=== PATIENT | female | born 1935 | race Hispanic/Latino ===

== ENCOUNTER 2016-06-17 16:58 | Emergency (ER) | payer MEDICARE, OTHER ==
[2016-06-17 16:58] VITALS: BMI 22.1
[2016-06-17 17:12] VITALS: TEMP 98
--- NOTE | 2016-06-17 18:03 | ED PDOC ---
Lower Extremity Pain/Injury Time Seen by Provider: 06/17/16 17:16 Chief Complaint (Nursing): Lower Extremity Problem/Injury Chief Complaint (Provider): right knee pain History Per: Patient History/Exam Limitations: no limitations Onset/Duration Of Symptoms: Hrs ("this morning") Current Symptoms Are (Timing): Still Present Additional Complaint(s): Leonila Pizarro is an 80 year old female, with a previous medical history of diabetes, COPD, asthma, Alzheimer's disease, anxiety, hypertension and hypercholesterolemia, who presents to the ED with complaints of right knee pain secondary to falling this morning. Pt states she tripped and fell in a hole. Pt reports to self medicating with alive to alleviate symptoms. Pr denies any numbness, tingling, head injury or loss of consciousness. Of note, pt is requesting to be admitted since her son will be away for the night and she feels lonely. Pt is also requesting food. PMD: none provided Past Medical History Reviewed: Historical Data, Nursing Documentation, Vital Signs Vital Signs: Last Vital Signs Temp 98.0 F 06/17/16 17:06 Pulse 94 H 06/17/16 17:06 Resp 16 06/17/16 17:06 BP 147/93 H 06/17/16 17:06 Pulse Ox 98 06/17/16 17:06 - Medical History PMH: Alzheimer's Disease, Anxiety, Arthritis, Asthma, COPD, Depression, Diabetes , HTN, Hypercholesterolemia Denies: Hepatitis, HIV, Seizures, Sexually Transmitted Disease - Surgical History Surgical History: No Surg Hx - Family History Family History: States: Unknown Family Hx - Living Arrangements Living Arrangements: With Family - Social History Current smoker - smoking cessation education provided: No - Immunization History Hx Tetanus Toxoid Vaccination: No Hx Influenza Vaccination: No Hx Pneumococcal Vaccination: No - Home Medications Home Medications: Ambulatory Orders Medication Instructions Recorded Alprazolam [Xanax] 0.25 mg PO BID PRN #30 tablet 03/27/16 Aspirin [Adult Low Dose Aspirin EC] 81 mg PO DAILY #30 tablet. 03/27/16 Fluticasone/Salmeterol 250/50 1 inh INH BID #1 puff 03/27/16 [Advair Diskus 250/50] Rosuvastatin Calcium [Crestor] 10 mg PO DAILY #30 tab 03/27/16 metFORMIN [glucOPHAGE] 500 mg PO BID #60 tab 03/27/16 hydrOXYzine HCl [Atarax] 25 mg PO Q6H PRN #30 tab 04/14/16 - Allergies Allergies/Adverse Reactions: Allergies Allergy/AdvReac Type Severity Reaction Status Date / Time No Known Allergies Allergy Verified 05/11/16 17:44 Review of Systems ROS Statement: Except As Marked, All Systems Reviewed And Found Negative Musculoskeletal: Positive for: Leg Pain (right knee pain ) Neurological: Negative for: Weakness, Other (numbness ) Physical Exam - Reviewed Nursing Documentation Reviewed: Yes Vital Signs Reviewed: Yes - Physical Exam Appears: Positive for: Well, Non-toxic, No Acute Distress Head Exam: Positive for: ATRAUMATIC, NORMAL INSPECTION, NORMOCEPHALIC Skin: Positive for: Normal Color, Warm, Dry Cardiovascular/Chest: Positive for: Regular Rate, Rhythm Respiratory: Positive for: CNT, Normal Breath Sounds Extremity: Positive for: Normal ROM, Capillary Refill (< 2 seconds ), Other ( small area of ecchymosis inferior medial aspect of the right patella ). Negative for: Calf Tenderness, Deformity, Swelling Neurologic/Psych: Positive for: Alert, Oriented - ECG O2 Sat by Pulse Oximetry: 98 (RA) Pulse Ox Interpretation: Normal Medical Decision Making Medical Decision Making: Initial Impression: right knee injury Initial Plan: * x-ray right knee * reevaluation x-ray normal. Pt asking for a "hot meal". She was given a turkey sandwich. Scribe Attestation: Documented by Claudia Leija, acting as a scribe for Magui Russo PA-C. Provider Scribe Attestation: All medical record entries made by the Scribe were at my direction and personally dictated by me. I have reviewed the chart and agree that the record accurately reflects my personal performance of the history, physical exam, medical decision making, and the department course for this patient. I have also personally directed, reviewed, and agree with the discharge instructions and disposition. Disposition - Clinical Impression Clinical Impression: Knee contusion - Patient ED Disposition Is Patient to be Admitted: No - Disposition Referrals: Roddy Pedroza III, MD [Staff Provider] - Disposition: Routine/Home Disposition Time: 19:15 Condition: GOOD Additional Instructions: Ice, elevation. Instructions: Knee Pain (ED)
[2016-06-17 19:55] VITALS: BP 144/86; PULSE 87; RESP 18; O2SAT 99
--- NOTE | 2016-06-18 11:53 | RAD ---
PROCEDURE: Bilateral Knee Radiographs. HISTORY: knee pain, tripped in hole on sidewalk COMPARISON: None. FINDINGS: BONES: Right Knee: Normal. No fracture. Left Knee: Normal. No fracture. JOINTS: Right Knee: Normal. No osteoarthritis. Left knee: Normal. No osteoarthritis. SOFT TISSUES: Right Knee: Normal. Left Knee: Normal. JOINT EFFUSION: Right Knee: None. Left Knee: None. OTHER FINDINGS: None. IMPRESSION: No acute fracture.
== END 2016-06-17 19:53 | disposition home or self-care (01) ==
LOC: H.ER 16:58
DX: S80.00XA Contusion of unspecified knee, initial encounter (principal); J45.909 Unspecified asthma, uncomplicated; I10 Essential (primary) hypertension; E11.9 Type 2 diabetes mellitus without complications; Z86.59 Personal history of other mental and behavioral disorders; Z79.82 Long term (current) use of aspirin

== ENCOUNTER 2016-06-26 16:25 | Emergency (ER) | payer MEDICARE, OTHER ==
[2016-06-26 16:25] VITALS: BMI 22.1
[2016-06-26 17:11] VITALS: BP 136/75; PULSE 84; RESP 16; TEMP 98.4; O2SAT 98
--- NOTE | 2016-06-26 18:43 | ED PDOC ---
HPI: General Adult Time Seen by Provider: 06/26/16 17:54 Chief Complaint (Nursing): Med Refill Chief Complaint (Provider): Medication refill - xanax, lisinopril History Per: Patient History/Exam Limitations: no limitations Onset/Duration Of Symptoms: Days (today ) Have you had recent travel within the past 21 days to any of the following countries: [place], [place], [place] or [place]?: No Current Symptoms Are (Timing): Still Present Past Medical History Reviewed: Historical Data, Nursing Documentation, Vital Signs Vital Signs: Last Vital Signs Temp 98.4 F 06/26/16 17:08 Pulse 84 06/26/16 17:08 Resp 16 06/26/16 17:08 BP 136/75 06/26/16 17:08 Pulse Ox 98 06/26/16 17:08 - Medical History PMH: Alzheimer's Disease, Anxiety, Arthritis, Asthma, COPD, Depression, Diabetes , HTN, Hypercholesterolemia Denies: Hepatitis, HIV, Seizures, Sexually Transmitted Disease - Surgical History Surgical History: No Surg Hx - Family History Family History: States: Unknown Family Hx - Living Arrangements Living Arrangements: With Family - Social History Current smoker - smoking cessation education provided: No Alcohol: None Drugs: Denies - Immunization History Hx Tetanus Toxoid Vaccination: No Hx Influenza Vaccination: No Hx Pneumococcal Vaccination: No - Home Medications Home Medications: Ambulatory Orders Medication Instructions Recorded Alprazolam [Xanax] 0.25 mg PO BID PRN #30 tablet 03/27/16 Aspirin [Adult Low Dose Aspirin EC] 81 mg PO DAILY #30 tablet. 03/27/16 Fluticasone/Salmeterol 250/50 1 inh INH BID #1 puff 03/27/16 [Advair Diskus 250/50] Rosuvastatin Calcium [Crestor] 10 mg PO DAILY #30 tab 03/27/16 metFORMIN [glucOPHAGE] 500 mg PO BID #60 tab 03/27/16 hydrOXYzine HCl [Atarax] 25 mg PO Q6H PRN #30 tab 04/14/16 Lisinopril [Zestril] 2.5 mg PO DAILY #30 tablet 06/26/16 - Allergies Allergies/Adverse Reactions: Allergies Allergy/AdvReac Type Severity Reaction Status Date / Time No Known Allergies Allergy Verified 06/26/16 17:08 Review of Systems ROS Statement: Except As Marked, All Systems Reviewed And Found Negative Physical Exam - Reviewed Nursing Documentation Reviewed: Yes Vital Signs Reviewed: Yes - Physical Exam Appears: Positive for: Well, Non-toxic, No Acute Distress Head Exam: Positive for: ATRAUMATIC, NORMAL INSPECTION, NORMOCEPHALIC Skin: Positive for: Normal Color, Warm, DRY Eye Exam: Positive for: EOMI, Normal appearance, PERRL ENT: Positive for: Normal ENT Inspection Neck: Positive for: Normal, Painless ROM Cardiovascular/Chest: Positive for: Regular Rate, Rhythm Respiratory: Positive for: CNT, Normal Breath Sounds Gastrointestinal/Abdominal: Positive for: Normal Exam, Bowel Sounds, Soft Back: Positive for: Normal Inspection Extremity: Positive for: Normal ROM Neurologic/Psych: Positive for: Alert, Oriented - ECG O2 Sat by Pulse Oximetry: 98 Disposition - Clinical Impression Clinical Impression: Medication refill - Patient ED Disposition Is Patient to be Admitted: No Counseled Patient/Family Regarding: Diagnosis, Need For Followup, Rx Given - Disposition Referrals: [facility] [Outside] Disposition: Routine/Home Disposition Time: 18:41 Condition: GOOD Prescriptions: Lisinopril [Zestril] 2.5 mg PO DAILY #30 tablet Instructions: Medicine Refill (ED)
== END 2016-06-26 22:51 | disposition home or self-care (01) ==
LOC: H.ER 16:25
DX: Z76.0 Encounter for issue of repeat prescription (principal)

== ENCOUNTER 2016-07-26 15:18 | Emergency (ER) | payer MEDICARE, OTHER ==
[2016-07-26 15:18] VITALS: BMI 22.1
[2016-07-26 15:42] VITALS: BP 97/53; PULSE 91; RESP 16; TEMP 98.2; O2SAT 97
--- NOTE | 2016-07-26 16:50 | ED PDOC ---
HPI: Chest Pain Time Seen by Provider: 07/26/16 15:38 Chief Complaint (Nursing): Chest Pain Chief Complaint (Provider): Chest Pain History Per: Patient History/Exam Limitations: no limitations Onset/Duration Of Symptoms: Days (since yesterday), Intermittent Episodes (only with coughing) Current Symptoms Are (Timing): Gone Now Associated Symptoms: denies: Dyspnea, Other (no fever, leg swelling, feelings of substernal chest pressure) Additional Complaint(s): Leonila Pizarro is an 80 year old female, with a past medical history inclusive of HTN, hypercholesterolemia, COPD, asthma and Alzheimer's Disease, who presents to the ED on 07/26/16 for the evaluation of intermittent, left-sided chest pain that she has experienced since yesterday; only present upon the occasional mild cough. Pain, further described as both sharp and atraumatic, has not been accompanied by any fever, shortness of breath, feelings of substernal chest pressure or leg swelling. Patient reports concerns regarding the possiblity of myocardial infarction, which are what prompted ED visit. Of note, patient has been seen within this ED multiple times for similar complaints, including the past 3 visits. PMD: none provided Past Medical History Reviewed: Historical Data, Nursing Documentation, Vital Signs Vital Signs: Last Vital Signs Temp 98.2 F 07/26/16 15:35 Pulse 91 H 07/26/16 15:35 Resp 16 07/26/16 15:35 BP 97/53 L 07/26/16 15:35 Pulse Ox 97 07/26/16 20:35 - Medical History PMH: Alzheimer's Disease, Anxiety, Arthritis, Asthma, COPD, Depression, Diabetes , HTN, Hypercholesterolemia Denies: Hepatitis, HIV, Seizures, Sexually Transmitted Disease - Family History Family History: States: Unknown Family Hx - Social History Ex-Smoker (has not smoked in the last 12 months): Yes Alcohol: None Drugs: Denies - Immunization History Hx Tetanus Toxoid Vaccination: No Hx Influenza Vaccination: No Hx Pneumococcal Vaccination: No - Home Medications Home Medications: Ambulatory Orders Medication Instructions Recorded Alprazolam [Xanax] 0.25 mg PO BID PRN #30 tablet 03/27/16 Aspirin [Adult Low Dose Aspirin EC] 81 mg PO DAILY #30 tablet. 03/27/16 Fluticasone/Salmeterol 250/50 1 inh INH BID #1 puff 03/27/16 [Advair Diskus 250/50] Rosuvastatin Calcium [Crestor] 10 mg PO DAILY #30 tab 03/27/16 metFORMIN [glucOPHAGE] 500 mg PO BID #60 tab 03/27/16 hydrOXYzine HCl [Atarax] 25 mg PO Q6H PRN #30 tab 04/14/16 Lisinopril [Zestril] 2.5 mg PO DAILY #30 tablet 06/26/16 Lidocaine 5% [Lidoderm] 1 ea TD DAILY PRN #10 patch 07/26/16 Naproxen [Naprosyn] 1 tab PO BID PRN #20 tab 07/26/16 - Allergies Allergies/Adverse Reactions: Allergies Allergy/AdvReac Type Severity Reaction Status Date / Time No Known Allergies Allergy Verified 06/26/16 17:08 Review of Systems ROS Statement: Except As Marked, All Systems Reviewed And Found Negative Constitutional: Negative for: Fever Cardiovascular: Positive for: Chest Pain (left-sided, only present w/mild cough ; no feelings of substernal pressure). Negative for: Edema (no leg swelling) Respiratory: Positive for: Cough (mild). Negative for: Shortness of Breath Physical Exam - Reviewed Nursing Documentation Reviewed: Yes Vital Signs Reviewed: Yes - Physical Exam Appears: Positive for: Well, Non-toxic, No Acute Distress Head Exam: Positive for: ATRAUMATIC, NORMOCEPHALIC Skin: Positive for: Normal Color, Warm, Dry Eye Exam: Positive for: Normal appearance, PERRL ENT: Positive for: Pharynx Is (clear), Other (dry mucous membranes). Negative for: Pharyngeal Erythema, Tonsillar Exudate, Tonsillar Swelling Cardiovascular/Chest: Positive for: Regular Rate, Rhythm, Other (pain is reproducible with palpation of left chest wall). Negative for: Murmur Respiratory: Positive for: Normal Breath Sounds. Negative for: Rales, Rhonchi, Wheezing, Respiratory Distress Gastrointestinal/Abdominal: Positive for: Normal Exam, Soft. Negative for: Tenderness, Distended Back: Positive for: Normal Inspection Extremity: Positive for: Normal ROM. Negative for: Swelling Neurologic/Psych: Positive for: Alert, Oriented, Mood/Affect (mildly anxious) - ECG O2 Sat by Pulse Oximetry: 97 (RA) Pulse Ox Interpretation: Normal - Radiology X-Ray: Interpreted by Me, Viewed By Me X-Ray Interpretation: Other (questionable opacifications within b/l lung pompa) - CT Scan/US CT Chest w/o contrast Other Rad Studies (CT/US): Read By Radiologist, Radiology Report Reviewed Other Rad Interpretation: no acute findings Medical Decision Making Medical Decision Makin:38 Initial Impression: chest wall pain Initial Plan: * EKG * CXR * Toradol 15mg IM * Flexeril 10mg PO * Reevaluation 17:18 CXR as reviewed by me shows questionable opacifications within b/l lung pompa. Will order CT Chest w/o contrast for further evaluation. 19:47 CT Chest report reviewed: FINDINGS: Lungs: No focal consolidation, no mass. Minimal fibrosis. Pleural space: Unremarkable. No pneumothorax. No significant effusion. Heart: Unremarkable. No cardiomegaly. No significant pericardial effusion. Bones/joints: No acute findings. Soft tissues: Unremarkable. Vasculature: Unremarkable. No thoracic aortic aneurysm. Lymph nodes: No significant adenopathy. IMPRESSION: No acute findings. 20:33 Upon provider reevaluation patient is feeling better, is medically stable, and requires no further treatment in the ED at this time. Patient will be discharged home with Rx for Lidoderm and Naprosyn. Counseling was provided and all questions were answered regarding diagnosis and need for follow up with her PMD. There is agreement to discharge plan. Return if symptoms persist or worsen. Clinical Impression: atypical chest pain Scribe Attestation: Documented by Maryellen Garza, acting as a scribe for Dang Madrigal MD. Provider Scribe Attestation: All medical record entries made by the Scribe were at my direction and personally dictated by me. I have reviewed the chart and agree that the record accurately reflects my personal performance of the history, physical exam, medical decision making, and the department course for this patient. I have also personally directed, reviewed, and agree with the discharge instructions and disposition. Disposition - Clinical Impression Clinical Impression: Atypical chest pain - Patient ED Disposition Is Patient to be Admitted: No Counseled Patient/Family Regarding: Studies Performed, Diagnosis, Need For Followup, Rx Given - Disposition Disposition: Routine/Home Disposition Time: 20:33 Condition: GOOD Additional Instructions: SEE YOUR DOCTOR ON THURSDAY FOR REEVALUATION Prescriptions: Lidocaine 5% [Lidoderm] 1 ea TD DAILY PRN #10 patch PRN Reason: PAIN Naproxen [Naprosyn] 1 tab PO BID PRN #20 tab PRN Reason: Pain Instructions: Chest Wall Pain (ED)
--- NOTE | 2016-07-27 08:04 | CT ---
PROCEDURE: CT Chest without contrast HISTORY: Pleuritic chest pain LEFT sided, densities on CXR COMPARISON: None. TECHNIQUE: Contiguous axial images were obtained through the chest without intravenous contrast enhancement. Sagittal and coronal reconstructions were performed. Radiation dose (DLP): 332 mGy-cm. This CT exam was performed using one or more of the following dose reduction techniques: Automated exposure control, adjustment of the mA and/or kV according to patient size, and/or use of iterative reconstruction technique. FINDINGS: LUNGS: Chronic bilateral peripheral interstitial changes. MEDIASTINUM: Unremarkable thoracic aorta. No aneurysm. Normal sized heart. Main pulmonary artery unremarkable. No vascular congestion. No lymphadenopathy. PLEURA: No pleural fluid. No pneumothorax. BONES: No fracture. No destructive lesion. UPPER ABDOMEN: Grossly unremarkable. OTHER FINDINGS: None. IMPRESSION: Chronic bilateral peripheral interstitial changes.
--- NOTE | 2016-07-27 08:44 | RAD ---
HISTORY: CHEST WALL PAIN COMPARISON: No prior. TECHNIQUE: Chest PA and lateral FINDINGS: LUNGS: No active pulmonary disease. PLEURA: No significant pleural effusion identified. No pneumothorax apparent. CARDIOVASCULAR: Normal. OSSEOUS STRUCTURES: No significant abnormalities. VISUALIZED UPPER ABDOMEN: Normal. OTHER FINDINGS: None. IMPRESSION: No active disease.
--- NOTE | 2016-07-27 10:24 | CARD ---
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
== END 2016-07-26 20:35 | disposition home or self-care (01) ==
LOC: H.ER 15:18
DX: R07.89 Other chest pain (principal); I10 Essential (primary) hypertension; E78.00 Pure hypercholesterolemia, unspecified; G30.9 Alzheimer's disease, unspecified; F02.80 Dementia in other diseases classified elsewhere, unspecified severity, without behavioral disturbance, psychotic disturbance, mood disturbance, and anxiety; E11.9 Type 2 diabetes mellitus without complications; Z87.891 Personal history of nicotine dependence
CPT/HCPCS: 71020; 71250; 82948; 93005; 96372; 99283; J1885

== ENCOUNTER 2016-07-31 12:39 | Emergency (ER) | payer MEDICARE, OTHER ==
[2016-07-31 12:40] VITALS: BMI 22.1
[2016-07-31 12:48] VITALS: BP 130/84; PULSE 96; RESP 18; TEMP 97; O2SAT 100
--- NOTE | 2016-07-31 13:19 | ED PDOC ---
HPI: General Adult Time Seen by Provider: 07/31/16 12:50 Chief Complaint (Nursing): Med Refill Chief Complaint (Provider): Med Refill History Per: Patient History/Exam Limitations: no limitations Additional Complaint(s): 12:50 Leonila Pizarro, 81 year old female presents to the ED on 07/31/16 for a refill of her medications, Aspirin and Lisinopril. The patient offers no other complaints. The last time the patient took her medications was yesterday. Past Medical History Reviewed: Historical Data, Nursing Documentation, Vital Signs Vital Signs: Last Vital Signs Temp 97 F L 07/31/16 12:43 Pulse 96 H 07/31/16 12:43 Resp 18 07/31/16 12:43 BP 130/84 07/31/16 12:43 Pulse Ox 100 07/31/16 13:22 - Medical History PMH: Alzheimer's Disease, Anxiety, Arthritis, Asthma, COPD, Depression, Diabetes , HTN, Hypercholesterolemia Denies: Hepatitis, HIV, Seizures, Sexually Transmitted Disease - Family History Family History: States: Unknown Family Hx - Immunization History Hx Tetanus Toxoid Vaccination: No Hx Influenza Vaccination: No Hx Pneumococcal Vaccination: No - Home Medications Home Medications: Ambulatory Orders Medication Instructions Recorded Alprazolam [Xanax] 0.25 mg PO BID PRN #30 tablet 03/27/16 Aspirin [Adult Low Dose Aspirin EC] 81 mg PO DAILY #30 tablet. 03/27/16 Fluticasone/Salmeterol 250/50 1 inh INH BID #1 puff 03/27/16 [Advair Diskus 250/50] Rosuvastatin Calcium [Crestor] 10 mg PO DAILY #30 tab 03/27/16 metFORMIN [glucOPHAGE] 500 mg PO BID #60 tab 03/27/16 hydrOXYzine HCl [Atarax] 25 mg PO Q6H PRN #30 tab 04/14/16 Lisinopril [Zestril] 2.5 mg PO DAILY #30 tablet 06/26/16 Lidocaine 5% [Lidoderm] 1 ea TD DAILY PRN #10 patch 07/26/16 Naproxen [Naprosyn] 1 tab PO BID PRN #20 tab 07/26/16 Aspirin [Low Dose Aspirin EC] 81 mg PO DAILY #30 tab 07/31/16 Lisinopril 2.5 mg PO DAILY #7 tablet 07/31/16 - Allergies Allergies/Adverse Reactions: Allergies Allergy/AdvReac Type Severity Reaction Status Date / Time No Known Allergies Allergy Verified 06/26/16 17:08 Physical Exam - Reviewed Nursing Documentation Reviewed: Yes Vital Signs Reviewed: Yes - Physical Exam Appears: Positive for: Well, Non-toxic, No Acute Distress Head Exam: Positive for: ATRAUMATIC, NORMOCEPHALIC Skin: Positive for: Normal Color, Warm, Dry Eye Exam: Positive for: Normal appearance ENT: Positive for: Normal ENT Inspection Neck: Positive for: Normal, Supple Cardiovascular/Chest: Positive for: Regular Rate, Rhythm, Chest Non Tender. Negative for: Murmur Respiratory: Positive for: Normal Breath Sounds. Negative for: Respiratory Distress Gastrointestinal/Abdominal: Positive for: Normal Exam, Soft. Negative for: Tenderness, Mass, Distended, Guarding, Rebound Back: Positive for: Normal Inspection Extremity: Positive for: Normal ROM Neurologic/Psych: Positive for: Alert, Oriented (x3) - ECG O2 Sat by Pulse Oximetry: 100 (RA) Pulse Ox Interpretation: Normal Medical Decision Making Medical Decision Makin:50 Initial Impression: Medication Refill Initial Plan: * Refill medicine. Scribe~Attestation: Documented by Di Mccord, acting as a~guevaraibe~for Jordy Rico PA-C. Provider~Mariame~Attestation: All medical record entries made by the~Dougwere at my direction and personally dictated by me. I have reviewed the chart and agree that the record accurately reflects my personal performance of the history, physical exam, medical decision making, and the department course for this patient. I have also personally directed, reviewed, and agree with the discharge instructions and disposition. Disposition - Clinical Impression Clinical Impression: Medication refill - Patient ED Disposition Is Patient to be Admitted: No - Disposition Referrals: [facility] [Outside] Disposition Time: 13:00 Condition: STABLE Prescriptions: Aspirin [Low Dose Aspirin EC] 81 mg PO DAILY #30 tab Lisinopril 2.5 mg PO DAILY #7 tablet Instructions: Medicine Refill (ED) Print Language: [place]
== END 2016-07-31 13:00 | disposition home or self-care (01) ==
LOC: H.ER 12:39
DX: Z76.0 Encounter for issue of repeat prescription (principal); E11.9 Type 2 diabetes mellitus without complications; E78.00 Pure hypercholesterolemia, unspecified; F02.80 Dementia in other diseases classified elsewhere, unspecified severity, without behavioral disturbance, psychotic disturbance, mood disturbance, and anxiety; G30.9 Alzheimer's disease, unspecified; I10 Essential (primary) hypertension; J45.909 Unspecified asthma, uncomplicated; Z79.82 Long term (current) use of aspirin; Z79.84 Long term (current) use of oral hypoglycemic drugs

== ENCOUNTER 2016-08-10 13:53 | Emergency (ER) | payer MEDICARE, OTHER ==
[2016-08-10 13:53] VITALS: BMI 22.1
[2016-08-10 14:09] VITALS: BP 137/78; PULSE 89; RESP 18; TEMP 98.3; O2SAT 99
--- NOTE | 2016-08-10 14:24 | ED PDOC ---
HPI: General Adult Time Seen by Provider: 08/10/16 14:13 Chief Complaint (Nursing): Anxiety Chief Complaint (Provider): Medical evaluation History Per: Patient History/Exam Limitations: no limitations Severity: Mild Additional Complaint(s): 81 year old female with a pertinent medical history of diabetes, hypertension, and Alzheimer's disease presents to the ED for a medical assessment because she lost her glucometer. Pt requesting to have her blood sugar and blood pressure checked. Noted, pt has been evaluated numerous times at [facility] for various non specific complaints. She denies having any medical complaints at this time. Pt asking for food and coffee upon initial assessment, ambulating around ER in no distress. Past Medical History Reviewed: Historical Data, Nursing Documentation, Vital Signs Vital Signs: Last Vital Signs Temp 98.3 F 08/10/16 14:01 Pulse 89 08/10/16 14:01 Resp 18 08/10/16 14:01 BP 137/78 08/10/16 14:01 Pulse Ox 99 08/11/16 14:23 - Medical History PMH: Alzheimer's Disease, Anxiety, Arthritis, Asthma, COPD, Depression, Diabetes , HTN, Hypercholesterolemia Denies: Hepatitis, HIV, Seizures, Sexually Transmitted Disease - Family History Family History: States: Unknown Family Hx - Social History Alcohol: None Drugs: Denies - Immunization History Hx Tetanus Toxoid Vaccination: No Hx Influenza Vaccination: No Hx Pneumococcal Vaccination: No - Home Medications Home Medications: Ambulatory Orders Medication Instructions Recorded Alprazolam [Xanax] 0.25 mg PO BID PRN #30 tablet 03/27/16 Aspirin [Adult Low Dose Aspirin EC] 81 mg PO DAILY #30 tablet.dr 03/27/16 Fluticasone/Salmeterol 250/50 1 inh INH BID #1 puff 03/27/16 [Advair Diskus 250/50] Rosuvastatin Calcium [Crestor] 10 mg PO DAILY #30 tab 03/27/16 metFORMIN [glucOPHAGE] 500 mg PO BID #60 tab 03/27/16 hydrOXYzine HCl [Atarax] 25 mg PO Q6H PRN #30 tab 04/14/16 Lisinopril [Zestril] 2.5 mg PO DAILY #30 tablet 06/26/16 Lidocaine 5% [Lidoderm] 1 ea TD DAILY PRN #10 patch 07/26/16 Naproxen [Naprosyn] 1 tab PO BID PRN #20 tab 07/26/16 Aspirin [Low Dose Aspirin EC] 81 mg PO DAILY #30 tab 07/31/16 Lisinopril 2.5 mg PO DAILY #7 tablet 07/31/16 - Allergies Allergies/Adverse Reactions: Allergies Allergy/AdvReac Type Severity Reaction Status Date / Time No Known Allergies Allergy Verified 06/26/16 17:08 Review of Systems ROS Statement: Except As Marked, All Systems Reviewed And Found Negative Physical Exam - Reviewed Nursing Documentation Reviewed: Yes Vital Signs Reviewed: Yes - Physical Exam Appears: Positive for: Well, Non-toxic, No Acute Distress Head Exam: Positive for: ATRAUMATIC, NORMOCEPHALIC Skin: Positive for: Normal Color, Warm, Dry Eye Exam: Positive for: Normal appearance Neck: Positive for: Normal Cardiovascular/Chest: Positive for: Regular Rate, Rhythm Respiratory: Positive for: Normal Breath Sounds. Negative for: Respiratory Distress Gastrointestinal/Abdominal: Positive for: Normal Exam, Soft. Negative for: Tenderness Neurologic/Psych: Positive for: Alert, Oriented (3x), Mood/Affect (slightly anxious) - ECG O2 Sat by Pulse Oximetry: 99 (RA) Pulse Ox Interpretation: Normal Medical Decision Making Medical Decision Makin:13 Initial impression: 81 year old female, slightly anxious appearing, lost her glucometer. Plan: Patient's blood pressure, vitals, and glucose levels are normal. Patient will be discharged. There is agreement upon discharge plan. Scribe Attestation: Documented by Felicia Lara, acting as a scribe for Spencer Lr MD. Provider Scribe Attestation: All medical record entries made by the Scribe were at my direction and personally dictated by me. I have reviewed the chart and agree that the record accurately reflects my personal performance of the history, physical exam, medical decision making, and the department course for this patient. I have also personally directed, reviewed, and agree with the discharge instructions and disposition. Disposition - Clinical Impression Clinical Impression: Encounter for medical assessment - Disposition Disposition Time: 03:00 Condition: STABLE Additional Instructions: please follow up in clinic. return to er with worsening symptoms or concerns Instructions: How to Check Your Blood Sugar (ED), Hypertension (ED)
== END 2016-08-10 14:50 | disposition home or self-care (01) ==
LOC: H.ER 13:53
DX: F41.9 Anxiety disorder, unspecified (principal); E11.9 Type 2 diabetes mellitus without complications; E78.00 Pure hypercholesterolemia, unspecified; F02.80 Dementia in other diseases classified elsewhere, unspecified severity, without behavioral disturbance, psychotic disturbance, mood disturbance, and anxiety; G30.9 Alzheimer's disease, unspecified; I10 Essential (primary) hypertension; J44.9 Chronic obstructive pulmonary disease, unspecified; Z79.82 Long term (current) use of aspirin; Z79.84 Long term (current) use of oral hypoglycemic drugs; Z79.899 Other long term (current) drug therapy

== ENCOUNTER 2016-08-12 15:27 | Emergency (ER) | payer MEDICARE, OTHER ==
[2016-08-12 15:30] VITALS: BMI 22.1
[2016-08-12 15:35] VITALS: BP 113/57; PULSE 88; RESP 16; TEMP 98.2; O2SAT 98
--- NOTE | 2016-08-12 16:08 | ED PDOC ---
HPI: General Adult Time Seen by Provider: 08/12/16 15:56 Chief Complaint (Nursing): Med Refill Chief Complaint (Provider): anxious History Per: Patient History/Exam Limitations: no limitations Onset/Duration Of Symptoms: Unknown Have you had recent travel within the past 21 days to any of the following countries: [place], [place], [place] or [place]?: No Additional Complaint(s): Leonila Pizarro is an 81 year old female, with an extensive previous medical history which includes diabetes, arthritis, anxiety, hypertension and COPD, who presents to the ED because she feels uncomfortable staying home alone. Patient states she lives with her son but he is not home as often which makes her anxious because she is a diabetic. She reports being given a number to a clinic in order to schedule an appointment but has been unsuccessful in contacting someone from the office. PMD: none provided Past Medical History Reviewed: Historical Data, Nursing Documentation, Vital Signs Vital Signs: Last Vital Signs Temp 98.2 F 08/12/16 15:33 Pulse 88 08/12/16 15:33 Resp 16 08/12/16 15:33 BP 113/57 L 08/12/16 15:33 Pulse Ox 98 08/12/16 16:13 - Medical History PMH: Alzheimer's Disease, Anxiety, Arthritis, Asthma, COPD, Depression, Diabetes , HTN, Hypercholesterolemia Denies: Hepatitis, HIV, Seizures, Sexually Transmitted Disease - Family History Family History: States: Unknown Family Hx - Immunization History Hx Tetanus Toxoid Vaccination: No Hx Influenza Vaccination: No Hx Pneumococcal Vaccination: No - Home Medications Home Medications: Ambulatory Orders Medication Instructions Recorded Alprazolam [Xanax] 0.25 mg PO BID PRN #30 tablet 03/27/16 Aspirin [Adult Low Dose Aspirin EC] 81 mg PO DAILY #30 tablet. 03/27/16 Fluticasone/Salmeterol 250/50 1 inh INH BID #1 puff 03/27/16 [Advair Diskus 250/50] Rosuvastatin Calcium [Crestor] 10 mg PO DAILY #30 tab 03/27/16 metFORMIN [glucOPHAGE] 500 mg PO BID #60 tab 03/27/16 hydrOXYzine HCl [Atarax] 25 mg PO Q6H PRN #30 tab 04/14/16 Lisinopril [Zestril] 2.5 mg PO DAILY #30 tablet 03/30/17 Lidocaine 5% [Lidoderm] 1 ea TD DAILY PRN #10 patch 07/26/16 Naproxen [Naprosyn] 1 tab PO BID PRN #20 tab 07/26/16 Aspirin [Low Dose Aspirin EC] 81 mg PO DAILY #30 tab 07/31/16 Lisinopril 2.5 mg PO DAILY #7 tablet 07/31/16 - Allergies Allergies/Adverse Reactions: Allergies Allergy/AdvReac Type Severity Reaction Status Date / Time No Known Allergies Allergy Verified 06/26/16 17:08 Review of Systems ROS Statement: Except As Marked, All Systems Reviewed And Found Negative Psych: Positive for: Anxiety Physical Exam - Reviewed Nursing Documentation Reviewed: Yes Vital Signs Reviewed: Yes - Physical Exam Appears: Positive for: Well, Non-toxic, No Acute Distress Neurologic/Psych: Positive for: Alert, Oriented, Mood/Affect (anxious ) - ECG O2 Sat by Pulse Oximetry: 98 (RA) Pulse Ox Interpretation: Normal - Progress ED Course And Treament: PATIENT HAS HAD MULTIPLE VISIT IN ED FOR ANXIETY AND CONCERNS ABOUT HER DIABETES /HYPERTENSION. STATES SHE WAS 'DROPPED BY HER PMD' AND WAS GIVEN PHONE NUMBER TO CLINIC BUT UNABLE TO GET THROUGH TO [employer]. D/W FAMILY MED RESIDENT DR VILLAR APPOINTMENT GIVEN TOMORROW 12:[address] BRUNO Medical Decision Making Medical Decision Making: Initial Impression: Anxious Initial Plan: * physical exam * schedule appointment for patient * disposition Scribe Attestation: Documented by Claudia Leija, acting as a scribe for Bisi Burgess PA-C. Provider Scribe Attestation: All medical record entries made by the Scribe were at my direction and personally dictated by me. I have reviewed the chart and agree that the record accurately reflects my personal performance of the history, physical exam, medical decision making, and the department course for this patient. I have also personally directed, reviewed, and agree with the discharge instructions and disposition. Disposition - Clinical Impression Clinical Impression: Anxiety, Diabetes - Patient ED Disposition Is Patient to be Admitted: No - Disposition Referrals: [facility] [Outside] Disposition: Routine/Home Disposition Time: 17:07 Condition: FAIR Additional Instructions: FOLLOW UP WITH JACKIE TOMORROW 08/13/2016 AT 12:[address] BRUNO Instructions: Anxiety (ED)
== END 2016-08-12 17:45 | disposition home or self-care (01) ==
LOC: H.ER 15:27
DX: F41.9 Anxiety disorder, unspecified (principal); E11.9 Type 2 diabetes mellitus without complications

== ENCOUNTER 2016-09-10 13:54 | Emergency (ER) | payer OTHER ==
[2016-09-10 13:55] VITALS: BMI 22.1
[2016-09-10 14:06] VITALS: BP 116/64; PULSE 72; RESP 18; TEMP 98.8; O2SAT 99
--- NOTE | 2016-09-10 14:27 | ED PDOC ---
HPI: CCC, URI, Sore Throat Time Seen by Provider: 09/10/16 14:10 Chief Complaint (Nursing): Cough, Cold, Congestion History Per: Patient (Non productive cough assoc with back pain when coughing x 2 days. No fever or SOB. Denies chest pain.) Onset/Duration Of Symptoms: Days (2) Associated Symptoms: Cough. denies: Fever, Sputum Severity: Mild Pain Scale Rating Of: 2 Past Medical History Vital Signs: Last Vital Signs Temp 98.8 F 09/10/16 14:03 Pulse 72 09/10/16 14:03 Resp 18 09/10/16 14:03 BP 116/64 09/10/16 14:03 Pulse Ox 99 09/10/16 14:27 - Medical History PMH: Alzheimer's Disease, Anxiety, Arthritis, Asthma, COPD, Depression, Diabetes , HTN, Hypercholesterolemia Denies: Hepatitis, HIV, Seizures, Sexually Transmitted Disease - Family History Family History: States: Unknown Family Hx - Immunization History Hx Tetanus Toxoid Vaccination: No Hx Influenza Vaccination: No Hx Pneumococcal Vaccination: No - Home Medications Home Medications: Ambulatory Orders Medication Instructions Recorded Alprazolam [Xanax] 0.25 mg PO BID PRN #30 tablet 03/27/16 Aspirin [Adult Low Dose Aspirin EC] 81 mg PO DAILY #30 tablet.dr 03/27/16 Fluticasone/Salmeterol 250/50 1 inh INH BID #1 puff 03/27/16 [Advair Diskus 250/50] Rosuvastatin Calcium [Crestor] 10 mg PO DAILY #30 tab 03/27/16 metFORMIN [glucOPHAGE] 500 mg PO BID #60 tab 03/27/16 hydrOXYzine HCl [Atarax] 25 mg PO Q6H PRN #30 tab 04/14/16 Lisinopril [Zestril] 2.5 mg PO DAILY #30 tablet 06/26/16 Lidocaine 5% [Lidoderm] 1 ea TD DAILY PRN #10 patch 07/26/16 Naproxen [Naprosyn] 1 tab PO BID PRN #20 tab 07/26/16 Aspirin [Low Dose Aspirin EC] 81 mg PO DAILY #30 tab 07/31/16 Lisinopril 2.5 mg PO DAILY #7 tablet 07/31/16 Amoxicillin/Potassium Clav 1 tab PO TID #30 tab 09/10/16 [Augmentin 500 mg-125 mg] - Allergies Allergies/Adverse Reactions: Allergies Allergy/AdvReac Type Severity Reaction Status Date / Time No Known Allergies Allergy Verified 09/10/16 14:03 Review of Systems ROS Statement: Except As Marked, All Systems Reviewed And Found Negative Cardiovascular: Negative for: Chest Pain Respiratory: Positive for: Cough. Negative for: Shortness of Breath Musculoskeletal: Positive for: Back Pain Physical Exam - Reviewed Nursing Documentation Reviewed: Yes Vital Signs Reviewed: Yes - Physical Exam Appears: Positive for: Non-toxic, No Acute Distress Head Exam: Positive for: ATRAUMATIC, NORMAL INSPECTION, NORMOCEPHALIC Skin: Positive for: Normal Color, Warm, DRY Eye Exam: Positive for: EOMI, Normal appearance, PERRL ENT: Positive for: Normal ENT Inspection Neck: Positive for: Normal, Painless ROM Cardiovascular/Chest: Positive for: Regular Rate, Rhythm Respiratory: Positive for: Rhonchi. Negative for: Wheezing, Respiratory Distress Gastrointestinal/Abdominal: Positive for: Normal Exam, Bowel Sounds, Soft Back: Positive for: Normal Inspection Extremity: Positive for: Normal ROM Neurologic/Psych: Positive for: Alert, Oriented - ECG O2 Sat by Pulse Oximetry: 99 Disposition - Clinical Impression Clinical Impression: Bronchitis - Patient ED Disposition Is Patient to be Admitted: No - Disposition Referrals: [facility] [Outside] Disposition: Routine/Home Disposition Time: 15:08 Condition: FAIR Prescriptions: Amoxicillin/Potassium Clav [Augmentin 500 mg-125 mg] 1 tab PO TID #30 tab Instructions: Acute Bronchitis (ED)
--- NOTE | 2016-09-10 15:35 | RAD ---
HISTORY: Cough. COMPARISON: 07/26/2016 chest x-ray. 07/26/2016 CT thorax 03/26/2016 TECHNIQUE: Chest PA and lateral FINDINGS: LUNGS: Cardiac interstitial lung disease. No focal-acute abnormalities. PLEURA: No significant pleural effusion identified. No pneumothorax apparent. CARDIOVASCULAR: No radiographic findings to suggest acute or significant cardiovascular disease. OSSEOUS STRUCTURES: No significant abnormalities. VISUALIZED UPPER ABDOMEN: Normal. OTHER FINDINGS: None. IMPRESSION: No active disease. No significant interval change compared to the prior examination(s).
== END 2016-09-10 15:45 | disposition home or self-care (01) ==
LOC: H.ER 13:54
DX: J40 Bronchitis, not specified as acute or chronic (principal)

== ENCOUNTER 2016-09-10 20:34 | Emergency (ER) | payer MEDICARE, OTHER ==
[2016-09-10 20:34] VITALS: BMI 22.1
[2016-09-10 20:45] VITALS: BP 108/72; PULSE 72; RESP 17; TEMP 98.3; O2SAT 98
--- NOTE | 2016-09-10 20:55 | ED PDOC ---
HPI: General Adult Time Seen by Provider: 09/10/16 20:53 Chief Complaint (Nursing): Back Pain Chief Complaint (Provider): back pain History Per: Patient Additional Complaint(s): Patient was seen in ED earlier today and diagnosed with bronchitis. She was sent home with prescription for Augmentin but presents this evening complaining of persistent cough and back pain. Patient states she took one dose of Augmentin and still has persistent cough so she returned to ED. No associated chest pain or shortness of breath. Patient is well-known to emergency department for frequent visits. Past Medical History Reviewed: Historical Data, Nursing Documentation, Vital Signs Vital Signs: Last Vital Signs Temp 98.3 F 09/10/16 20:40 Pulse 72 09/10/16 20:40 Resp 17 09/10/16 20:40 BP 108/72 09/10/16 20:40 Pulse Ox 98 09/10/16 20:54 - Medical History PMH: Alzheimer's Disease, Anxiety, Arthritis, Asthma, COPD, Depression, Diabetes , HTN, Hypercholesterolemia - Family History Family History: States: No Known Family Hx - Living Arrangements Living Arrangements: Alone - Home Medications Home Medications: Ambulatory Orders Medication Instructions Recorded Alprazolam [Xanax] 0.25 mg PO BID PRN #30 tablet 03/27/16 Aspirin [Adult Low Dose Aspirin EC] 81 mg PO DAILY #30 tablet. 03/27/16 Fluticasone/Salmeterol 250/50 1 inh INH BID #1 puff 03/27/16 [Advair Diskus 250/50] Rosuvastatin Calcium [Crestor] 10 mg PO DAILY #30 tab 03/27/16 metFORMIN [glucOPHAGE] 500 mg PO BID #60 tab 03/27/16 hydrOXYzine HCl [Atarax] 25 mg PO Q6H PRN #30 tab 04/14/16 Lisinopril [Zestril] 2.5 mg PO DAILY #30 tablet 06/26/16 Lidocaine 5% [Lidoderm] 1 ea TD DAILY PRN #10 patch 07/26/16 Naproxen [Naprosyn] 1 tab PO BID PRN #20 tab 07/26/16 Aspirin [Low Dose Aspirin EC] 81 mg PO DAILY #30 tab 07/31/16 Lisinopril 2.5 mg PO DAILY #7 tablet 07/31/16 Amoxicillin/Potassium Clav 1 tab PO TID #30 tab 09/10/16 [Augmentin 500 mg-125 mg] Benzonatate [Tessalon Perles] 100 mg PO TID PRN #30 tab 09/10/16 - Allergies Allergies/Adverse Reactions: Allergies Allergy/AdvReac Type Severity Reaction Status Date / Time No Known Allergies Allergy Verified 09/10/16 14:03 Review of Systems ROS Statement: Except As Marked, All Systems Reviewed And Found Negative Constitutional: Negative for: Fever Cardiovascular: Negative for: Chest Pain Respiratory: Positive for: Cough Musculoskeletal: Positive for: Back Pain Physical Exam - Reviewed Nursing Documentation Reviewed: Yes Vital Signs Reviewed: Yes - Physical Exam Appears: Positive for: Well, Non-toxic, No Acute Distress Skin: Negative for: Rash Eye Exam: Positive for: Normal appearance Cardiovascular/Chest: Positive for: Regular Rate, Rhythm Respiratory: Positive for: Normal Breath Sounds. Negative for: Accessory Muscle Use, Respiratory Distress Gastrointestinal/Abdominal: Positive for: Soft. Negative for: Tenderness, Distended, Guarding, Rebound Neurologic/Psych: Positive for: Alert, Oriented, Gait (steady ) - ECG O2 Sat by Pulse Oximetry: 98 Pulse Ox Interpretation: Normal Medical Decision Making Medical Decision Makin81 year old with cough and back pain Previous records reviewed, patient was seen earlier today, CXR completed and rx given for augmentin. Plan: PO tylenol Rx given for tessalon perles for cough. Patient was advised to continue with augmentin and take new rx meds as directed. Advised PMD follow up in 1-2 days. Disposition - Clinical Impression Clinical Impression: Back pain, Bronchitis - Patient ED Disposition Is Patient to be Admitted: No Counseled Patient/Family Regarding: Diagnosis, Need For Followup - Disposition Referrals: [facility] [Outside] Disposition: Routine/Home Disposition Time: 20:56 Condition: STABLE Additional Instructions: Take tylenol for pain as needed. Follow up with primary care doctor in 1-2 days. Prescriptions: Benzonatate [Tessalon Perles] 100 mg PO TID PRN #30 tab PRN Reason: Cough Instructions: Back Pain (ED), Acute Bronchitis (ED)
== END 2016-09-10 21:34 | disposition home or self-care (01) ==
LOC: H.ER 20:34
DX: M54.9 Dorsalgia, unspecified (principal); J40 Bronchitis, not specified as acute or chronic

== ENCOUNTER 2016-09-12 12:04 | Emergency (ER) | payer MEDICARE, OTHER ==
[2016-09-12 12:05] VITALS: BMI 22.1
[2016-09-12 12:32] VITALS: BP 112/66; RESP 20; TEMP 98; O2SAT 99
[2016-09-12 12:57] VITALS: PULSE 67
--- NOTE | 2016-09-12 13:11 | ED PDOC ---
HPI: General Adult Time Seen by Provider: 09/12/16 12:33 Chief Complaint (Nursing): Cough, Cold, Congestion Chief Complaint (Provider): Cough History Per: Patient History/Exam Limitations: no limitations Onset/Duration Of Symptoms: Days (2 days) Have you had recent travel within the past 21 days to any of the following countries: [place], [place], [place] or [place]?: No Current Symptoms Are (Timing): Still Present Additional Complaint(s): Leonila Pizarro, an 81 year old female, presents to the ED with a non-productive cough she has had for the past 2 days. The patient states she was seen in the ED twice yesterday for the same symptoms. She states that she had a chest xray done and was prescribed augmentin. The patient reports that she returned the day after because she did not have any cough medicine and then she was prescribed tessalon. She states that she came back to the ED today because her cough has remained persistent and that tessalon was not covered by her medicare. The patient also reports upper back pain and b/l shoulder pain present only with cough. Denies chest pain, shortness of breath, hemoptysis, trauma and fever. Past Medical History Reviewed: Historical Data, Nursing Documentation, Vital Signs Vital Signs: Last Vital Signs Temp 98.0 F 09/12/16 12:29 Pulse 67 09/12/16 12:56 Resp 20 09/12/16 12:29 BP 112/66 09/12/16 12:29 Pulse Ox 99 09/12/16 13:17 - Medical History PMH: Alzheimer's Disease, Anxiety, Arthritis, Asthma, COPD, Depression, Diabetes , HTN, Hypercholesterolemia Denies: Hepatitis, HIV, Seizures, Sexually Transmitted Disease - Family History Family History: States: Unknown Family Hx - Immunization History Hx Tetanus Toxoid Vaccination: No Hx Influenza Vaccination: No Hx Pneumococcal Vaccination: No - Home Medications Home Medications: Ambulatory Orders Medication Instructions Recorded Alprazolam [Xanax] 0.25 mg PO BID PRN #30 tablet 03/27/16 Aspirin [Adult Low Dose Aspirin EC] 81 mg PO DAILY #30 tablet. 03/27/16 Fluticasone/Salmeterol 250/50 1 inh INH BID #1 puff 03/27/16 [Advair Diskus 250/50] Rosuvastatin Calcium [Crestor] 10 mg PO DAILY #30 tab 03/27/16 metFORMIN [glucOPHAGE] 500 mg PO BID #60 tab 03/27/16 hydrOXYzine HCl [Atarax] 25 mg PO Q6H PRN #30 tab 04/14/16 Lisinopril [Zestril] 2.5 mg PO DAILY #30 tablet 06/26/16 Lidocaine 5% [Lidoderm] 1 ea TD DAILY PRN #10 patch 07/26/16 Naproxen [Naprosyn] 1 tab PO BID PRN #20 tab 07/26/16 Aspirin [Low Dose Aspirin EC] 81 mg PO DAILY #30 tab 07/31/16 Lisinopril 2.5 mg PO DAILY #7 tablet 07/31/16 Amoxicillin/Potassium Clav 1 tab PO TID #30 tab 09/10/16 [Augmentin 500 mg-125 mg] Benzonatate [Tessalon Perles] 100 mg PO TID PRN #30 tab 09/10/16 Acetaminophen/Chlorpheniramine 2 tab PO Q6 PRN #30 tablet 09/12/16 [Coricidin Hbp Cold & Flu Tab] Albuterol HFA [Ventolin HFA 90 2 puff IH [id number] PRN #1 each 09/12/16 mcg/actuation (8 g)] - Allergies Allergies/Adverse Reactions: Allergies Allergy/AdvReac Type Severity Reaction Status Date / Time No Known Allergies Allergy Verified 09/12/16 12:29 Review of Systems Constitutional: Negative for: Fever, Other (Denies trauma) Cardiovascular: Negative for: Chest Pain Respiratory: Positive for: Cough. Negative for: Shortness of Breath, Hemoptysis Musculoskeletal: Positive for: Back Pain (Upper back pain present only with cough.) Physical Exam - Reviewed Nursing Documentation Reviewed: Yes Vital Signs Reviewed: Yes - Physical Exam Appears: Positive for: Non-toxic, No Acute Distress Head Exam: Positive for: ATRAUMATIC, NORMOCEPHALIC Skin: Positive for: Normal Color, Warm, Dry Eye Exam: Positive for: Normal appearance, EOMI, PERRL ENT: Positive for: Normal ENT Inspection Neck: Positive for: Normal, Painless ROM, Supple Cardiovascular/Chest: Positive for: Regular Rate, Rhythm, Chest Non Tender. Negative for: Tachycardia Respiratory: Positive for: Normal Breath Sounds. Negative for: Wheezing, Respiratory Distress Gastrointestinal/Abdominal: Positive for: Normal Exam, Bowel Sounds, Soft, Hernia. Negative for: Tenderness, Guarding, Rebound Back: Positive for: Normal Inspection Extremity: Positive for: Normal ROM. Negative for: Tenderness, Deformity, Swelling Neurologic/Psych: Positive for: Alert, Oriented, Gait - ECG ECG: Positive for: Interpreted By Me ECG Rhythm: Positive for: Sinus Rhythm. Negative for: ST/T Changes Rate: 67 O2 Sat by Pulse Oximetry: 99 (RA) Pulse Ox Interpretation: Normal Medical Decision Making Medical Decision Makin:33 Initial Impression: 81 year old female presenting with a cough Initial Plan: * EKG Scribe Attestation Documented by Valery Hirsch acting as a scribe for Jordy Rico PA-C. MD Scribe Attestation All medical record entries made by the Scribe were at my direction and personally dictated by me. I have reviewed the chart and agree that the record accurately reflects my personal performance of the history, physical exam, medical decision making, and the department course for this patient. I have also personally directed, reviewed, and agree with the discharge instructions and disposition. Disposition - Clinical Impression Clinical Impression: Cough - Patient ED Disposition Is Patient to be Admitted: No Counseled Patient/Family Regarding: Diagnosis, Rx Given - Disposition Disposition: Routine/Home Disposition Time: 01:17 Condition: STABLE Additional Instructions: Follow up with [facility] in 2 days for further evaluation. Prescriptions: Albuterol HFA [Ventolin HFA 90 mcg/actuation (8 g)] 2 puff IH [id number] PRN #1 each PRN Reason: Wheezing Acetaminophen/Chlorpheniramine [Coricidin Hbp Cold & Flu Tab] 2 tab PO Q6 PRN # 30 tablet PRN Reason: Cough Instructions: Upper Respiratory Infection (ED) Print Language: KENYAN
--- NOTE | 2016-09-12 19:31 | CARD ---
APPROVED REPORT EKG Measurement Heart [id number] <Conclusion> Normal sinus rhythm Left anterior fascicular block Abnormal ECG
== END 2016-09-12 13:23 | disposition home or self-care (01) ==
LOC: H.ER 12:04
DX: J06.9 Acute upper respiratory infection, unspecified (principal)

== ENCOUNTER 2016-09-12 20:24 | Emergency (ER) | payer MEDICARE, OTHER ==
[2016-09-12 20:25] VITALS: BMI 22.1
[2016-09-12 20:33] VITALS: BP 108/74; PULSE 105; RESP 20; TEMP 97.9; O2SAT 99
--- NOTE | 2016-09-12 21:47 | ED PDOC ---
HPI: General Adult Time Seen by Provider: 09/12/16 20:31 Chief Complaint (Nursing): Medical Clearance Chief Complaint (Provider): Cough History Per: Patient History/Exam Limitations: no limitations Onset/Duration Of Symptoms: Days (2 days) Have you had recent travel within the past 21 days to any of the following countries: [place], [place], [place] or [place]?: No Current Symptoms Are (Timing): Still Present Additional Complaint(s): Leonila Pizarro, an 81 year old female, presents to the ED with a cough and sore throat which she has had for 2 days. The patient was seen in [place] ED multiple times and had chest Xrays done which all read negative. The patient is currently taking augmentin. The patient reports that she has yet to take her cough medicine but has the prescription. Denies shortness of breath, chest pain. Past Medical History Reviewed: Historical Data, Nursing Documentation, Vital Signs Vital Signs: Last Vital Signs Temp 97.9 F 09/12/16 20:31 Pulse 105 H 09/12/16 20:31 Resp 20 09/12/16 20:31 BP 108/74 09/12/16 20:31 Pulse Ox 99 09/12/16 21:51 - Medical History PMH: Alzheimer's Disease, Anxiety, Arthritis, Asthma, COPD, Depression, Diabetes , HTN, Hypercholesterolemia Denies: Hepatitis, HIV, Seizures, Sexually Transmitted Disease - Family History Family History: States: Unknown Family Hx - Immunization History Hx Tetanus Toxoid Vaccination: No Hx Influenza Vaccination: No Hx Pneumococcal Vaccination: No - Home Medications Home Medications: Ambulatory Orders Medication Instructions Recorded Alprazolam [Xanax] 0.25 mg PO BID PRN #30 tablet 03/27/16 Aspirin [Adult Low Dose Aspirin EC] 81 mg PO DAILY #30 tablet. 03/27/16 Fluticasone/Salmeterol 250/50 1 inh INH BID #1 puff 03/27/16 [Advair Diskus 250/50] Rosuvastatin Calcium [Crestor] 10 mg PO DAILY #30 tab 03/27/16 metFORMIN [glucOPHAGE] 500 mg PO BID #60 tab 03/27/16 hydrOXYzine HCl [Atarax] 25 mg PO Q6H PRN #30 tab 04/14/16 Lisinopril [Zestril] 2.5 mg PO DAILY #30 tablet 06/26/16 Lidocaine 5% [Lidoderm] 1 ea TD DAILY PRN #10 patch 07/26/16 Naproxen [Naprosyn] 1 tab PO BID PRN #20 tab 07/26/16 Aspirin [Low Dose Aspirin EC] 81 mg PO DAILY #30 tab 07/31/16 Lisinopril 2.5 mg PO DAILY #7 tablet 07/31/16 Amoxicillin/Potassium Clav 1 tab PO TID #30 tab 09/10/16 [Augmentin 500 mg-125 mg] Benzonatate [Tessalon Perles] 100 mg PO TID PRN #30 tab 09/10/16 Acetaminophen/Chlorpheniramine 2 tab PO Q6 PRN #30 tablet 09/12/16 [Coricidin Hbp Cold & Flu Tab] Albuterol HFA [Ventolin HFA 90 2 puff IH [id number] PRN #1 each 09/12/16 mcg/actuation (8 g)] - Allergies Allergies/Adverse Reactions: Allergies Allergy/AdvReac Type Severity Reaction Status Date / Time No Known Allergies Allergy Verified 09/12/16 12:29 Review of Systems Cardiovascular: Negative for: Chest Pain Respiratory: Positive for: Cough. Negative for: Shortness of Breath Physical Exam - Reviewed Nursing Documentation Reviewed: Yes Vital Signs Reviewed: Yes - Physical Exam Appears: Positive for: Well, Non-toxic, No Acute Distress Head Exam: Positive for: ATRAUMATIC, NORMAL INSPECTION, NORMOCEPHALIC Skin: Positive for: Normal Color, Warm, Dry Eye Exam: Positive for: Normal appearance, EOMI, PERRL ENT: Positive for: Normal ENT Inspection Neck: Positive for: Normal, Painless ROM, Supple Cardiovascular/Chest: Positive for: Regular Rate, Rhythm, Chest Non Tender. Negative for: Tachycardia Respiratory: Positive for: Normal Breath Sounds. Negative for: Wheezing, Respiratory Distress Gastrointestinal/Abdominal: Positive for: Normal Exam, Bowel Sounds, Soft. Negative for: Tenderness, Guarding, Rebound Back: Positive for: Normal Inspection Extremity: Positive for: Normal ROM. Negative for: Tenderness, Deformity, Swelling Neurologic/Psych: Positive for: Alert, Oriented, Gait - ECG O2 Sat by Pulse Oximetry: 99 (RA) Pulse Ox Interpretation: Normal Medical Decision Making Medical Decision Makin:31 Initial Impression: 81 year old female presenting with cough Initial Plan: * Tylenol 650mg PO Patient's repeat heart rate is 88. Scribe Attestation Documented by Valery Hirsch acting as a scribe for oJrdy Rico PA-C. MD Scribe Attestation All medical record entries made by the Scribe were at my direction and personally dictated by me. I have reviewed the chart and agree that the record accurately reflects my personal performance of the history, physical exam, medical decision making, and the department course for this patient. I have also personally directed, reviewed, and agree with the discharge instructions and disposition. Disposition - Clinical Impression Clinical Impression: Cough - Patient ED Disposition Is Patient to be Admitted: No Counseled Patient/Family Regarding: Studies Performed - Disposition Referrals: [facility] [Outside] Disposition: Routine/Home Disposition Time: 21:22 Condition: STABLE Instructions: Upper Respiratory Infection (ED) Print Language: WOLOF
== END 2016-09-12 22:04 | disposition home or self-care (01) ==
LOC: H.ER 20:24
DX: Z76.0 Encounter for issue of repeat prescription (principal)

== ENCOUNTER 2016-09-20 13:07 | Emergency (ER) | payer MEDICARE, OTHER ==
[2016-09-20 13:07] VITALS: BMI 22.1
[2016-09-20 13:43] VITALS: BP 127/62; PULSE 92; RESP 16; TEMP 98.6; O2SAT 100
--- NOTE | 2016-09-20 16:07 | ED PDOC ---
HPI: Back Time Seen by Provider: 09/20/16 15:09 Chief Complaint (Nursing): Back Pain Chief Complaint (Provider): back pain History Per: Patient History/Exam Limitations: no limitations Additional Complaint(s): 81yo f in ED for chronic back pain and is complaining of loneliness. denies fever or chills. continue to persist that is lonely and son is not home. Past Medical History Reviewed: Historical Data, Nursing Documentation, Vital Signs Vital Signs: Last Vital Signs Temp 98.6 F 09/20/16 13:39 Pulse 92 H 09/20/16 13:39 Resp 16 09/20/16 13:39 BP 127/62 09/20/16 13:39 Pulse Ox 100 09/20/16 13:39 - Medical History PMH: Alzheimer's Disease, Anxiety, Arthritis, Asthma, COPD, Depression, Diabetes , HTN, Hypercholesterolemia Denies: Hepatitis, HIV, Seizures, Sexually Transmitted Disease - Family History Family History: States: Unknown Family Hx - Immunization History Hx Tetanus Toxoid Vaccination: No Hx Influenza Vaccination: No Hx Pneumococcal Vaccination: No - Home Medications Home Medications: Ambulatory Orders Medication Instructions Recorded Alprazolam [Xanax] 0.25 mg PO BID PRN #30 tablet 03/27/16 Aspirin [Adult Low Dose Aspirin EC] 81 mg PO DAILY #30 tablet. 03/27/16 Fluticasone/Salmeterol 250/50 1 inh INH BID #1 puff 03/27/16 [Advair Diskus 250/50] Rosuvastatin Calcium [Crestor] 10 mg PO DAILY #30 tab 03/27/16 metFORMIN [glucOPHAGE] 500 mg PO BID #60 tab 03/27/16 hydrOXYzine HCl [Atarax] 25 mg PO Q6H PRN #30 tab 04/14/16 Lisinopril [Zestril] 2.5 mg PO DAILY #30 tablet 06/26/16 Lidocaine 5% [Lidoderm] 1 ea TD DAILY PRN #10 patch 07/26/16 Naproxen [Naprosyn] 1 tab PO BID PRN #20 tab 07/26/16 Aspirin [Low Dose Aspirin EC] 81 mg PO DAILY #30 tab 07/31/16 Lisinopril 2.5 mg PO DAILY #7 tablet 07/31/16 Amoxicillin/Potassium Clav 1 tab PO TID #30 tab 09/10/16 [Augmentin 500 mg-125 mg] Benzonatate [Tessalon Perles] 100 mg PO TID PRN #30 tab 09/10/16 Acetaminophen/Chlorpheniramine 2 tab PO Q6 PRN #30 tablet 09/12/16 [Coricidin Hbp Cold & Flu Tab] Albuterol HFA [Ventolin HFA 90 2 puff IH [id number] PRN #1 each 09/12/16 mcg/actuation (8 g)] Guaifenesin [Mucinex] 600 mg PO BID #14 tab.er.12h 09/20/16 - Allergies Allergies/Adverse Reactions: Allergies Allergy/AdvReac Type Severity Reaction Status Date / Time No Known Allergies Allergy Verified 09/20/16 13:39 Review of Systems ROS Statement: Except As Marked, All Systems Reviewed And Found Negative Respiratory: Negative for: Cough, Shortness of Breath Physical Exam - Reviewed Nursing Documentation Reviewed: Yes Vital Signs Reviewed: Yes - Physical Exam Appears: Positive for: Well, Non-toxic, No Acute Distress Head Exam: Positive for: ATRAUMATIC, NORMAL INSPECTION, NORMOCEPHALIC Skin: Positive for: Normal Color, Warm, DRY Eye Exam: Positive for: EOMI, Normal appearance, PERRL Cardiovascular/Chest: Positive for: Regular Rate, Rhythm Respiratory: Positive for: CNT, Normal Breath Sounds Neurologic/Psych: Positive for: Alert, Oriented - ECG O2 Sat by Pulse Oximetry: 100 Medical Decision Making Medical Decision Making: pt will get mucinex for Rx given senior resources from crisis. Disposition - Clinical Impression Clinical Impression: Back strain - Patient ED Disposition Is Patient to be Admitted: No Counseled Patient/Family Regarding: Need For Followup, Rx Given - Disposition Disposition: Routine/Home Disposition Time: 16:08 Condition: STABLE Prescriptions: Guaifenesin [Mucinex] 600 mg PO BID #14 tab.er.12h Instructions: Dextromethorphan (By mouth)
== END 2016-09-20 16:13 | disposition home or self-care (01) ==
LOC: H.ER 13:07
DX: Z76.0 Encounter for issue of repeat prescription (principal); E11.9 Type 2 diabetes mellitus without complications; E78.00 Pure hypercholesterolemia, unspecified; F02.80 Dementia in other diseases classified elsewhere, unspecified severity, without behavioral disturbance, psychotic disturbance, mood disturbance, and anxiety; F32.9 Major depressive disorder, single episode, unspecified; F41.9 Anxiety disorder, unspecified; G30.9 Alzheimer's disease, unspecified; J44.9 Chronic obstructive pulmonary disease, unspecified; I10 Essential (primary) hypertension; Z79.84 Long term (current) use of oral hypoglycemic drugs; Z79.82 Long term (current) use of aspirin

== ENCOUNTER 2016-10-24 16:41 | Emergency (ER) | payer MEDICARE, OTHER ==
[2016-10-24 16:41] VITALS: BMI 22.1
[2016-10-24 16:55] VITALS: BP 120/63; PULSE 73; RESP 16; TEMP 98.6; O2SAT 98
--- NOTE | 2016-10-24 18:07 | ED PDOC ---
HPI: General Adult Time Seen by Provider: 10/24/16 17:34 Chief Complaint (Nursing): Med Refill Chief Complaint (Provider): med refill History Per: Patient History/Exam Limitations: no limitations Additional Complaint(s): 81yo F frequently in ED without c/o CP, SOB, adb pain in ED for Rx refill to crestor and Lisinopril. Past Medical History Reviewed: Historical Data, Nursing Documentation, Vital Signs Vital Signs: Last Vital Signs Temp 98.6 F 10/24/16 16:52 Pulse 73 10/24/16 16:52 Resp 16 10/24/16 16:52 BP 120/63 10/24/16 16:52 Pulse Ox 98 10/24/16 16:52 - Medical History PMH: Alzheimer's Disease, Anxiety, Arthritis, Asthma, COPD, Depression, Diabetes , HTN, Hypercholesterolemia Denies: Hepatitis, HIV, Chronic Kidney Disease, Seizures, Sexually Transmitted Disease - Family History Family History: States: Unknown Family Hx - Immunization History Hx Tetanus Toxoid Vaccination: No Hx Influenza Vaccination: No Hx Pneumococcal Vaccination: No - Home Medications Home Medications: Ambulatory Orders Medication Instructions Recorded Alprazolam [Xanax] 0.25 mg PO BID PRN #30 tablet 03/27/16 Aspirin [Adult Low Dose Aspirin EC] 81 mg PO DAILY #30 tablet.dr 03/27/16 Fluticasone/Salmeterol 250/50 1 inh INH BID #1 puff 03/27/16 [Advair Diskus 250/50] Rosuvastatin Calcium [Crestor] 10 mg PO DAILY #30 tab 03/27/16 metFORMIN [glucOPHAGE] 500 mg PO BID #60 tab 03/27/16 hydrOXYzine HCl [Atarax] 25 mg PO Q6H PRN #30 tab 04/14/16 Lisinopril [Zestril] 2.5 mg PO DAILY #30 tablet 06/26/16 Lidocaine 5% [Lidoderm] 1 ea TD DAILY PRN #10 patch 07/26/16 Naproxen [Naprosyn] 1 tab PO BID PRN #20 tab 07/26/16 Aspirin [Low Dose Aspirin EC] 81 mg PO DAILY #30 tab 07/31/16 Lisinopril 2.5 mg PO DAILY #7 tablet 07/31/16 Amoxicillin/Potassium Clav 1 tab PO TID #30 tab 09/10/16 [Augmentin 500 mg-125 mg] Benzonatate [Tessalon Perles] 100 mg PO TID PRN #30 tab 09/10/16 Acetaminophen/Chlorpheniramine 2 tab PO Q6 PRN #30 tablet 09/12/16 [Coricidin Hbp Cold & Flu Tab] Albuterol HFA [Ventolin HFA 90 2 puff IH [id number] PRN #1 each 09/12/16 mcg/actuation (8 g)] Guaifenesin [Mucinex] 600 mg PO BID #14 tab.er.12h 09/20/16 Lisinopril 2.5 mg PO ONCE #30 tab 10/24/16 Rosuvastatin Calcium 10 mg PO DAILY #30 tablet 10/24/16 - Allergies Allergies/Adverse Reactions: Allergies Allergy/AdvReac Type Severity Reaction Status Date / Time No Known Allergies Allergy Verified 09/20/16 13:39 Review of Systems ROS Statement: Except As Marked, All Systems Reviewed And Found Negative Gastrointestinal: Negative for: Nausea, Vomiting Physical Exam - Reviewed Nursing Documentation Reviewed: Yes Vital Signs Reviewed: Yes - Physical Exam Appears: Positive for: Well, Non-toxic, No Acute Distress Skin: Positive for: Normal Color, Warm, DRY Eye Exam: Positive for: EOMI, Normal appearance, PERRL ENT: Positive for: Normal ENT Inspection Cardiovascular/Chest: Positive for: Regular Rate, Rhythm Respiratory: Positive for: CNT, Normal Breath Sounds Gastrointestinal/Abdominal: Positive for: Normal Exam, Bowel Sounds, Soft Back: Positive for: Normal Inspection Extremity: Positive for: Normal ROM Neurologic/Psych: Positive for: Alert, Oriented - ECG O2 Sat by Pulse Oximetry: 98 Medical Decision Making Medical Decision Making: pt received Rx refill Disposition - Clinical Impression Clinical Impression: Medication refill - Patient ED Disposition Is Patient to be Admitted: No Counseled Patient/Family Regarding: Need For Followup, Rx Given - Disposition Disposition: Routine/Home Disposition Time: 18:07 Condition: STABLE Prescriptions: Lisinopril 2.5 mg PO ONCE #30 tab Rosuvastatin Calcium 10 mg PO DAILY #30 tablet Instructions: Chronic Hypertension (ED) Forms: [employer] ([place])
== END 2016-10-24 18:00 | disposition home or self-care (01) ==
LOC: H.ER 16:41
DX: Z76.0 Encounter for issue of repeat prescription (principal)

== ENCOUNTER 2016-10-27 17:22 | Emergency (ER) | payer MEDICARE, OTHER ==
[2016-10-27 17:22] VITALS: BMI 22.1
[2016-10-27 17:42] VITALS: BP 113/62; PULSE 77; RESP 18; TEMP 99.5; O2SAT 99
--- NOTE | 2016-10-27 18:53 | ED PDOC ---
HPI: General Adult Time Seen by Provider: 10/27/16 17:45 Chief Complaint (Nursing): Back Pain Chief Complaint (Provider): Back Pain History Per: Patient History/Exam Limitations: no limitations Onset/Duration Of Symptoms: Hrs (x 1 ) Current Symptoms Are (Timing): Still Present Additional Complaint(s): Ms. Pizarro is an 81 y/o female who reports that she developed atraumatic non- radiating back pain, one hour prior to arrival. States pain worsening with movement. Denies dysuria, incontinence, trauma, numbness, and tingling. PMD: Unknown Past Medical History Reviewed: Historical Data, Nursing Documentation, Vital Signs Vital Signs: Last Vital Signs Temp 99.5 F 10/27/16 17:39 Pulse 77 10/27/16 17:39 Resp 18 10/27/16 17:39 BP 113/62 10/27/16 17:39 Pulse Ox 99 10/27/16 20:36 - Medical History PMH: Alzheimer's Disease, Anxiety, Arthritis, Asthma, COPD, Depression, Diabetes , HTN, Hypercholesterolemia Denies: Hepatitis, HIV, Chronic Kidney Disease, Seizures, Sexually Transmitted Disease - Surgical History Other surgeries: Left foot surgery - Family History Family History: States: Unknown Family Hx - Social History Ex-Smoker (has not smoked in the last 12 months): Yes Alcohol: None Drugs: Denies - Immunization History Hx Tetanus Toxoid Vaccination: No Hx Influenza Vaccination: No Hx Pneumococcal Vaccination: No - Home Medications Home Medications: Ambulatory Orders Medication Instructions Recorded Alprazolam [Xanax] 0.25 mg PO BID PRN #30 tablet 03/27/16 Aspirin [Adult Low Dose Aspirin EC] 81 mg PO DAILY #30 tablet. 03/27/16 Fluticasone/Salmeterol 250/50 1 inh INH BID #1 puff 03/27/16 [Advair Diskus 250/50] Rosuvastatin Calcium [Crestor] 10 mg PO DAILY #30 tab 03/27/16 metFORMIN [glucOPHAGE] 500 mg PO BID #60 tab 03/27/16 hydrOXYzine HCl [Atarax] 25 mg PO Q6H PRN #30 tab 04/14/16 Lisinopril [Zestril] 2.5 mg PO DAILY #30 tablet 06/26/16 Lidocaine 5% [Lidoderm] 1 ea TD DAILY PRN #10 patch 07/26/16 Naproxen [Naprosyn] 1 tab PO BID PRN #20 tab 07/26/16 Aspirin [Low Dose Aspirin EC] 81 mg PO DAILY #30 tab 07/31/16 Lisinopril 2.5 mg PO DAILY #7 tablet 07/31/16 Amoxicillin/Potassium Clav 1 tab PO TID #30 tab 09/10/16 [Augmentin 500 mg-125 mg] Benzonatate [Tessalon Perles] 100 mg PO TID PRN #30 tab 09/10/16 Acetaminophen/Chlorpheniramine 2 tab PO Q6 PRN #30 tablet 09/12/16 [Coricidin Hbp Cold & Flu Tab] Albuterol HFA [Ventolin HFA 90 2 puff IH [id number] PRN #1 each 09/12/16 mcg/actuation (8 g)] Guaifenesin [Mucinex] 600 mg PO BID #14 tab.er.12h 09/20/16 Lisinopril 2.5 mg PO ONCE #30 tab 10/24/16 Rosuvastatin Calcium 10 mg PO DAILY #30 tablet 10/24/16 Nitrofurantoin Macrocrystals 100 mg PO BID #14 cap 10/27/16 [Macrobid] - Allergies Allergies/Adverse Reactions: Allergies Allergy/AdvReac Type Severity Reaction Status Date / Time No Known Allergies Allergy Verified 09/20/16 13:39 Review of Systems ROS Statement: Except As Marked, All Systems Reviewed And Found Negative Constitutional: Negative for: Other (Trauma) Genitourinary Female: Negative for: Dysuria, Frequency, Incontinence Musculoskeletal: Positive for: Back Pain Neurological: Negative for: Numbness, Other (Tingling) Physical Exam - Reviewed Nursing Documentation Reviewed: Yes Vital Signs Reviewed: Yes - Physical Exam Appears: Positive for: Non-toxic, No Acute Distress Skin: Positive for: Normal Color, Warm, Dry. Negative for: Rash Cardiovascular/Chest: Positive for: Regular Rate, Rhythm. Negative for: Murmur Respiratory: Positive for: Normal Breath Sounds. Negative for: Accessory Muscle Use, Respiratory Distress Gastrointestinal/Abdominal: Positive for: Normal Exam, Soft. Negative for: Tenderness Back: Positive for: Normal Inspection. Negative for: L CVA Tenderness, R CVA Tenderness, Vertebral Tenderness - Laboratory Results Urine dip results: Positive for: Leukocyte Esterase (small). Negative for: Blood, Nitrate, Ketones, Glucose, Bilirubin, Protein - ECG O2 Sat by Pulse Oximetry: 99 (RA) Pulse Ox Interpretation: Normal Medical Decision Making Medical Decision Making: Time: 18:06 Initial Plan: --Ordered urine dipstick and urine culture --Given Tylenol 650 mg PO --Pending LS Spine X-Ray Time: 19:56 LS Spine X-Ray: FINDINGS: LIMITATIONS: Large amount of retained stool in the colon, which obscures bony structures. VERTEBRAE: Vertebrae appear demineralized. No acute fractures are seen radiographically. No evidence of significant vertebral height loss/compression deformity. No evidence of significant vertebral subluxation. DISC SPACES: Moderate to severe multilevel degenerative disc disease. SOFT TISSUES: No radiographic evidence of significant soft tissue abnormality. IMPRESSION: - No definite acute radiographic abnormality of the lumbar spine identified. - Multilevel degenerative disc disease. - See above for remaining findings. Time: 20:10 Clinical Impression: UTI Upon provider evaluation patient is medically stable, and requires no further treatment in the ED at this time. Patient will be discharged with Rx for Macrobid. Counseling was provided and all questions were answered regarding diagnosis and need for follow up with PMD. There is agreement to discharge plan. Return if symptoms persist or worsen. Scribe Attestation: Documented by Hillary Carlson, acting as a scribe for Jordy Rico PA-C. Provider Scribe Attestation: All medical record entries made by the Scribe were at my direction and personally dictated by me. I have reviewed the chart and agree that the record accurately reflects my personal performance of the history, physical exam, medical decision making, and the department course for this patient. I have also personally directed, reviewed, and agree with the discharge instructions and disposition. Disposition - Clinical Impression Clinical Impression: UTI (urinary tract infection), Low back pain - Patient ED Disposition Is Patient to be Admitted: No Counseled Patient/Family Regarding: Studies Performed, Diagnosis, Need For Followup, Rx Given - Disposition Disposition: Routine/Home Disposition Time: 20:10 Condition: STABLE Prescriptions: Nitrofurantoin Macrocrystals [Macrobid] 100 mg PO BID #14 cap Instructions: Urinary Tract Infection in Women (ED) Forms: [employer] (Thai) Print Language: BENGALI
--- NOTE | 2016-10-27 19:56 | RAD ---
EXAM: XR Lumbar Spine, 2 Views CLINICAL HISTORY: 81 years old, female; Pain; Low back pain TECHNIQUE: Frontal and lateral views of the lumbar spine. EXAM DATE/TIME: 10/27/2016 6:06 PM COMPARISON: No relevant prior studies available. FINDINGS: LIMITATIONS: Large amount of retained stool in the colon, which obscures bony structures. VERTEBRAE: Vertebrae appear demineralized. No acute fractures are seen radiographically. No evidence of significant vertebral height loss/compression deformity. No evidence of significant vertebral subluxation. DISC SPACES: Moderate to severe multilevel degenerative disc disease. SOFT TISSUES: No radiographic evidence of significant soft tissue abnormality. IMPRESSION: - No definite acute radiographic abnormality of the lumbar spine identified. - Multilevel degenerative disc disease. - See above for remaining findings.
== END 2016-10-27 20:43 | disposition home or self-care (01) ==
LOC: H.ER 17:22
DX: N39.0 Urinary tract infection, site not specified (principal); E11.9 Type 2 diabetes mellitus without complications; E78.00 Pure hypercholesterolemia, unspecified; F02.80 Dementia in other diseases classified elsewhere, unspecified severity, without behavioral disturbance, psychotic disturbance, mood disturbance, and anxiety; F41.9 Anxiety disorder, unspecified; G30.9 Alzheimer's disease, unspecified; I10 Essential (primary) hypertension; Z79.82 Long term (current) use of aspirin; Z79.84 Long term (current) use of oral hypoglycemic drugs; Z79.899 Other long term (current) drug therapy

== ENCOUNTER 2016-11-19 14:03 | Emergency (ER) | payer MEDICARE, OTHER ==
[2016-11-19 14:04] VITALS: BMI 22.1
[2016-11-19 14:08] VITALS: BP 138/66; PULSE 92; RESP 18; TEMP 98; O2SAT 99
--- NOTE | 2016-11-19 15:16 | ED PDOC ---
HPI: Eye Injury/Pain Time Seen by Provider: 11/19/16 14:23 Chief Complaint (Nursing): Eye Problem Chief Complaint (Provider): Bilateral eye irritation and yellow drainage History Per: Patient History/Exam Limitations: no limitations Onset/Duration Of Symptoms: Hrs Current Symptoms Are (Timing): Still Present Injury To Eye?: No Additional Complaint(s): No change in vision. No headache. Past Medical History Reviewed: Historical Data, Nursing Documentation, Vital Signs Vital Signs: Last Vital Signs Temp 98 F 11/19/16 14:05 Pulse 92 H 11/19/16 14:05 Resp 18 11/19/16 14:05 BP 138/66 11/19/16 14:05 Pulse Ox 99 11/19/16 14:05 - Medical History PMH: Alzheimer's Disease, Anxiety, Arthritis, Asthma, COPD, Depression, Diabetes , HTN, Hypercholesterolemia Denies: Hepatitis, HIV, Chronic Kidney Disease, Seizures, Sexually Transmitted Disease - Family History Family History: States: Unknown Family Hx - Immunization History Hx Tetanus Toxoid Vaccination: No Hx Influenza Vaccination: No Hx Pneumococcal Vaccination: No - Home Medications Home Medications: Ambulatory Orders Medication Instructions Recorded Alprazolam [Xanax] 0.25 mg PO BID PRN #30 tablet 03/27/16 Aspirin [Adult Low Dose Aspirin EC] 81 mg PO DAILY #30 tablet.dr 03/27/16 Fluticasone/Salmeterol 250/50 1 inh INH BID #1 puff 03/27/16 [Advair Diskus 250/50] Rosuvastatin Calcium [Crestor] 10 mg PO DAILY #30 tab 03/27/16 metFORMIN [glucOPHAGE] 500 mg PO BID #60 tab 03/27/16 hydrOXYzine HCl [Atarax] 25 mg PO Q6H PRN #30 tab 04/14/16 Lisinopril [Zestril] 2.5 mg PO DAILY #30 tablet 06/26/16 Lidocaine 5% [Lidoderm] 1 ea TD DAILY PRN #10 patch 07/26/16 Naproxen [Naprosyn] 1 tab PO BID PRN #20 tab 07/26/16 Aspirin [Low Dose Aspirin EC] 81 mg PO DAILY #30 tab 07/31/16 Lisinopril 2.5 mg PO DAILY #7 tablet 07/31/16 Amoxicillin/Potassium Clav 1 tab PO TID #30 tab 09/10/16 [Augmentin 500 mg-125 mg] Benzonatate [Tessalon Perles] 100 mg PO TID PRN #30 tab 09/10/16 Acetaminophen/Chlorpheniramine 2 tab PO Q6 PRN #30 tablet 09/12/16 [Coricidin Hbp Cold & Flu Tab] Albuterol HFA [Ventolin HFA 90 2 puff IH [id number] PRN #1 each 09/12/16 mcg/actuation (8 g)] Guaifenesin [Mucinex] 600 mg PO BID #14 tab.er.12h 09/20/16 Lisinopril 2.5 mg PO ONCE #30 tab 10/24/16 Rosuvastatin Calcium 10 mg PO DAILY #30 tablet 10/24/16 Nitrofurantoin Macrocrystals 100 mg PO BID #14 cap 10/27/16 [Macrobid] Cetirizine HCl [Zyrtec Allergy] 10 mg PO DAILY #30 sgl 11/19/16 Polymyxin/Trimethoprim Sulfate 1 drop XX Q6H 10 Days 11/19/16 [Polytrim Ophth Soln] - Allergies Allergies/Adverse Reactions: Allergies Allergy/AdvReac Type Severity Reaction Status Date / Time No Known Allergies Allergy Verified 09/20/16 13:39 Review of Systems ROS Statement: Except As Marked, All Systems Reviewed And Found Negative Constitutional: Negative for: Fever, Chills Eyes: Positive for: Eyelid Inflammation, Redness. Negative for: Pain Skin: Negative for: Rash Physical Exam - Reviewed Nursing Documentation Reviewed: Yes Vital Signs Reviewed: Yes - Physical Exam Appears: Positive for: Well, Non-toxic, No Acute Distress Head Exam: Positive for: ATRAUMATIC, NORMAL INSPECTION, NORMOCEPHALIC Skin: Positive for: Normal Color, Warm, DRY Eye Exam: Positive for: EOMI, PERRL, Conjunctival injection, Other (Yellow drainage ). Negative for: Normal appearance ENT: Positive for: Normal ENT Inspection Neck: Positive for: Normal, Painless ROM Cardiovascular/Chest: Positive for: Regular Rate, Rhythm Respiratory: Positive for: CNT, Normal Breath Sounds Gastrointestinal/Abdominal: Positive for: Normal Exam, Bowel Sounds, Soft Back: Positive for: Normal Inspection Extremity: Positive for: Normal ROM Neurologic/Psych: Positive for: Alert, Oriented - ECG O2 Sat by Pulse Oximetry: 99 Disposition - Clinical Impression Clinical Impression: Bacterial conjunctivitis Counseled Patient/Family Regarding: Diagnosis, Need For Followup, Rx Given - Disposition Referrals: Brennan Griffiths MD [Staff Provider] - Disposition: Routine/Home Disposition Time: 15:17 Condition: GOOD Prescriptions: Cetirizine HCl [Zyrtec Allergy] 10 mg PO DAILY #30 sgl Polymyxin/Trimethoprim Sulfate [Polytrim Ophth Soln] 1 drop XX Q6H 10 Days Instructions: Conjunctivitis (ED)
== END 2016-11-19 15:43 | disposition home or self-care (01) ==
LOC: H.ER 14:03
DX: H10.89 Other conjunctivitis (principal); J44.9 Chronic obstructive pulmonary disease, unspecified; I10 Essential (primary) hypertension; E11.9 Type 2 diabetes mellitus without complications; G30.9 Alzheimer's disease, unspecified

== ENCOUNTER 2016-11-29 02:52 | Emergency (ER) | payer MEDICARE, OTHER ==
[2016-11-29 02:52] VITALS: BMI 22.1
[2016-11-29 03:00] VITALS: TEMP 99.6
[2016-11-29 03:21] LABS: BASO # 0.1 K/uL (0.0-0.2); BASO % 0.8 % (0.0-2.0); EOS # 0.1 K/uL (0.0-0.7); EOS % 0.6 % (0.0-4.0); HEMATOCRIT 33.5 % (34.0-47.0); LYMPH % 20.6 % (20.0-40.0); MEAN CELL VOLUME 84.2 fl (81.0-99.0); MEAN CORPUSCULAR HGB CONC 33.2 g/dL (33.0-37.0); MEAN PLATELET VOLUME 8.3 fl (7.2-11.7); MONO # 0.6 K/uL (0.0-0.8); MONO % 5.9 % (0.0-10.0); NEUT % 72.1 % (50.0-75.0); NRBC % 0.1 % (0.0-0.0); RED CELL DISTRIBUTION WIDTH 15.7 % (11.5-14.5); WHITE BLOOD COUNT 9.7 K/uL (4.8-10.8)
[2016-11-29 03:32] LABS: PARTIAL THROMBOPLASTIN TIME 23.8 Seconds (25.6-37.1)
[2016-11-29 03:33] LABS: ALB/GLOB RATIO 1.3 (1.0-2.1); ALKALINE PHOSPHATASE 88 U/L (38-126); ALT/SGPT 35 U/L (9-52); AST/SGOT 29 U/L (14-36); BILIRUBIN,TOTAL 0.4 mg/dl (0.2-1.3); BLOOD UREA NITROGEN 17 mg/dl (7-17); CALCIUM 9.5 mg/dL (8.4-10.2); CARBON DIOXIDE 24 mmol/L (22-30); CHLORIDE 108 mmol/L (98-107); GFR AFRICAN-AMERICAN > 60; GLUCOSE,RANDOM 137 mg/dL (65-105); POTASSIUM 3.8 MMOL/L (3.6-5.0); SODIUM 142 mmol/l (132-148); TOTAL PROTEIN 7.2 G/DL (6.3-8.2)
--- NOTE | 2016-11-29 03:52 | ED PDOC ---
Upper Extremity Pain/Injury Time Seen by Provider: 11/29/16 03:01 Chief Complaint (Nursing): Upper Extremity Problem/Injury Chief Complaint (Provider): Left shoulder pain History Per: Patient History/Exam Limitations: no limitations Onset/Duration Of Symptoms: Mins (30 mins prior to arrival) Current Symptoms Are (Timing): Still Present Additional History Per: Family Additional Complaint(s): Leonila is an 81 y/o female with a history of anxiety, Type II diabetes , asthma, and depression, who presents to the ED complaining of acute left shoulder pain after sustaining a fall 20 minutes prior to arrival. States she was walking to the bathroom, tripped and fell onto her left side. Subsequently she has been unable to move her left arm. No other associated injuries. She denies head injury and loss of consciousness. PMD: Sinan Vidal Past Medical History Reviewed: Historical Data, Nursing Documentation, Vital Signs Vital Signs: Last Vital Signs Temp 99.6 F 11/29/16 02:57 Pulse 75 11/29/16 02:57 Resp 18 11/29/16 02:57 BP 139/98 H 11/29/16 02:57 Pulse Ox 99 11/29/16 02:57 - Medical History PMH: Alzheimer's Disease, Anxiety, Arthritis, Asthma, COPD, Depression, Diabetes , HTN, Hypercholesterolemia Denies: Hepatitis, HIV, Chronic Kidney Disease, Seizures, Sexually Transmitted Disease - Family History Family History: States: Unknown Family Hx - Social History Current smoker - smoking cessation education provided: No Alcohol: None Drugs: Denies - Immunization History Hx Tetanus Toxoid Vaccination: No Hx Influenza Vaccination: No Hx Pneumococcal Vaccination: No - Home Medications Home Medications: Ambulatory Orders Medication Instructions Recorded Alprazolam [Xanax] 0.25 mg PO BID PRN #30 tablet 03/27/16 Aspirin [Adult Low Dose Aspirin EC] 81 mg PO DAILY #30 tablet. 03/27/16 Fluticasone/Salmeterol 250/50 1 inh INH BID #1 puff 03/27/16 [Advair Diskus 250/50] Rosuvastatin Calcium [Crestor] 10 mg PO DAILY #30 tab 03/27/16 metFORMIN [glucOPHAGE] 500 mg PO BID #60 tab 03/27/16 hydrOXYzine HCl [Atarax] 25 mg PO Q6H PRN #30 tab 04/14/16 Lisinopril [Zestril] 2.5 mg PO DAILY #30 tablet 06/26/16 Lidocaine 5% [Lidoderm] 1 ea TD DAILY PRN #10 patch 07/26/16 Naproxen [Naprosyn] 1 tab PO BID PRN #20 tab 07/26/16 Aspirin [Low Dose Aspirin EC] 81 mg PO DAILY #30 tab 07/31/16 Lisinopril 2.5 mg PO DAILY #7 tablet 07/31/16 Amoxicillin/Potassium Clav 1 tab PO TID #30 tab 09/10/16 [Augmentin 500 mg-125 mg] Benzonatate [Tessalon Perles] 100 mg PO TID PRN #30 tab 09/10/16 Acetaminophen/Chlorpheniramine 2 tab PO Q6 PRN #30 tablet 09/12/16 [Coricidin Hbp Cold & Flu Tab] Albuterol HFA [Ventolin HFA 90 2 puff IH [id number] PRN #1 each 09/12/16 mcg/actuation (8 g)] Guaifenesin [Mucinex] 600 mg PO BID #14 tab.er.12h 09/20/16 Lisinopril 2.5 mg PO ONCE #30 tab 10/24/16 Rosuvastatin Calcium 10 mg PO DAILY #30 tablet 10/24/16 Nitrofurantoin Macrocrystals 100 mg PO BID #14 cap 10/27/16 [Macrobid] Cetirizine HCl [Zyrtec Allergy] 10 mg PO DAILY #30 sgl 11/19/16 Polymyxin/Trimethoprim Sulfate 1 drop XX Q6H 10 Days 11/19/16 [Polytrim Ophth Soln] traMADol [Ultram] 50 mg PO Q6 PRN #12 tab 11/29/16 - Allergies Allergies/Adverse Reactions: Allergies Allergy/AdvReac Type Severity Reaction Status Date / Time No Known Allergies Allergy Verified 09/20/16 13:39 Review of Systems ROS Statement: Except As Marked, All Systems Reviewed And Found Negative Musculoskeletal: Positive for: Shoulder Pain (Left), Arm Pain (Left) Physical Exam - Reviewed Nursing Documentation Reviewed: Yes Vital Signs Reviewed: Yes - Physical Exam Appears: Positive for: Non-toxic, No Acute Distress Head Exam: Positive for: ATRAUMATIC, NORMAL INSPECTION, NORMOCEPHALIC Skin: Positive for: Normal Color, Warm, Dry Eye Exam: Positive for: EOMI, Normal appearance, PERRL Neck: Positive for: Normal, Painless ROM Cardiovascular/Chest: Positive for: Regular Rate, Rhythm. Negative for: Murmur Respiratory: Positive for: Normal Breath Sounds. Negative for: Accessory Muscle Use, Respiratory Distress Gastrointestinal/Abdominal: Positive for: Normal Exam, Soft. Negative for: Tenderness Back: Positive for: Normal Inspection Extremity: Positive for: Deformity (Obvious deformity of the left humerus at the mid shaft) Neurologic/Psych: Positive for: Alert, Oriented - Laboratory Results Result Diagrams: 11/29/16 03:05 11/29/16 03:05 - ECG O2 Sat by Pulse Oximetry: 99 (RA) Pulse Ox Interpretation: Normal - Radiology X-Ray: Interpreted by Me, Viewed By Me X-Ray Interpretation: Fracture (left humerus mid-shaft fracture) Medical Decision Making Medical Decision Making: Time: 03:06 Initial Impression: 81 y/o female with left shoulder pain s/p fall, rule out arm fracture Initial Plan: --Labs --Ordered X-Rays: Left Humerus and Shoulder, and CXR --Started patient on IV Morphine X-Ray: Shows a left humerus mid-shaft fracture Time: 03:27 --Discussed case with Dr. Knox, Ortho On-call, who viewed the images. Advised patient is to be placed in a coaptation splint and follow up this week Time: 04:01 Clinical Impression: Fracture of humeral shaft, closed --Splint placed in the ED --Patient is medically stable for discharge --Counseling was provided and all questions were answered regarding diagnosis and need for follow up with Ortho. --There is agreement to discharge plan. Return if symptoms persist or worsen. Scribe Attestation: Documented by Hillary Carlson, acting as a scribe for Michele Gonzalez MD Provider Scribe Attestation: All medical record entries made by the Scribe were at my direction and personally dictated by me. I have reviewed the chart and agree that the record accurately reflects my personal performance of the history, physical exam, medical decision making, and the department course for this patient. I have also personally directed, reviewed, and agree with the discharge instructions and disposition. Disposition - Clinical Impression Clinical Impression: Fracture of humeral shaft, closed - Patient ED Disposition Is Patient to be Admitted: No Discussed With Dr.: Marco Knox Doctor Will See Patient In The: Office Counseled Patient/Family Regarding: Studies Performed, Diagnosis, Need For Followup, Rx Given - Disposition Referrals: Marco Knox MD [Medical Doctor] - Disposition: Routine/Home Disposition Time: 04:01 Condition: STABLE Prescriptions: traMADol [Ultram] 50 mg PO Q6 PRN #12 tab PRN Reason: arm pain Instructions: Arm Fracture in Adults (ED) Forms: [facility] (Vietnamese)
[2016-11-29 04:03] VITALS: BP 128/62; PULSE 70; RESP 16
[2016-11-29 04:47] VITALS: O2SAT 99
--- NOTE | 2016-11-29 09:30 | RAD ---
PROCEDURE: Radiographs of the Left Shoulder HISTORY: fall COMPARISON: No prior. FINDINGS: BONES: Diagonal -oblique fracture traversing the proximal 1/3-1/2 left humerus with lateral angulation of the distal fragment JOINTS: Normal. Glenohumeral and acromioclavicular joints preserved. No osteoarthritis. SOFT TISSUES: Normal. OTHER FINDINGS: None. IMPRESSION: Diagonal -oblique fracture traversing the proximal 1/3-1/2 left humerus with lateral angulation of the distal fragment
--- NOTE | 2016-11-29 09:46 | RAD ---
PROCEDURE: CHEST RADIOGRAPH, 1 VIEW HISTORY: admit COMPARISON: Comparison chest 09/10/2016 [address] made [address] scan chest 07/26/2016 FINDINGS: LUNGS: The interstitial markings are increased -coarsened and slightly nodular in appearance, part of which is likely due to poor inspiration low lung volumes and mild crowded bronchovascular markings. There is also mild chronic the interstitial disease although these changes are seen to better advantage on prior CT scan. PLEURA: No pneumothorax or pleural fluid seen. CARDIOVASCULAR: Heart size within range of normal. Aorta is ectatic and uncoiled. OSSEOUS STRUCTURES: Multilevel degenerative spondylosis of the thoracic spine. There also appears to be a mild dextroscoliosis centered in the lower thoracic region. VISUALIZED UPPER ABDOMEN: Normal. OTHER FINDINGS: None. IMPRESSION: The interstitial markings are increased -coarsened and slightly nodular in appearance, part of which is likely due to poor inspiration low lung volumes and mild crowded bronchovascular markings. There is also mild chronic the interstitial disease although these changes are seen to better advantage on prior CT scan.
== END 2016-11-29 06:18 | disposition home or self-care (01) ==
LOC: H.ER 02:52
DX: S42.302A Unspecified fracture of shaft of humerus, left arm, initial encounter for closed fracture (principal); W01.0XXA Fall on same level from slipping, tripping and stumbling without subsequent striking against object, initial encounter; Y93.01 Activity, walking, marching and hiking; Y92.002 Bathroom of unspecified non-institutional (private) residence as the place of occurrence of the external cause
CPT/HCPCS: 71010; 73030; 73060; 80053; 85025; 85610; 85730; 96374; 96376; 99285; J2270

== ENCOUNTER 2016-12-02 18:44 | Inpatient (IN) | payer MEDICARE, OTHER ==
[2016-12-02 18:45] VITALS: BMI 22.1
[2016-12-02] MEDS ORDERED: Sodium Chloride 0.9% 1,000 ML IV STA (19:36)
[2016-12-02 19:58] LABS: BASO % 0.4 % (0.0-2.0); EOS % 0.3 % (0.0-4.0); HEMATOCRIT 31.5 % (34.0-47.0); LYMPH # 1.4 K/uL (1.0-4.3); LYMPH % 17.8 % (20.0-40.0); MEAN CELL VOLUME 83.9 fl (81.0-99.0); MEAN CORPUSCULAR HEMOGLOBIN 27.3 pg (27.0-31.0); MEAN CORPUSCULAR HGB CONC 32.6 g/dL (33.0-37.0); MEAN PLATELET VOLUME 7.9 fl (7.2-11.7); MONO # 0.6 K/uL (0.0-0.8); MONO % 7.3 % (0.0-10.0); NEUT # 5.7 K/uL (1.8-7.0); NEUT % 74.2 % (50.0-75.0); RED CELL DISTRIBUTION WIDTH 15.4 % (11.5-14.5); WHITE BLOOD COUNT 7.7 K/uL (4.8-10.8)
[2016-12-02 20:07] LABS: ALB/GLOB RATIO 1.2 (1.0-2.1); ALKALINE PHOSPHATASE 82 U/L (38-126); ALT/SGPT 33 U/L (9-52); AST/SGOT 44 U/L (14-36); BILIRUBIN,TOTAL 1.1 mg/dl (0.2-1.3); BLOOD UREA NITROGEN 17 mg/dl (7-17); CALCIUM 9.1 mg/dL (8.4-10.2); CARBON DIOXIDE 23 mmol/L (22-30); CHLORIDE 102 mmol/L (98-107); GFR AFRICAN-AMERICAN > 60; GLUCOSE,RANDOM 102 mg/dL (65-105); POTASSIUM 3.6 MMOL/L (3.6-5.0); SODIUM 139 mmol/l (132-148); TOTAL PROTEIN 7.4 G/DL (6.3-8.2)
--- NOTE | 2016-12-02 20:42 | ED PDOC ---
HPI: General Adult Time Seen by Provider: 12/02/16 19:07 Chief Complaint (Nursing): Upper Extremity Problem/Injury Chief Complaint (Provider): Upper Extremity Problem/Injury History Per: Patient, Family (Son) History/Exam Limitations: no limitations Onset/Duration Of Symptoms: Days Current Symptoms Are (Timing): Still Present Additional Complaint(s): 81 y/o female with a past medical history of hypertension, depression, anxiety, diabetes, and asthma who presents to the emergency department accompanied by son with a complaint of feeling dizzy, decreased appetite, and left shoulder pain for the past couple of days. As per history from son, patient is not eating well, only drinking fluids, almost fell a couple of times, and does not like shoulder immobilizer and splint that was placed on her after x-ray revealed a left humerus mid-shaft fracture on 11/29/2016. Also reports that patient fell a few days ago, thinks she hit her head once with no syncopal episode. Patient was prescribed Tramadol and currently taking it for pain. Denies loss of consciousness or syncope. Of note, patient reported to the emergency department about 3 days ago after fall and sustaining a fracture to the left shoulder and told to follow up with (Ortho) who she has an appointment with later on this month. --Used to see Dr. Sinan Vidal, No longer her PMD and goes to [facility]. Past Medical History Reviewed: Historical Data, Nursing Documentation, Vital Signs Vital Signs: Last Vital Signs Temp 98 F 12/03/16 16:16 Pulse 75 12/03/16 16:16 Resp 20 12/03/16 16:16 BP 106/66 12/03/16 16:16 Pulse Ox 95 12/03/16 16:16 - Medical History PMH: Alzheimer's Disease, Anxiety, Arthritis, Asthma, COPD, Depression, Diabetes , HTN, Hypercholesterolemia Denies: Hepatitis, HIV, Chronic Kidney Disease, Seizures, Sexually Transmitted Disease - Family History Family History: States: Unknown Family Hx - Social History Current smoker - smoking cessation education provided: No Ex-Smoker (has not smoked in the last 12 months): Yes Alcohol: None Drugs: Denies - Immunization History Hx Tetanus Toxoid Vaccination: No Hx Influenza Vaccination: No Hx Pneumococcal Vaccination: No - Home Medications Home Medications: Ambulatory Orders Medication Instructions Recorded Alprazolam [Xanax] 0.25 mg PO BID PRN #30 tablet 03/27/16 Aspirin [Adult Low Dose Aspirin EC] 81 mg PO DAILY #30 tablet. 03/27/16 Fluticasone/Salmeterol 250/50 1 inh INH BID #1 puff 03/27/16 [Advair Diskus 250/50] Rosuvastatin Calcium [Crestor] 10 mg PO DAILY #30 tab 03/27/16 metFORMIN [glucOPHAGE] 500 mg PO BID #60 tab 03/27/16 hydrOXYzine HCl [Atarax] 25 mg PO Q6H PRN #30 tab 04/14/16 Lisinopril [Zestril] 2.5 mg PO DAILY #30 tablet 06/26/16 Cetirizine HCl [Zyrtec Allergy] 10 mg PO DAILY #30 sgl 11/19/16 traMADol [Ultram] 50 mg PO Q6 PRN #12 tab 11/29/16 - Allergies Allergies/Adverse Reactions: Allergies Allergy/AdvReac Type Severity Reaction Status Date / Time No Known Allergies Allergy Verified 09/20/16 13:39 Review of Systems ROS Statement: Except As Marked, All Systems Reviewed And Found Negative Constitutional: Negative for: Other (Loss of consciousness) Gastrointestinal: Positive for: Other (Decreased appetite) Musculoskeletal: Positive for: Shoulder Pain (Left) Neurological: Positive for: Dizziness. Negative for: Other (Syncopal episode) Physical Exam - Reviewed Nursing Documentation Reviewed: Yes Vital Signs Reviewed: Yes - Physical Exam Appears: Positive for: Non-toxic, No Acute Distress, Uncomfortable (Disheveled appearing) Head Exam: Positive for: ATRAUMATIC, NORMAL INSPECTION, NORMOCEPHALIC Skin: Positive for: Normal Color, Warm, Dry Eye Exam: Positive for: Normal appearance, EOMI Neck: Positive for: Normal, Supple Cardiovascular/Chest: Positive for: Regular Rate, Rhythm. Negative for: Murmur Respiratory: Positive for: Normal Breath Sounds. Negative for: Accessory Muscle Use, Wheezing, Respiratory Distress Gastrointestinal/Abdominal: Positive for: Normal Exam, Soft. Negative for: Tenderness Extremity: Positive for: Normal ROM (Full ROM of all extremities except the left upper arm), Capillary Refill (Pulses intact everywhere. ), Deformity ( Deformity of the left upper arm) Neurologic/Psych: Positive for: Alert, Oriented (x3) - Laboratory Results Result Diagrams: 12/02/16 19:48 12/02/16 19:48 - ECG O2 Sat by Pulse Oximetry: 99 (RA) Pulse Ox Interpretation: Normal Medical Decision Making Medical Decision Making: Time: 19:34 Initial impression: Dizziness, decreased appetite, and fracture related shoulder pain. Differential include UTI, dehydration, and failure to try. Initial plan: --Head w/o contrast CT --EKG --CMP --CPK --Troponin I --CBC w/ diff --Sodium Chloride 1L IV ---New coaptation splint --Reevaluation 11/29/2016 --Left shoulder x-ray IMPRESSION: Diagonal -oblique fracture traversing the proximal 1/3-1/2 left humerus with lateral angulation of the distal fragment Time: 21:47 --Head CT FINDINGS: Brain: There is dilatation of sulci gyri and ventricles. There is no midline shift. There is decreased attenuation in periventricular white matter. There are no focal masses. There are no focal hemorrhages. Cox-white differentiation is visualized. Ventricles: See above. Bones: Cranial vault is intact. Soft tissues: unremarkable Sinuses: There is no acute sinusitis. Ears and mastoids: Middle ears and mastoids are unremarkable. Orbits: Orbital contents are unremarkable. IMPRESSION: No acute intracranial abnormality Pain control in long bone fracture statement. No pain medications were given since patient sustained fracture 4 days ago and pain control was initiated them and continued at home with tramadol. Pt took tramadol [employer]. Scribe Attestation: Documented by Sharri Khan, acting as a scribe for Varghese Degroot MD. Provider Scribe Attestation: All medical record entries made by the Scribe were at my direction and personally dictated by me. I have reviewed the chart and agree that the record accurately reflects my personal performance of the history, physical exam, medical decision making, and the department course for this patient. I have also personally directed, reviewed, and agree with the discharge instructions and disposition. Disposition - Clinical Impression Clinical Impression: Dizziness, Dehydration, Fracture of humeral shaft, closed - Patient ED Disposition Is Patient to be Admitted: Yes Discussed With : Terence Gonzales Doctor Will See Patient In The: ED Counseled Patient/Family Regarding: Studies Performed, Diagnosis - Disposition Disposition Time: 23:00 Condition: FAIR - Pt Status Changed To: Hospital Disposition Of: Inpatient - Admit Certification Admit to Inpatient:: After my assessment, the patient will require hospitalization for at least two midnights. This is because of the severity of symptoms shown, intensity of services needed, and/or the medical risk in this patient being treated as an outpatient. - POA Present On Arrival: Falls Or Trauma
--- NOTE | 2016-12-02 21:48 | CT ---
EXAM: CT Head Without Intravenous Contrast EXAM DATE/TIME: 12/02/2016 7:35 PM CLINICAL HISTORY: 81 years old, female; Signs and symptoms; Dizziness TECHNIQUE: Axial computed tomography images of the head/brain without intravenous contrast. All CT scans at this facility use one or more dose reduction techniques, viz.: automated exposure control; ma/kV adjustment per patient size (including targeted exams where dose is matched to indication; i.e. head); or iterative reconstruction technique. Coronal and sagittal reformatted images were created and reviewed. COMPARISON: There are no prior studies for comparison. FINDINGS: Brain: There is dilatation of sulci gyri and ventricles. There is no midline shift. There is decreased attenuation in periventricular white matter. There are no focal masses. There are no focal hemorrhages. Cox-white differentiation is visualized. Ventricles: See above. Bones: Cranial vault is intact. Soft tissues: unremarkable Sinuses: There is no acute sinusitis. Ears and mastoids: Middle ears and mastoids are unremarkable. Orbits: Orbital contents are unremarkable. IMPRESSION: No acute intracranial abnormality
--- NOTE | 2016-12-03 00:43 | CP.PCM.HP ---
History of Present Illness - History of Present Illness History of Present Illness: CC/HPI: Pt. is an 80 y/o female with a recent visit to [facility] on [facility]/16 for a left proximal humerus fracture complaining of loss of balance and dizziness. Pt. seen and examined in the E.R. with son present at bedside. Pt. states she is feeling more loss of balance and lightheaded after the fracture. Pt. states the feeling of lightheadedness and unsteady gait are more significant after her fracture. Pt. states she feels fine when she is sitting down. Pt. ambulates with the use of a walker. Pt. states is also dependant on her son for her activities of daily living. 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 Course --Head w/o contrast CT --EKG --CMP --CPK --Troponin I --CBC w/ diff --Sodium Chloride 1L IV ---New coaptation splint --Reevaluation 11/29/2016 --Left shoulder x-ray IMPRESSION: Diagonal -oblique fracture traversing the proximal 1/3-1/2 left humerus with lateral angulation of the distal fragment Time: 21:47 --Head CT FINDINGS: Brain: There is dilatation of sulci gyri and ventricles. There is no midline shift. There is decreased attenuation in periventricular white matter. There are no focal masses. There are no focal hemorrhages. Cox-white differentiation is visualized. Ventricles: See above. Bones: Cranial vault is intact. Soft tissues: unremarkable Sinuses: There is no acute sinusitis. Ears and mastoids: Middle ears and mastoids are unremarkable. Orbits: Orbital contents are unremarkable. IMPRESSION: No acute intra-cranial abnormality Present on Admission - Present on Admission Any Indicators Present on Admission: No History of DVT/PE: No History of Uncontrolled Diabetes: No Urinary Catheter: No Decubitus Ulcer Present: No Review of Systems - Review of Systems Review of Systems: See HPI Past Patient History - Infectious Disease Hx of Infectious Diseases: None - Past Medical History & Family History Past Medical History?: Yes - Past Social History Alcohol: None Drugs: Denies - CARDIAC Hx Hypercholesterolemia: Yes Hx Hypertension: Yes - PULMONARY Hx Asthma: Yes Hx Chronic Obstructive Pulmonary Disease (COPD): Yes - NEUROLOGICAL Hx Alzheimer's Disease: Yes Hx Seizures: No - HEENT Hx HEENT Problems: Yes - RENAL Hx Chronic Kidney Disease: No - ENDOCRINE/METABOLIC Hx Endocrine Disorders: Yes Hx Diabetes Mellitus Type 2: Yes - HEMATOLOGICAL/ONCOLOGICAL Hx Human Immunodeficiency Virus (HIV): No - INTEGUMENTARY Hx Dermatological Problems: No - MUSCULOSKELETAL/RHEUMATOLOGICAL Hx Arthritis: Yes - GASTROINTESTINAL Hx Gastrointestinal Disorders: No - GENITOURINARY/GYNECOLOGICAL Hx Sexually Transmitted Disorders: No - PSYCHIATRIC Hx Anxiety: Yes Hx Depression: Yes - SURGICAL HISTORY Hx Surgeries: Yes Other/Comment: left foot surgery (stepped on a nail) - ANESTHESIA Hx Anesthesia: Yes Hx Anesthesia Reactions: No Hx Malignant Hyperthermia: No Meds Allergies/Adverse Reactions: Allergies Allergy/AdvReac Type Severity Reaction Status Date / Time No Known Allergies Allergy Verified 09/20/16 13:39 Physical Exam - Constitutional Appears: Non-toxic, No Acute Distress Additional comments: Hard of Hearing - Head Exam Head Exam: ATRAUMATIC, NORMOCEPHALIC - Eye Exam Eye Exam: PERRL. absent: Scleral icterus - ENT Exam ENT Exam: Mucous Membranes Moist - Neck Exam Neck exam: Positive for: Full Rom - Respiratory Exam Respiratory Exam: Clear to Auscultation Bilateral, NORMAL BREATHING PATTERN - Cardiovascular Exam Cardiovascular Exam: REGULAR RHYTHM, +S1, +S2 - Extremities Exam Extremities exam: Positive for: normal capillary refill. Negative for: tenderness Additional comments: Left arm splint and sling - Neurological Exam Neurological exam: Alert, CN II-XII Intact, Oriented x3 - Psychiatric Exam Psychiatric exam: Anxious Results - Vital Signs Recent Vital Signs: Last Vital Signs Temp 98.2 F 12/02/16 18:50 Pulse 74 12/02/16 18:50 Resp 20 12/02/16 18:50 BP 111/60 12/02/16 18:50 Pulse Ox 99 12/02/16 22:48 - Labs Result Diagrams: 12/02/16 19:48 12/02/16 19:48 Assessment & Plan - Assessment and Plan (Free Text) Assessment: 81 y.o. female with a recent left arm proximal fracture admitted for pre- syncope of unclear etiology Pre-syncope of unclear etiology possibly polypharmacy will stop atarax, xanax, and claritin - Echo done in February 2016 with normal E.F. - CT Head in the E.R. no acute pathology identified - Troponin negative x 1 - Electrolytes WNL - Will get Cartotid Duplex - Will get vitamin B-12, Folate - Will get TSH - PT/OT - Will consider Neurology/Cardiology consult Left humerus proximal fracture- closed - Already evaluated by Ortho Dr. Knox on previous visit to [facility]. recommended conservative management - Dr. Murillo- further input appreciated - PT/OT Diabets Type II - Continue current management Hyperlipidemia - Continue current management HTN - Continue current management DVT prophylaxis - SCD Diet - Regular
[2016-12-03] MEDS ORDERED: CETIRIZINE HCL 10 MG PO SCH (09:00)
[2016-12-03] MEDS ORDERED: Patient's Own Med (Lisinopril [Zestril] 2.5 MG) PO SCH (09:00)
[2016-12-03] MEDS ORDERED: Patient's Own Med (Rosuvastatin Calcium [Crestor] 10 MG) PO SCH (09:00)
--- NOTE | 2016-12-03 10:03 | CP.PCM.PN ---
Subjective - Date & Time of Evaluation Date of Evaluation: 12/03/16 Time of Evaluation: 08:00 - Subjective Subjective: 81 y/o F examined bedside. Pt reports feeling OK. Pt eating well, good appetite with NO over night events and NO urinary complaints. Dizziness still present. Pt denies fever, headache, CP, SOB, abdominal pain, change in bowel movement. Objective - Vital Signs/Intake and Output Vital Signs (last 24 hours): Temp Pulse Resp BP Pulse Ox 98.8 F 66 18 93/53 L 98 12/03/16 08:48 12/03/16 08:48 12/03/16 08:48 12/03/16 08:48 12/03/16 08:48 - Medications Medications: Current Medications Aspirin (Ecotrin) 81 mg PO DAILY [facility] Atorvastatin Calcium (Lipitor) 20 mg PO DAILY [facility] Lisinopril (Zestril) 2.5 mg PO DAILY [facility] Metformin HCl (Glucophage) 500 mg PO BID [facility] Fluticasone/Salmeterol (Advair Diskus 250/50) 1 puff INH BID [facility] Tramadol HCl (Ultram) 50 mg PO Q6 PRN PRN Reason: arm pain Last Admin: 12/03/16 01:25 Dose: 50 mg - Constitutional Appears: Well, No Acute Distress - Head Exam Head Exam: NORMAL INSPECTION - Eye Exam Eye Exam: EOMI, PERRL - ENT Exam ENT Exam: Mucous Membranes Moist - Neck Exam Neck Exam: Full ROM - Respiratory Exam Respiratory Exam: Clear to Ausculation Bilateral, NORMAL BREATHING PATTERN - Cardiovascular Exam Cardiovascular Exam: REGULAR RHYTHM, +S1, +S2 Assessment and Plan - Assessment and Plan (Free Text) Plan: 81 y.o. Female with a recent left arm proximal fracture admitted for pre- syncope of unclear etiology 1. Pre-syncope of unclear etiology possibly polypharmacy. - Echo done in February 2016 with normal E.F. - CT Head in the E.R. no acute pathology identified - Troponin negative x 1 - Electrolytes WNL - f/u Cartotid Duplex - f/u vitamin B-12, Folate - f/u TSH - f/u PT/OT evaluation and treatment. 2. Left humerus proximal fracture- closed - Already evaluated by Ortho Dr. Knox on previous visit to [facility]. recommended conservative management - Dr. Murillo- further input appreciated - f/u PT/OT evaluation and treatment. 3. Diabetes Mellitus Type II - On 08/13/16: HbA1c 5.6-controlled. - Stop Metformin. - Lispro insulin sliding scale initiated. 4. Hyperlipidemia - On 08/13/16: Lipid panel - WNL. - Continue current management 5. HTN - Continue Lisinopril. 6. Anxiety. - Xanax re-initiated. 6. DVT prophylaxis - SCD -Lovenox 40 mg daily initiated.
[2016-12-03] MEDS: Fluticasone-Salmeterol 250-50mcg Diskus INH SCH ×2 (10:56→17:32)
--- NOTE | 2016-12-03 11:12 | US ---
PROCEDURE: Duplex ultrasound of the carotid and vertebral arteries. HISTORY: lightheadedness, dizziness, loss of balance COMPARISON: 03/27/2016. TECHNIQUE: Grayscale and duplex Doppler evaluation of the cervical carotid and vertebral arteries were performed. The common carotid, carotid bifurcations and cervical ICA and proximal ECA were evaluated. The vertebral arteries were evaluated for gross patency and direction. FINDINGS: RIGHT CAROTID ARTERIES: Common Carotid Artery: Normal. Maximal flow velocity of 120.5 cm/s. Carotid Bifurcation: Normal. Internal Carotid Artery:Heterogeneous plaque formation. Maximal flow velocity of 127.0 cm/s. External Carotid Artery (proximal branches): Normal. Maximal flow velocity of 104.80 cm/s. ICA/CCA Ratio: 1.1 LEFT CAROTID ARTERIES: Common Carotid Artery: Normal. Maximal flow velocity of 135.5 cm/s. Carotid Bifurcation: Normal. Internal Carotid Artery:Heterogeneous plaque formation. Maximal flow velocity of 108.1 cm/s. External Carotid Artery (proximal branches): Normal. Maximal flow velocity of 100.3 cm/s. ICA/CCA Ratio: 0.8 VERTEBRAL ARTERIES: Right Vertebral Artery: Patent. Antegrade flow. Left Vertebral Artery: Patent. Antegrade flow. OTHER FINDINGS: None. IMPRESSION: Right ICA degree of stenosis: 50- 69%. This represents progressive disease is compared to the prior study. Left ICA degree of stenosis: Less than 50% Reference Internal Carotid Artery (ICA) Peak Systolic Velocity (PSV) for above: 1. Less than 50% stenosis less than 125 cm/s peak systolic velocity 2. 50-69% stenosis 125-230cm/s peak systolic velocity 3. Greater than 70% but less than near occlusion greater than 230 cm/s peak systolic velocity
[2016-12-03 11:37] LABS: THYROID STIMULATING HORMONE 1.15 mIU/ML (0.46-4.68)
[2016-12-03] MEDS: Insulin Lispro (humaLOG) 100 Units/ml Inj SC SCH ×2 (17:29→21:21)
[2016-12-03] MEDS: Enoxaparin 40 mg Syringe SC SCH (17:32)
[2016-12-03 17:55] LABS: FOLATE 16.7 ng/mL
[2016-12-04] MEDS: Insulin Lispro (humaLOG) 100 Units/ml Inj SC SCH ×4 (07:30→22:20)
[2016-12-04] MEDS: Fluticasone-Salmeterol 250-50mcg Diskus INH SCH ×2 (08:37→16:20)
[2016-12-04] MEDS: Enoxaparin 40 mg Syringe SC SCH (08:40)
--- NOTE | 2016-12-04 14:15 | PQF GENQUE ---
This form is a permanent part of the medical record 12/04/16 Dr Jaron Hendrix, Documentation of a history of Asthma/COPD. Medication includes :Advair Diskus Please clarify the type of asthma. Clarification of your documentation is requested to better reflect the severity of illness and intensity of treatment of your patient. Indicators present [] Specify: [] [] Specify: [] [] Specify: [] [] Specify: [] Location in the medical record that reflects the above clinical findings: [] Treatment Provided: [] PHYSICIAN'S RESPONSE <ild intermittent asthma as listed in the note 1. Please clarify type of asthma: [] Childhood [] Cough variant [] Exercise induced [] Late onset [] Mild intermittent [] Mild persistent [] Moderate persistent [] Severe persistent [] With bronchitis(please clarify acuity of bronchitis) [] With chronic lung disease (please document specific chronic lung disease ) [] Other (please specify) [] Clinically unable to determine [] Unknown 2. Please clarify acuity of asthma: [] Uncomplicated [] With exacerbation(acute) [] With status asthmaticus [] Other (please specify) [] Clinically unable to determine [] Unknown Based on your medical judgment of the clinical indicators outlined above please clarify the following: [] Practitioner response [] If unable to determine, please check the box, sign and date. Present On Admission (POA) Indicator: [] Present at the time of admission [] Not present at the time of admission [] Clinically Undetermined In responding to this query, please exercise your independent professional judgment. The fact that a question is asked does not imply that any particular answer is desired or expected. Thank you for your clarification on this documentation. If you have any questions please call:ext [phone] * Thank you, Krista Meade RN CDMP [facility]
--- NOTE | 2016-12-04 15:13 | CP.PCM.PN ---
Subjective - Date & Time of Evaluation Date of Evaluation: 12/04/16 Time of Evaluation: 07:00 - Subjective Subjective: 81 y/o F examined at bedside. Pt reports feeling OK. No overnight event. Pt tolerating PO, eating well. Pt denies fever, CP, SOB, abdominal pain, urinary complaints or change in bowel movement. Objective - Vital Signs/Intake and Output Vital Signs (last 24 hours): Temp Pulse Resp BP Pulse Ox 97.9 F 60 18 111/64 100 12/04/16 07:58 12/04/16 07:58 12/04/16 07:58 12/04/16 08:38 12/04/16 07:58 - Medications Medications: Current Medications Alprazolam (Xanax) 0.25 mg PO Q8 PRN PRN Reason: Anxiety Stop: 12/10/16 15:32 Last Admin: 12/04/16 13:33 Dose: 0.25 mg Aspirin (Ecotrin) 81 mg PO DAILY [facility] Last Admin: 12/04/16 08:38 Dose: 81 mg Atorvastatin Calcium (Lipitor) 20 mg PO DAILY [facility] Last Admin: 12/04/16 08:38 Dose: 20 mg Calcium/Vitamin D (Citracal+D 315mg/250iu) 1 tab PO BIDWM [facility] Docusate Sodium (Colace) 100 mg PO BID [facility] Enoxaparin Sodium (Lovenox) 40 mg SC DAILY [facility] PRN Reason: Protocol Last Admin: 12/04/16 08:40 Dose: 40 mg Insulin Human Lispro (Humalog) 0 units SC ACHS [facility] PRN Reason: Protocol Last Admin: 12/04/16 12:04 Dose: 4 units Lisinopril (Zestril) 2.5 mg PO DAILY [facility] Last Admin: 12/04/16 08:38 Dose: 2.5 mg Fluticasone/Salmeterol (Advair Diskus 250/50) 1 puff INH BID [facility] Last Admin: 12/04/16 08:37 Dose: 1 puff Sennosides (Senokot Tab) 17.2 mg PO HS [facility] Tramadol HCl (Ultram) 50 mg PO BID PRN PRN Reason: arm pain Last Admin: 12/04/16 06:46 Dose: 50 mg - Constitutional Appears: Well, No Acute Distress - Head Exam Head Exam: NORMAL INSPECTION - Eye Exam Eye Exam: EOMI, PERRL - ENT Exam ENT Exam: Mucous Membranes Moist - Neck Exam Neck Exam: Full ROM - Respiratory Exam Respiratory Exam: Clear to Ausculation Bilateral, NORMAL BREATHING PATTERN - Cardiovascular Exam Cardiovascular Exam: REGULAR RHYTHM - Extremities Exam Extremities Exam: absent: Calf Tenderness Additional comments: Left arm in a cast, clean dry and intact. Assessment and Plan - Assessment and Plan (Free Text) Plan: 81 y.o. Female with a recent left arm proximal fracture admitted for pre- syncope of unclear etiology 1. Pre-syncope of unclear etiology possibly polypharmacy. - Echo done in February 2016 with normal E.F. - CT Head in the E.R. no acute pathology identified - Troponin negative x 1. - US carotids: Right ICA degree of stenosis 50-69%. Left ICA degree of stenosis less than 50%. Will continue current therapy. - Electrolytes WNL - Vitamin B12 516-WNL. - Folate 16.7-WNL - TSH 1.15 WNL. - f/u PT/OT evaluation and treatment. 2. Left humerus proximal fracture- closed - Already evaluated by Ortho Dr. Knox on previous visit to [facility]. recommended conservative management - Dr. Murillo- further input appreciated. - Vitamin D and Calcium PO ordered. - Vitamin D serum level ordered. - PT/OT recommended subacute rehabilitation. - f/u PT/OT evaluation and treatment. 3. Mild intermittent asthma without complication - On Advair: Fluticasone/Salmeterol 250/50, 1puff BID. 4. Diabetes Mellitus Type II - On 08/13/16: HbA1c 5.6-controlled. - Stop Metformin. - Lispro insulin sliding scale initiated. 5. Hyperlipidemia - On 08/13/16: Lipid panel - WNL. - Continue current management 6. HTN - Continue Lisinopril. 7. Anxiety. - Xanax re-initiated. 8. DVT prophylaxis - SCD - Lovenox 40 mg daily initiated.
[2016-12-04] MEDS: Citracal+D 315mg/250IU PO SCH (16:21)
[2016-12-05 07:13] LABS: HEMATOCRIT 28.9 % (34.0-47.0)
[2016-12-05] MEDS: Insulin Lispro (humaLOG) 100 Units/ml Inj SC SCH ×2 (07:30→11:36)
[2016-12-05] MEDS: Citracal+D 315mg/250IU PO SCH (08:35)
[2016-12-05] MEDS: Fluticasone-Salmeterol 250-50mcg Diskus INH SCH (08:35)
[2016-12-05] MEDS: Enoxaparin 40 mg Syringe SC SCH (08:36)
[2016-12-05 09:00] VITALS: BP 90/51; PULSE 74; RESP 20; TEMP 98.4; O2SAT 99
--- NOTE | 2016-12-05 10:40 | CP.PCM.DIS ---
Provider - Provider Date of Admission: 12/02/16 23:01 Attending physician: Maritza Bingham MD Primary care physician: [facility]. Consults: Orthopedics: Abilio Melo. Time Spent in preparation of Discharge (in minutes): 30 Hospital Course - Lab Results Lab Results: Most Recent Lab Values WBC 7.7 K/uL (4.8-10.8) 12/02/16 19:48 RBC 3.75 Mil/uL (3.80-5.20) L 12/02/16 19:48 Hgb 9.5 g/dL (12.0-16.0) L 12/05/16 06:30 Hct 28.9 % (34.0-47.0) L 12/05/16 06:30 MCV 83.9 fl (81.0-99.0) 12/02/16 19:48 MCH 27.3 pg (27.0-31.0) 12/02/16 19:48 MCHC 32.6 g/dL (33.0-37.0) L 12/02/16 19:48 RDW 15.4 % (11.5-14.5) H 12/02/16 19:48 Plt Count 170 K/uL (130-400) 12/02/16 19:48 MPV 7.9 fl (7.2-11.7) 12/02/16 19:48 Neut % (Auto) 74.2 % (50.0-75.0) 12/02/16 19:48 Lymph % (Auto) 17.8 % (20.0-40.0) L 12/02/16 19:48 [place] % (Auto) 7.3 % (0.0-10.0) 12/02/16 19:48 Eos % (Auto) 0.3 % (0.0-4.0) 12/02/16 19:48 Baso % (Auto) 0.4 % (0.0-2.0) 12/02/16 19:48 Neut # 5.7 K/uL (1.8-7.0) 12/02/16 19:48 Lymph # 1.4 K/uL (1.0-4.3) 12/02/16 19:48 [place] # 0.6 K/uL (0.0-0.8) 12/02/16 19:48 Eos # 0.0 K/uL (0.0-0.7) 12/02/16 19:48 Baso # 0.0 K/uL (0.0-0.2) 12/02/16 19:48 Sodium 139 mmol/l (132-148) 12/02/16 19:48 Potassium 3.6 MMOL/L (3.6-5.0) 12/02/16 19:48 Chloride 102 mmol/L (98-107) 12/02/16 19:48 Carbon Dioxide 23 mmol/L (22-30) 12/02/16 19:48 Anion Gap 17 (10-20) 12/02/16 19:48 BUN 17 mg/dl (7-17) 12/02/16 19:48 Creatinine 0.6 mg/dL (0.7-1.2) L 12/02/16 19:48 Est GFR ( Amer) > 60 12/02/16 19:48 Est GFR (Non-Af Amer) > 60 12/02/16 19:48 POC Glucose (mg/dL) 107 mg/dL (65-110) 12/05/16 06:38 Random Glucose 102 mg/dL (65-105) 12/02/16 19:48 Calcium 9.1 mg/dL (8.4-10.2) 12/02/16 19:48 Total Bilirubin 1.1 mg/dl (0.2-1.3) 12/02/16 19:48 AST 44 U/L (14-36) H D 12/02/16 19:48 ALT 33 U/L (9-52) 12/02/16 19:48 Alkaline Phosphatase 82 U/L (38-126) 12/02/16 19:48 Total Creatine Kinase 249 U/L (30-135) H 12/02/16 19:48 Troponin I < 0.0120 ng/mL (0.00-0.120) 12/02/16 19:48 Total Protein 7.4 G/DL (6.3-8.2) 12/02/16 19:48 Albumin 4.1 g/dL (3.5-5.0) 12/02/16 19:48 Globulin 3.3 gm/dL (2.2-3.9) 12/02/16 19:48 Albumin/Globulin Ratio 1.2 (1.0-2.1) 12/02/16 19:48 Vitamin B12 516 pg/mL (239-931) 12/03/16 10:45 Folate 16.7 ng/mL 12/03/16 10:45 TSH 3rd Generation 1.15 mIU/ML (0.46-4.68) 12/03/16 10:45 - Hospital Course Hospital Course: 81 y/o F with a PMHx of recent left humeral fracture admitted for persistent dizziness. EKG, troponin, TSH, US carotids were unremarkable. Metformin and Lisinopril were stopped due to low BP measurement and overcontrolled DM2. Pt presented mild ecchymosis on Left arm and left flank. Pt was ordered CBC and BMP to be done in 3 days for further evaluation. Pt was discharged, stable, tolerating PO and NO urinary complaints. Pt transferred to [facility]. Pt was further instructed to be follow with Dr Marco Knox, orthopedist for evaluation of left humerus fracture. Discharge Exam - Head Exam Head Exam: NORMAL INSPECTION - Eye Exam Eye Exam: EOMI, Normal appearance - ENT Exam ENT Exam: Mucous Membranes Moist - Neck Exam Neck exam: Full Rom - Respiratory Exam Respiratory Exam: NORMAL BREATHING PATTERN, UNREMARKABLE - Cardiovascular Exam Cardiovascular Exam: REGULAR RHYTHM - GI/Abdominal Exam GI & Abdominal Exam: Normal Bowel Sounds, Unremarkable. absent: Guarding Discharge Plan - Discharge Medications Prescriptions: Ferrous Sulfate [Feosol] 325 mg PO DAILY #30 tab - Follow Up Plan Condition: FAIR Disposition: TRANSF TO SNF Instructions: Arm Fracture in Adults (DC), Vertigo (GEN) Additional Instructions: -F/u with PMD, Dr Summers at [facility] on 12/26/16 at 1:40 pm. -F/u with orthopedist, Abilio Melo within 1 week. -CBC and BMP ordered for Thursday12/08/16 as per anemia evaluation. -Continue conservative management for left humeral fracture as per orthopedist. -Given orthopedist information to make an appointment within 1 week and prescription for CBC and BMP. -Return to ER if persistent dizziness, fever, altered mental status or vomiting. Keep arm elevated with sling. Inform MD if fingers are swollen r unable to move
--- NOTE | 2016-12-05 11:29 | RAD ---
PROCEDURE: Radiographs of the left humerus. HISTORY: s/p Left Humerus Fx in Splint COMPARISON: None. FINDINGS: BONES: There is an acute displaced fracture in the midshaft of the humerus with 1 shaft with posterior displacement and overlapping of fracture fragments. There is diffuse bone demineralization. Bone alignment is normal. SOFT TISSUES: Normal. OTHER FINDINGS: None. IMPRESSION: Acute displaced fracture in the midshaft of the humerus with 1 shaft with posterior displacement and overlapping of fracture fragments.
--- NOTE | 2016-12-05 18:22 | CARD ---
APPROVED REPORT EKG Measurement Heart [id number] <Conclusion> Normal sinus rhythm Left anterior fascicular block Abnormal ECG
--- NOTE | 2016-12-08 10:31 | PQF GENQUE ---
Dr. Bingham pt was admitted with presyncope and persistent dizziness. After study is the principal diagnosis for this case presyncope or persistent dizziness? This form is a permanent part of the medical record Clarification of your documentation is requested to better reflect the severity of illness and intensity of treatment of your patient. Indicators present [] Specify: [] [] Specify: [] [] Specify: [] [] Specify: [] Location in the medical record that reflects the above clinical findings: [] Treatment Provided: [] PHYSICIAN'S RESPONSE dizyness unclear etiology Based on your medical judgment of the clinical indicators outlined above please clarify the following: [] Practitioner response [] If unable to determine, please check the box, sign and date. Present On Admission (POA) Indicator: [] Present at the time of admission [] Not present at the time of admission [] Clinically Undetermined In responding to this query, please exercise your independent professional judgment. The fact that a question is asked does not imply that any particular answer is desired or expected. Thank you for your clarification on this documentation. 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
== END 2016-12-05 13:16 | DRG 149 ==
LOC: H.ER 18:44 → H.ERHOLD 23:01 → H.MEDSURG1 12-03 00:44
PROVIDERS: ADMIT Family Medicine Geriatric Medicine; ATTEND Family Medicine Geriatric Medicine
DX: R42 Dizziness and giddiness (principal); J44.9 Chronic obstructive pulmonary disease, unspecified; G30.9 Alzheimer's disease, unspecified; F02.80 Dementia in other diseases classified elsewhere, unspecified severity, without behavioral disturbance, psychotic disturbance, mood disturbance, and anxiety; E11.9 Type 2 diabetes mellitus without complications; I10 Essential (primary) hypertension; E86.0 Dehydration; E78.00 Pure hypercholesterolemia, unspecified; E78.5 Hyperlipidemia, unspecified; J45.20 Mild intermittent asthma, uncomplicated; F32.9 Major depressive disorder, single episode, unspecified; F41.9 Anxiety disorder, unspecified; M19.90 Unspecified osteoarthritis, unspecified site; S42.202D Unspecified fracture of upper end of left humerus, subsequent encounter for fracture with routine healing; X58.XXXD Exposure to other specified factors, subsequent encounter; S30.1XXD Contusion of abdominal wall, subsequent encounter

== ENCOUNTER 2016-12-12 16:15 | Inpatient (IN) | payer MEDICARE, OTHER ==
[2016-12-12 16:15] VITALS: BMI 22.1
[2016-12-12] MEDS ORDERED: Piperacillin/Tazobact 3.375 GM in Sodium Chloride 0.9% 100 ML IVPB STA (16:32)
[2016-12-12] MEDS ORDERED: Vancomycin 1 g Inj ONE (16:36)
[2016-12-12] MEDS ORDERED: Piperacillin/Tazobact 3.375 gm Inj IVPB ONE (16:37)
[2016-12-12 17:02] LABS: VENOUS BLOOD GAS PCO2 48 mmHg (40-60)
[2016-12-12 17:18] LABS: BASO % 0.3 % (0.0-2.0); EOS # 0.1 K/uL (0.0-0.7); EOS % 0.6 % (0.0-4.0); HEMATOCRIT 33.6 % (34.0-47.0); LYMPH # 1.4 K/uL (1.0-4.3); LYMPH % 14.8 % (20.0-40.0); MEAN CORPUSCULAR HEMOGLOBIN 27.3 pg (27.0-31.0); MEAN CORPUSCULAR HGB CONC 32.1 g/dL (33.0-37.0); MEAN PLATELET VOLUME 7.7 fl (7.2-11.7); MONO # 0.6 K/uL (0.0-0.8); MONO % 6.3 % (0.0-10.0); NEUT # 7.4 K/uL (1.8-7.0); RED CELL DISTRIBUTION WIDTH 16.5 % (11.5-14.5); WHITE BLOOD COUNT 9.5 K/uL (4.8-10.8)
[2016-12-12 17:34] LABS: ALB/GLOB RATIO 1.2 (1.0-2.1); ALKALINE PHOSPHATASE 125 U/L (38-126); ALT/SGPT 24 U/L (9-52); AST/SGOT 33 U/L (14-36); BILIRUBIN,TOTAL 0.7 mg/dl (0.2-1.3); BLOOD UREA NITROGEN 18 mg/dl (7-17); CALCIUM 9.6 mg/dL (8.4-10.2); CARBON DIOXIDE 24 mmol/L (22-30); CHLORIDE 100 mmol/L (98-107); GFR AFRICAN-AMERICAN > 60; GLUCOSE,RANDOM 89 mg/dL (65-105); POTASSIUM 4.2 MMOL/L (3.6-5.0); SODIUM 137 mmol/l (132-148); TOTAL PROTEIN 7.9 G/DL (6.3-8.2)
--- NOTE | 2016-12-12 17:34 | ED PDOC ---
Upper Extremity Pain/Injury Time Seen by Provider: 12/12/16 16:21 Chief Complaint (Nursing): Upper Extremity Problem/Injury Chief Complaint (Provider): Bleeding Left Upper Extremity History Per: Patient History/Exam Limitations: no limitations Current Symptoms Are (Timing): Still Present Additional Complaint(s): Leonila Cam, an 81 year old female, is sent in to the ED from her intermediate for evaluation of her left arm. History is limited due to patient's demented state. Per intermediate papers, the patient was diagnosed with a humerus fracture of her left forearm. She comes in today with bleeding of the left upper extremity. PMD: Sarwat Arreguin Past Medical History Reviewed: Historical Data, Nursing Documentation, Vital Signs Vital Signs: Last Vital Signs Temp 98.6 F 12/12/16 16:18 Pulse 74 12/12/16 16:18 Resp 22 12/12/16 16:18 BP 97/54 L 12/12/16 16:18 Pulse Ox 99 12/12/16 16:18 - Medical History PMH: Alzheimer's Disease, Anxiety, Arthritis, Asthma, COPD, Depression, Diabetes , HTN, Hypercholesterolemia Denies: Hepatitis, HIV, Chronic Kidney Disease, Seizures, Sexually Transmitted Disease - Surgical History Other surgeries: Left foot surgery. - Family History Family History: States: Unknown Family Hx - Social History Current smoker - smoking cessation education provided: No Alcohol: None Drugs: Denies - Immunization History Hx Tetanus Toxoid Vaccination: No Hx Influenza Vaccination: No Hx Pneumococcal Vaccination: No - Home Medications Home Medications: Ambulatory Orders Medication Instructions Recorded Aspirin [Adult Low Dose Aspirin EC] 81 mg PO DAILY #30 tablet. 03/27/16 metFORMIN [glucOPHAGE] 500 mg PO BID #60 tab 03/27/16 Lisinopril [Zestril] 2.5 mg PO DAILY #30 tablet 06/26/16 Cetirizine HCl [Zyrtec] 10 mg PO DAILY #30 sgl 11/19/16 Docusate [Colace] 100 mg PO BID cap 12/05/16 Acetaminophen [Tylenol 325mg tab] 650 mg PO Q4H PRN 12/12/16 Acetaminophen [Tylenol 325mg tab] 650 mg PO Q4H PRN 12/12/16 Alprazolam [Xanax] 0.25 mg PO Q6H PRN 12/12/16 Atorvastatin [Lipitor] 20 mg PO HS 12/12/16 Calcium Citrate/Vitamin D3 1 tab PO BID 12/12/16 [Calcium Citrate - Vit D Caplet] Enoxaparin [Lovenox] 40 mg SQ DAILY 12/12/16 Fluticasone/Salmeterol 250/50 1 puff INH Q12H 12/12/16 [Advair Diskus 250/50] Insulin Lispro [humALOG] 1 - 7 unit SC BID 12/12/16 Magnesium Hydroxide [Milk Of 30 ml PO DAILY PRN 12/12/16 Magnesia] Sennosides [Senna] 2 tab PO HS 12/12/16 traMADol [Ultram] 50 mg PO Q12H PRN 12/12/16 - Allergies Allergies/Adverse Reactions: Allergies Allergy/AdvReac Type Severity Reaction Status Date / Time No Known Allergies Allergy Verified 09/20/16 13:39 Review of Systems ROS Statement: Except As Marked, All Systems Reviewed And Found Negative Musculoskeletal: Positive for: Other (Left forearm humerus fracture.) Physical Exam - Reviewed Nursing Documentation Reviewed: Yes Vital Signs Reviewed: Yes - Physical Exam Appears: Positive for: Non-toxic, No Acute Distress Head Exam: Positive for: ATRAUMATIC, NORMAL INSPECTION, NORMOCEPHALIC Skin: Positive for: Normal Color, Warm, Dry. Negative for: Rash Eye Exam: Positive for: Normal appearance, EOMI, PERRL. Negative for: Nystagmus Neck: Positive for: Normal, Painless ROM, Supple Cardiovascular/Chest: Positive for: Regular Rate, Rhythm, Chest Non Tender. Negative for: Tachycardia Respiratory: Positive for: Normal Breath Sounds. Negative for: Rales, Rhonchi, Wheezing, Respiratory Distress Gastrointestinal/Abdominal: Positive for: Normal Exam, Bowel Sounds, Soft. Negative for: Tenderness, Mass, Guarding, Rebound Back: Positive for: Normal Inspection. Negative for: L CVA Tenderness, R CVA Tenderness Extremity: Positive for: Normal ROM, Deformity ( Obvious deformity to left humerus.), Other (No distress left upper posterior splint noted on left forearm ; fluctuant mass 6x4cm on upper left forearm; Erythema and iduration noted to left forearm; No active bleeding; No discharge.). Negative for: Tenderness, Pedal Edema, Swelling Neurologic/Psych: Positive for: Alert, Oriented, Gait - Laboratory Results Result Diagrams: 12/12/16 16:55 12/12/16 16:55 - ECG O2 Sat by Pulse Oximetry: 99 (RA) Pulse Ox Interpretation: Normal Medical Decision Making Medical Decision Makin Initial Impression: 81 year old female presenting with left forearm humerus fracture, Abscess and Cellulitis Initial Plan: * VBG Shock Panel * CT EXT upper w/ Contrast * Comp metabolic Panel * CBC * PTT * Prothrombin Time * Morphine 1mg IVP * Vancomycin inj 1gm NS 250ml * Zosyn 3.375g NS 100ml * Blood Culture * [id number] * RAD Humerus left fall protocol * Reevaluation Scribe Attestation Documented by Valery Hirsch acting as a scribe for Claudia Harrington MD. Provider Attestation All medical record entries made by the Scribe were at my direction and personally dictated by me. I have reviewed the chart and agree that the record accurately reflects my personal performance of the history, physical exam, medical decision making, and the department course for this patient. I have also personally directed, reviewed, and agree with the discharge instructions and disposition. Disposition - Clinical Impression Clinical Impression: Displaced fracture of humerus, Hematoma - Patient ED Disposition Is Patient to be Admitted: Yes - Disposition Disposition Time: 18:45 Condition: STABLE Forms: [employer] (Vincentian) - Pt Status Changed To: Hospital Disposition Of: Inpatient - Admit Certification Admit to Inpatient:: After my assessment, the patient will require hospitalization for at least two midnights. This is because of the severity of symptoms shown, intensity of services needed, and/or the medical risk in this patient being treated as an outpatient. - POA Present On Arrival: Falls Or Trauma
[2016-12-12 17:41] LABS: PARTIAL THROMBOPLASTIN TIME 26.7 Seconds (25.6-37.1)
[2016-12-12] MEDS ORDERED: Sodium Chloride 0.9% 50 ML IV ONE (17:56)
[2016-12-12] MEDS ORDERED: Iohexol 300 100 ML IJ ONE (17:56)
--- NOTE | 2016-12-12 18:41 | CT ---
PROCEDURE: HISTORY: LUE redness/swelling COMPARISON: TECHNIQUE: FINDINGS: Evaluation demonstrates severe fracture of the mid humeral shaft with overlapping of fragments and associated large humeral soft tissue hematoma measuring roughly 4.8 by 3.5 centimeters in AP and transverse dimensions. There is complete separation of the osseous shaft fragments. Peripheral enhancement of the fluid collection is observed. The collection extends superiorly into the proximal shaft. There is marked adjacent muscular hypertrophy as well as extensive soft tissue edema. There is no definite evidence of a soft tissue mass to suggest a pathological fracture, however, clinical correlation is recommended as neoplasm is not definitively excluded. IMPRESSION: Large soft tissue fluid collection presumably a hematoma in association with a complete fracture of the mid humeral shaft with separation and overlapping of proximal and distal humeral shaft components.
--- NOTE | 2016-12-12 19:24 | CP.PCM.HP ---
History of Present Illness - History of Present Illness History of Present Illness: Pt. a poor historian. Hx obtained from patient limited due to dementia. Hx obtained from son, chart review, and patient. CC/HPI: Pt. is an 80 y/o female seen in the E.D. Pt. was sent over from rehab at [facility] for evaluation of left arm fracture and associated hematoma. Pt. had a visit to [facility] on 11/29/16 for a left mid-shaft humeral fracture after a mechanical fall occurring at home. On previous admission to [facility], Pt. was evaluated by Orthopedic Dr. Knox who recommended conservative management with splint. Pt. was subsequently sent to [facility] for rehab. Pt. denies any weakness, numbness, and tingling in her left arm. Pt. does state she is in pain only if she moves her arm. Pt. is noted to be agitated and states "don't touch me," and "leave me alone." ROS: Pt. denies any headache, chest pain, dyspnea, abdominal pain, fever, chills. 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 Course Initial Plan: * VBG Shock Panel * CT EXT upper w/ Contrast * Comp metabolic Panel * CBC * PTT * Prothrombin Time * Morphine 1mg IVP * Vancomycin inj 1gm NS 250ml * Zosyn 3.375g NS 100ml * Blood Culture * [id number] * RAD Humerus left fall protocol Present on Admission - Present on Admission Any Indicators Present on Admission: No History of DVT/PE: No History of Uncontrolled Diabetes: Yes Urinary Catheter: No Decubitus Ulcer Present: Yes Decubitus Ulcer Location: Sacrum Decubitus Ulcer Stage: I History Surgical Site Infection Following: None Review of Systems - Review of Systems Review of Systems: See HPI Past Patient History - Infectious Disease Hx of Infectious Diseases: None - Past Medical History & Family History Past Medical History?: Yes - Past Social History Alcohol: None Drugs: Denies - CARDIAC Hx Hypercholesterolemia: Yes Hx Hypertension: Yes - PULMONARY Hx Asthma: Yes Hx Chronic Obstructive Pulmonary Disease (COPD): Yes - NEUROLOGICAL Hx Alzheimer's Disease: Yes Hx Seizures: No - HEENT Hx HEENT Problems: Yes - RENAL Hx Chronic Kidney Disease: No - ENDOCRINE/METABOLIC Hx Diabetes Mellitus Type 1: Yes Hx Diabetes Mellitus Type 2: Yes - HEMATOLOGICAL/ONCOLOGICAL Hx Human Immunodeficiency Virus (HIV): No - INTEGUMENTARY Hx Dermatological Problems: No - MUSCULOSKELETAL/RHEUMATOLOGICAL Hx Arthritis: Yes - GASTROINTESTINAL Hx Gastrointestinal Disorders: No - GENITOURINARY/GYNECOLOGICAL Hx Sexually Transmitted Disorders: No - PSYCHIATRIC Hx Anxiety: Yes Hx Depression: Yes - SURGICAL HISTORY Hx Surgeries: Yes Other/Comment: left foot surgery (stepped on a nail) - ANESTHESIA Hx Anesthesia: Yes Hx Anesthesia Reactions: No Hx Malignant Hyperthermia: No Meds Allergies/Adverse Reactions: Allergies Allergy/AdvReac Type Severity Reaction Status Date / Time No Known Allergies Allergy Verified 09/20/16 13:39 Physical Exam - Constitutional Appears: Non-toxic, No Acute Distress - Head Exam Head Exam: ATRAUMATIC, NORMOCEPHALIC - Eye Exam Eye Exam: Normal appearance. absent: Scleral icterus - Neck Exam Neck exam: Positive for: Normal Inspection - Respiratory Exam Respiratory Exam: Clear to Auscultation Bilateral, NORMAL BREATHING PATTERN - Cardiovascular Exam Cardiovascular Exam: REGULAR RHYTHM, +S1, +S2 - GI/Abdominal Exam GI & Abdominal Exam: Soft. absent: Tenderness - Extremities Exam Additional comments: Radial pulses +2 bilaterally Strength 4/5 in left arm when compared to right arm Sensation intact +positive Hematoma noted on left humerus in the area of midshaft fracture with some redness and tenderness appreciated Bone has not piereced skin. - Back Exam Additional comments: + Stage I sacral ulcer - Neurological Exam Neurological exam: Alert, Oriented x3 - Psychiatric Exam Psychiatric exam: Agitated, Anxious Results - Vital Signs Recent Vital Signs: Last Vital Signs Temp 98.9 F 12/12/16 19:20 Pulse 70 12/12/16 19:20 Resp 16 12/12/16 19:20 BP 87/47 L 12/12/16 19:20 Pulse Ox 96 12/12/16 19:20 - Labs Result Diagrams: 12/12/16 16:55 12/12/16 16:55 Labs: Laboratory Results - last 24 hr 12/12/16 12/12/16 12/12/16 16:55 16:55 16:55 WBC 9.5 RBC 3.95 Hgb 10.8 L Hct 33.6 L MCV 85.0 MCH 27.3 MCHC 32.1 L RDW 16.5 H Plt Count 326 D MPV 7.7 Neut % (Auto) 78.0 H Lymph % (Auto) 14.8 L [place] % (Auto) 6.3 Eos % (Auto) 0.6 Baso % (Auto) 0.3 Neut # 7.4 H Lymph # 1.4 [place] # 0.6 Eos # 0.1 Baso # 0.0 PT 11.7 INR 1.1 APTT 26.7 pO2 VBG pH VBG pCO2 VBG HCO3 VBG Total CO2 VBG O2 Sat (Calc) VBG Base Excess VBG Potassium Glucose Lactate FiO2 Sodium 137 Potassium 4.2 Chloride 100 Carbon Dioxide 24 Anion Gap 17 BUN 18 H Creatinine 0.5 L Est GFR ( Amer) > 60 Est GFR (Non-Af Amer) > 60 Random Glucose 89 Calcium 9.6 Total Bilirubin 0.7 AST 33 ALT 24 Alkaline Phosphatase 125 Total Protein 7.9 Albumin 4.3 Globulin 3.6 Albumin/Globulin Ratio 1.2 Venous Blood Potassium 12/12/16 16:56 WBC RBC Hgb Hct MCV MCH MCHC RDW Plt Count MPV Neut % (Auto) Lymph % (Auto) [place] % (Auto) Eos % (Auto) Baso % (Auto) Neut # Lymph # [place] # Eos # Baso # PT INR APTT pO2 20 L VBG pH 7.40 VBG pCO2 48 VBG HCO3 26.3 VBG Total CO2 31.2 H VBG O2 Sat (Calc) 35.5 L VBG Base Excess 4.0 H VBG Potassium 4.1 Glucose 91 Lactate 1.8 FiO2 21.0 Sodium 137.0 Potassium Chloride 102.0 Carbon Dioxide Anion Gap BUN Creatinine Est GFR ( Amer) Est GFR (Non-Af Amer) Random Glucose Calcium Total Bilirubin AST ALT Alkaline Phosphatase Total Protein Albumin Globulin Albumin/Globulin Ratio Venous Blood Potassium 4.1 Assessment & Plan - Assessment and Plan (Free Text) Assessment: 81 y.o. female admitted for worsening of left humeral fracture with hematoma Left humerus proximal fracture- closed with overlying hematoma, neurologically intact Pt. a good candidate for Orthopedic consult due to failure of previous co- aptation splint and poor compliance with instructions and physical therapy. - Consult Orthopedic- Dr. Green, spoke with Dr. green will see the patient in the a.m. recommend co-aptation splint for now. - Coaptation splint attempted, pt. combative during splint placement despite Ativan 0.5mg I.V. and Morpine 1mg I.V. (higher doses could not be given due to Hypotension) - Will consider Cardiology consult if pre-op clearance required for possible surgical intervention by orthopedic surgery - Toradol 15mg mild pain - Morphine 1mg moderate pain - Morphine 2mg severe pain - PT/OT evaluation Cellulitis associated with Hematoma s/p Zosyn in the E.D. - Rocephin 1 gram I.V. daily - Bcx pending Hypotension - Echo done in February 2016 with normal E.F. - Will start on normal saline 125cc/hr - Will stop home med Lisinopril Stage I sacral Ulcer - Wound care consult - Turn Q2 hours Diabets Type II - stop Metformin givein Hba1c 5.6% on July 2016 - ACHS - LDSS Insulin Hyperlipidemia - Continue current management HTN - Stop Lisinopril 2.5mg DVT prophylaxis - SCD for now Diet - Regular with high fiber
[2016-12-12] MEDS ORDERED: Sodium Chloride 0.9% 1,000 ML IV SCH ×4 (19:45→23:55)
[2016-12-13] MEDS: Fluticasone-Salmeterol 250-50mcg Diskus INH SCH ×3 (01:12→22:04)
[2016-12-13] MEDS ORDERED: Sodium Chloride 0.9% 1,000 ML IV SCH (07:33)
--- NOTE | 2016-12-13 08:35 | CARD ---
APPROVED REPORT EKG Measurement Heart [id number] <Conclusion> Sinus rhythm with 1st degree AV block with premature atrial complexes Incomplete right bundle branch block Left anterior fascicular block Septal infarct, age undetermined Abnormal ECG
[2016-12-13] MEDS ORDERED: Patient's Own Med (Lisinopril [Zestril] 2.5 MG) PO SCH (09:00)
[2016-12-13 09:14] LABS: HEMATOCRIT 25.7 % (34.0-47.0); MEAN CELL VOLUME 84.7 fl (81.0-99.0); MEAN CORPUSCULAR HEMOGLOBIN 28.4 pg (27.0-31.0); MEAN CORPUSCULAR HGB CONC 33.5 g/dL (33.0-37.0); RED CELL DISTRIBUTION WIDTH 16.9 % (11.5-14.5); WHITE BLOOD COUNT 6.6 K/uL (4.8-10.8)
[2016-12-13 09:23] LABS: BLOOD UREA NITROGEN 11 mg/dl (7-17); CALCIUM 8.5 mg/dL (8.4-10.2); CARBON DIOXIDE 22 mmol/L (22-30); CHLORIDE 109 mmol/L (98-107); GFR AFRICAN-AMERICAN > 60; GLUCOSE,RANDOM 75 mg/dL (65-105); POTASSIUM 3.9 MMOL/L (3.6-5.0); SODIUM 138 mmol/l (132-148)
[2016-12-13] MEDS: Sodium Chloride 0.9% 1,000 ML IV SCH ×2 (12:15→19:52)
--- NOTE | 2016-12-13 12:49 | RAD ---
HISTORY: Fracture COMPARISON: No prior FINDINGS: BONES: Complete fracture of the humeral shaft with distraction and overlapping of fragments. JOINTS: Normal. No osteoarthritis. SOFT TISSUE: Normal. OTHER FINDINGS: None . IMPRESSION: Complete fracture of the humeral shaft with distraction and overlapping of fragments.
--- NOTE | 2016-12-13 12:55 | RAD ---
PROCEDURE: CHEST RADIOGRAPH, 1 VIEW HISTORY: preop clearance COMPARISON: None available. FINDINGS: LUNGS: Mild interstitial changes with elevation of the left hemidiaphragm. PLEURA: No pneumothorax or pleural fluid seen. CARDIOVASCULAR: Normal. OSSEOUS STRUCTURES: No significant abnormalities. VISUALIZED UPPER ABDOMEN: Normal. OTHER FINDINGS: None. IMPRESSION: Mild interstitial changes with elevation of the left hemidiaphragm.
--- NOTE | 2016-12-13 13:00 | RAD ---
PROCEDURE: HISTORY: Reeval L humerus fx COMPARISON: TECHNIQUE: FINDINGS: Complete fracture of the humeral shaft with dislocation and distraction of proximal and distal fragments with overlapping of the fragments associated severe soft tissue swelling. IMPRESSION: As above.
--- NOTE | 2016-12-13 15:24 | CP.PCM.PN ---
Subjective - Date & Time of Evaluation Date of Evaluation: 12/13/16 Time of Evaluation: 15:22 - Subjective Subjective: no overnight events. pt place in splint for left arm. denies pain currently. tolerating PO, denies n/v. Denies chest pain/SOB. Denies numbness/tingling. Able to feel left hand. Objective - Vital Signs/Intake and Output Vital Signs (last 24 hours): Temp Pulse Resp BP Pulse Ox 98.0 F 73 20 88/46 L 99 12/13/16 11:51 12/13/16 11:51 12/13/16 11:51 12/13/16 11:51 12/13/16 11:51 Intake and Output: 12/13/16 12/13/16 06:59 18:59 Intake Total 500 Balance 500 - Medications Medications: Current Medications Aspirin (Ecotrin) 81 mg PO DAILY [facility] Last Admin: 12/13/16 09:19 Dose: 81 mg Atorvastatin Calcium (Lipitor) 20 mg PO [facility] Heparin Sodium (Porcine) (Heparin) 5,000 units SC Q12 [facility] PRN Reason: Protocol Ceftriaxone Sodium 1 gm/ (Sodium Chloride) 100 mls @ 100 mls/hr IVPB DAILY [facility] Last Admin: 12/13/16 09:19 Dose: 100 mls/hr Sodium Chloride (Sodium Chloride 0.9%) 1,000 mls @ 125 mls/hr IV .Q8H [facility] Stop: 12/13/16 23:59 Last Admin: 12/13/16 12:15 Dose: Not Given Ketorolac Tromethamine (Toradol) 15 mg IVP Q6 PRN PRN Reason: Pain, Mild (1-3) Morphine Sulfate (Morphine) 1 mg IVP Q4 PRN PRN Reason: Pain, moderate (4-7) Last Admin: 12/12/16 20:36 Dose: 1 mg Morphine Sulfate (Morphine) 2 mg IVP Q6 PRN PRN Reason: Pain, severe (8-10) Fluticasone/Salmeterol (Advair Diskus 250/50) 1 puff INH Q12H [facility] Last Admin: 12/13/16 11:08 Dose: 1 puff - Labs Labs: 12/13/16 08:05 12/13/16 08:05 PT 11.7 Seconds (9.8-13.1) 12/12/16 16:55 INR 1.1 (0.9-1.2) 12/12/16 16:55 APTT 26.7 Seconds (25.6-37.1) 12/12/16 16:55 - Constitutional Appears: Non-toxic, No Acute Distress - Head Exam Head Exam: ATRAUMATIC, NORMAL INSPECTION - Eye Exam Eye Exam: Normal appearance - ENT Exam ENT Exam: Mucous Membranes Moist - Neck Exam Neck Exam: Normal Inspection - Respiratory Exam Respiratory Exam: Clear to Ausculation Bilateral, NORMAL BREATHING PATTERN - Cardiovascular Exam Cardiovascular Exam: REGULAR RHYTHM - GI/Abdominal Exam GI & Abdominal Exam: Soft, Normal Bowel Sounds - Extremities Exam Extremities Exam: Normal Inspection. absent: Pedal Edema - Back Exam Back Exam: NORMAL INSPECTION - Neurological Exam Neurological Exam: Alert, Oriented x3 Neuro motor strength exam: Right Upper Extremity: 5 Additional comments: able to move left fingers - Skin Skin Exam: Dry, Warm - Additional Findings Additional findings: left shoulder in splint and resting on pillow Assessment and Plan - Assessment and Plan (Free Text) Assessment: 81yo F admitted for left humeral fracture. OR Thursday 11AM per ortho. Left humerus proximal closed displaced fracture neurovascularly intact Pt. a good candidate for Orthopedic consult due to failure of previous co- aptation splint and poor compliance with instructions and physical therapy. - Consult Orthopedic- Dr. Carrion. OR tomorrow 11AM. preop clearance by cardio Dr. Quiroz - cleared for surgery. Coags, EKG,CXR, ECHO - Coaptation splint not well in place, pt not willing to have it adjusted - Toradol 15mg mild pain - Morphine 1mg moderate pain - Morphine 2mg severe pain - PT/OT evaluation -c/w rocephin for preop abx -NPO after MN Hypotension - ECHO - NS 125cc/hr - Hold Lisinopril Stage I sacral Ulcer - Wound care consult - Turn Q2 hours Diabetes Type II - hold Metformin - ACHS - LDSS Insulin Hyperlipidemia - Continue current management HTN - hold Lisinopril 2.5mg DVT prophylaxis - SCD for now Diet - Regular with high fiber -NPO after MN
[2016-12-14] MEDS: Sodium Chloride 0.9% 1,000 ML IV SCH ×3 (00:05→17:42)
[2016-12-14 06:48] LABS: HEMATOCRIT 25.2 % (34.0-47.0); MEAN CELL VOLUME 84.7 fl (81.0-99.0); MEAN CORPUSCULAR HEMOGLOBIN 27.6 pg (27.0-31.0); MEAN CORPUSCULAR HGB CONC 32.6 g/dL (33.0-37.0); RED CELL DISTRIBUTION WIDTH 16.8 % (11.5-14.5); WHITE BLOOD COUNT 5.6 K/uL (4.8-10.8)
[2016-12-14 06:56] LABS: PARTIAL THROMBOPLASTIN TIME 25.8 Seconds (25.6-37.1)
--- NOTE | 2016-12-14 06:57 | CON ---
REASON FOR CONSULTATION: Preoperative evaluation. HISTORY OF PRESENT ILLNESS: The patient is an 81-year-old female who has history of hypertension and who sustained a fall with left humerus fracture 2 weeks ago; however, she was treated conservatively as planned and was transferred to subacute rehab. The patient was brought in from subacute rehab with angulated left humerus fracture. The patient does not recall recent past event and she denies any chest pain, dizziness or shortness of breath at this time. The patient was reported to have had dizziness when she presented 2 weeks ago with a left humerus fracture. According to the patient's sister at the bedside and the patient niece, the patient lives with her son and has been experiencing dementia symptoms, but no known cardiac history to either patient's sister or the patient's niece. SOCIAL HISTORY: The patient is a former history, occasional EtOH abuser. MEDICATIONS: Advair 1 puff q. 12 hours, Rocephin 1 g intravenously daily, aspirin 81 mg once a day, Lipitor 20 mg once a day, morphine sulfate 1 mg intravenously q. 4 hours p.r.n., normal saline 125 mL an hour, Toradol 15 mg intravenously q. 6 hours p.r.n. for pain. REVIEW OF SYSTEMS: No recent nausea or vomiting. No fever or chills. PHYSICAL EXAMINATION GENERAL: The patient is an elderly female who does not appear to be in any respiratory distress. VITAL SIGNS: Blood pressure 88/46 which is the most recent, earlier was 92/52, heart rate 73, temperature 98, respiration 20. HEENT: Pale conjunctivae. Significant temporal wasting. NECK: No JVD. CHEST: Bilateral rhonchi. HEART: S1 and S2 regular. ABDOMEN: Soft. EXTREMITIES: Significant muscle wasting of the lower extremities. LABORATORY DATA: Hemoglobin and hematocrit 8.6 and 25.7, white count and platelet count are 6.6 and 255. SMA-7; sodium 138, potassium 3.9, chloride 109, CO2 of 22, glucose 75, BUN 11, creatinine 0.4. INR is 1.1, PTT 26.7. EKG reveals sinus rhythm at the rate of 60 and incomplete right bundle-branch block, left anterior fascicular block, questionable septal infarct. Echocardiograph study from February of last year revealed normal left ventricular size wall thickness, ejection fraction and normal diastolic function. Aortic root was mildly enlarged with trace aortic insufficiency. Chest x-ray was consistent of COPD. CAT scan of the left upper extremity reveals large soft tissue fluid collection presumably hematoma and the association with complete fracture of the mid humeral shaft with separation and overlying proximal and distal humeral shaft component. ASSESSMENT: 1. Angulated fracture of the left humerus that is about 2 weeks old. 2. Hematoma and anemia. The patient has a drop of 2 g of hemoglobin today compared to yesterday. 3. History of hypertension. The patient is currently borderline hypotensive. 4. Abnormal EKG with evidence of incomplete right bundle-branch block and left anterior fascicular block. RECOMMENDATIONS: Continue current IV Rocephin. Continue aspirin and Lipitor. Continue IV fluid infusion at 125 mL an hour. Start subcutaneous heparin at 5000 units twice a day one dose to be administered now. The patient can undergo open reduction and internal fixation from the cardiac point of view with postoperative telemetry monitoring. Tacos Guardado MD
[2016-12-14 06:59] LABS: ALKALINE PHOSPHATASE 86 U/L (38-126); ALT/SGPT 22 U/L (9-52); AST/SGOT 20 U/L (14-36); BILIRUBIN,TOTAL 0.4 mg/dl (0.2-1.3); BLOOD UREA NITROGEN 13 mg/dl (7-17); CALCIUM 8.5 mg/dL (8.4-10.2); CARBON DIOXIDE 23 mmol/L (22-30); CHLORIDE 112 mmol/L (98-107); GFR AFRICAN-AMERICAN > 60; GLUCOSE,RANDOM 95 mg/dL (65-105); POTASSIUM 3.8 MMOL/L (3.6-5.0); SODIUM 141 mmol/l (132-148); TOTAL PROTEIN 5.6 G/DL (6.3-8.2)
--- NOTE | 2016-12-14 09:29 | CARD ---
APPROVED REPORT EKG Measurement Heart [id number] [id number] <Conclusion> Sinus rhythm with 1st degree AV block Left anterior fascicular block Septal infarct, age undetermined Abnormal ECG
[2016-12-14] MEDS: Fluticasone-Salmeterol 250-50mcg Diskus INH SCH ×2 (09:50→22:09)
[2016-12-14] MEDS ORDERED: EPINEPHrine 1 mg/ml (1:1000) Inj ONE (10:10)
[2016-12-14] MEDS ORDERED: Sodium Chloride 0.9% 0 ML IV ONE (10:10)
--- NOTE | 2016-12-14 10:10 | CP.PCM.PN ---
Subjective - Date & Time of Evaluation Date of Evaluation: 12/14/16 Time of Evaluation: 10:09 - Subjective Subjective: 81 y/o female with PMHx of Alzheimer's, DM, HTN, HLD, COPD, arthritis, asthma, depression and anxiety seen at bedside for left humerus shaft fracture. Pt is agitated upon visit and combative in nature during physical examination. Pt refuses splint around neck and continues to try to remove it due to pain and discomfort. [facility] [place] [facility] on 11/29 at which time pt was treated conservatively with coaptation splint and followed up as outpatient with Dr. Knox. At this time, splint treatment has failed by repeatedly being displaced due to patient's combative nature. Pt's son is bedside at this time. Confirmed NPO status after dinner last night with patient and patient's son. All: NKDA Social: chronic smoker Objective - Vital Signs/Intake and Output Vital Signs (last 24 hours): Temp Pulse Resp BP Pulse Ox 98.0 F 64 20 116/57 L 95 12/14/16 08:48 12/14/16 08:48 12/14/16 08:48 12/14/16 08:48 12/14/16 08:48 - Medications Medications: Current Medications Aspirin (Ecotrin) 81 mg PO DAILY [facility] Last Admin: 12/14/16 09:29 Dose: Not Given Atorvastatin Calcium (Lipitor) 20 mg PO HS [facility] Last Admin: 12/13/16 21:02 Dose: 20 mg Heparin Sodium (Porcine) (Heparin) 5,000 units SC Q12 [facility] PRN Reason: Protocol Last Admin: 12/14/16 09:30 Dose: Not Given Ceftriaxone Sodium 1 gm/ (Sodium Chloride) 100 mls @ 100 mls/hr IVPB DAILY [facility] Last Admin: 12/14/16 09:35 Dose: 100 mls/hr Sodium Chloride (Sodium Chloride 0.9%) 1,000 mls @ 100 mls/hr IV .Q10H [facility] Stop: 12/14/16 20:25 Last Admin: 12/14/16 04:20 Dose: 100 mls/hr Ketorolac Tromethamine (Toradol) 15 mg IVP Q6 PRN PRN Reason: Pain, Mild (1-3) Last Admin: 12/13/16 15:50 Dose: 15 mg Morphine Sulfate (Morphine) 1 mg IVP Q4 PRN PRN Reason: Pain, moderate (4-7) Last Admin: 12/13/16 20:59 Dose: 1 mg Morphine Sulfate (Morphine) 2 mg IVP Q6 PRN PRN Reason: Pain, severe (8-10) Fluticasone/Salmeterol (Advair Diskus 250/50) 1 puff INH Q12H [facility] Last Admin: 12/14/16 09:50 Dose: Not Given - Labs Labs: 12/14/16 06:00 12/14/16 06:00 PT 12.3 Seconds (9.8-13.1) 12/14/16 06:00 INR 1.2 (0.9-1.2) 12/14/16 06:00 APTT 25.8 Seconds (25.6-37.1) 12/14/16 06:00 - Constitutional Appears: Well, Non-toxic, No Acute Distress - Extremities Exam Additional comments: Left upper extremity in coaptation splint that is somewhat displaced at this time. Pt unable to sit still and keep splint intact due to discomfort and agitation. - Neurological Exam Neurological Exam: Alert, Awake - Psychiatric Exam Psychiatric exam: Normal Affect, Normal Mood Assessment and Plan - Assessment and Plan (Free Text) Assessment: 81 y/o female with left mid-shaft humerus fracture Plan: Pt seen and evaluated at bedside with son H/H 8.2/25.2. Pt has been cross matched for 2 units of blood Pt currently on Rocephin 1g daily Explained to pt's son risks and benefits of procedure Pt's son demonstrates understanding Written consent obtained by pt son NPO status confirmed with patient and patient's son All questions addressed and answered Pt to go to OR 11am for L humeral shaft fracture open vs closed rdxn, humeral shaft intermedullary nail fixation and all indicated procedures
[2016-12-14] MEDS ORDERED: Bupivacaine 0.5% Inj(30mL) ONE (10:11)
[2016-12-14] MEDS ORDERED: Lidocaine 2% w Epi 1:100,000 Inj IJ ONE (10:11)
[2016-12-14] MEDS ORDERED: Vecuronium 10 mg Inj ONE (10:48)
[2016-12-14] MEDS ORDERED: ePHEDrine 50 mg/ml Inj ONE (10:48)
--- NOTE | 2016-12-14 10:48 | CP.PCM.PN ---
Subjective - Date & Time of Evaluation Date of Evaluation: 12/14/16 Time of Evaluation: 10:36 - Subjective Subjective: 81 yo female w/ PMH dementia, DMII, COPD, HTN, and hyperlipidemia seen at bedside this morning. Pt is scheduled for surgery today at 11 am for left displaced humerus fx that happened on 11/29/16. Has splint placed on left arm. pt is in NPO. Pt was agitated and hard of hearing. Denies nausea, vomiting, chest pain, dyspnea or fever. Denies numbness or tingling of left hand. Has good finger movement. Objective - Vital Signs/Intake and Output Vital Signs (last 24 hours): Temp Pulse Resp BP Pulse Ox 98.0 F 65 20 116/57 L 95 12/14/16 08:48 12/14/16 09:00 12/14/16 08:48 12/14/16 08:48 12/14/16 08:48 - Medications Medications: Current Medications Aspirin (Ecotrin) 81 mg PO DAILY [facility] Last Admin: 12/14/16 09:29 Dose: Not Given Atorvastatin Calcium (Lipitor) 20 mg PO HS [facility] Last Admin: 12/13/16 21:02 Dose: 20 mg Heparin Sodium (Porcine) (Heparin) 5,000 units SC Q12 [facility] PRN Reason: Protocol Last Admin: 12/14/16 09:30 Dose: Not Given Ceftriaxone Sodium 1 gm/ (Sodium Chloride) 100 mls @ 100 mls/hr IVPB DAILY [facility] Last Admin: 12/14/16 09:35 Dose: 100 mls/hr Sodium Chloride (Sodium Chloride 0.9%) 1,000 mls @ 100 mls/hr IV .Q10H [facility] Stop: 12/14/16 20:25 Last Admin: 12/14/16 04:20 Dose: 100 mls/hr Ketorolac Tromethamine (Toradol) 15 mg IVP Q6 PRN PRN Reason: Pain, Mild (1-3) Last Admin: 12/13/16 15:50 Dose: 15 mg Morphine Sulfate (Morphine) 1 mg IVP Q4 PRN PRN Reason: Pain, moderate (4-7) Last Admin: 12/13/16 20:59 Dose: 1 mg Morphine Sulfate (Morphine) 2 mg IVP Q6 PRN PRN Reason: Pain, severe (8-10) Fluticasone/Salmeterol (Advair Diskus 250/50) 1 puff INH Q12H [facility] Last Admin: 12/14/16 09:50 Dose: Not Given - Labs Labs: 12/14/16 06:00 12/14/16 06:00 PT 12.3 Seconds (9.8-13.1) 12/14/16 06:00 INR 1.2 (0.9-1.2) 12/14/16 06:00 APTT 25.8 Seconds (25.6-37.1) 12/14/16 06:00 - Constitutional Appears: Non-toxic, No Acute Distress, Agitated - Head Exam Head Exam: ATRAUMATIC, NORMOCEPHALIC - Eye Exam Eye Exam: EOMI, Normal appearance, PERRL - ENT Exam ENT Exam: Mucous Membranes Moist - Neck Exam Neck Exam: Normal Inspection - Respiratory Exam Respiratory Exam: Clear to Ausculation Bilateral, NORMAL BREATHING PATTERN - Cardiovascular Exam Cardiovascular Exam: REGULAR RHYTHM, +S1 - GI/Abdominal Exam GI & Abdominal Exam: Soft, Normal Bowel Sounds - Extremities Exam Extremities Exam: Normal Capillary Refill - Neurological Exam Neurological Exam: Alert, Oriented x3 Neuro motor strength exam: Left Upper Extremity: 3 (good finger movements, NVI.) , Right Upper Extremity: 5 - Psychiatric Exam Psychiatric exam: Agitated - Skin Skin Exam: Dry, Normal Color Assessment and Plan - Assessment and Plan (Free Text) Assessment: 81 yo female has left humeral fx since 11/29/16, is scheduled for surgical repair today at 11 am. Left humerus proximal closed displaced fracture neurovascularly intact -Scheduled orthopedic surgical repair today at [address] Carrion. -Pt is cleared by storekeeper steward for the procedure today w/ postoperative telemetry monitoring. -Pt is cleared medically as well. -Continue with aspirin 81 mg. -Toradol 15mg mild pain PRN -Morphine 1mg moderate pain PRN -Morphine 2mg severe pain PRN - PT/OT evaluation -c/w rocephin for preop abx. Hypotension - ECHO - NS 125cc/hr - Hold Lisinopril Stage I sacral Ulcer -Pt was admitted with stage I sacral ulcer. - Wound care consult - Turn Q2 hours Diabetes Type II - hold Metformin - AC HS - LDSS Insulin Hyperlipidemia - Continue current management HTN - hold Lisinopril 2.5mg DVT prophylaxis - sq heparin 5000 units BID Diet -NPO
[2016-12-14] MEDS ORDERED: Succinylcholine 200 mg/10 ml Inj IV ONE (10:49)
[2016-12-14] MEDS ORDERED: Phenylephrine 10 mg/ml Inj ONE (10:49)
[2016-12-14] MEDS ORDERED: Etomidate 20 mg/10ml Inj IV ONE (10:49)
[2016-12-14] MEDS ORDERED: Bupivacaine HCl 0.5% PF (10 ml) Inj ONE (11:00)
[2016-12-14] MEDS ORDERED: Bupivacaine HCl 0.25% PF (10 ml) Inj ONE (11:01)
[2016-12-14] MEDS ORDERED: ceFAZolin 2 GM in Sodium Chloride 0.9% 100 ML IVPB ONE (11:20)
[2016-12-14] MEDS ORDERED: Propofol 10 mg/ml Inj (20 ML) ONE (11:23)
[2016-12-14] MEDS ORDERED: Lactated Ringer's 1,000 ML IV ONE ×2 (11:30→14:00)
[2016-12-14] MEDS ORDERED: Sodium Chloride 0.9% 500 ML IV ONE (11:35)
[2016-12-14] MEDS ORDERED: Desflurane Inhalation Anesthetic Liq (240 ml) ONE (13:18)
[2016-12-14] MEDS ORDERED: Neostigmine Methylsulfate 3mg/3ml Syringe IV ONE (13:30)
[2016-12-14] MEDS ORDERED: Dextrose 50% SYRINGE Inj (50 ml) IV PRN (13:31)
[2016-12-14] MEDS ORDERED: Glucagon Recombinant 1 mg Inj IM PRN (13:31)
[2016-12-14] MEDS ORDERED: HYDROmorphone 0.5 mg/0.5 ml ISec IVP PRN (14:32)
--- NOTE | 2016-12-14 15:08 | PCM.SURG1 ---
Surgeon's Initial Post Op Note - Surgeon's Notes Surgeon: Dr. Carrion Engineering Test Specialist: Angela De Santiago PGY-1 Type of Anesthesia: General Endo, Block Regional Anesthesia Administered By: Dr. Robertson Pre-Operative Diagnosis: L humerus mid shaft fracture Operative Findings: see op report Post-Operative Diagnosis: same Operation Performed: L humeral shaft ORIF with intermedullary nail fixation Specimen/Specimens Removed: none Estimated Blood Loss: EBL {In ML}: 200 Blood Products Given: PRBC Drains Used: No Drains Post-Op Condition: Good Date of Surgery/Procedure: 12/14/16 Time of Surgery/Procedure: 15:08
[2016-12-14] MEDS: Lactated Ringer's 1,000 ML IV SCH (17:21)
[2016-12-14] MEDS: Insulin Regular 100 units/ml SC SCH ×2 (17:23→21:35)
--- NOTE | 2016-12-14 20:53 | PN ---
SUBJECTIVE: The patient underwent open reduction and internal fixation of left humerus fracture. She is currently back in telemetry. No reported arrhythmia or hypotension. PHYSICAL EXAMINATION: VITAL SIGNS: Blood pressure 134/70, heart rate 77, temperature 98.2, respirations 15. HEENT: Pale conjunctivae. CHEST: Bilateral rhonchi. HEART: S1 and S2 regular. EXTREMITIES: No edema. LABORATORY DATA: Hemoglobin and hematocrit 8.2 and 25.2, white count and platelet count are within normal limits. This was done at 6 o'clock this morning. SMA-7 is within normal limits except for chloride of 112 and creatinine 0.4. ASSESSMENT: 1. Status post open reduction and internal fixation of an angulated left humerus fracture. 2. Anemia secondary to hematoma. 3. History of hypertension. 4. Abnormal electrocardiogram with evidence of right bundle-branch block and left anterior fascicular block. RECOMMENDATIONS: Continue current telemetry monitoring. The patient is currently receiving packed RBC transfusion. We will monitor for any signs of volume overload. Continue IV Toradol at 15 mg q. 6 hours p.r.n. as well as IV morphine sulfate. Continue Lipitor 20 mg once a day, subcutaneous heparin 5000 units twice a day, aspirin 81 mg once a day. Beside bronchodilators, obtained 12-lead EKG postoperatively as well as CBC and SMA-7 after the completion of packed RBC transfusion. Tacos Guardado MD
--- NOTE | 2016-12-14 21:46 | CON ---
DATE: 12/14/2016. CHIEF COMPLAINT: Left displaced proximal humerus fracture. HISTORY OF PRESENT ILLNESS: The patient is an 81-year-old female with a history of advanced dementia. The patient had a fall. She was seen at a [facility] ER on 11/29/2016 for mid shaft humeral fracture. The patient was placed in a splint; however patient was noncompliant, had expanding hematoma and worsening of symptoms and tenting of the skin. She had returned back to emergency room from the rehab center. Currently, the patient is examined at bed side accompanied by her son. I explained to the son the displaced nature of the fracture and possibly leading to open fracture. The patient is unable to follow the any commands and agitated. Denies pain in any of the extremity or joint. On examination, patient's left humerus is currently in a splint, the skin is intact with no breakdown, moving her digits distally, brisk capillary refill. Under imaging x-ray of the patient's left humerus showing grossly displaced humeral shaft fracture. ASSESSMENT AND PLAN: An 81-year-old female with history of advanced dementia with a displaced humeral shaft fracture. I had a detailed discussion with the patient's son explaining just the displaced nature of the fracture and recommended both coaptation splints versus surgical fixation. I reviewed the risks and benefits of both options and after careful consideration the patient's son is opting to proceed with the surgical management which will include possible closed versus open reduction intramedullary nail fixation, possible plate fixation, all indicated procedures. I have reviewed the risks and benefits of the surgery in detail. The risks include but not limited to bleeding, infection, neurovascular damage, continued pain, malunion, nonunion, need for further surgery, wound breakdown among others. They fully understand the risks and benefits and want to proceed. Stepan Carrion MD
[2016-12-15 05:55] LABS: HEMATOCRIT 32.5 % (34.0-47.0); MEAN CELL VOLUME 84.4 fl (81.0-99.0); MEAN CORPUSCULAR HEMOGLOBIN 27.4 pg (27.0-31.0); MEAN CORPUSCULAR HGB CONC 32.5 g/dL (33.0-37.0); RED CELL DISTRIBUTION WIDTH 16.5 % (11.5-14.5); WHITE BLOOD COUNT 7.9 K/uL (4.8-10.8)
[2016-12-15 06:33] LABS: BLOOD UREA NITROGEN 8 mg/dl (7-17); CALCIUM 8.6 mg/dL (8.4-10.2); CARBON DIOXIDE 24 mmol/L (22-30); CHLORIDE 107 mmol/L (98-107); GFR AFRICAN-AMERICAN > 60; GLUCOSE,RANDOM 104 mg/dL (65-105); POTASSIUM 3.8 MMOL/L (3.6-5.0); SODIUM 138 mmol/l (132-148)
--- NOTE | 2016-12-15 06:33 | OP ---
PROCEDURE DATE: 12/14/2016 PREOPERATIVE DIAGNOSIS: Left displaced humeral shaft fracture. POSTOPERATIVE DIAGNOSIS: Left displaced humeral shaft fracture. PROCEDURES: 1. Left humeral shaft open reduction. 2. Intramedullary nail fixation. 3. Fluoroscopic use over one hour. SURGEON: Stepan Carrion M.D. TYPE OF ANESTHESIA: General. IMPLANTS: Synthes 250 mm left humeral nail x7 mm diameter, 2 proximal locking screws and 1 distal locking screws. ESTIMATED BLOOD LOSS: 250 mL. COMPLICATIONS: None. HISTORY: The patient is an 81-year-old female with a history of advanced dementia, had had a fall onto her left shoulder, x-ray had shown a displaced humeral shaft fracture. The patient was initially treated with conservative management and coaptation splinting; however, there was failure to maintain reduction and there was significant tenting of the skin along with hematoma. I had a discussion with the patient's son and the patient explaining the complex nature of the fracture, I had offered surgical management of intramedullary nail fixation. I reviewed the risks and benefits of the surgery with the patient and her son in detail, which included bleeding, infection, neurovascular damage, continued pain, malunion, nonunion, symptomatic hardware, need for further surgery, among others. They fully understood the risks and benefits and opted to proceed with the surgery. DESCRIPTION OF PROCEDURE: On the day of the surgery, the patient was admitted to preop holding area. A laterality sheet was completed confirming the patient's left humerus to be the correct operative site. Left humerus was marked and the patient was brought into the operating room table. She underwent general anesthesia. The left shoulder was draped and prepped in standard sterile manner, Her timeout was completed confirming the patient's left humerus to be the correct operative site. First, we proceeded with the fluoroscopic imaging in an attempt to reduce the fracture, the fracture was irreducible. The decision was made to make a percutaneous incision, a 3 cm incision was made on the anterior aspect of the humerus ascending the fracture site. The fracture hematoma was evacuated and this fracture was reduced. Next, a 4 cm incision was made proximally distal to the acromion, the rotator cuff fibers were sharply transected inline with fibers for later repair. A guidewire was placed in the proximal humeral shaft and an open reamer was used to open a drill hole. The guidewire was placed distally. The length of the humeral nail was assessed to be 250 mm. The nail was passed proximally to the distal fragment. The position of the nail was confirmed in both AP and lateral radiographs and showing adequate fracture reduction. Next, 2 proximal locking screws were placed and 1 distal locking screw was placed in A to P direction under the fluoroscopic images. Final radiographs were taken showing adequate fracture reduction. The wound was copiously irrigated. The rotator cuff tissue was closed using number 2 fiber wire sutures. The skin edges were brought together using 2-0 Vicryl sutures. The skin was closed using hortensia. Sterile dressing was applied. The patient was extubated, transferred to the stretcher and was taken to the recovery room. Her postoperative instructions included, weightbearing as tolerated and gentle range of motion in the shoulder and elbow and there were no complications of surgery. Stepan Carrion MD [facility]
[2016-12-15] MEDS: Insulin Regular 100 units/ml SC SCH ×2 (09:18→11:00)
--- NOTE | 2016-12-15 09:29 | CP.PCM.PN ---
Subjective - Date & Time of Evaluation Date of Evaluation: 12/15/16 Time of Evaluation: 07:40 - Subjective Subjective: 81 yo female s/p L humeral shaft ORIF w/ intermedullary nail fixation on seen at bedside this AM. Pt reports pain at the surgical site but it's controlled with pain meds. Pt is able to move left hand and has sensation of left arm. no swelling of distal left hand seen. Dressing looks clean and dry. Denies dyspnea, cough, dizziness, chest pain or calf pain. Objective - Vital Signs/Intake and Output Vital Signs (last 24 hours): Temp Pulse Resp BP Pulse Ox 98.5 F 67 18 95/54 L 95 12/15/16 08:30 12/15/16 08:30 12/15/16 08:30 12/15/16 08:30 12/15/16 08:30 - Medications Medications: Current Medications Aspirin (Ecotrin) 81 mg PO DAILY [facility] Last Admin: 12/15/16 09:18 Dose: 81 mg Atorvastatin Calcium (Lipitor) 20 mg PO HS [facility] Last Admin: 12/14/16 21:36 Dose: 20 mg Dextrose (Dextrose 50% Inj) 0 ml IV STAT PRN; Protocol PRN Reason: Hyglycemia Protocol Dextrose (Glutose 15) 0 gm PO ONCE PRN; Protocol PRN Reason: Hypoglycemia Protocol Glucagon (Glucagen Diagnostic Kit) 0 mg IM STAT PRN; Protocol PRN Reason: Hypoglycemia Protocol Heparin Sodium (Porcine) (Heparin) 5,000 units SC Q12 HEAVEN PRN Reason: Protocol Last Admin: 12/15/16 09:17 Dose: 5,000 units Lactated Ringer's (Lactated Ringer's) 1,000 mls @ 45 mls/hr IV .[id number] [facility] Last Admin: 12/14/16 17:21 Dose: Not Given Insulin Human Regular (Humulin R) 0 units SC ACHS HEAVEN PRN Reason: Protocol Last Admin: 12/15/16 09:18 Dose: Not Given Ketorolac Tromethamine (Toradol) 15 mg IVP Q6 PRN PRN Reason: Pain, Mild (1-3) Last Admin: 12/15/16 02:10 Dose: 15 mg Morphine Sulfate (Morphine) 2 mg IVP Q4 PRN PRN Reason: Pain, moderate (4-7) Morphine Sulfate (Morphine) 4 mg IVP Q4H PRN PRN Reason: Pain, severe (8-10) Fluticasone/Salmeterol (Advair Diskus 250/50) 1 puff INH Q12H HEAVEN Last Admin: 12/14/16 22:09 Dose: 1 puff - Labs Labs: 12/15/16 05:35 12/15/16 05:35 PT 12.3 Seconds (9.8-13.1) 12/14/16 06:00 INR 1.2 (0.9-1.2) 12/14/16 06:00 APTT 25.8 Seconds (25.6-37.1) 12/14/16 06:00 - Constitutional Appears: Well, Non-toxic, No Acute Distress - Head Exam Head Exam: ATRAUMATIC, NORMAL INSPECTION, NORMOCEPHALIC - Eye Exam Eye Exam: Normal appearance - ENT Exam ENT Exam: Mucous Membranes Moist, Normal Exam - Neck Exam Neck Exam: Normal Inspection - Respiratory Exam Respiratory Exam: Clear to Ausculation Bilateral, NORMAL BREATHING PATTERN. absent: Rhonchi, Wheezes, Respiratory Distress - Cardiovascular Exam Cardiovascular Exam: REGULAR RHYTHM. absent: Murmur - GI/Abdominal Exam GI & Abdominal Exam: Soft, Normal Bowel Sounds. absent: Tenderness - Extremities Exam Extremities Exam: Normal Capillary Refill, Normal Inspection. absent: Calf Tenderness, Pedal Edema, Tenderness - Neurological Exam Neurological Exam: Alert, Oriented x3 - Psychiatric Exam Psychiatric exam: Normal Affect, Normal Mood. absent: Agitated - Skin Skin Exam: Normal Color. absent: Erythema Assessment and Plan - Assessment and Plan (Free Text) Assessment: Assessment and Plan: 81 yo female s/p L humeral shaft ORIF w/ intermedullary nail fixation on . Left humerus proximal closed displaced fracture -neurovascularly intact. -Continue with aspirin 81 mg. -Toradol 15mg mild pain PRN -Morphine 1mg moderate pain PRN -Morphine 2mg severe pain PRN -PT/OT evaluation Hypotension -Continue observe - Hold Lisinopril Stage I sacral Ulcer -Pt was admitted with stage I sacral ulcer. - Wound care consult - Turn Q2 hours Diabetes Type II - hold Metformin - AC HS - LDSS Insulin Hyperlipidemia - Continue current management HTN - hold Lisinopril 2.5mg Diet -advance as tolerated. DVT prophylaxis - sq heparin 5000 units BID Disposition: possible discharge to [facility] today.
[2016-12-15] MEDS: Fluticasone-Salmeterol 250-50mcg Diskus INH SCH (09:54)
[2016-12-15] MEDS: Lactated Ringer's 1,000 ML IV SCH (09:55)
--- NOTE | 2016-12-15 11:37 | CARD ---
APPROVED REPORT EXAM: Two-dimensional and M-mode echocardiogram with Doppler and color Doppler. Other Information Quality : GoodRhythm : NSR INDICATION Pre-Op 2D DIMENSIONS IVSd0.58 (0.7-1.1cm)LVDd4.24 (3.9-5.9cm) LVOT Diameter2.91 (1.8-2.4cm)PWd0.69 (0.7-1.1cm) IVSs0.83 (0.8-1.2cm)LVDs3.42 (2.5-4.0cm) FS (%) 19.4 %PWs0.91 (0.8-1.2cm) M-Mode DIMENSIONS Left Atrium (MM)1.79 (2.5-4.0cm)Aortic Root3.49 (2.2-3.7cm) Aortic Cusp Exc.2.03 (1.5-2.0cm) Mitral Valve MV E Rzhgbbir32.7cm/sMV DECEL [id number] A Zyhvvkvf46.0cm/s MV CWB64tsN/A ratio1.4MVA (PHT)3.74cm2 TDI Lateral E' Peak V10.43cm/sMedial E' Peak V8.64cm/sE/Lateral E'8.8 E/Medial E'10.6 LEFT VENTRICLE The left ventricle is normal size. There is normal left ventricular wall thickness. The systolic function is mildly impaired. The Ejection Fraction is 40-45%. There is mild hypokinesis in the basal anterior wall. The left ventricular diastolic function is normal. No left ventricle thrombus noted on this study. There is no mass noted in the left ventricle. RIGHT VENTRICLE The right ventricle is normal size. There is normal right ventricular wall thickness. The right ventricular systolic function is normal. ATRIA The left atrium size is normal. The right atrium size is normal. The interatrial septum is intact with no evidence for an atrial septal defect. AORTIC VALVE The aortic valve is normal in structure and function. No aortic regurgitation is present. There is no aortic valvular stenosis. There is no aortic valvular vegetation. MITRAL VALVE The mitral valve is normal in structure and function. There is no evidence of mitral valve prolapse. There is no mitral valve stenosis. There is no mitral valve regurgitation noted. TRICUSPID VALVE The tricuspid valve is normal in structure and function. There is no tricuspid valve regurgitation noted. There is no tricuspid valve prolapse or vegetation. There is no tricuspid valve stenosis. PULMONIC VALVE The pulmonary valve is normal in structure and function. There is no pulmonic valvular regurgitation. There is no pulmonic valvular stenosis. GREAT VESSELS The aortic root is normal in size. The IVC is normal in size and collapses >50% with inspiration. PERICARDIAL EFFUSION The pericardium appears normal. There is no pleural effusion. <Conclusion> The left ventricle is normal size. The systolic function is mildly impaired. The Ejection Fraction is 40-45%. There is mild hypokinesis in the basal anterior wall.
--- NOTE | 2016-12-15 12:14 | PQF GENQUE ---
, Please clarify the type of anemia: Blood loss anemia, acute Blood loss anemia, chronic Chronic anemia Deficiency anemia (please specify type) Due to/in/with antineoplastic chemotherapy Due to/in/with chronic kidney disease Due to/in/with kidney failure Due to/in/with neoplastic disease Iron deficiency anemia Macrocytic anemia Microcytic anemia Normocytic anemia Postoperative blood loss anemia Pernicious anemia Other anemia (please specify) Clinically unable to determine Unknown Op note: Left displaced humeral shaft fracture. POSTOPERATIVE DIAGNOSIS: Left displaced humeral shaft fracture. PROCEDURES: 1. Left humeral shaft open reduction. 2. Intramedullary nail fixation.------EBL: 250 ccs Cardiology consult: Anemia due to Hematoma H/H: 10.8/33.6->8.6/25.7->8.2/25.2->10.6/32.5 Packed cells transfused This form is a permanent part of the medical record Clarification of your documentation is requested to better reflect the severity of illness and intensity of treatment of your patient. Indicators present [] Specify: [] [] Specify: [] [] Specify: [] [] Specify: [] Location in the medical record that reflects the above clinical findings: [] Treatment Provided: [] PHYSICIAN'S RESPONSE acute blood loss anemia Based on your medical judgment of the clinical indicators outlined above please clarify the following: [] Practitioner response [] If unable to determine, please check the box, sign and date. Present On Admission (POA) Indicator: [] Present at the time of admission [] Not present at the time of admission [] Clinically Undetermined In responding to this query, please exercise your independent professional judgment. The fact that a question is asked does not imply that any particular answer is desired or expected. Thank you for your clarification on this documentation. If you have any questions please call. * Thank you, Phoebe Mcdaniel RN BSN ext. #[phone]: Krista SIMEON
[2016-12-15 12:22] VITALS: O2SAT 97
--- NOTE | 2016-12-15 14:46 | RAD ---
PROCEDURE: Intraoperative Fluoroscopy. HISTORY: HUMERUS FX LEFT FINDINGS: Fluoroscopic assistance was provided. 74.7 seconds fluoroscopy time utilized during this procedure. Radiation dose = 4.02 mGy . Please refer to the operative report for additional details.
[2016-12-15 15:34] LABS: HEMATOCRIT 30.5 % (34.0-47.0); MEAN CELL VOLUME 84.7 fl (81.0-99.0); MEAN CORPUSCULAR HEMOGLOBIN 28.2 pg (27.0-31.0); MEAN CORPUSCULAR HGB CONC 33.3 g/dL (33.0-37.0); RED CELL DISTRIBUTION WIDTH 16.2 % (11.5-14.5); WHITE BLOOD COUNT 6.9 K/uL (4.8-10.8)
--- NOTE | 2016-12-15 16:07 | PN ---
SUBJECTIVE: The patient denies any chest pain or shortness of breath. No . PHYSICAL EXAMINATION VITAL SIGNS: Blood pressure 103/52, heart rate 76, temperature 98.5, respirations 19. HEENT: Normocephalic. CHEST: Bilateral rhonchi. HEART: S1 and S2, regular. EXTREMITIES: Significant muscle wasting. LABORATORY DATA: SMA-7 is within normal limit except total creatinine of 0.5. Today's hemoglobin and hematocrit are 10.6 and 32.5. White count and platelet count are within normal limits. ASSESSMENT AND PLAN: 1. Status post open reduction and internal fixation of left humerus fracture. 2. Improved anemia. 3. Hypertension and hyperlipidemia. 4. Chronic obstructive lung disease. RECOMMENDATIONS: Continue current Advair, continue aspirin 81 mg once a day, subcutaneous heparin 5000 units twice a day, Lipitor 20 mg at bedtime, and Xanax 0.25 mg q.6 hours. I did order yesterday postoperative EKG, however, it is not available on the [email or web address] database and I will follow that. Tacos Guardado MD
--- NOTE | 2016-12-15 16:25 | CP.PCM.DIS ---
Provider - Provider Date of Admission: 12/12/16 18:45 Attending physician: Maritza Bingham MD Time Spent in preparation of Discharge (in minutes): 20 Diagnosis - Discharge Diagnosis (1) Displaced fracture of humerus Status: Acute (2) Hematoma Status: Acute Hospital Course - Lab Results Lab Results: Most Recent Lab Values WBC 6.9 K/uL (4.8-10.8) 12/15/16 15:10 RBC 3.61 Mil/uL (3.80-5.20) L 12/15/16 15:10 Hgb 10.2 g/dL (12.0-16.0) L 12/15/16 15:10 Hct 30.5 % (34.0-47.0) L 12/15/16 15:10 MCV 84.7 fl (81.0-99.0) 12/15/16 15:10 MCH 28.2 pg (27.0-31.0) 12/15/16 15:10 MCHC 33.3 g/dL (33.0-37.0) 12/15/16 15:10 RDW 16.2 % (11.5-14.5) H 12/15/16 15:10 Plt Count 260 K/uL (130-400) 12/15/16 15:10 MPV 7.7 fl (7.2-11.7) 12/12/16 16:55 Neut % (Auto) 78.0 % (50.0-75.0) H 12/12/16 16:55 Lymph % (Auto) 14.8 % (20.0-40.0) L 12/12/16 16:55 [place] % (Auto) 6.3 % (0.0-10.0) 12/12/16 16:55 Eos % (Auto) 0.6 % (0.0-4.0) 12/12/16 16:55 Baso % (Auto) 0.3 % (0.0-2.0) 12/12/16 16:55 Neut # 7.4 K/uL (1.8-7.0) H 12/12/16 16:55 Lymph # 1.4 K/uL (1.0-4.3) 12/12/16 16:55 [place] # 0.6 K/uL (0.0-0.8) 12/12/16 16:55 Eos # 0.1 K/uL (0.0-0.7) 12/12/16 16:55 Baso # 0.0 K/uL (0.0-0.2) 12/12/16 16:55 PT 12.3 Seconds (9.8-13.1) 12/14/16 06:00 INR 1.2 (0.9-1.2) 12/14/16 06:00 APTT 25.8 Seconds (25.6-37.1) 12/14/16 06:00 pO2 20 mm/Hg (30-55) L 12/12/16 16:56 VBG pH 7.40 (7.32-7.43) 12/12/16 16:56 VBG pCO2 48 mmHg (40-60) 12/12/16 16:56 VBG HCO3 26.3 mmol/L 12/12/16 16:56 VBG Total CO2 31.2 mmol/L (22-28) H 12/12/16 16:56 VBG O2 Sat (Calc) 35.5 % (40-65) L 12/12/16 16:56 VBG Base Excess 4.0 mmol/L (0.0-2.0) H 12/12/16 16:56 VBG Potassium 4.1 mmol/L (3.6-5.2) 12/12/16 16:56 Sodium 137.0 mmol/L (132-148) 12/12/16 16:56 Chloride 102.0 mmol/L (98-107) 12/12/16 16:56 Glucose 91 mg/dL (65-105) 12/12/16 16:56 Lactate 1.8 mmol/L (0.7-2.1) 12/12/16 16:56 FiO2 21.0 % 12/12/16 16:56 Sodium 138 mmol/l (132-148) 12/15/16 05:35 Potassium 3.8 MMOL/L (3.6-5.0) 12/15/16 05:35 Chloride 107 mmol/L (98-107) 12/15/16 05:35 Carbon Dioxide 24 mmol/L (22-30) 12/15/16 05:35 Anion Gap 11 (10-20) 12/15/16 05:35 BUN 8 mg/dl (7-17) 12/15/16 05:35 Creatinine 0.5 mg/dL (0.7-1.2) L 12/15/16 05:35 Est GFR ( Amer) > 60 12/15/16 05:35 Est GFR (Non-Af Amer) > 60 12/15/16 05:35 POC Glucose (mg/dL) 90 mg/dL (65-110) 12/15/16 11:05 Random Glucose 104 mg/dL (65-105) 12/15/16 05:35 Calcium 8.6 mg/dL (8.4-10.2) 12/15/16 05:35 Total Bilirubin 0.4 mg/dl (0.2-1.3) 12/14/16 06:00 AST 20 U/L (14-36) 12/14/16 06:00 ALT 22 U/L (9-52) 12/14/16 06:00 Alkaline Phosphatase 86 U/L (38-126) 12/14/16 06:00 Total Protein 5.6 G/DL (6.3-8.2) L 12/14/16 06:00 Albumin 2.9 g/dL (3.5-5.0) L D 12/14/16 06:00 Globulin 2.8 gm/dL (2.2-3.9) 12/14/16 06:00 Albumin/Globulin Ratio 1.0 (1.0-2.1) 12/14/16 06:00 Venous Blood Potassium 4.1 mmol/L (3.6-5.2) 12/12/16 16:56 Blood Type AB NEGATIVE 12/13/16 18:50 Antibody Screen Negative 12/13/16 18:50 Crossmatch See Detail 12/13/16 18:50 BBK History Checked Patient has bt 12/13/16 18:50 - Hospital Course Hospital Course: 81 yo female w/ PMH of Alzheimer's dementia, anxiety, asthma/COPD, depression DM2, HTN, HLD, Arthritis admitted to [facility] from rehab at [facility] for left mid-shaft humeral fx after a mechanical fall on 11/29/16. Pt had L humeral shaft ORIF w/ intermedullary nail fixation operation on 10/13/16. Pt also received 2 PRBC after the surgery. Presurgical hemoglobin and hematocrit was 8.2/25.2 and post surgical H&H are 10.6/32.5 at 5 am and 10.2/30.5 at 15:10 on 12/15/16. Pt is discharged with xanax 0.5 mg #20 and percocet 5/325 mg #20. Follow up with Primary care physician after rehab. - Date & Time of H&P Date of H&P: 12/15/16 Time of H&P: 17:07 Discharge Plan - Discharge Medications Prescriptions: Alprazolam [Xanax] 0.25 mg PO Q6H PRN #20 PRN Reason: Anxiety oxyCODONE/Acetaminophen [Percocet 5/325 mg Tab] 1 ea PO Q6 PRN #20 tab PRN Reason: Pain, Moderate (4-7) - Follow Up Plan Condition: STABLE Disposition: REHAB FACILITY/REHAB UNIT Additional Instructions: Pt to continue with home meds. No diabetes. Stop metformin and insulin. paper rx for xanax 0.25 mg and percocet 5mg/325mg, 20 tabs each. heparin for DVT prophylaxis. Follow up with PCP after completing acute rehab. PT recommendation include left arm non weight bearing and gentle passive range of motion exercises.
[2016-12-15 16:26] VITALS: BP 103/60; PULSE 80; RESP 16; TEMP 98.6
== END 2016-12-15 16:12 | DRG 493 ==
LOC: H.ER 16:15 → H.ERHOLD 18:45 → H.TEL 23:30
PROVIDERS: ADMIT Family Medicine Geriatric Medicine; ATTEND Family Medicine Geriatric Medicine
PROC: 0PSG06Z Reposition Left Humeral Shaft with Intramedullary Internal Fixation Device, Open Approach (ICD-10-PCS; principal; 2016-12-14 11:00)
PROC: 30233N1 Transfusion of Nonautologous Red Blood Cells into Peripheral Vein, Percutaneous Approach (ICD-10-PCS; 2016-12-14 11:00)
DX: S42.302A Unspecified fracture of shaft of humerus, left arm, initial encounter for closed fracture (principal); D62 Acute posthemorrhagic anemia; L89.151 Pressure ulcer of sacral region, stage 1; J44.9 Chronic obstructive pulmonary disease, unspecified; G30.9 Alzheimer's disease, unspecified; I45.2 Bifascicular block; F02.80 Dementia in other diseases classified elsewhere, unspecified severity, without behavioral disturbance, psychotic disturbance, mood disturbance, and anxiety; L03.114 Cellulitis of left upper limb; W19.XXXA Unspecified fall, initial encounter; Y93.9 Activity, unspecified; Y92.129 Unspecified place in nursing home as the place of occurrence of the external cause; E78.5 Hyperlipidemia, unspecified; J45.909 Unspecified asthma, uncomplicated; F32.9 Major depressive disorder, single episode, unspecified; E11.9 Type 2 diabetes mellitus without complications; I10 Essential (primary) hypertension; E78.00 Pure hypercholesterolemia, unspecified; M62.50 Muscle wasting and atrophy, not elsewhere classified, unspecified site; S50.12XA Contusion of left forearm, initial encounter

== ENCOUNTER 2017-02-24 15:41 | Emergency (ER) | payer MEDICARE, OTHER ==
[2017-02-24 15:42] VITALS: BMI 22.1
[2017-02-24 15:48] VITALS: PULSE 91; RESP 18; TEMP 98; O2SAT 98
--- NOTE | 2017-02-24 16:22 | ED PDOC ---
HPI: General Adult Time Seen by Provider: 02/24/17 15:55 Chief Complaint (Nursing): ENT Problem Chief Complaint (Provider): Ear pain History Per: Patient History/Exam Limitations: no limitations Onset/Duration Of Symptoms: Days (x 1) Additional Complaint(s): Leonila is a 81 year old female presenting to the ED complaining of left ear pain since this morning. Patient reports she cleaned ear this morning to try to get rid of pain and had no relief. No medications for pain relief were taken prior to arrival. She denies any swelling to the area or change in hearing. PMD: none Past Medical History Reviewed: Historical Data, Nursing Documentation, Vital Signs Vital Signs: Last Vital Signs Temp 98 F 02/24/17 15:44 Pulse 91 H 02/24/17 15:44 Resp 18 02/24/17 15:44 BP Pulse Ox 98 02/24/17 16:33 - Medical History PMH: Alzheimer's Disease, Anxiety, Arthritis, Asthma, COPD, Depression, Diabetes , Fractures (left humerus), HTN, Hypercholesterolemia - Family History Family History: States: No Known Family Hx - Living Arrangements Living Arrangements: With Family - Social History Current smoker - smoking cessation education provided: No Alcohol: None Drugs: Denies - Immunization History Hx Tetanus Toxoid Vaccination: No Hx Influenza Vaccination: No Hx Pneumococcal Vaccination: No - Home Medications Home Medications: Ambulatory Orders Medication Instructions Recorded Aspirin [Adult Low Dose Aspirin EC] 81 mg PO DAILY #30 tablet. 03/27/16 Lisinopril [Zestril] 2.5 mg PO DAILY #30 tablet 06/26/16 Cetirizine HCl [Zyrtec] 10 mg PO DAILY #30 sgl 11/19/16 Docusate [Colace] 100 mg PO BID cap 12/05/16 Atorvastatin [Lipitor] 20 mg PO HS 12/12/16 Calcium Citrate/Vitamin D3 1 tab PO BID 12/12/16 [Calcium Citrate - Vit D Caplet] Fluticasone/Salmeterol 250/50 1 puff INH Q12H 12/12/16 [Advair Diskus 250/50] Alprazolam [Xanax] 0.25 mg PO Q6H PRN #20 12/15/16 Heparin 5,000 units SC Q12 vial 12/15/16 oxyCODONE/Acetaminophen [Percocet 1 ea PO Q6 PRN #20 tab 12/15/16 5/325 mg Tab] Cephalexin [Keflex] 500 mg PO TID #21 capsule 02/24/17 - Allergies Allergies/Adverse Reactions: Allergies Allergy/AdvReac Type Severity Reaction Status Date / Time No Known Allergies Allergy Verified 09/20/16 13:39 Review of Systems ROS Statement: Except As Marked, All Systems Reviewed And Found Negative Constitutional: Negative for: Fever, Chills ENT: Positive for: Ear Pain (left). Negative for: Ear Discharge Respiratory: Negative for: Cough Gastrointestinal: Negative for: Nausea, Vomiting Neurological: Negative for: Headache, Dizziness Physical Exam - Reviewed Nursing Documentation Reviewed: Yes Vital Signs Reviewed: Yes - Physical Exam Appears: Positive for: Well, Non-toxic, No Acute Distress Head Exam: Positive for: ATRAUMATIC, NORMAL INSPECTION, NORMOCEPHALIC Skin: Positive for: Normal Color Eye Exam: Positive for: Normal appearance ENT: Positive for: Other (Infected open wound noted to antihelix of left external ear with no active drainage or bleeding, tympanic membranes are normal bilaterally, no palpable lymph nodes, no mastoid tenderness bilaterally). Negative for: Nasal Congestion, Pharyngeal Erythema Cardiovascular/Chest: Positive for: Regular Rate, Rhythm Respiratory: Positive for: Normal Breath Sounds Neurologic/Psych: Positive for: Alert, Oriented - ECG O2 Sat by Pulse Oximetry: 98 (RA) Pulse Ox Interpretation: Normal Medical Decision Making Medical Decision Making: Time: 16:22 Clinical Impression: 81 year old female with infected wound of left external eare Initial Plan: -- Tylenol 650 mg PO Upon provider evaluation patient is medically stable, and requires no further treatment in the ED at this time. Patient will be discharged home with Rx for Keflex. Instructed to take NSAIDs for pain. Counseling was provided and all questions were answered regarding diagnosis and need for follow up with PMD. There is agreement to discharge plan. Return if symptoms persist or worsen. Scribe Attestation: Documented by Skylar Fink, acting as a scribe for Dang Mckeon PA-C Provider Scribe Attestation: All medical record entries made by the Scribe were at my direction and personally dictated by me. I have reviewed the chart and agree that the record accurately reflects my personal performance of the history, physical exam, medical decision making, and the department course for this patient. I have also personally directed, reviewed, and agree with the discharge instructions and disposition. Disposition - Clinical Impression Clinical Impression: Infected wound - Patient ED Disposition Is Patient to be Admitted: No Counseled Patient/Family Regarding: Diagnosis, Need For Followup, Rx Given - Disposition Referrals: [facility] [Outside] Disposition: Routine/Home Disposition Time: 16:23 Condition: STABLE Additional Instructions: TAKE RX MEDS DIRECTED FOLLOW UP WITH CLINIC IN 2-3 DAYS. Prescriptions: Cephalexin [Keflex] 500 mg PO TID #21 capsule Instructions: Wound Infection (ED) Forms: [employer] (Samoan)
== END 2017-02-24 18:12 | disposition home or self-care (01) ==
LOC: H.ER 15:41
DX: H60.92 Unspecified otitis externa, left ear (principal); F02.80 Dementia in other diseases classified elsewhere, unspecified severity, without behavioral disturbance, psychotic disturbance, mood disturbance, and anxiety

== ENCOUNTER 2017-02-25 12:25 | Emergency (ER) | payer MEDICARE, OTHER ==
[2017-02-25 12:26] VITALS: BMI 22.1
[2017-02-25 13:03] VITALS: BP 123/57; PULSE 78; RESP 20; TEMP 99.4; O2SAT 96
--- NOTE | 2017-02-25 13:09 | ED PDOC ---
HPI: General Adult Time Seen by Provider: 02/25/17 13:05 Chief Complaint (Nursing): Anxiety Chief Complaint (Provider): med refill Additional Complaint(s): Patient presents to emergency department requesting refill of medication. She states that she is out of glucose test strips. She offers no other complaints. Patient was seen yesterday for infected wound and was able to fill her prescription for Keflex and feels better today. Past Medical History Reviewed: Historical Data, Nursing Documentation, Vital Signs Vital Signs: Last Vital Signs Temp 99.4 F 02/25/17 13:01 Pulse 78 02/25/17 13:01 Resp 20 02/25/17 13:01 BP 123/57 L 02/25/17 13:01 Pulse Ox 96 02/25/17 13:01 - Medical History PMH: Alzheimer's Disease, Anxiety, Arthritis, Asthma, COPD, Depression, Diabetes , Fractures (left humerus), HTN, Hypercholesterolemia - Family History Family History: States: No Known Family Hx - Living Arrangements Living Arrangements: With Family - Social History Current smoker - smoking cessation education provided: No Alcohol: None Drugs: Denies - Home Medications Home Medications: Ambulatory Orders Medication Instructions Recorded Aspirin [Adult Low Dose Aspirin EC] 81 mg PO DAILY #30 tablet. 03/27/16 Lisinopril [Zestril] 2.5 mg PO DAILY #30 tablet 06/26/16 Cetirizine HCl [Zyrtec] 10 mg PO DAILY #30 sgl 11/19/16 Docusate [Colace] 100 mg PO BID cap 12/05/16 Atorvastatin [Lipitor] 20 mg PO HS 12/12/16 Calcium Citrate/Vitamin D3 1 tab PO BID 12/12/16 [Calcium Citrate - Vit D Caplet] Fluticasone/Salmeterol 250/50 1 puff INH Q12H 12/12/16 [Advair Diskus 250/50] Alprazolam [Xanax] 0.25 mg PO Q6H PRN #20 12/15/16 Heparin 5,000 units SC Q12 vial 12/15/16 oxyCODONE/Acetaminophen [Percocet 1 ea PO Q6 PRN #20 tab 12/15/16 5/325 mg Tab] Cephalexin [Keflex] 500 mg PO TID #21 capsule 02/24/17 Blood Sugar Diagnostic [Glucose 1 each MC ASDIR #100 strip 02/25/17 Test Strip] - Allergies Allergies/Adverse Reactions: Allergies Allergy/AdvReac Type Severity Reaction Status Date / Time No Known Allergies Allergy Verified 09/20/16 13:39 Review of Systems ROS Statement: Except As Marked, All Systems Reviewed And Found Negative Constitutional: Negative for: Fever Cardiovascular: Negative for: Chest Pain Gastrointestinal: Negative for: Nausea, Vomiting Physical Exam - Reviewed Nursing Documentation Reviewed: Yes Vital Signs Reviewed: Yes - Physical Exam Appears: Positive for: Well, Non-toxic, No Acute Distress Skin: Negative for: Rash Eye Exam: Positive for: Normal appearance Cardiovascular/Chest: Positive for: Regular Rate, Rhythm Respiratory: Positive for: Normal Breath Sounds Neurologic/Psych: Positive for: Alert, Oriented, Gait - ECG O2 Sat by Pulse Oximetry: 96 Pulse Ox Interpretation: Normal Medical Decision Making Medical Decision Makin81 year old here for med refill As soon as patient arrived in ED, she asked, "where is my prescription? I need to leave." Rx glucose test strips given, patient is stable for discharge. Disposition - Clinical Impression Clinical Impression: Medication refill - Patient ED Disposition Is Patient to be Admitted: No Counseled Patient/Family Regarding: Need For Followup - Disposition Referrals: [facility] [Outside] Disposition: Routine/Home Disposition Time: 13:07 Condition: STABLE Additional Instructions: Follow up with primary care doctor. Prescriptions: Blood Sugar Diagnostic [Glucose Test Strip] 1 each ASDIR #100 strip Instructions: Medicine Refill (ED)
== END 2017-02-25 13:32 | disposition home or self-care (01) ==
LOC: H.ER 12:25
DX: Z76.0 Encounter for issue of repeat prescription (principal)

== ENCOUNTER 2017-03-17 17:32 | Emergency (ER) | payer MEDICARE, OTHER ==
[2017-03-17 17:33] VITALS: BMI 22.1
[2017-03-17 17:47] VITALS: BP 128/70; PULSE 98; RESP 16; TEMP 98.5; O2SAT 100
[2017-03-17] MEDS ORDERED: Sodium Chloride 0.9% 500 ML IV STA (18:09)
--- NOTE | 2017-03-17 18:37 | ED PDOC ---
Upper Extremity Pain/Injury Time Seen by Provider: 03/17/17 17:49 Chief Complaint (Nursing): Upper Extremity Problem/Injury Chief Complaint (Provider): LEFT arm pain History Per: Patient History/Exam Limitations: no limitations Onset/Duration Of Symptoms: Sudden Onset (just prior to ), Persistent Additional Complaint(s): Pt was on her way to have repeat xray of her LEFT arm for recent surgery of fractured humerus, as well as repeat labs, when her legs "fell out". She isn't sure why. Reports feeling "terrible" all day today and simultaneously wants to be evaluated, but also wants to leave as soon as she can. PMD [facility] Past Medical History Reviewed: Historical Data, Nursing Documentation, Vital Signs Vital Signs: Last Vital Signs Temp 98.5 F 03/17/17 17:44 Pulse 98 H 03/17/17 17:44 Resp 16 03/17/17 17:44 BP 128/70 03/17/17 17:44 Pulse Ox 100 03/17/17 17:44 - Medical History PMH: Alzheimer's Disease, Anxiety, Arthritis, Asthma, COPD, Depression, Diabetes , Fractures (left humerus), HTN, Hypercholesterolemia Denies: Hepatitis, HIV, Chronic Kidney Disease, Seizures, Sexually Transmitted Disease - Family History Family History: States: Unknown Family Hx - Immunization History Hx Tetanus Toxoid Vaccination: No Hx Influenza Vaccination: No Hx Pneumococcal Vaccination: No - Home Medications Home Medications: Ambulatory Orders Medication Instructions Recorded Aspirin [Adult Low Dose Aspirin EC] 81 mg PO DAILY #30 tablet. 03/27/16 Lisinopril [Zestril] 2.5 mg PO DAILY #30 tablet 06/26/16 Cetirizine HCl [Zyrtec] 10 mg PO DAILY #30 sgl 11/19/16 Docusate [Colace] 100 mg PO BID cap 12/05/16 Atorvastatin [Lipitor] 20 mg PO HS 12/12/16 Calcium Citrate/Vitamin D3 1 tab PO BID 12/12/16 [Calcium Citrate - Vit D Caplet] Fluticasone/Salmeterol 250/50 1 puff INH Q12H 12/12/16 [Advair Diskus 250/50] Alprazolam [Xanax] 0.25 mg PO Q6H PRN #20 12/15/16 Heparin 5,000 units SC Q12 vial 12/15/16 oxyCODONE/Acetaminophen [Percocet 1 ea PO Q6 PRN #20 tab 12/15/16 5/325 mg Tab] Cephalexin [Keflex] 500 mg PO TID #21 capsule 02/24/17 Blood Sugar Diagnostic [Glucose 1 each ASDIR #100 strip 02/25/17 Test Strip] - Allergies Allergies/Adverse Reactions: Allergies Allergy/AdvReac Type Severity Reaction Status Date / Time No Known Allergies Allergy Verified 03/17/17 17:44 Review of Systems ROS Statement: Except As Marked, All Systems Reviewed And Found Negative (and as per HPI) Constitutional: Positive for: Weakness, Malaise Musculoskeletal: Positive for: Arm Pain Psych: Positive for: Anxiety Physical Exam - Reviewed Nursing Documentation Reviewed: Yes Vital Signs Reviewed: Yes - Physical Exam Appears: Positive for: In Acute Distress (anxious) Head Exam: Positive for: ATRAUMATIC, NORMOCEPHALIC Skin: Positive for: Warm, Dry Eye Exam: Positive for: EOMI, PERRL ENT: Positive for: Normal ENT Inspection Neck: Positive for: Painless ROM, Supple Cardiovascular/Chest: Positive for: Regular Rate, Rhythm. Negative for: Murmur Respiratory: Positive for: Normal Breath Sounds. Negative for: Respiratory Distress Gastrointestinal/Abdominal: Positive for: Soft. Negative for: Tenderness, Mass , Distended, Guarding Back: Positive for: Normal Inspection. Negative for: Vertebral Tenderness Extremity: Positive for: Normal ROM, Deformity (abnormality to LEFT upper arm with surgical scar.) Lymphatic: Negative for: Adenopathy Neurologic/Psych: Positive for: Alert. Negative for: Motor/Sensory Deficits - Laboratory Results Result Diagrams: 03/17/17 18:41 03/17/17 18:41 - ECG O2 Sat by Pulse Oximetry: 100 Disposition - Clinical Impression Clinical Impression: Anxiety, Dizziness Counseled Patient/Family Regarding: Studies Performed, Diagnosis, Need For Followup - Disposition Referrals: [facility] [Outside] (FOLLOW UP WITH CLINIC TOMORROW) Disposition: Routine/Home Disposition Time: 19:00 Condition: STABLE Instructions: Fall Prevention for Older Adults (ED), Anxiety (ED)
[2017-03-17 18:49] LABS: BASO # 0.1 K/uL (0.0-0.2); BASO % 0.7 % (0.0-2.0); EOS # 0.1 K/uL (0.0-0.7); EOS % 0.7 % (0.0-4.0); HEMATOCRIT 41.6 % (34.0-47.0); LYMPH # 1.5 K/uL (1.0-4.3); MEAN CELL VOLUME 90.3 fl (81.0-99.0); MEAN CORPUSCULAR HEMOGLOBIN 29.2 pg (27.0-31.0); MEAN CORPUSCULAR HGB CONC 32.3 g/dL (33.0-37.0); MEAN PLATELET VOLUME 8.4 fl (7.2-11.7); MONO # 0.4 K/uL (0.0-0.8); MONO % 4.7 % (0.0-10.0); NEUT # 5.6 K/uL (1.8-7.0); NEUT % 73.9 % (50.0-75.0); WHITE BLOOD COUNT 7.5 K/uL (4.8-10.8)
[2017-03-17 18:58] LABS: ALKALINE PHOSPHATASE 137 U/L (38-126); ALT/SGPT 27 U/L (9-52); AST/SGOT 27 U/L (14-36); BILIRUBIN,TOTAL 0.6 mg/dl (0.2-1.3); BLOOD UREA NITROGEN 14 mg/dl (7-17); CALCIUM 9.4 mg/dL (8.4-10.2); CARBON DIOXIDE 27 mmol/L (22-30); CHLORIDE 107 mmol/L (98-107); GFR AFRICAN-AMERICAN > 60; GLUCOSE,RANDOM 73 mg/dL (65-105); MAGNESIUM 1.8 MG/DL (1.6-2.3); POTASSIUM 3.9 MMOL/L (3.6-5.0); SODIUM 145 mmol/l (132-148); TOTAL PROTEIN 8.3 G/DL (6.3-8.2)
[2017-03-17 19:22] LABS: ALB/GLOB RATIO 1.3 (1.0-2.1)
--- NOTE | 2017-03-18 10:02 | RAD ---
PROCEDURE: Radiographs of the left humerus. HISTORY: fall injury COMPARISON: Left humerus radiographs dated 12/12/2016. FINDINGS: There has been interval open reduction internal shena and screw fixation of the previously described displaced left humeral fracture. Callus formation is seen around the fracture site. No acute fracture or other significant interval changes identified. IMPRESSION: Findings as above.
--- NOTE | 2017-03-18 11:18 | CARD ---
APPROVED REPORT EKG Measurement Heart [id number] <Conclusion> Normal sinus rhythm Incomplete right bundle branch block Left anterior fascicular block Septal infarct, age undetermined Abnormal ECG
== END 2017-03-17 19:24 | disposition home or self-care (01) ==
LOC: H.ER 17:32
DX: M79.602 Pain in left arm (principal); F41.9 Anxiety disorder, unspecified; R42 Dizziness and giddiness; E11.9 Type 2 diabetes mellitus without complications; E78.00 Pure hypercholesterolemia, unspecified; F02.80 Dementia in other diseases classified elsewhere, unspecified severity, without behavioral disturbance, psychotic disturbance, mood disturbance, and anxiety; F32.9 Major depressive disorder, single episode, unspecified; G30.9 Alzheimer's disease, unspecified; I10 Essential (primary) hypertension; J44.9 Chronic obstructive pulmonary disease, unspecified; Z79.82 Long term (current) use of aspirin
CPT/HCPCS: 73060; 80053; 82948; 83735; 84100; 84484; 85025; 93005; 96360; 99283; J7040

== ENCOUNTER 2017-04-17 15:48 | Inpatient (IN) | payer MEDICARE, OTHER ==
[2017-04-17 15:49] VITALS: BMI 22.1
--- NOTE | 2017-04-17 17:31 | ED PDOC ---
HPI: General Adult Time Seen by Provider: 04/17/17 16:09 Chief Complaint (Nursing): Rib Injury Chief Complaint (Provider): Rib pain History Per: Patient History/Exam Limitations: no limitations Current Symptoms Are (Timing): Still Present Additional Complaint(s): 81 year old female returns to the emergency department with the same complaints of a left lateral rib pain that worsens with deep breathing. Reports tylenol given in the emergency room earlier did not help with the pain. Denies chest pain, shortness of breath, fever, cough, leg pain, leg swelling, chest pain on exertion, palpitations, headache, or dizziness. Of note, patient had surgery to the left arm recently for a fracture repair. Past Medical History Reviewed: Historical Data, Nursing Documentation, Vital Signs Vital Signs: Last Vital Signs Temp 97.8 F 04/17/17 15:53 Pulse 85 04/17/17 15:53 Resp 16 04/17/17 15:53 BP 154/57 H 04/17/17 15:53 Pulse Ox 99 04/17/17 20:10 - Medical History PMH: Alzheimer's Disease, Anxiety, Arthritis, Asthma, COPD, Depression, Diabetes , Fractures (left humerus), HTN, Hypercholesterolemia Denies: Hepatitis, HIV, Chronic Kidney Disease, Seizures, Sexually Transmitted Disease - Family History Family History: States: Unknown Family Hx - Immunization History Hx Tetanus Toxoid Vaccination: No Hx Influenza Vaccination: No Hx Pneumococcal Vaccination: No - Home Medications Home Medications: Ambulatory Orders Medication Instructions Recorded Aspirin [Adult Low Dose Aspirin EC] 81 mg PO DAILY #30 tablet. 03/27/16 Lisinopril [Zestril] 2.5 mg PO DAILY #30 tablet 06/26/16 Cetirizine HCl [Zyrtec] 10 mg PO DAILY #30 sgl 11/19/16 Atorvastatin [Lipitor] 20 mg PO HS 12/12/16 Calcium Citrate/Vitamin D3 1 tab PO BID 12/12/16 [Calcium Citrate - Vit D Caplet] Fluticasone/Salmeterol 250/50 1 puff INH DAILY 04/17/17 [Advair Diskus 250/50] - Allergies Allergies/Adverse Reactions: Allergies Allergy/AdvReac Type Severity Reaction Status Date / Time No Known Allergies Allergy Verified 03/17/17 17:44 Review of Systems ROS Statement: Except As Marked, All Systems Reviewed And Found Negative (As per HPI, otherwise negative) Constitutional: Negative for: Fever Cardiovascular: Negative for: Chest Pain (on exertion), Palpitations Respiratory: Negative for: Cough, Shortness of Breath Musculoskeletal: Positive for: Other (Left rib pain). Negative for: Leg Pain ( Leg swelling) Neurological: Negative for: Headache, Dizziness Physical Exam - Reviewed Nursing Documentation Reviewed: Yes Vital Signs Reviewed: Yes - Physical Exam Appears: Positive for: Non-toxic, No Acute Distress Head Exam: Positive for: ATRAUMATIC Skin: Positive for: Normal Color, Warm, Dry Cardiovascular/Chest: Positive for: Regular Rate, Rhythm, Chest Non Tender. Negative for: Murmur Respiratory: Positive for: Normal Breath Sounds. Negative for: Accessory Muscle Use, Respiratory Distress Gastrointestinal/Abdominal: Positive for: Normal Exam, Soft. Negative for: Tenderness Back: Positive for: Normal Inspection Extremity: Positive for: Normal ROM. Negative for: Pedal Edema Neurologic/Psych: Positive for: Alert, Oriented (x3) - Laboratory Results Result Diagrams: 04/17/17 17:47 04/17/17 17:47 - ECG O2 Sat by Pulse Oximetry: 99 (RA) Pulse Ox Interpretation: Normal Medical Decision Making Medical Decision Making: Time: 1634 Initial impression: Anxious and left rib pain Initial plan: B-Type Natriuretic Peptide CMP Troponin I CBC w/ diff PTT & prothrombin Morphine 2 mg IVP Zofran 4 mg IVP Urine Culture Urinalysis Angio Chest PE CT Reevaluation Time: 1818 Labs reviewed : trop (-), bnp (-), UA shows +UTI, rest of the labs are wnl. Rocephin 1000 mg IVPB ordered to treat UTI. EKG : NSR at 68 bpm, (-) acute ST changes, as read by PA. Time: 1913 --Angio Chest CT FINDINGS: PULMONARY ARTERIES: Unremarkable. No pulmonary embolism. AORTA: No acute findings. No thoracic aortic aneurysm. LUNGS: No infiltrate. Dependent atelectasis in the posterior lower lobes. Linear scar or atelectasis in the right lower lobe. No pulmonary mass. PLEURAL SPACES: Unremarkable. No effusion or pneuomothorax. HEART: Unremarkable. No cardiomegaly. No significant pericardial effusion. LYMPH NODES: No lymphadenopathy. BONES, CHEST WALL: There are multiple thoracic vertebral compression fractures. These involve severe compression of the T5 and 6 vertebral bodies and milder compression of the T7 and T8 vertebral bodies. In addition, there are sclerotic lesions in multiple thoracic vertebrae. Sclerotic lesion is seen in the superior T12 vertebra surrounding a Schmorl's node, possibly reactive sclerosis. There is a sclerotic lesion involving the left T9 pedicle and body and a sclerotic lesion involving the right T10 pedicle. There is a sclerotic lesion involving the left T3 and T4 pedicles. There are sclerotic lesions involving the right 7th and 9th ribs posteriorly. There is extensive sclerosis involving the left 6th rib and a sclerotic lesion of the left 810 10th ribs. There is sclerotic lesion involving the inferior left scapula. The possibility of metastatic disease should be considered. OTHER FINDINGS: Unremarkable. IMPRESSION: No evidence of pulmonary embolism. No pulmonary infiltrate. Multiple thoracic vertebral compression fractures. Multiple sclerotic foci in the thoracic spine as well as multiple ribs and left scapula. Findings suspicious for sclerotic metastasis. Time: 1945 CT results discussed with the patient's son, Kalen, who states that the patient does not have a history of cancer. Patient's son notified of further plan of care for inpatient admission which he agrees to. Her son states that the patient is supposed to get an outpt XR of her L humerus to evaluate the healing of her recent fracture which required surgical repair. XR L humerus ordered. Patient notified that she will be admitted. Case discussed with family practice resident Dr. Melendez, recent plan for admission, will evaluate the patient in the emergency room. Arrangements made for admission under Dr. Cadet. Patient seen and evaluated by family practice resident Dr. Whitley. Admit to hospital routine: As inpatient in Med/Surg for bone metastases under the care of Dr. Shana Cadet MD Scribe Attestation: Documented by Sharri Khan, acting as a scribe for Johanna Ashton PA-C Provider Scribe Attestation: All medical record entries made by the Scribe were at my direction and personally dictated by me. I have reviewed the chart and agree that the record accurately reflects my personal performance of the history, physical exam, medical decision making, and the department course for this patient. I have also personally directed, reviewed, and agree with the discharge instructions and disposition. Disposition - Clinical Impression Clinical Impression: Rib pain on left side, Bone metastasis, Cancer with unknown primary site, Urinary tract infection - Patient ED Disposition Is Patient to be Admitted: Yes Doctor Will See Patient In The: ED Counseled Patient/Family Regarding: Studies Performed, Diagnosis - Disposition Disposition Time: 19:00 Condition: STABLE - PA / JUDGE / Resident Statement /DO has reviewed & agrees with the documentation as recorded.
[2017-04-17 17:52] LABS: BASO # 0.1 K/uL (0.0-0.2); BASO % 0.6 % (0.0-2.0); EOS % 0.1 % (0.0-4.0); HEMOGLOBIN 12.4 g/dL (12.0-16.0); MEAN CELL VOLUME 89.7 fl (81.0-99.0); MEAN CORPUSCULAR HGB CONC 32.3 g/dL (33.0-37.0); MEAN PLATELET VOLUME 7.9 fl (7.2-11.7); MONO # 0.5 K/uL (0.0-0.8); NEUT # 6.3 K/uL (1.8-7.0); NEUT % 80.3 % (50.0-75.0); RBC 4.29 Mil/uL (3.80-5.20); RED CELL DISTRIBUTION WIDTH 14.7 % (11.5-14.5); WHITE BLOOD COUNT 7.8 K/uL (4.8-10.8)
[2017-04-17 18:02] LABS: INR 1.1 (0.9-1.2); PARTIAL THROMBOPLASTIN TIME 27.4 Seconds (25.6-37.1); PROTHROMBIN TIME 12.1 Seconds (9.8-13.1); SQUAMOUS EPITHIAL 1 /hpf (0-5); URINE BACTERIA OCC (<OCC); URINE BILIRUBIN NEGATIVE (NEGATIVE); URINE BLOOD SMALL (NEGATIVE); URINE CLARITY SLIGHTY-CLOUDY (Clear); URINE COLOR YELLOW (YELLOW); URINE GLUCOSE (UA) NEG (Normal); URINE LEUKOCYTE ESTERASE LARGE Leu/uL (Negative); URINE NITRATE NEGATIVE (NEGATIVE); URINE PROTEIN NEGATIVE (NEGATIVE); URINE UROBILINOGEN 0.2-1.0 mg/dL (0.2-1.0)
[2017-04-17 18:03] LABS: ALB/GLOB RATIO 1.2 (1.0-2.1); ALBUMIN 4.4 g/dL (3.5-5.0); ALT/SGPT 31 U/L (9-52); AST/SGOT 28 U/L (14-36); BLOOD UREA NITROGEN 11 mg/dl (7-17); CALCIUM 9.6 mg/dL (8.4-10.2); GFR AFRICAN-AMERICAN > 60; GFR NON-AFRICAN AMERICAN > 60
[2017-04-17 18:16] LABS: B-TYPE NATRIURETIC PEPTIDE 236 pg/ml (0-900)
[2017-04-17] MEDS ORDERED: cefTRIAXone (Rocephin) 250 mg Inj IVPB STA (18:19)
[2017-04-17] MEDS ORDERED: Sodium Chloride 0.9% 50 ML IV ONE (18:20)
[2017-04-17] MEDS ORDERED: Iodixanol 320 MG/ML 100 ML BOTTLE IV ONE (18:20)
--- NOTE | 2017-04-17 19:16 | CT ---
PROCEDURE: CT Chest with contrast (Pulmonary Angiogram) HISTORY: L CP COMPARISON: None available. TECHNIQUE: Axial computed tomography images were obtained of the chest in the pulmonary arterial phase of enhancement. Coronal and sagittal reformatted images were created and reviewed. Intravenous contrast dose: 80 mL Visipaque 320 Radiation dose: Total exam DLP = 343.69 mGy-cm. This CT exam was performed using one or more of the following dose reduction techniques: Automated exposure control, adjustment of the mA and/or kV according to patient size, and/or use of iterative reconstruction technique. FINDINGS: PULMONARY ARTERIES: Unremarkable. No pulmonary embolism. AORTA: No acute findings. No thoracic aortic aneurysm. LUNGS: No infiltrate. Dependent atelectasis in the posterior lower lobes. Linear scar or atelectasis in the right lower lobe. No pulmonary mass. PLEURAL SPACES: Unremarkable. No effusion or pneuomothorax. HEART: Unremarkable. No cardiomegaly. No significant pericardial effusion. LYMPH NODES: No lymphadenopathy. BONES, CHEST WALL: There are multiple thoracic vertebral compression fractures. These involve severe compression of the T5 and 6 vertebral bodies and milder compression of the T7 and T8 vertebral bodies. In addition, there are sclerotic lesions in multiple thoracic vertebrae. Sclerotic lesion is seen in the superior T12 vertebra surrounding a Schmorl's node, possibly reactive sclerosis. There is a sclerotic lesion involving the left T9 pedicle and body and a sclerotic lesion involving the right T10 pedicle. There is a sclerotic lesion involving the left T3 and T4 pedicles. There are sclerotic lesions involving the right 7th and 9th ribs posteriorly. There is extensive sclerosis involving the left 6th rib and a sclerotic lesion of the left 810 10th ribs. There is sclerotic lesion involving the inferior left scapula. The possibility of metastatic disease should be considered. OTHER FINDINGS: Unremarkable. IMPRESSION: No evidence of pulmonary embolism. No pulmonary infiltrate. Multiple thoracic vertebral compression fractures. Multiple sclerotic foci in the thoracic spine as well as multiple ribs and left scapula. Findings suspicious for sclerotic metastasis. .
[2017-04-17] MEDS ORDERED: Acetaminophen-Codeine 300/30 mg Tab PO PRN (20:32)
--- NOTE | 2017-04-17 20:41 | CP.PCM.HP ---
History of Present Illness - History of Present Illness History of Present Illness: PMD: NHC Hx taken from patient and previous records. Limited due to patient's impaired mental status. Healthcare proxy: Son(Kalen [phone]) 81 y/o F with PMHx of Dementia, NIDDM, HTN and Hypercholesterolemia presented to ED on 2 separate visits today, c/o worsening left chest wall pain. Denies recent fall but patient was admitted to hosp in 11/2016 for L/humerus Fx that needed Sx repair at the time. She denies pain in L/UE currently but c/o progressive left side chest wall pain that worsen with movement, deep inspiration or pressure to the area. Patient lives at [facility]. Denies fever, ,dizziness, blood in stools, headache, urinary symptoms , diarrhea, constipation, vomiting or abd pain. Pain improved at the time of exam after dose of Morphine at ED. Patient seems anxious, repetitive, but is orientedx3. Family was contacted by ED and aware that patient is in the hosp. ED course: VS stable CBC, CMP, Coags unremarkable UA + for LE, WBC and RBC: Patient denies dysuria. UCx pending EKG: Sinus arrhythmia. Pending report Chest CT: IMPRESSION: No evidence of pulmonary embolism. No pulmonary infiltrate. Multiple thoracic vertebral compression fractures. Multiple sclerotic foci in the thoracic spine as well as multiple ribs and left scapula. Findings suspicious for sclerotic metastasis. (Please see full report) L/Humerus XRay: Morphine, Zofran, Ceftriaxone Patient to be admitted to hosp for new onset bone lesions suspicious for metastasis and pain control. Present on Admission - Present on Admission Any Indicators Present on Admission: No Review of Systems - Review of Systems Systems not reviewed;Unavailable: Dementia - Constitutional Constitutional: Weight Loss - Breasts Additional comments: "Denies pain or abnormalities" - Gastrointestinal Gastrointestinal: absent: Abdominal Pain, Coffee Ground Emesis, Constipation, Diarrhea, Hematochezia, Melena - Genitourinary Genitourinary: absent: Dysuria, Flank Pain, Urinary Incontinence - Musculoskeletal Musculoskeletal: Arthralgias, Back Pain. absent: Abnormal Gait Additional comments: ribs pain, occasional L/arm pain, lower back pain Past Patient History - Infectious Disease Hx of Infectious Diseases: None - Past Medical History & Family History Past Medical History?: Yes - Past Social History Smoking Status: Former Smoker Drugs: Denies - CARDIAC Hx Hypercholesterolemia: Yes Hx Hypertension: Yes - PULMONARY Hx Asthma: Yes - NEUROLOGICAL Hx Alzheimer's Disease: Yes Hx Seizures: No - RENAL Hx Chronic Kidney Disease: No - ENDOCRINE/METABOLIC Hx Endocrine Disorders: Yes Hx Diabetes Mellitus Type 2: Yes - HEMATOLOGICAL/ONCOLOGICAL Hx Human Immunodeficiency Virus (HIV): No - INTEGUMENTARY Hx Dermatological Problems: No - MUSCULOSKELETAL/RHEUMATOLOGICAL Hx Arthritis: Yes Hx Fractures: Yes (left humerus) - GASTROINTESTINAL Hx Gastrointestinal Disorders: No - GENITOURINARY/GYNECOLOGICAL Hx Sexually Transmitted Disorders: No - PSYCHIATRIC Hx Anxiety: Yes Hx Depression: Yes - SURGICAL HISTORY Hx Surgeries: Yes Other/Comment: left arm surgery with plates and screws. left foot surgery ( stepped on a nail) - ANESTHESIA Hx Anesthesia: Yes Hx Anesthesia Reactions: No Hx Malignant Hyperthermia: No Meds Allergies/Adverse Reactions: Allergies Allergy/AdvReac Type Severity Reaction Status Date / Time No Known Allergies Allergy Verified 03/17/17 17:44 Physical Exam - Constitutional Appears: Non-toxic, In Acute Distress (mild due to pain), Cachectic (Slightly) - Head Exam Head Exam: ATRAUMATIC, NORMAL INSPECTION - Eye Exam Eye Exam: EOMI, PERRL - ENT Exam ENT Exam: Mucous Membranes Moist - Respiratory Exam Respiratory Exam: Clear to Auscultation Bilateral, NORMAL BREATHING PATTERN. absent: Decreased Breath Sounds, Wheezes - Cardiovascular Exam Cardiovascular Exam: +S1, +S2. absent: Gallop, Systolic Murmur - GI/Abdominal Exam GI & Abdominal Exam: Normal Bowel Sounds, Soft. absent: Distended, Rebound, Tenderness - Extremities Exam Extremities exam: Negative for: calf tenderness, normal capillary refill, pedal edema, tenderness - Back Exam Back exam: absent: CVA tenderness (L), CVA tenderness (R) - Neurological Exam Neurological exam: Alert, Oriented x3 - Psychiatric Exam Psychiatric exam: Anxious Additional comments: Needs frequent redirection during interrogatory. - Expanded Psychiatric Exam Expanded Focused psych exam: Psychomotor Agitation (MIld), Restlessness - Skin Skin Exam: Normal Color, Warm - Additional Findings Additional findings: R/Breast Exam: Are[place] and nipple erythema. Palpable mass about 8 cm in diameter , seems slightly tender, hard, that seems to cover most of the breast L/Breast: Seems WNL Results - Vital Signs Recent Vital Signs: Last Vital Signs Temp 97.8 F 04/17/17 15:53 Pulse 85 04/17/17 15:53 Resp 16 04/17/17 15:53 BP 154/57 H 04/17/17 15:53 Pulse Ox 99 04/17/17 20:10 - Labs Result Diagrams: 04/17/17 17:47 04/17/17 17:47 Labs: Laboratory Results - last 24 hr 04/17/17 04/17/17 04/17/17 17:47 17:47 17:47 WBC 7.8 RBC 4.29 Hgb 12.4 Hct 38.5 MCV 89.7 MCH 29.0 MCHC 32.3 L RDW 14.7 H Plt Count 204 MPV 7.9 Neut % (Auto) 80.3 H Lymph % (Auto) 13.0 L [place] % (Auto) 6.0 Eos % (Auto) 0.1 Baso % (Auto) 0.6 Neut # 6.3 Lymph # 1.0 [place] # 0.5 Eos # 0.0 Baso # 0.1 PT INR APTT Sodium 143 Potassium 3.8 Chloride 104 Carbon Dioxide 25 Anion Gap 18 BUN 11 Creatinine 0.5 L Est GFR ( Amer) > 60 Est GFR (Non-Af Amer) > 60 Random Glucose 102 Calcium 9.6 Total Bilirubin 0.9 AST 28 ALT 31 Alkaline Phosphatase 124 Troponin I < 0.0120 NT-Pro-B Natriuret Pep 236 Total Protein 7.9 Albumin 4.4 Globulin 3.5 Albumin/Globulin Ratio 1.2 Urine Color Yellow Urine Clarity Slighty-cloudy Urine pH 6.0 Ur Specific [place] 1.008 Urine Protein Negative Urine Glucose (UA) Neg Urine Ketones Negative Urine Blood Small Urine Nitrate Negative Urine Bilirubin Negative Urine Urobilinogen 0.2-1.0 Ur Leukocyte Esterase Large Urine RBC (Auto) 7 H Urine Microscopic WBC 75 H Ur Squamous Epith Cells 1 Urine Bacteria Occ H 04/17/17 17:47 WBC RBC Hgb Hct MCV MCH MCHC RDW Plt Count MPV Neut % (Auto) Lymph % (Auto) [place] % (Auto) Eos % (Auto) Baso % (Auto) Neut # Lymph # [place] # Eos # Baso # PT 12.1 INR 1.1 APTT 27.4 Sodium Potassium Chloride Carbon Dioxide Anion Gap BUN Creatinine Est GFR ( Amer) Est GFR (Non-Af Amer) Random Glucose Calcium Total Bilirubin AST ALT Alkaline Phosphatase Troponin I NT-Pro-B Natriuret Pep Total Protein Albumin Globulin Albumin/Globulin Ratio Urine Color Urine Clarity Urine pH Ur Specific [place] Urine Protein Urine Glucose (UA) Urine Ketones Urine Blood Urine Nitrate Urine Bilirubin Urine Urobilinogen Ur Leukocyte Esterase Urine RBC (Auto) Urine Microscopic WBC Ur Squamous Epith Cells Urine Bacteria Assessment & Plan - Assessment and Plan (Free Text) Assessment: 81 y/o F with PMHx of Dementia, NIDDM, HTN and Hypercholesterolemia admitted for suspected metastatic cancer and pain control. Sclerotic bone lesions -Likely chronic -Likely cause of chest wall pain -CT shows: Multiple thoracic vertebral compression fractures. Multiple sclerotic foci in the thoracic spine as well as multiple ribs and left scapula. Findings suspicious for sclerotic metastasis. -Breast mass on physical exam. Possible primary. -CBC, CMP, Coags unremarkable -Pain control with Tylenol #3 and Morphine -Hem-onc Consult(Dr Irizarry) R/breast mass on physical exam -likely chronic -No previous breast imaging studies on records -Poss Malignancy -F/U Hem-onc recs. L/Humerus Fx -Chronic, S/P repair 11/2016 -Seems stable -F/U Xray humerus report -Pain control Asymtomatic bacteriuria -Suspected -Abnormal UA patient denies urinary symptoms. Afebrile -S/P Rocephin 1g at ED -F/U UCx Hx of NIDDM -No meds on home med list -Random glucose at ED: 102 -Last HGbA1c 5.6 on 07/2016 -No BS control needed at this time Hx of HTN -Controlled -C/W home med Hx of Hypercholesterolemia -Last Lipid panel less than 1 year ago WNL -Stop Statins for now Hx of asthma -Asymptomatic -C/W home med Diet -Regular, high caloric(Wt =109 lbs) Risk of falls -Fall risk protocol implemented Prophylactic measures -Lovenox 40 mg SQ daily
[2017-04-17] MEDS ORDERED: Albuterol-Ipratrop 3 mg / 0.5 (3 ml) UD INH PRN (22:39)
[2017-04-18 07:05] LABS: BASO % 0.7 % (0.0-2.0); EOS # 0.1 K/uL (0.0-0.7); EOS % 1.4 % (0.0-4.0); HEMOGLOBIN 10.9 g/dL (12.0-16.0); LYMPH # 1.6 K/uL (1.0-4.3); LYMPH % 28.8 % (20.0-40.0); MEAN CELL VOLUME 89.2 fl (81.0-99.0); MEAN CORPUSCULAR HEMOGLOBIN 29.6 pg (27.0-31.0); MEAN CORPUSCULAR HGB CONC 33.2 g/dL (33.0-37.0); MEAN PLATELET VOLUME 8.2 fl (7.2-11.7); MONO # 0.5 K/uL (0.0-0.8); MONO % 9.7 % (0.0-10.0); NEUT # 3.3 K/uL (1.8-7.0); NEUT % 59.4 % (50.0-75.0); NRBC % 0.1 % (0.0-0.0); RBC 3.69 Mil/uL (3.80-5.20); RED CELL DISTRIBUTION WIDTH 14.3 % (11.5-14.5); WHITE BLOOD COUNT 5.5 K/uL (4.8-10.8)
[2017-04-18 07:27] LABS: ALB/GLOB RATIO 1.2 (1.0-2.1); ALBUMIN 3.6 g/dL (3.5-5.0); ALT/SGPT 27 U/L (9-52); AST/SGOT 23 U/L (14-36); BLOOD UREA NITROGEN 15 mg/dl (7-17); GFR AFRICAN-AMERICAN > 60; GFR NON-AFRICAN AMERICAN > 60
--- NOTE | 2017-04-18 08:36 | CP.PCM.PN ---
Subjective - Date & Time of Evaluation Date of Evaluation: 04/18/17 Time of Evaluation: 07:00 - Subjective Subjective: Patient seen and examined bedside, reports left side chest wall pain 2 times overnight alleviated with tylenol, no pain 5/10. She denies SOB,palpitation, n,v ,abd pain, diarrhea, fever, chills, dysuria. Objective - Vital Signs/Intake and Output Vital Signs (last 24 hours): Temp Pulse Resp BP Pulse Ox 98.2 F 60 20 112/60 98 04/18/17 07:41 04/18/17 07:41 04/18/17 07:41 04/18/17 07:41 04/18/17 07:41 - Medications Medications: Current Medications Acetaminophen (Tylenol 325mg Tab) 650 mg PO Q6 PRN PRN Reason: Pain, Mild (1-3) Last Admin: 04/18/17 05:23 Dose: 650 mg Acetaminophen/Codeine Phosphate (Tylenol/Codeine 300 Mg/30 Mg) 1 tab PO Q4 PRN PRN Reason: Pain, moderate (4-7) Albuterol/Ipratropium (Duoneb 3 Mg/0.5 Mg (3 Ml) Ud) 3 ml INH RQ6 PRN PRN Reason: Shortness of Breath Aspirin (Ecotrin) 81 mg PO DAILY [facility] Docusate Sodium (Colace) 100 mg PO BID [facility] Enoxaparin Sodium (Lovenox) 40 mg SC DAILY [facility] PRN Reason: Protocol Home Med (Calcium Citrate/Vitamin D3 [Calcium Citrate - Vit D Caplet]) 1 tab PO BID [facility] Lisinopril (Zestril) 2.5 mg PO DAILY [facility] Morphine Sulfate (Morphine) 1 mg IVP Q6 PRN PRN Reason: Pain, severe (8-10) Fluticasone/Salmeterol (Advair Diskus 250/50) 1 puff INH DAILY [facility] - Labs Labs: 04/18/17 05:30 04/18/17 05:30 PT 12.1 Seconds (9.8-13.1) 04/17/17 17:47 INR 1.1 (0.9-1.2) 04/17/17 17:47 APTT 27.4 Seconds (25.6-37.1) 04/17/17 17:47 - Constitutional Appears: Non-toxic, No Acute Distress, Cachectic - Head Exam Head Exam: ATRAUMATIC, NORMOCEPHALIC - Eye Exam Eye Exam: Normal appearance - ENT Exam ENT Exam: Mucous Membranes Moist - Neck Exam Neck Exam: Normal Inspection - Respiratory Exam Respiratory Exam: Chest Wall Tenderness, Clear to Ausculation Bilateral. absent : Rales, Rhonchi, Wheezes Additional comments: left lateral side with area of skin erythema, no vesicle present. Breast Exam Left breast: normal Right breast: pendular breast with breast mass aprox 12 cm x 8 cm, hard consistency, lobulated, with skin erythema perareolar, nipple normal, no TD, .right axilla lymph note 2cm, hard consistency.no TD - Cardiovascular Exam Cardiovascular Exam: REGULAR RHYTHM, +S1, +S2. absent: Gallop - GI/Abdominal Exam GI & Abdominal Exam: Soft, Normal Bowel Sounds. absent: Tenderness - Extremities Exam Extremities Exam: Normal Inspection. absent: Pedal Edema - Neurological Exam Neurological Exam: Alert, Awake - Psychiatric Exam Psychiatric exam: Anxious - Skin Skin Exam: Intact Assessment and Plan - Assessment and Plan (Free Text) Plan: 81 y/o F with PMHx of Dementia, NIDDM, HTN and Hypercholesterolemia admitted for suspected metastatic cancer and pain control. Healthcare proxy: Son(Kalen [phone]) 1) Left side chest wall pain -secondary to possible metastatic Breast Ca --CT shows: Multiple thoracic vertebral compression fractures. Multiple sclerotic foci in the thoracic spine as well as multiple ribs and left scapula. Findings suspicious for sclerotic metastasis. -New Right Breast mass found on this admission -EKG: SR w/ sinus arrythmia w 1st degree AV block.left ant fascicular block -troponin x 1 nl -tylenol mild pain, toradol mod pain, dilaudid sev --Hem-onc Consult(Dr Irizarry) suggested 2) Right breast mass -possible 2to Breast Ca -No Hx/o Breast Ca, no mamography before on records -lobulated, hard consisency, axillary lymph node ---Hem-onc Consult(Dr Irizarry) suggested -Will contact family to discuss advance directive and plan of treatment decision by family 3) Hx/o L/Humerus Fx -stable -Chronic, S/P repair 11/2016 -F/U Xray humerus report -Pain control 4) Asymtomatic bacteriuria -Abnormal UA patient denies urinary symptoms. Afebrile -S/P Rocephin 1g at ED -F/U UCx 5) Hx of NIDDM -No meds on home med list -Random glucose at ED: 102 -Last HGbA1c 5.6 on 07/2016 -No BS control needed at this time -Accucheck fasting daily 6) HTN -Controlled -C/W home med -Lisinopril 2.5 mg daily 7) Hx of Hypercholesterolemia -Last Lipid panel less than 1 year ago WNL -Stop Statins for now 8) Hx of asthma -Asymptomatic -C/W home med 9) DVT prophylaxis --Lovenox 40 mg SQ daily Diet -Regular, high caloric(Wt =109 lbs) Risk of falls -Fall risk protocol implemented
[2017-04-18] MEDS: Fluticasone-Salmeterol 250-50mcg Diskus INH SCH (08:48)
[2017-04-18] MEDS: Enoxaparin 40 mg Syringe SC SCH (08:49)
[2017-04-18] MEDS ORDERED: Potassium Chloride 20 mEq ER Tab PO ONE (08:49)
--- NOTE | 2017-04-18 08:53 | RAD ---
PROCEDURE: Radiographs of the left humerus. HISTORY: pain, s/p surgery COMPARISON: Left humerus radiographs 12/12/2016 as well as 03/17/2017. FINDINGS: BONES: No definite acute fracture dislocation is appreciated at the left humerus including left shoulder and left elbow. They status post ORIF with lengthy intramedullary nail again seen traversing the left humeral shaft transfixed by proximal and distal interlocking screws. An oblique fracture at the mid diaphysis is again appreciated at a latter stage of healing. Callus formation is appreciated at the fracture site, particularly medially. SOFT TISSUES: Normal. OTHER FINDINGS: None. IMPRESSION: No definite acute fracture. Prior fracture treated by ORIF identified at a latter stage of healing.
[2017-04-18] MEDS ORDERED: HYDROmorphone 0.5 mg/0.5 ml ISec IVP PRN (11:16)
[2017-04-18] MEDS: Calcium-Vit D 250 mg-125 Units Tab UD PO SCH ×2 (14:07→17:20)
--- NOTE | 2017-04-18 18:19 | CP.PCM.CON ---
History of Present Illness - History of Present Illness History of Present Illness: 81 year old female with a history of HTN, DM, HL, admitted with chest pain, found to have a right breast mass and diffuse bone lesions concerning for metastatic disease. The patient reports to increasing chest wall pain. She does admit to a diminished appetite and unintentional weightloss. Past medical history: HTN, DM, HL Past surgical history: Left upper extremity fixation Family history: Denies hematologic and oncologic problems Social history: + tobacco Allergies: NKA Review of systems: All remaining review of systems including HEENT, cardiovascular, respiratory, gastrointestinal, genitourinary, musculoskeletal, dermatologic, neurologic, and psychiatric are negative unless mentioned in the HPI. Past Patient History - Infectious Disease Hx of Infectious Diseases: None - Past Medical History & Family History Past Medical History?: Yes - Past Social History Smoking Status: Former Smoker - CARDIAC Hx Cardiac Disorders: Yes Hx Hypercholesterolemia: Yes Hx Hypertension: Yes - PULMONARY Hx Respiratory Disorders: Yes Hx Asthma: Yes - NEUROLOGICAL Hx Neurological Disorder: Yes Hx Alzheimer's Disease: Yes Hx Seizures: No - HEENT Hx HEENT Problems: Yes - RENAL Hx Chronic Kidney Disease: No - ENDOCRINE/METABOLIC Hx Endocrine Disorders: Yes Hx Diabetes Mellitus Type 2: Yes - HEMATOLOGICAL/ONCOLOGICAL Hx Blood Disorders: No Hx Human Immunodeficiency Virus (HIV): No - INTEGUMENTARY Hx Dermatological Problems: No - MUSCULOSKELETAL/RHEUMATOLOGICAL Hx Musculoskeletal Disorders: Yes Hx Falls: Yes - GASTROINTESTINAL Hx Gastrointestinal Disorders: No - GENITOURINARY/GYNECOLOGICAL Hx Genitourinary Disorders: No Hx Sexually Transmitted Disorders: No - PSYCHIATRIC Hx Psychophysiologic Disorder: No Hx Substance Use: No - SURGICAL HISTORY Hx Surgeries: Yes Other/Comment: left arm surgery with plates and screws. left foot surgery ( stepped on a nail) - ANESTHESIA Hx Anesthesia: Yes Hx Anesthesia Reactions: No Hx Malignant Hyperthermia: No Meds Allergies/Adverse Reactions: Allergies Allergy/AdvReac Type Severity Reaction Status Date / Time No Known Allergies Allergy Verified 03/17/17 17:44 - Medications Medications: Current Medications Acetaminophen (Tylenol 325mg Tab) 650 mg PO Q6 PRN PRN Reason: Pain, Mild (1-3) Last Admin: 04/18/17 14:07 Dose: 650 mg Albuterol/Ipratropium (Duoneb 3 Mg/0.5 Mg (3 Ml) Ud) 3 ml INH RQ6 PRN PRN Reason: Shortness of Breath Aspirin (Ecotrin) 81 mg PO DAILY [facility] Last Admin: 04/18/17 08:49 Dose: 81 mg Calcium/Vitamin D (Oscal-D 250 Mg-125 Units Tab) 1 tab PO BID [facility] Last Admin: 04/18/17 17:20 Dose: 1 tab Docusate Sodium (Colace) 100 mg PO BID [facility] Last Admin: 04/18/17 17:20 Dose: 100 mg Enoxaparin Sodium (Lovenox) 40 mg SC DAILY [facility] PRN Reason: Protocol Last Admin: 04/18/17 08:49 Dose: 40 mg Hydromorphone HCl (Dilaudid) 0.5 mg IVP Q4H PRN PRN Reason: Pain, severe (8-10) Ketorolac Tromethamine (Toradol) 15 mg IVP Q6 PRN PRN Reason: Pain, moderate (4-7) Last Admin: 04/18/17 15:17 Dose: 15 mg Lisinopril (Zestril) 2.5 mg PO DAILY [facility] Last Admin: 04/18/17 08:49 Dose: 2.5 mg Fluticasone/Salmeterol (Advair Diskus 250/50) 1 puff INH DAILY [facility] Last Admin: 04/18/17 08:48 Dose: 1 u Physical Exam - Head Exam Head Exam: ATRAUMATIC - Eye Exam Eye Exam: Normal appearance - ENT Exam ENT Exam: Mucous Membranes Dry - Respiratory Exam Respiratory Exam: NORMAL BREATHING PATTERN - Cardiovascular Exam Cardiovascular Exam: +S1, +S2 - GI/Abdominal Exam GI & Abdominal Exam: Normal Bowel Sounds Results - Vital Signs Recent Vital Signs: Last Vital Signs Temp 97.8 F 04/18/17 15:51 Pulse 62 04/18/17 15:51 Resp 20 04/18/17 15:51 BP 91/51 L 04/18/17 15:51 Pulse Ox 95 04/18/17 15:51 - Labs Result Diagrams: 04/18/17 05:30 04/18/17 05:30 Labs: Laboratory Results - last 24 hr 04/18/17 04/18/17 04/18/17 05:30 05:30 10:21 WBC 5.5 RBC 3.69 L Hgb 10.9 L Hct 32.9 L MCV 89.2 MCH 29.6 MCHC 33.2 RDW 14.3 Plt Count 176 MPV 8.2 Neut % (Auto) 59.4 Lymph % (Auto) 28.8 [place] % (Auto) 9.7 Eos % (Auto) 1.4 Baso % (Auto) 0.7 Neut # 3.3 Lymph # 1.6 [place] # 0.5 Eos # 0.1 Baso # 0.0 ESR 16 Sodium 141 Potassium 3.4 L Chloride 104 Carbon Dioxide 27 Anion Gap 13 BUN 15 Creatinine 0.6 L Est GFR ( Amer) > 60 Est GFR (Non-Af Amer) > 60 POC Glucose (mg/dL) 150 H Random Glucose 85 Calcium 9.0 Total Bilirubin 0.6 AST 23 ALT 27 Alkaline Phosphatase 107 Total Protein 6.8 Albumin 3.6 Globulin 3.2 Albumin/Globulin Ratio 1.2 Assessment & Plan (1) Bone metastasis Assessment and Plan: breast mass noted ? metastatic breast cancer pts son agreeable to breast mass biopsy will add breast cancer tumor marker Status: Acute (2) Breast mass Assessment and Plan: for biopsy Status: Acute (3) Anemia Assessment and Plan: will check ferritin, retic count, b12, folate Thank you for this interesting consult. Status: Chronic Priority: Low
[2017-04-19 07:39] LABS: HEMOGLOBIN 10.7 g/dL (12.0-16.0); MEAN CELL VOLUME 89.6 fl (81.0-99.0); MEAN CORPUSCULAR HEMOGLOBIN 29.2 pg (27.0-31.0); MEAN CORPUSCULAR HGB CONC 32.6 g/dL (33.0-37.0); RBC 3.67 Mil/uL (3.80-5.20); RED CELL DISTRIBUTION WIDTH 14.7 % (11.5-14.5); WHITE BLOOD COUNT 5.1 K/uL (4.8-10.8)
[2017-04-19 08:33] LABS: ALB/GLOB RATIO 1.1 (1.0-2.1); ALBUMIN 3.4 g/dL (3.5-5.0); ALT/SGPT 22 U/L (9-52); AST/SGOT 20 U/L (14-36); BLOOD UREA NITROGEN 25 mg/dl (7-17); CALCIUM 9.1 mg/dL (8.4-10.2); GFR AFRICAN-AMERICAN > 60; GFR NON-AFRICAN AMERICAN > 60
[2017-04-19] MEDS: Enoxaparin 40 mg Syringe SC SCH (08:35)
[2017-04-19] MEDS: Calcium-Vit D 250 mg-125 Units Tab UD PO SCH ×2 (08:36→16:17)
[2017-04-19 09:00] LABS: FERRITIN 27.3 ng/Ml (11.1-264.0)
[2017-04-19] MEDS: Fluticasone-Salmeterol 250-50mcg Diskus INH SCH (09:24)
--- NOTE | 2017-04-19 10:36 | CP.PCM.PN ---
Subjective - Date & Time of Evaluation Date of Evaluation: 04/19/17 Time of Evaluation: 07:30 - Subjective Subjective: 81F seen and examined at bedside. She currently denies any LEFT chest wall pain , denies SOB, chest pain, dysuria, or diarrhea. She reports eating well and ambulating. Objective - Vital Signs/Intake and Output Vital Signs (last 24 hours): Temp Pulse Resp BP Pulse Ox 36.4 C 62 20 122/65 97 04/19/17 07:55 04/19/17 08:36 04/19/17 07:55 04/19/17 08:36 04/19/17 07:55 - Medications Medications: Current Medications Acetaminophen (Tylenol 325mg Tab) 650 mg PO Q6 PRN PRN Reason: Pain, Mild (1-3) Last Admin: 04/18/17 14:07 Dose: 650 mg Albuterol/Ipratropium (Duoneb 3 Mg/0.5 Mg (3 Ml) Ud) 3 ml INH RQ6 PRN PRN Reason: Shortness of Breath Aspirin (Ecotrin) 81 mg PO DAILY [facility] Last Admin: 04/19/17 08:36 Dose: 81 mg Calcium/Vitamin D (Oscal-D 250 Mg-125 Units Tab) 1 tab PO BID [facility] Last Admin: 04/19/17 08:36 Dose: 1 tab Docusate Sodium (Colace) 100 mg PO BID [facility] Last Admin: 04/19/17 08:36 Dose: 100 mg Enoxaparin Sodium (Lovenox) 40 mg SC DAILY [facility] PRN Reason: Protocol Last Admin: 04/19/17 08:35 Dose: 40 mg Hydromorphone HCl (Dilaudid) 0.5 mg IVP Q4H PRN PRN Reason: Pain, severe (8-10) Ketorolac Tromethamine (Toradol) 15 mg IVP Q6 PRN PRN Reason: Pain, moderate (4-7) Last Admin: 04/18/17 22:58 Dose: 15 mg Lisinopril (Zestril) 2.5 mg PO DAILY [facility] Last Admin: 04/19/17 08:36 Dose: 2.5 mg Fluticasone/Salmeterol (Advair Diskus 250/50) 1 puff INH DAILY [facility] Last Admin: 04/19/17 09:24 Dose: 1 puff - Labs Labs: 04/19/17 06:00 04/19/17 06:00 PT 12.1 Seconds (9.8-13.1) 04/17/17 17:47 INR 1.1 (0.9-1.2) 04/17/17 17:47 APTT 27.4 Seconds (25.6-37.1) 04/17/17 17:47 - Constitutional Appears: Non-toxic, No Acute Distress - Head Exam Head Exam: ATRAUMATIC, NORMAL INSPECTION - Eye Exam Eye Exam: EOMI, Normal appearance - ENT Exam ENT Exam: Mucous Membranes Moist, Normal Exam - Neck Exam Neck Exam: Full ROM, Normal Inspection - Respiratory Exam Respiratory Exam: Clear to Ausculation Bilateral, NORMAL BREATHING PATTERN - Cardiovascular Exam Cardiovascular Exam: REGULAR RHYTHM, +S1, +S2 - GI/Abdominal Exam GI & Abdominal Exam: Soft (no ttp), Normal Bowel Sounds - Neurological Exam Neurological Exam: Alert, Awake, Normal Gait - Skin Skin Exam: Dry, Warm Assessment and Plan - Assessment and Plan (Free Text) Assessment: 81F with suspected metastatic breast cancer (mass RIGHT breast). Pain is well- controlled, Heme/Onc obtaining markers and recommending biopsy, UCx returned as Klebsiella UTI. All labs requested by Heme/Onc were drawn. - c/w Reg Diet - Heme/Onc Consult (Dr Irizarry) appreciated: Appt for Outpt breast bx, f/u 1wk after breast bx with him, f/u PMD w/i 1wk, spoke to son and current decision is to proceed with appropriate treatment after tissue diagnosis. - UCx positive for Klebsiella: Bactrim x3 days - Pain Control: c/w current regimen (Tylenol, Lidoderm, Dilaudid for severe) - Elevated BUN: Lovenox vs. Toradol, Toradol was d/c'd - Repeat labs in the AM - PT to eval and treat in AM - DISPO: d/c to son's home with all appts, abx for UTI after PT evaluation
[2017-04-19] MEDS: Lidocaine 5% Patch TD SCH (11:39)
[2017-04-19] MEDS: Tmp-Smz 800 mg-160 mg DS Tab PO SCH ×2 (11:39→20:11)
[2017-04-19 17:19] LABS: FOLATE 5.9 ng/mL
--- NOTE | 2017-04-19 22:09 | CP.PCM.PN ---
Subjective - Date & Time of Evaluation Date of Evaluation: 04/19/17 Time of Evaluation: 12:00 - Subjective Subjective: Pain improved Objective - Vital Signs/Intake and Output Vital Signs (last 24 hours): Temp Pulse Resp BP Pulse Ox 98 F 71 20 122/66 97 04/19/17 16:12 04/19/17 16:12 04/19/17 16:12 04/19/17 16:12 04/19/17 16:12 - Medications Medications: Current Medications Acetaminophen (Tylenol 325mg Tab) 650 mg PO Q6 PRN PRN Reason: Pain, Mild (1-3) Last Admin: 04/19/17 20:11 Dose: 650 mg Albuterol/Ipratropium (Duoneb 3 Mg/0.5 Mg (3 Ml) Ud) 3 ml INH RQ6 PRN PRN Reason: Shortness of Breath Aspirin (Ecotrin) 81 mg PO DAILY [facility] Last Admin: 04/19/17 08:36 Dose: 81 mg Calcium/Vitamin D (Oscal-D 250 Mg-125 Units Tab) 1 tab PO BID [facility] Last Admin: 04/19/17 16:17 Dose: 1 tab Docusate Sodium (Colace) 100 mg PO BID [facility] Last Admin: 04/19/17 16:17 Dose: 100 mg Enoxaparin Sodium (Lovenox) 40 mg SC DAILY [facility] PRN Reason: Protocol Last Admin: 04/19/17 08:35 Dose: 40 mg Hydromorphone HCl (Dilaudid) 0.5 mg IVP Q4H PRN PRN Reason: Pain, severe (8-10) Lidocaine (Lidoderm) 1 ea TD DAILY [facility] Last Admin: 04/19/17 11:39 Dose: 1 ea Lisinopril (Zestril) 2.5 mg PO DAILY [facility] Last Admin: 04/19/17 08:36 Dose: 2.5 mg Fluticasone/Salmeterol (Advair Diskus 250/50) 1 puff INH DAILY [facility] Last Admin: 04/19/17 09:24 Dose: 1 puff Trimethoprim/Sulfamethoxazole (Bactrim Ds Tab) 1 tab PO Q12 [place]AVEN PRN Reason: Protocol Last Admin: 04/19/17 20:11 Dose: 1 tab - Labs Labs: 04/19/17 06:00 04/19/17 06:00 PT 12.1 Seconds (9.8-13.1) 04/17/17 17:47 INR 1.1 (0.9-1.2) 04/17/17 17:47 APTT 27.4 Seconds (25.6-37.1) 04/17/17 17:47 - Head Exam Head Exam: ATRAUMATIC - Eye Exam Eye Exam: Normal appearance - ENT Exam ENT Exam: Mucous Membranes Dry - Respiratory Exam Respiratory Exam: NORMAL BREATHING PATTERN - Cardiovascular Exam Cardiovascular Exam: +S1, +S2 - GI/Abdominal Exam GI & Abdominal Exam: Normal Bowel Sounds Assessment and Plan (1) Bone metastasis Assessment & Plan: suspect breast cancer with bone mets for breast lesion biopsy; possible as outpatient Status: Acute (2) Breast mass Assessment & Plan: for biopsy Status: Acute (3) Anemia Assessment & Plan: chronic disease borderline low iron stores Status: Chronic
[2017-04-20 06:22] LABS: HEMOGLOBIN 10.9 g/dL (12.0-16.0); MEAN CELL VOLUME 89.9 fl (81.0-99.0); MEAN CORPUSCULAR HEMOGLOBIN 29.2 pg (27.0-31.0); MEAN CORPUSCULAR HGB CONC 32.5 g/dL (33.0-37.0); RBC 3.73 Mil/uL (3.80-5.20); RED CELL DISTRIBUTION WIDTH 14.9 % (11.5-14.5); WHITE BLOOD COUNT 4.1 K/uL (4.8-10.8)
[2017-04-20 06:34] LABS: BLOOD UREA NITROGEN 20 mg/dl (7-17); CALCIUM 8.9 mg/dL (8.4-10.2); GFR AFRICAN-AMERICAN > 60; GFR NON-AFRICAN AMERICAN > 60
--- NOTE | 2017-04-20 07:46 | CP.PCM.DIS ---
Provider - Provider Date of Admission: 04/17/17 19:46 Attending physician: Shana Cadet MD Primary care physician: [facility] Consults: Heme/Onc - Dr. Irizarry Time Spent in preparation of Discharge (in minutes): 30 Hospital Course - Lab Results Lab Results: Micro Results 04/17/17 17:47 Urine Urine Culture - Final Klebsiella Pneumoniae Ssp Pneu Most Recent Lab Values WBC 4.1 K/uL (4.8-10.8) L 04/20/17 05:30 RBC 3.73 Mil/uL (3.80-5.20) L 04/20/17 05:30 Hgb 10.9 g/dL (12.0-16.0) L 04/20/17 05:30 Hct 33.6 % (34.0-47.0) L 04/20/17 05:30 MCV 89.9 fl (81.0-99.0) 04/20/17 05:30 MCH 29.2 pg (27.0-31.0) 04/20/17 05:30 MCHC 32.5 g/dL (33.0-37.0) L 04/20/17 05:30 RDW 14.9 % (11.5-14.5) H 04/20/17 05:30 Plt Count 144 K/uL (130-400) 04/20/17 05:30 MPV 8.2 fl (7.2-11.7) 04/18/17 05:30 Neut % (Auto) 59.4 % (50.0-75.0) 04/18/17 05:30 Lymph % (Auto) 28.8 % (20.0-40.0) 04/18/17 05:30 Cassia % (Auto) 9.7 % (0.0-10.0) 04/18/17 05:30 Eos % (Auto) 1.4 % (0.0-4.0) 04/18/17 05:30 Baso % (Auto) 0.7 % (0.0-2.0) 04/18/17 05:30 Neut # 3.3 K/uL (1.8-7.0) 04/18/17 05:30 Lymph # 1.6 K/uL (1.0-4.3) 04/18/17 05:30 Cassia # 0.5 K/uL (0.0-0.8) 04/18/17 05:30 Eos # 0.1 K/uL (0.0-0.7) 04/18/17 05:30 Baso # 0.0 K/uL (0.0-0.2) 04/18/17 05:30 ESR 16 mm/hr (0-30) 04/18/17 05:30 Retic Count 1.0 % (0.5-1.5) 04/19/17 06:00 PT 12.1 Seconds (9.8-13.1) 04/17/17 17:47 INR 1.1 (0.9-1.2) 04/17/17 17:47 APTT 27.4 Seconds (25.6-37.1) 04/17/17 17:47 Sodium 141 mmol/l (132-148) 04/20/17 05:30 Potassium 4.2 MMOL/L (3.6-5.0) 04/20/17 05:30 Chloride 105 mmol/L (98-107) 04/20/17 05:30 Carbon Dioxide 26 mmol/L (22-30) 04/20/17 05:30 Anion Gap 14 (10-20) 04/20/17 05:30 BUN 20 mg/dl (7-17) H 04/20/17 05:30 Creatinine 0.6 mg/dl (0.7-1.2) L 04/20/17 05:30 Est GFR ( Amer) > 60 04/20/17 05:30 Est GFR (Non-Af Amer) > 60 04/20/17 05:30 POC Glucose (mg/dL) 84 mg/dL (65-110) 04/20/17 05:32 Random Glucose 81 mg/dL (65-105) 04/20/17 05:30 Calcium 8.9 mg/dL (8.4-10.2) 04/20/17 05:30 Ferritin 27.3 ng/Ml (11.1-264.0) 04/19/17 06:00 Total Bilirubin 0.4 mg/dl (0.2-1.3) 04/19/17 06:00 AST 20 U/L (14-36) 04/19/17 06:00 ALT 22 U/L (9-52) 04/19/17 06:00 Alkaline Phosphatase 88 U/L (38-126) 04/19/17 06:00 Troponin I < 0.0120 ng/mL (0.00-0.120) 04/17/17 17:47 NT-Pro-B Natriuret Pep 236 pg/ml (0-900) 04/17/17 17:47 Total Protein 6.4 G/DL (6.3-8.2) 04/19/17 06:00 Albumin 3.4 g/dL (3.5-5.0) L 04/19/17 06:00 Globulin 3.0 gm/dL (2.2-3.9) 04/19/17 06:00 Albumin/Globulin Ratio 1.1 (1.0-2.1) 04/19/17 06:00 CA 15-3 Antigen 19.3 U/mL (0-35) 04/19/17 06:00 Vitamin B12 268 pg/mL (239-931) 04/19/17 06:00 Folate 5.9 ng/mL 04/19/17 06:00 Urine Color Yellow (YELLOW) 04/17/17 17:47 Urine Clarity Slighty-cloudy (Clear) 04/17/17 17:47 Urine pH 6.0 (5.0-8.0) 04/17/17 17:47 Ur Specific [place] 1.008 (1.003-1.030) 04/17/17 17:47 Urine Protein Negative mg/dL (NEGATIVE) 04/17/17 17:47 Urine Glucose (UA) Neg mg/dL (Normal) 04/17/17 17:47 Urine Ketones Negative mg/dL (NEGATIVE) 04/17/17 17:47 Urine Blood Small (NEGATIVE) 04/17/17 17:47 Urine Nitrate Negative (NEGATIVE) 04/17/17 17:47 Urine Bilirubin Negative (NEGATIVE) 04/17/17 17:47 Urine Urobilinogen 0.2-1.0 mg/dL (0.2-1.0) 04/17/17 17:47 Ur Leukocyte Esterase Large Colette/uL (Negative) 04/17/17 17:47 Urine RBC (Auto) 7 /hpf (0-3) H 04/17/17 17:47 Urine Microscopic WBC 75 /hpf (0-5) H 04/17/17 17:47 Ur Squamous Epith Cells 1 /hpf (0-5) 04/17/17 17:47 Urine Bacteria Occ (<OCC) H 04/17/17 17:47 - Hospital Course Hospital Course: 81 y/o F with PMHx of Dementia, NIDDM, HTN and Hypercholesterolemia presented to ED on 2 separate visits on 04/17/2017 c/o worsening left chest wall pain, and was admitted for suspected metastatic cancer and pain control. BS control not needed at his time as A1c = 5.7 and glucose was wnl; HTN controlled with home med Lisinopril 2.5mg QD; lipid panel found to be WNL thus home med Atorvastatin was d/c. Patient found to have asymptomatic bacteriuria in ED and was treated with Rocephin 1g; UCx revealed growth of Klebsiella and will be treated with Bactrim for 3 days total. Pain was controlled via Tylenol 650mg PO, Toradol 15mg IV, Dilaudid 0.5mg IV, and Lidoderm TD. Right breast mass was found during admission, and heme/onc consulted, recommending outpatient breast lesion biopsy. CA 15-3 antigen = 19.3. Patient obtained right breast US and US guided breast biopsy, and the results will be discussed during follow-up appointment with Dr. Irizarry. Patient seen by physical therapy and recommend safe discharge home. FU [facility] Thursday04/27/17 @ 10:[address] Knetrell Ramon. FU with Dr. Kanu Irizarry 04/27/17 @ 4:00 PM at [address] [place] [address] . Discontinue home med Atorvastatin Discontinue home med Lisinopril Rx Bactrin 1 tab PO q12 day 2/3 Rx Lidoderm TD QD Discharge Exam - Head Exam Head Exam: ATRAUMATIC, NORMAL INSPECTION, NORMOCEPHALIC - Eye Exam Eye Exam: EOMI, Normal appearance Pupil Exam: NORMAL ACCOMODATION, PERRL - ENT Exam ENT Exam: Mucous Membranes Moist, Normal Exam - Neck Exam Neck exam: Full Rom, Normal Inspection - Respiratory Exam Respiratory Exam: Clear to PA & Lateral, NORMAL BREATHING PATTERN, UNREMARKABLE. absent: Rales, Rhonchi, Wheezes - Cardiovascular Exam Cardiovascular Exam: REGULAR RHYTHM, +S1, +S2 - GI/Abdominal Exam GI & Abdominal Exam: Normal Bowel Sounds, Unremarkable. absent: Tenderness - Extremities Exam Extremities exam: normal inspection - Neurological Exam Neurological exam: Alert - Psychiatric Exam Additional comments: Repetitive, needs frequent redirection. - Skin Skin Exam: Normal Color, Warm Additional comments: Left flank with Lidoderm TD intact Left breast appears WNL Right breast noted to have hard, palpable mass approximately 12 x 8 cm - lobulated, periareolar erythema. Nipple appears WNL with no discharge noted. Right axillae lymph node 2cm with hard consistency. Discharge Plan - Discharge Medications Prescriptions: Acetaminophen [Tylenol 325mg tab] 650 mg PO Q6 PRN 30 Days #40 tab PRN Reason: Pain, Mild (1-3) Aspirin [Adult Low Dose Aspirin EC] 81 mg PO DAILY #30 tablet. Calcium Citrate/Vitamin D3 [Calcium Citrate - Vit D Caplet] 1 tab PO BID 30 Days #60 tablet Cetirizine HCl [Zyrtec] 10 mg PO DAILY #30 sgl Fluticasone/Salmeterol 250/50 [Advair Diskus 250/50] 1 puff INH DAILY 30 Days # 30 puff Lidocaine 5% [Lidoderm] 1 ea TD DAILY 30 Days #30 patch Sulfamethoxazole/Trimethoprim [Bactrim DS Tab] 1 tab PO Q12 2 Days #3 tab - Follow Up Plan Condition: STABLE Disposition: HOME/ ROUTINE Patient education suggested?: Yes Instructions: Asthma (DC), Urinary Tract Infection in Women (DC), Urinary Tract Infection in Men (DC), Dysuria (GEN) Additional Instructions: Follow-up [facility] Thursday04/27/17 @ 10:[address] Kentrell Ramon. Please arrive 30 minutes prior to appointment. Follow up with Dr. Kanu Irizarry 04/27/17 @ 4:00 PM at [address] [place] [address] . Referrals: [facility] [Outside] Kanu Irizarry MD [Staff Provider] - 1 Week (Follow up with Dr. Kanu Irizarry @ 4:00 PM at [address] [place] [address] .)
[2017-04-20] MEDS: Enoxaparin 40 mg Syringe SC SCH (08:44)
[2017-04-20] MEDS: Fluticasone-Salmeterol 250-50mcg Diskus INH SCH (08:44)
[2017-04-20] MEDS: Lidocaine 5% Patch TD SCH (08:45)
[2017-04-20] MEDS: Tmp-Smz 800 mg-160 mg DS Tab PO SCH (08:46)
[2017-04-20] MEDS: Calcium-Vit D 250 mg-125 Units Tab UD PO SCH ×2 (08:47→16:56)
--- NOTE | 2017-04-20 12:14 | PQF GENQUE ---
Dr. Cadet, Please provide a nutritional diagnosis, if known, related to the information below: The following clinical indicators are present in the medical record: :BMI:17.0 Classification: Underweight per RD note in the EMR OR;Unable to determine OR: Other explanation of clinical finding H and P: ROS: Constitutional: Weight Loss Hx. of Present Illness: She does admit to a diminished appetite and unintentional weight loss This form is a permanent part of the medical record Clarification of your documentation is requested to better reflect the severity of illness and intensity of treatment of your patient. Indicators present [] Specify: [] [] Specify: [] [] Specify: [] [] Specify: [] Location in the medical record that reflects the above clinical findings: [] Treatment Provided: [] PHYSICIAN'S RESPONSE Based on your medical judgment of the clinical indicators outlined above please clarify the following: [] Practitioner response [] If unable to determine, please check the box, sign and date. Present On Admission (POA) Indicator: [] Present at the time of admission [] Not present at the time of admission [] Clinically Undetermined In responding to this query, please exercise your independent professional judgment. The fact that a question is asked does not imply that any particular answer is desired or expected. Thank you for your clarification on this documentation. If you have any questions please call. * Thank you Phoebe Mcdaniel RN ext. #[phone] MTDD
--- NOTE | 2017-04-20 12:20 | PQF GENQUE ---
Dr. Cadet, Please clarify type of asthma: if known Mild intermittent Mild persistent Moderate persistent Severe persistent Clinically unable to determine Unknown H and P; Hx of asthma -Asymptomatic -C/W home med This form is a permanent part of the medical record Clarification of your documentation is requested to better reflect the severity of illness and intensity of treatment of your patient. Indicators present [] Specify: [] [] Specify: [] [] Specify: [] [] Specify: [] Location in the medical record that reflects the above clinical findings: [] Treatment Provided: [] PHYSICIAN'S RESPONSE Based on your medical judgment of the clinical indicators outlined above please clarify the following: [] Practitioner response [] If unable to determine, please check the box, sign and date. Present On Admission (POA) Indicator: [] Present at the time of admission [] Not present at the time of admission [] Clinically Undetermined In responding to this query, please exercise your independent professional judgment. The fact that a question is asked does not imply that any particular answer is desired or expected. Thank you for your clarification on this documentation. If you have any questions please call. * Thank you, Phoebe Mcdaniel RN ext. #[phone] MTDD
[2017-04-20 15:00] LABS: INR 1.1 (0.9-1.2); PARTIAL THROMBOPLASTIN TIME 31.6 Seconds (25.6-37.1); PROTHROMBIN TIME 12.1 Seconds (9.8-13.1)
[2017-04-20] MEDS ORDERED: Lidocaine 1% Inj (20ml) ONE (15:51)
[2017-04-20 16:59] VITALS: BP 118/60; PULSE 67; RESP 18; TEMP 98.3; O2SAT 97
--- NOTE | 2017-04-21 14:03 | US ---
History Patient is an 81-year-old female presenting with a large palpable mass at the right breast identified on ultrasound and mammogram of the right breast also performed 04/20/2017. Please see separate reports. TECHNIQUE/FINDINGS: The procedure and risks are explained to the patient's next of kin prior to the start of procedure. Patient is unable to consent for herself due to dementia. Time out was called. Area of the procedure was marked. Maximum sterile barrier protection was provided at the skin medial to the right lateral breast mass as well as the skin overlying it.3 cc of lidocaine 1 percent was utilized for skin and deep subcutaneous soft tissue anesthesia. Under ultrasound control, a 14 gauge coaxial biopsy system was introduced into the mass with 2 samples acquired in 3 passes. Second pass in not yield an adequate sample. Biopsy clip was subsequently placed. Postprocedure ultrasound reveal no suspicious findings. Biopsy clip was identified. Postprocedure mammogram revealed biopsy clip within the lesion. Patient tolerated procedure well with very minimal blood loss. IMPRESSION: Status post ultrasound-guided core biopsy of a large palpable mass in the right breast with no apparent complications occurring. Patient tolerated procedure well. We await biopsy analysis.
--- NOTE | 2017-04-21 14:19 | MAM ---
PROCEDURE: MAMMO DIAGNOSTIC Spherix CAD HISTORY: 81Y of age female here for annual screening mammogram. No family history of breast cancer. No personal history of breast cancer. Large palpable abnormality right breast. TECHNIQUE: Full field digital CC and MLO views of bilateral breasts were obtained. Computer-aided detection was utilized. COMPARISON: Bilateral screening mammogram 11/08/2008. FINDINGS: The breasts are heterogeneously dense, which may obscure small masses. Note, bilateral posterior breast tissue was difficult to capture in this patient potentially related to pain at the right breast. RIGHT BREAST: Right breast appear shrunken compared to the left and compared to the prior mammograms from 2008. There is a heterogeneous lesion with large spiculated peripheral changes identified in the upper outer quadrant right breast with questionable nodule nipple retraction. Dermal thickening is questioned inferiorly. Nonspecific calcifications are identified anteriorly in the interval. Ultrasonography of the palpable abnormality was performed revealing a large hypoechoic lesion occupying nearly the entire right upper outer quadrant measuring 3.1 x 3.2 x 5.0 cm. Spiculated changes are identified sonographically and correspond to the macroscopic mammographic findings well. Gross shadowing is identified posteriorly and diffusely irregular peripheral margins are identified. Both the mammogram and the ultrasound findings are concordant and suggest malignancy until otherwise proven. LEFT BREAST: Fibroglandular parenchyma at the left breast not appear significantly changed in the interval and no dominant mass, architectural distortion or suspicious microcalcification clustering has developed. Vascular calcifications are identified posteriorly. The left skin nipple and axilla appear unremarkable. IMPRESSION: Limited mammography due to tenderness in the right breast however a malignancy is suggested at the right upper outer quadrant at the least, these sonographic and mammographic technique, until otherwise proven. Tissue diagnosis is advised. Stable left mammography with no radiographic evidence suggest malignancy in the left breast at this time. BIRADS 5 Highly Suggestive of Malignancy - Appropriate Action Should Be Taken Recommendation: Biopsy is recommended. VICKY WHEELER mammogram showed that she has dense breasts. The [facility] has passed a law, effective July 28, 2013. Please be advised that we are required by this law to put this notification in all mammography result reports. This [place] Breast Density Law requires all patients and healthcare providers, regardless of breast density, to receive the information typed below: Your mammogram may show dense breast tissue as determined by the Breast Imaging Reporting and Data System established by the [employer]. Dense breast tissue is very common and is not abnormal. However, in some cases, dense breast tissue can make it harder to find cancer on a mammogram and may also be associated with a risk factor for breast cancer. Discuss this and other risks for breast cancer that pertain to your personal medical history. A report of your results was sent to your health care provider. You may also find more information about breast density at the website of the [employer], www.acr.org.
--- NOTE | 2017-04-21 14:39 | MAM ---
PROCEDURE: UNILATERAL RIGHT MAMMOGRAM POST BIOPSY HISTORY: US GUIDED BX TECHNIQUE: Full field digital craniocaudal and mediolateral mammograms were performed following ultrasound-guided core biopsy right breast mass. FINDINGS: Post ultrasound-guided core biopsy mammogram is demonstrated placement of radiodense clip in the upper outer quadrant right breast in the location of the heterogeneous mass initially identified mammographically IMPRESSION: Post biopsy mammograms confirm biopsy clip placement.
== END 2017-04-20 17:05 | disposition home or self-care (01) | DRG 543 ==
LOC: H.ER 15:48 → H.ERHOLD 19:46 → H.MEDSURG1 21:33
PROVIDERS: ADMIT Family Medicine; ATTEND Family Medicine
PROC: 0HBT3ZX Excision of Right Breast, Percutaneous Approach, Diagnostic (ICD-10-PCS; principal; 2017-04-20)
DX: C79.51 Secondary malignant neoplasm of bone (principal); N39.0 Urinary tract infection, site not specified; M48.54XA Collapsed vertebra, not elsewhere classified, thoracic region, initial encounter for fracture; Z68.1 Body mass index [BMI] 19.9 or less, adult; B96.1 Klebsiella pneumoniae [K. pneumoniae] as the cause of diseases classified elsewhere; N63.11 Unspecified lump in the right breast, upper outer quadrant; D64.9 Anemia, unspecified; E11.9 Type 2 diabetes mellitus without complications; E78.00 Pure hypercholesterolemia, unspecified; G30.9 Alzheimer's disease, unspecified; F02.80 Dementia in other diseases classified elsewhere, unspecified severity, without behavioral disturbance, psychotic disturbance, mood disturbance, and anxiety; I44.0 Atrioventricular block, first degree; I10 Essential (primary) hypertension; R63.6 Underweight; R07.89 Other chest pain; J44.9 Chronic obstructive pulmonary disease, unspecified; Z87.311 Personal history of (healed) other pathological fracture; Z91.81 History of falling; Z87.891 Personal history of nicotine dependence; Z79.82 Long term (current) use of aspirin

== ENCOUNTER 2017-04-24 14:59 | Emergency (ER) | payer MEDICARE, OTHER ==
[2017-04-24 15:00] VITALS: BMI 22.1
--- NOTE | 2017-04-24 15:59 | ED PDOC ---
HPI: General Adult Time Seen by Provider: 04/24/17 15:33 Chief Complaint (Nursing): Abdominal Pain History Per: Patient History/Exam Limitations: no limitations Onset/Duration Of Symptoms: Other (x 2 weeks) Current Symptoms Are (Timing): Still Present Additional History Per: Prior Records Additional Complaint(s): Ms. Keen is a 81 year old female who presents to the emergency department with left-sided rib pain, ongoing for 2 weeks. Patient was admitted last week for same pain and was found to have bone lesions in multiple areas of body including left chest wall. Work up with malignancy initiated during hospital stay (04/17/2017). Patient was discharged and follow up with clinic oncology ( Dr. Irizarry) scheduled on Thursday (04/27/2017). Patient had a biopsy taken from right-breast after mammography for suspicious lesion. Results of biopsy are still pending. Patient was prescribed Tylenol and topical lidocaine, but reports not relieving the pain. While at hospital, patient was given Toradol, Tylenol and Dilaudid for pain relief. PMD: Patient cannot recall Past Medical History Reviewed: Historical Data, Nursing Documentation, Vital Signs Vital Signs: Last Vital Signs Temp 97.8 F 04/24/17 16:09 Pulse 78 04/24/17 16:09 Resp 18 04/24/17 16:09 BP 120/78 04/24/17 16:09 Pulse Ox 100 04/24/17 16:22 - Medical History PMH: Alzheimer's Disease, Anxiety, Arthritis, Asthma, COPD, Depression, Diabetes , Fractures (left humerus), HTN, Hypercholesterolemia Denies: Hepatitis, HIV, Chronic Kidney Disease, Seizures, Sexually Transmitted Disease - Family History Family History: States: Unknown Family Hx - Social History Current smoker - smoking cessation education provided: Yes Alcohol: None Drugs: Denies - Immunization History Hx Tetanus Toxoid Vaccination: No Hx Influenza Vaccination: No Hx Pneumococcal Vaccination: No - Home Medications Home Medications: Ambulatory Orders Medication Instructions Recorded Acetaminophen [Tylenol 325mg tab] 650 mg PO Q6 PRN 30 Days #40 tab 04/20/17 Aspirin [Adult Low Dose Aspirin EC] 81 mg PO DAILY #30 tablet. 04/20/17 Calcium Citrate/Vitamin D3 1 tab PO BID 30 Days #60 tablet 04/20/17 [Calcium Citrate - Vit D Caplet] Cetirizine HCl [Zyrtec] 10 mg PO DAILY #30 sgl 04/20/17 Fluticasone/Salmeterol 250/50 1 puff INH DAILY 30 Days #30 puff 04/20/17 [Advair Diskus 250/50] Lidocaine 5% [Lidoderm] 1 ea TD DAILY 30 Days #30 patch 04/20/17 Sulfamethoxazole/Trimethoprim 1 tab PO Q12 2 Days #3 tab 04/20/17 [Bactrim DS Tab] Naproxen [Naprosyn] 1 tab PO BID PRN #30 tab 04/24/17 traMADol [Ultram] 50 mg PO TID #15 tab 04/24/17 - Allergies Allergies/Adverse Reactions: Allergies Allergy/AdvReac Type Severity Reaction Status Date / Time No Known Allergies Allergy Verified 03/17/17 17:44 Review of Systems ROS Statement: Except As Marked, All Systems Reviewed And Found Negative Cardiovascular: Positive for: Chest Pain, Other (Left-sided rib pain) Musculoskeletal: Positive for: Back Pain Physical Exam - Reviewed Nursing Documentation Reviewed: Yes Vital Signs Reviewed: Yes - Physical Exam Appears: Positive for: Non-toxic, Uncomfortable Head Exam: Positive for: ATRAUMATIC, NORMOCEPHALIC Skin: Positive for: Warm, Dry, Rash (mild erythema bilateral breast folds) Eye Exam: Positive for: EOMI, PERRL ENT: Positive for: Other (tacky mucus membranes) Neck: Positive for: Painless ROM, Supple Cardiovascular/Chest: Positive for: Regular Rate, Rhythm, Other (reproducible chest wall ttp). Negative for: Murmur Respiratory: Negative for: Decreased Breath Sounds, Respiratory Distress Gastrointestinal/Abdominal: Positive for: Soft. Negative for: Tenderness, Mass , Distended Extremity: Positive for: Normal ROM, Other (poor muscle bulk). Negative for: Deformity Lymphatic: Negative for: Adenopathy Neurologic/Psych: Positive for: Mood/Affect (anxious affect) - ECG O2 Sat by Pulse Oximetry: 100 (RA) Pulse Ox Interpretation: Normal Medical Decision Making Medical Decision Making: Time: 15:36 Impression(s): Metastatic Bone Disease (MBD) and Anxiety Clinically patient has no new symptoms as when previously admitted and had been discharged. Seems to be more anxious than in pain. She requests to be admitted to hospital because her son won't be home this weekend and she is scared. Explained to patient that with no new issues there is no further management in hospital. Also discussed with son who was in ER. Plan: - Toradol 15 mg IM STAT - Ultram 50 mg PO STAT Upon provider evaluation patient is medically stable, and requires no further treatment in the ED at this time. Patient will be discharged with Rx for Ultram and Naprosyn. Counseling was provided and all questions were answered regarding diagnosis. Please follow up with Dr. Irizarry and clinic as scheduled. There is agreement to discharge plan. Return if symptoms persist or worsen. Scribe Attestation: Documented by Yuan Israel, acting as a scribe for Dang Madrigal MD Provider Scribe Attestation: All medical record entries made by the Scribe were at my direction and personally dictated by me. I have reviewed the chart and agree that the record accurately reflects my personal performance of the history, physical exam, medical decision making, and the department course for this patient. I have also personally directed, reviewed, and agree with the discharge instructions and disposition. Disposition - Clinical Impression Clinical Impression: Bone metastasis, Anxiety - Patient ED Disposition Is Patient to be Admitted: No Counseled Patient/Family Regarding: Studies Performed, Diagnosis, Need For Followup, Rx Given - Disposition Referrals: [facility] [Outside] - 04/27/17 Kanu Irizarry MD [Staff Provider] - 04/27/17 Disposition: Routine/Home Disposition Time: 16:09 Condition: STABLE Additional Instructions: PLEASE FOLLOW UP WITH DR IRIZARRY AND CLINIC SCHEDULED Prescriptions: Naproxen [Naprosyn] 1 tab PO BID PRN #30 tab PRN Reason: Pain traMADol [Ultram] 50 mg PO TID #15 tab Instructions: Bone Metastasis (ED)
[2017-04-24 16:11] VITALS: BP 120/78; PULSE 78; RESP 18; TEMP 97.8
[2017-04-24 16:16] VITALS: O2SAT 100
== END 2017-04-24 16:10 | disposition home or self-care (01) ==
LOC: H.ER 14:59
DX: C79.51 Secondary malignant neoplasm of bone (principal); F41.9 Anxiety disorder, unspecified
CPT/HCPCS: 96372; 99282; J1885

== ENCOUNTER 2017-04-25 11:06 | Emergency (ER) | payer MEDICARE, OTHER ==
[2017-04-25 11:06] VITALS: BMI 22.1
--- NOTE | 2017-04-25 13:01 | ED PDOC ---
HPI: Chest Pain Time Seen by Provider: 04/25/17 11:25 Chief Complaint (Nursing): Abdominal Pain History Per: Patient History/Exam Limitations: no limitations Onset/Duration Of Symptoms: Gradual (for one month) Severity: Moderate Quality: Dull Associated Symptoms: denies: Nausea, Dyspnea, Diaphoresis, Syncope Modifying Factors: None Exacerbating Factors: None Alleviating Factors: None Additional Complaint(s): pt complains of left sided cp for over 2 weeks was admitted to the hospital had a neg ct, pt states persistent pain and very anxious on biopsy results seen here yesterday and d/c Past Medical History Reviewed: Historical Data, Nursing Documentation, Vital Signs - Medical History PMH: Alzheimer's Disease, Anxiety, Arthritis, Asthma, COPD, Depression, Diabetes , Fractures (left humerus), HTN, Hypercholesterolemia Denies: Hepatitis, HIV, Chronic Kidney Disease, Seizures, Sexually Transmitted Disease - Family History Family History: States: Unknown Family Hx - Living Arrangements Living Arrangements: With Family - Social History Current smoker - smoking cessation education provided: No - Immunization History Hx Tetanus Toxoid Vaccination: No Hx Influenza Vaccination: No Hx Pneumococcal Vaccination: No - Home Medications Home Medications: Ambulatory Orders Medication Instructions Recorded Acetaminophen [Tylenol 325mg tab] 650 mg PO Q6 PRN 30 Days #40 tab 04/20/17 Aspirin [Adult Low Dose Aspirin EC] 81 mg PO DAILY #30 tablet. 04/20/17 Calcium Citrate/Vitamin D3 1 tab PO BID 30 Days #60 tablet 04/20/17 [Calcium Citrate - Vit D Caplet] Cetirizine HCl [Zyrtec] 10 mg PO DAILY #30 sgl 04/20/17 Fluticasone/Salmeterol 250/50 1 puff INH DAILY 30 Days #30 puff 04/20/17 [Advair Diskus 250/50] Lidocaine 5% [Lidoderm] 1 ea TD DAILY 30 Days #30 patch 04/20/17 Sulfamethoxazole/Trimethoprim 1 tab PO Q12 2 Days #3 tab 04/20/17 [Bactrim DS Tab] Naproxen [Naprosyn] 1 tab PO BID PRN #30 tab 04/24/17 traMADol [Ultram] 50 mg PO TID #15 tab 04/24/17 - Allergies Allergies/Adverse Reactions: Allergies Allergy/AdvReac Type Severity Reaction Status Date / Time No Known Allergies Allergy Verified 03/17/17 17:44 Wells Criteria for PE - Wells Criteria for Pulmonary Embolism Clinical Signs and Symptoms of DVT: No P.E is #1 Diagnosis, or Equally Likely: No Heart Rate >100: No Immobilization at least 3 days;Surgery previous 4 weeks: No Previous, objectively diagnosed PE or DVT: No Total Score: 0 Review of Systems ROS Statement: Except As Marked, All Systems Reviewed And Found Negative Constitutional: Negative for: Fever, Chills Cardiovascular: Positive for: Chest Pain. Negative for: Palpitations Respiratory: Negative for: Cough, Shortness of Breath Gastrointestinal: Negative for: Nausea, Vomiting, Abdominal Pain Neurological: Negative for: Weakness, Numbness Physical Exam - Reviewed Nursing Documentation Reviewed: Yes Vital Signs Reviewed: Yes - Physical Exam Appears: Positive for: Uncomfortable Head Exam: Positive for: ATRAUMATIC, NORMAL INSPECTION, NORMOCEPHALIC Skin: Positive for: Normal Color, Warm, Dry Eye Exam: Positive for: Normal appearance, EOMI, PERRL Neck: Positive for: Normal, Painless ROM, Supple Cardiovascular/Chest: Positive for: Regular Rate, Rhythm, Chest Non Tender. Negative for: Edema, Gallop, Murmur, Bradycardia, Tachycardia, Irregularly Irregular Respiratory: Positive for: Normal Breath Sounds. Negative for: Decreased Breath Sounds, Accessory Muscle Use, Crackles, Rales, Rhonchi, Stridor, Wheezing , Respiratory Distress Pulses-Radial (L): 2+ Pulses-Radial (R): 2+ Gastrointestinal/Abdominal: Positive for: Normal Exam, Bowel Sounds, Soft. Negative for: Tenderness Back: Positive for: Normal Inspection. Negative for: L CVA Tenderness, R CVA Tenderness Extremity: Positive for: Normal ROM. 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 Negative for: Motor/Sensory Deficits - Laboratory Results Result Diagrams: 04/25/17 13:05 04/25/17 13:05 - ECG ECG: Positive for: Interpreted By Me ECG Rhythm: Positive for: Normal QRS, Normal ST Segment, Sinus Rhythm (rate of 68). Negative for: ST/T Changes Interpretation Of Abn EKG: no change compared 03/17/2017 - Radiology X-Ray: Interpreted by Me X-Ray Interpretation: No Acute Disease - Progress ED Course And Treament: labs nml. family at bedside advise close f/u with pmd. all of pt's questions werea nswered and pt agree's with plan. pt leaves ambulatory and in good spirits. Re-evaluation Time: 14:20 Condition: Improved Disposition - Clinical Impression Clinical Impression: Pain of left breast - Patient ED Disposition Is Patient to be Admitted: No Counseled Patient/Family Regarding: Studies Performed, Diagnosis, Need For Followup - Disposition Disposition: Routine/Home Disposition Time: 15:22 Condition: GOOD Additional Instructions: see your doctor next week as scheduled. Instructions: Chest Wall Pain (ED) Forms: [employer] (Kosovan)
[2017-04-25 13:17] LABS: BASO # 0.1 K/uL (0.0-0.2); BASO % 0.9 % (0.0-2.0); EOS # 0.1 K/uL (0.0-0.7); EOS % 1.4 % (0.0-4.0); HEMOGLOBIN 12.5 g/dL (12.0-16.0); LYMPH # 1.9 K/uL (1.0-4.3); LYMPH % 25.4 % (20.0-40.0); MEAN CELL VOLUME 90.1 fl (81.0-99.0); MEAN CORPUSCULAR HEMOGLOBIN 28.8 pg (27.0-31.0); MEAN PLATELET VOLUME 7.8 fl (7.2-11.7); MONO # 0.6 K/uL (0.0-0.8); MONO % 7.4 % (0.0-10.0); NEUT % 64.9 % (50.0-75.0); RBC 4.34 Mil/uL (3.80-5.20); RED CELL DISTRIBUTION WIDTH 14.7 % (11.5-14.5); WHITE BLOOD COUNT 7.7 K/uL (4.8-10.8)
[2017-04-25 13:19] LABS: SQUAMOUS EPITHIAL 9 /hpf (0-5); URINE AMORPHOUS SEDIMENT RARE /ul (<OCC); URINE BACTERIA RARE (<OCC); URINE BILIRUBIN NEGATIVE (NEGATIVE); URINE BLOOD NEGATIVE (NEGATIVE); URINE CLARITY CLOUDY (Clear); URINE COLOR YELLOW (YELLOW); URINE GLUCOSE (UA) NEG (Normal); URINE LEUKOCYTE ESTERASE TRACE Leu/uL (Negative); URINE NITRATE NEGATIVE (NEGATIVE); URINE PROTEIN 30 mg/dL (NEGATIVE)
[2017-04-25 13:32] LABS: BLOOD UREA NITROGEN 23 mg/dl (7-17); GFR AFRICAN-AMERICAN > 60; GFR NON-AFRICAN AMERICAN > 60
[2017-04-25 13:33] LABS: ALB/GLOB RATIO 1.1 (1.0-2.1); ALBUMIN 4.4 g/dL (3.5-5.0); ALT/SGPT 26 U/L (9-52); AMYLASE 81 U/L (30-110); AST/SGOT 29 U/L (14-36); CALCIUM 9.7 mg/dL (8.4-10.2); LIPASE 78 U/L (23-300)
--- NOTE | 2017-04-25 15:29 | RAD ---
PROCEDURE: CHEST RADIOGRAPH, 1 VIEW HISTORY: chest pain COMPARISON: Comparison chest dated 04/17/2017. FINDINGS: LUNGS: The interstitial markings are slightly increased -coarsened with micronodular appearance particularly notable in the left lung base. Rule out sequela of reactive/inflammatory airway disease or viral illness. Possibility of mild chronic compensated vascular congestion not excluded. PLEURA: No pneumothorax or pleural fluid seen. CARDIOVASCULAR: Heart appears borderline/mildly enlarged. . Aorta ectatic and uncoiled OSSEOUS STRUCTURES: Re- demonstrated are fixation screws left humeral head and neck. VISUALIZED UPPER ABDOMEN: Normal. OTHER FINDINGS: None. IMPRESSION: The interstitial markings are slightly increased -coarsened with micronodular appearance particularly notable in the left lung base. Rule out sequela of reactive/inflammatory airway disease or viral illness. Possibility of mild chronic compensated vascular congestion not excluded.
[2017-04-25 16:01] VITALS: PULSE 88; RESP 18; TEMP 97; O2SAT 96
== END 2017-04-25 16:01 | disposition home or self-care (01) ==
LOC: H.ER 11:06
DX: N64.4 Mastodynia (principal); E11.9 Type 2 diabetes mellitus without complications; F02.80 Dementia in other diseases classified elsewhere, unspecified severity, without behavioral disturbance, psychotic disturbance, mood disturbance, and anxiety; G30.9 Alzheimer's disease, unspecified; I10 Essential (primary) hypertension; Z79.82 Long term (current) use of aspirin; E78.00 Pure hypercholesterolemia, unspecified

== ENCOUNTER 2017-05-01 12:49 | Emergency (ER) | payer MEDICARE, OTHER ==
[2017-05-01 12:49] VITALS: BMI 22.1
[2017-05-01 13:20] VITALS: BP 122/67; PULSE 86; RESP 18; TEMP 99; O2SAT 98
--- NOTE | 2017-05-01 15:07 | RAD ---
PROCEDURE: Radiographs of the Chest and Left Ribs. HISTORY: Posttraumatic pain COMPARISON: 04/25/2017 single-view chest. TECHNIQUE: Frontal radiograph of the chest and multiple oblique radiographs of the left ribs were obtained. FINDINGS: LEFT RIBS: No visible rib fracture. LUNGS: Stable interstitial lung disease. PLEURA: No pneumothorax or pleural fluid. CARDIOVASCULAR: Normal sized heart. No pulmonary vascular congestion. OTHER FINDINGS: None. IMPRESSION: Unremarkable radiographs of the chest and left ribs. No left rib fracture.
--- NOTE | 2017-05-01 15:08 | RAD ---
PROCEDURE: Left femur HISTORY: Posttraumatic pain COMPARISON: May 01, 2017. Left hip, left knee reported separately. TECHNIQUE: Standard protocol for this study/examination. FINDINGS: No significant/acute osseous, articular or soft tissue abnormalities. IMPRESSION: No acute findings related to/accounting for the clinical presentation.
--- NOTE | 2017-05-01 15:08 | RAD ---
PROCEDURE: Left Hip X-ray Radiographs. HISTORY: Posttraumatic pain COMPARISON: None. FINDINGS: BONES: Normal. No fracture. JOINTS: Moderate degenerative changes which are bilaterally symmetrical. SOFT TISSUES: Normal. OTHER FINDINGS: None. IMPRESSION: No acute findings related to/accounting for the clinical presentation.
--- NOTE | 2017-05-01 15:16 | ED PDOC ---
HPI: Trauma/Fall - HPI Time Seen by Provider: 05/01/17 13:39 Chief Complaint (Nursing): Rib Injury Chief Complaint (Provider): Left leg pain, Fall History Per: Patient History/Exam Limitations: no limitations Injury Occurred (Timing): Hours Ago: (1) Additional Complaint(s): Patient presents complaining that she was at physical therapy today and fell 1 hour ago. Now complaining of left leg pain. States she can stand and walk but wanted to have the leg checked. Otherwise: (-) head injury, (-) LOC, (-) back pain, (-) rib pain or other injuries. PMD: Dr. Summers Past Medical History Reviewed: Historical Data, Nursing Documentation, Vital Signs Vital Signs: Last Vital Signs Temp 99.0 F 05/01/17 13:18 Pulse 86 05/01/17 13:18 Resp 18 05/01/17 13:18 BP 122/67 05/01/17 13:18 Pulse Ox 98 05/01/17 15:21 - Medical History PMH: Alzheimer's Disease, Anxiety, Arthritis, Asthma, COPD, Depression, Diabetes , Fractures (left humerus), HTN, Hypercholesterolemia Denies: Hepatitis, HIV, Chronic Kidney Disease, Seizures, Sexually Transmitted Disease - Surgical History Other surgeries: Left arm surgery, Left foot surgery - Family History Family History: States: Unknown Family Hx - Social History Ex-Smoker (has not smoked in the last 12 months): Yes Alcohol: None Drugs: Denies - Immunization History Hx Tetanus Toxoid Vaccination: No Hx Influenza Vaccination: No Hx Pneumococcal Vaccination: No - Home Medications Home Medications: Ambulatory Orders Medication Instructions Recorded Acetaminophen [Tylenol 325mg tab] 650 mg PO Q6 PRN 30 Days #40 tab 04/20/17 Aspirin [Adult Low Dose Aspirin EC] 81 mg PO DAILY #30 tablet. 04/20/17 Calcium Citrate/Vitamin D3 1 tab PO BID 30 Days #60 tablet 04/20/17 [Calcium Citrate - Vit D Caplet] Cetirizine HCl [Zyrtec] 10 mg PO DAILY #30 sgl 04/20/17 Fluticasone/Salmeterol 250/50 1 puff INH DAILY 30 Days #30 puff 04/20/17 [Advair Diskus 250/50] Lidocaine 5% [Lidoderm] 1 ea TD DAILY 30 Days #30 patch 04/20/17 Sulfamethoxazole/Trimethoprim 1 tab PO Q12 2 Days #3 tab 04/20/17 [Bactrim DS Tab] Naproxen [Naprosyn] 1 tab PO BID PRN #30 tab 04/24/17 traMADol [Ultram] 50 mg PO TID #15 tab 04/24/17 - Allergies Allergies/Adverse Reactions: Allergies Allergy/AdvReac Type Severity Reaction Status Date / Time No Known Allergies Allergy Verified 05/01/17 13:17 Review of Systems ROS Statement: Except As Marked, All Systems Reviewed And Found Negative Cardiovascular: Negative for: Other (rib pain) Musculoskeletal: Positive for: Leg Pain (left). Negative for: Back Pain Neurological: Negative for: Other (head injury/LOC) Physical Exam - Reviewed Nursing Documentation Reviewed: Yes Vital Signs Reviewed: Yes - Physical Exam Comments: GENERAL APPEARANCE: Patient is awake, alert, oriented x 3, in no acute distress. SKIN: Warm, dry; (-) cyanosis. HEAD: (-) swelling and tenderness, with no palpable bony defect. EYES: (-) conjunctival pallor, (-) scleral icterus, (-) nystagmus. ENMT: Mucous membranes moist. Nose: (-) tenderness. No oral trauma. Pharynx clear. Airway patent: (-) stridor. Full ROM of mandible without pain. NECK: (+) paracervical tenderness, (-) vertebral tenderness, (-) lymphadenopathy. CHEST AND RESPIRATORY: (-) chest wall tenderness. Lungs: (-) rales, (-) rhonchi , (-) wheezes; breath sounds equal bilaterally. HEART AND CARDIOVASCULAR: (-) irregularity; (-) murmur, (-) gallop. ABDOMEN AND GI: Soft; (-) tenderness. BACK: (-) tenderness. EXTREMITIES: (-) deformity, (-) tenderness, (-) edema, (-) ecchymosis, (-) limitation of motion, distal pulses 2+. NEURO AND PSYCH: GCS=15. Mental status as above. 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 EOMI. (-) facial asymmetry. Tongue and uvula midline. Strength 5/5 in all extremities. No gross sensory deficits. DTRs symmetric. - ECG O2 Sat by Pulse Oximetry: 98 (RA) Pulse Ox Interpretation: Normal Medical Decision Making Medical Decision Making: Time: 13:55 Plan: Will obtain x-rays of left hip with pelvis, left femur, left knee, and left ribs /chest. XR Left Hip/Pelvis: no fracture, no dislocation, as read by PA. XR Left Femur: no fracture, as read by PA. XR Left Knee: no fracture, no dislocation, as read by PA. XR Left Ribs/Chest: no fracture, as read by PA. Patient advised that official radiology read of XR is still pending and will call the patient if there is any discrepancy within 24 hours. X-Ray results d/w patient in detail. Patient is stable for discharge home. Based on history, exam, and diagnostic results, plan will be for outpatient follow up with PCP. Advised to follow up with primary care physician in 1-2 days without fail. Return to the emergency room at any time for any new or worsening symptoms. Patient states she fully agrees with and understands discharge instructions. States that she agrees with the plan and disposition. Verbalized and repeated discharge instructions and plan. I have given the patient opportunity to ask any additional questions. Scribe Attestation: Documented by Hillary Carlson, acting as a scribe for Johanna Ashton PA-C Provider Scribe Attestation: All medical record entries made by the Scribe were at my direction and personally dictated by me. I have reviewed the chart and agree that the record accurately reflects my personal performance of the history, physical exam, medical decision making, and the department course for this patient. I have also personally directed, reviewed, and agree with the discharge instructions and disposition. Disposition - Clinical Impression Clinical Impression: Leg pain - Patient ED Disposition Is Patient to be Admitted: No Counseled Patient/Family Regarding: Studies Performed, Diagnosis, Need For Followup - Disposition Disposition: Routine/Home Disposition Time: 15:16 Condition: STABLE Additional Instructions: Thank you for letting us take care of you today. You were treated for L leg pain / contusion. The emergency medical care you received today was directed at your acute symptoms. Return to the Emergency Department if your symptoms worsen , do not improve, or if you have any other problems. Please contact your doctor in 2 days for re-evaluation and follow up. Bring any paperwork you were given at discharge with you along with any medications you are taking to your follow up visit. Our treatment cannot replace ongoing medical care by a primary care provider (PCP) outside of the emergency department. Thank you for allowing the [facility] team to be part of your care today. If you had an X-Ray: A Radiologist will review the ED reading if any change in treatment is needed we will contact you. Instructions: Leg Pain (ED) Forms: [employer] (Palauan) Print Language: BELARUSIAN - POA Present On Arrival: Falls Or Trauma
--- NOTE | 2017-05-01 15:18 | RAD ---
PROCEDURE: Left Knee Radiographs. HISTORY: Pain. COMPARISON: None. FINDINGS: BONES: Normal. No fracture. JOINTS: Normal. No osteoarthritis. JOINT EFFUSION: None. OTHER FINDINGS: None. IMPRESSION: No acute findings related to/accounting for the clinical presentation.
== END 2017-05-01 15:00 | disposition home or self-care (01) ==
LOC: H.ER 12:49
DX: M79.605 Pain in left leg (principal); W19.XXXA Unspecified fall, initial encounter; Y92.532 Urgent care center as the place of occurrence of the external cause; E11.9 Type 2 diabetes mellitus without complications; Z79.82 Long term (current) use of aspirin; G30.9 Alzheimer's disease, unspecified; F02.80 Dementia in other diseases classified elsewhere, unspecified severity, without behavioral disturbance, psychotic disturbance, mood disturbance, and anxiety

== ENCOUNTER 2017-05-01 16:26 | Inpatient (IN) | payer MEDICARE, OTHER ==
[2017-05-01 16:26] VITALS: BMI 22.1
[2017-05-01] MEDS ORDERED: Sodium Chloride 0.9% 500 ML IV SCH (18:00)
--- NOTE | 2017-05-01 18:58 | ED PDOC ---
HPI: General Adult Time Seen by Provider: 05/01/17 17:19 Chief Complaint (Nursing): Lower Extremity Problem/Injury Chief Complaint (Provider): Generalized weakness History Per: Patient History/Exam Limitations: no limitations Recently: Seen In ED Additional History Per: Family (son) Additional Complaint(s): Patient returns to the ER stating she does not want to go home. Reports she has been feeling dizzy and weak. Son is here with patient, and states patient only drank tea and coffee today prior to falling, and often refuses food at home. Otherwise: (-) headache, (-) chest pain, (-) shortness of breath, (-) N/V/D, (- ) fever. PMD: Provider TBD Past Medical History Reviewed: Historical Data, Nursing Documentation, Vital Signs Vital Signs: Last Vital Signs Temp 98.1 F 05/01/17 23:59 Pulse 78 05/01/17 23:59 Resp 18 05/01/17 23:59 BP 122/60 05/01/17 23:59 Pulse Ox 97 05/02/17 00:17 - Medical History PMH: Alzheimer's Disease, Anxiety, Arthritis, Asthma, COPD, Depression, Diabetes , Fractures (left humerus), HTN, Hypercholesterolemia Denies: Hepatitis, HIV, Chronic Kidney Disease, Seizures, Sexually Transmitted Disease - Family History Family History: States: Unknown Family Hx - Immunization History Hx Tetanus Toxoid Vaccination: No Hx Influenza Vaccination: No Hx Pneumococcal Vaccination: No - Home Medications Home Medications: Ambulatory Orders Medication Instructions Recorded Acetaminophen [Tylenol 325mg tab] 650 mg PO Q6 PRN 30 Days #40 tab 04/20/17 Aspirin [Adult Low Dose Aspirin EC] 81 mg PO DAILY #30 tablet. 04/20/17 Calcium Citrate/Vitamin D3 1 tab PO BID 30 Days #60 tablet 04/20/17 [Calcium Citrate - Vit D Caplet] Cetirizine HCl [Zyrtec] 10 mg PO DAILY #30 sgl 04/20/17 Fluticasone/Salmeterol 250/50 1 puff INH DAILY 30 Days #30 puff 04/20/17 [Advair Diskus 250/50] Lidocaine 5% [Lidoderm] 1 ea TD DAILY 30 Days #30 patch 04/20/17 Sulfamethoxazole/Trimethoprim 1 tab PO Q12 2 Days #3 tab 04/20/17 [Bactrim DS Tab] Naproxen [Naprosyn] 1 tab PO BID PRN #30 tab 04/24/17 traMADol [Ultram] 50 mg PO TID #15 tab 04/24/17 - Allergies Allergies/Adverse Reactions: Allergies Allergy/AdvReac Type Severity Reaction Status Date / Time No Known Allergies Allergy Verified 05/01/17 13:17 Review of Systems ROS Statement: Except As Marked, All Systems Reviewed And Found Negative Constitutional: Positive for: Weakness (generalized). Negative for: Fever Cardiovascular: Negative for: Chest Pain Respiratory: Negative for: Shortness of Breath Gastrointestinal: Negative for: Nausea, Vomiting, Diarrhea Neurological: Positive for: Dizziness. Negative for: Headache Physical Exam - Reviewed Nursing Documentation Reviewed: Yes Vital Signs Reviewed: Yes - Physical Exam Comments: GENERAL APPEARANCE: Patient is awake, alert, oriented x 3, in no acute distress. SKIN: Warm, dry; (-) cyanosis EYES: (-) conjunctival pallor, (-) scleral icterus, (-) nystagmus. NECK: (-) tenderness, (-) stiffness, (-) lymphadenopathy. CHEST AND RESPIRATORY: (-) rales, (-) rhonchi, (-) wheezes; breath sounds equal bilaterally. HEART AND CARDIOVASCULAR: (-) irregularity; (-) murmur, (-) gallop. ABDOMEN AND GI: Soft; (-) tenderness. EXTREMITIES: (-) deformity, (-) edema. NEURO AND PSYCH: Mental status as above; (-) focal findings. - Laboratory Results Result Diagrams: 05/01/17 20:34 05/01/17 20:34 - ECG O2 Sat by Pulse Oximetry: 97 (RA) Pulse Ox Interpretation: Normal Medical Decision Making Medical Decision Making: Time: 17:54 Initial Plan: * EKG * CMP * CBC w/ differential * Urine Culture * Urinalysis * IV fluids * Reevaluation EKG: NSR at 77 bpm, (+) incomplete RBB, (-) acute ST changes, as read by FLORENCIO. On re-evaluation, patient is laying in bed comfortably in no acute distress, able to stand up with minimal assistance and ambulate. Labs reviewed, patient is noted to have a white count of 12, which the patient did not have in her prior blood work which was done recently. Patient was also noted to have a UTI. Medicated with bactrim ds, based on patient's last urine cx results which showed klebsiella sensitive to bactrim. Based on history, exam and diagnostic results plan will be for inpatient observation. Case d/w family practice resident Dr. Cotto, who will evaluate the patient in the ER. Patient seen and evaluated by Dr. Cotto, after his evaluation, plan will be for inpt observation stay. Patient and her son agrees with plan. Scribe Attestation: Documented by Hillary Carlson, acting as a scribe for Johanna Ashton PA-C Provider Scribe Attestation: All medical record entries made by the Scribe were at my direction and personally dictated by me. I have reviewed the chart and agree that the record accurately reflects my personal performance of the history, physical exam, medical decision making, and the department course for this patient. I have also personally directed, reviewed, and agree with the discharge instructions and disposition. Disposition - Clinical Impression Clinical Impression: Dizziness, UTI (urinary tract infection) - Patient ED Disposition Is Patient to be Admitted: Yes Counseled Patient/Family Regarding: Studies Performed, Diagnosis - Disposition Disposition Time: 23:30 Condition: STABLE Forms: [employer] (Portuguese) - PA / LANGUAGE ASST / Resident Statement / has reviewed & agrees with the documentation as recorded.
[2017-05-01 20:42] LABS: BASO # 0.1 K/uL (0.0-0.2); BASO % 0.6 % (0.0-2.0); EOS % 0.1 % (0.0-4.0); HEMOGLOBIN 10.8 g/dL (12.0-16.0); LYMPH # 1.4 K/uL (1.0-4.3); LYMPH % 11.6 % (20.0-40.0); MEAN CELL VOLUME 87.9 fl (81.0-99.0); MEAN CORPUSCULAR HEMOGLOBIN 29.4 pg (27.0-31.0); MEAN CORPUSCULAR HGB CONC 33.5 g/dL (33.0-37.0); MEAN PLATELET VOLUME 7.4 fl (7.2-11.7); MONO # 0.5 K/uL (0.0-0.8); MONO % 4.3 % (0.0-10.0); NEUT # 10.2 K/uL (1.8-7.0); NEUT % 83.4 % (50.0-75.0); NRBC % 0.1 % (0.0-0.0); RBC 3.67 Mil/uL (3.80-5.20); RED CELL DISTRIBUTION WIDTH 14.3 % (11.5-14.5); WHITE BLOOD COUNT 12.2 K/uL (4.8-10.8)
[2017-05-01 20:57] LABS: ALB/GLOB RATIO 1.1 (1.0-2.1); ALBUMIN 3.7 g/dL (3.5-5.0); ALT/SGPT 26 U/L (9-52); AST/SGOT 29 U/L (14-36); BLOOD UREA NITROGEN 13 mg/dl (7-17); CALCIUM 9.2 mg/dL (8.4-10.2); GFR AFRICAN-AMERICAN > 60; GFR NON-AFRICAN AMERICAN > 60
[2017-05-01 21:49] LABS: SQUAMOUS EPITHIAL 2 /hpf (0-5); URINE BACTERIA FEW (<OCC); URINE BILIRUBIN NEGATIVE (NEGATIVE); URINE BLOOD SMALL (NEGATIVE); URINE CLARITY SLIGHTY-CLOUDY (Clear); URINE COLOR YELLOW (YELLOW); URINE GLUCOSE (UA) NEG (Normal); URINE LEUKOCYTE ESTERASE TRACE Leu/uL (Negative); URINE NITRATE NEGATIVE (NEGATIVE); URINE PROTEIN NEGATIVE (NEGATIVE); URINE UROBILINOGEN 0.2-1.0 mg/dL (0.2-1.0)
--- NOTE | 2017-05-02 00:51 | CP.PCM.HP ---
History of Present Illness - History of Present Illness History of Present Illness: Hx taken from patient's son ( called by phone) and previous records. Limited due to patient's impaired mental status. 81 yo ,f, PMhx/o Dementia, DM, HTN, HLD, recent diagnosed with Right Breast Ca and discharged 04/20/17 was brought to Ed in the morning after a fall at home. Patient's son reports that patient went to physical therapy early in the morning and when she returned to home she fell and a neighbor came to help her. Patient's son was not at home. Patient reports that she was walking to the bathroom and fell down and landed over left side and hit her left leg. She was not witnessed and denies dizziness, blurry vision or syncope prior the fall. she denies subsequent confusion, slurred speech, dificulty walking, head trauma. Patient was evaluated for the fall in Ed and discharged to home. Patient was brought to ED by second time later by her son who c/o persistent dizziness at home and report that patient only drinks coffe and tea and has very low appetite and does not want to eat sometimes. Patient reports that she does not want to come back to the house. During my evaluation of patient, she is hard hearing, awake, alert a little anxious and repeats the same history several times. Patient's son called for further information. PMD: [facility]. Dr Ramon. last visit 04/27/17 PMHx: Alzheimer's dementia, anxiety, asthma/COPD, depression DM2, HTN, and HLD allergies: NKDA PSHx: Patient unable to provide FMHx: Not contributory Social Hx: Lives with son, denies EtOH, states she quit smoking a few weeks ago Meds: Hydroxyzine 25 mg TID PRN, Tramadol 50 mg TID PRN pain Code status: Full code. Patient's son is undecided on advanced directive. Healthcare proxy: Son(Kalen [phone]) Ed Course VS:NL Labs: CBC: 12.2>10.8<186 CMP nl, UA: hematuria, baact few, leukocyte sterase trace Imaging: XR Left Hip/Pelvis: no fracture, no dislocation XR Left Femur: no fracture XR Left Knee: no fracture, no dislocation XR Left Ribs/Chest: no fracture Meds: Bactrim ds x 1 dose, NS 500 ml IV Present on Admission - Present on Admission Any Indicators Present on Admission: No History of DVT/PE: No History of Uncontrolled Diabetes: No Review of Systems - Constitutional Constitutional: As Per HPI - Gastrointestinal Gastrointestinal: As Per HPI - Genitourinary Genitourinary: As Per HPI - Musculoskeletal Musculoskeletal: As Per HPI Past Patient History - Infectious Disease Hx of Infectious Diseases: None - Past Medical History & Family History Past Medical History?: Yes - Past Social History Smoking Status: Former Smoker - CARDIAC Hx Hypercholesterolemia: Yes Hx Hypertension: Yes - PULMONARY Hx Asthma: Yes Hx Chronic Obstructive Pulmonary Disease (COPD): Yes - NEUROLOGICAL Hx Alzheimer's Disease: Yes Hx Seizures: No - HEENT Hx HEENT Problems: Yes - RENAL Hx Chronic Kidney Disease: No - ENDOCRINE/METABOLIC Hx Endocrine Disorders: Yes Hx Diabetes Mellitus Type 2: Yes - HEMATOLOGICAL/ONCOLOGICAL Hx Human Immunodeficiency Virus (HIV): No - INTEGUMENTARY Hx Dermatological Problems: No - MUSCULOSKELETAL/RHEUMATOLOGICAL Hx Arthritis: Yes Hx Fractures: Yes (left humerus) - GASTROINTESTINAL Hx Gastrointestinal Disorders: No - GENITOURINARY/GYNECOLOGICAL Hx Sexually Transmitted Disorders: No - PSYCHIATRIC Hx Anxiety: Yes Hx Depression: Yes - SURGICAL HISTORY Hx Surgeries: Yes Other/Comment: left arm surgery with plates and screws. left foot surgery ( stepped on a nail) - ANESTHESIA Hx Anesthesia: Yes Hx Anesthesia Reactions: No Hx Malignant Hyperthermia: No Meds Allergies/Adverse Reactions: Allergies Allergy/AdvReac Type Severity Reaction Status Date / Time No Known Allergies Allergy Verified 05/01/17 13:17 Physical Exam - Constitutional Appears: No Acute Distress - Head Exam Head Exam: ATRAUMATIC, NORMOCEPHALIC - Eye Exam Eye Exam: Normal appearance - ENT Exam ENT Exam: Mucous Membranes Moist - Neck Exam Neck exam: Positive for: Normal Inspection - Respiratory Exam Respiratory Exam: Clear to Auscultation Bilateral, Rales. absent: Rhonchi Additional comments: some dry rales left lung base right breast mass like orange size aprox [id number] with mild erythema periareolar. Mild hematoma s/p recent biopsy, no warmth, no cellulitis, no discharge. Right axillar lymp node hard consistency. mobile, no TD - Cardiovascular Exam Cardiovascular Exam: REGULAR RHYTHM, +S1, +S2 - GI/Abdominal Exam GI & Abdominal Exam: Normal Bowel Sounds, Soft. absent: Guarding - Extremities Exam Extremities exam: Positive for: normal inspection. Negative for: pedal edema - Expanded Lower Extremities Exam Left Hip exam: absent: deformity Lower Leg Exam: full ROM. absent: crepitus, deformity, dislocation, ecchymosis , erythema Ankle exam: absent: crepitus, deformity, dislocation - Back Exam Back exam: NORMAL INSPECTION - Neurological Exam Neurological exam: Alert - Psychiatric Exam Psychiatric exam: Anxious - Skin Skin Exam: Intact Results - Vital Signs Recent Vital Signs: Last Vital Signs Temp 98.1 F 05/01/17 23:59 Pulse 78 05/01/17 23:59 Resp 18 05/01/17 23:59 BP 122/60 05/01/17 23:59 Pulse Ox 97 05/02/17 00:21 - Labs Result Diagrams: 05/01/17 20:34 05/01/17 20:34 Labs: Laboratory Results - last 24 hr 05/01/17 05/01/17 05/01/17 20:34 20:34 21:22 WBC 12.2 H D RBC 3.67 L Hgb 10.8 L Hct 32.2 L MCV 87.9 D MCH 29.4 MCHC 33.5 RDW 14.3 Plt Count 186 MPV 7.4 Neut % (Auto) 83.4 H Lymph % (Auto) 11.6 L [place] % (Auto) 4.3 Eos % (Auto) 0.1 Baso % (Auto) 0.6 Neut # (Auto) 10.2 H Lymph # (Auto) 1.4 [place] # (Auto) 0.5 Eos # (Auto) 0.0 Baso # (Auto) 0.1 Sodium 139 Potassium 3.8 Chloride 104 Carbon Dioxide 25 Anion Gap 14 BUN 13 Creatinine 0.5 L Est GFR ( Amer) > 60 Est GFR (Non-Af Amer) > 60 Random Glucose 99 Calcium 9.2 Total Bilirubin 0.8 AST 29 ALT 26 Alkaline Phosphatase 111 Total Protein 7.1 Albumin 3.7 Globulin 3.4 Albumin/Globulin Ratio 1.1 Urine Color Yellow Urine Clarity Slighty-cloudy Urine pH 7.0 Ur Specific [place] 1.015 Urine Protein Negative Urine Glucose (UA) Neg Urine Ketones Negative Urine Blood Small Urine Nitrate Negative Urine Bilirubin Negative Urine Urobilinogen 0.2-1.0 Ur Leukocyte Esterase Trace Urine RBC (Auto) 6 H Urine Microscopic WBC 7 H Ur Squamous Epith Cells 2 Urine Bacteria Few H Assessment & Plan - Assessment and Plan (Free Text) Plan: 81 yo ,f, PMhx/o Dementia, NIDDM, HTN, HLD, recent diagnosed with Right Breast Ca admitted for OBs for persistent dizziness and fall at home Assessment/Plan 1) Dizziness -as per patient's son. pt with dementia and denies dizziness -may be secondary to malignancy,low oral intake, medications( tramadol). -Orthostatic vital signs. -Us carotid US 12/14 right ICA stenosis 50-69% -Echo 11/2016 EF 40-45 %, Mild hypokyniesis basal ant wall 2) fall at home -reported by patient, not witnessed -no presyncopal symptoms. -XR Left Hip/Pelvis: no fracture, no dislocation -XR Left Femur: no fracture -XR Left Knee: no fracture, no dislocation -XR Left Ribs/Chest: no fracture 3) Right breast Ca -right breast mass -Mammography 04/20/17 [id number] highly suspicious of malignancy -Biopsy showed infiltrating carcinoma with mixed ductal and lobular features -Hemo-Onc consult suggested 4) Asymptomatic Bacteriuria -Hx/o recurrent UTI -Asymptomatic Bacteriuria last admission -Urine cx showed Klebsiella sensitive to Bactrim -treated on discharged with Bactrim -Bactrim x 1 dose given ED -will c/w bactrim due to possible pt with dementia did not take medications on discharge -F/u Urine cx 5) DM -diet controlled -hga1c 5.7 -meds DC last admission 6) Hx/o HTN -diet controlled -meds dc last admission 7) DVT Prophylaxis Lovenox 40 mg sc daily
[2017-05-02] MEDS: Tmp-Smz 800 mg-160 mg DS Tab PO STA ×2 (01:37)
[2017-05-02 07:03] LABS: BASO % 0.5 % (0.0-2.0); EOS # 0.1 K/uL (0.0-0.7); EOS % 0.7 % (0.0-4.0); HEMOGLOBIN 10.3 g/dL (12.0-16.0); LYMPH # 1.7 K/uL (1.0-4.3); LYMPH % 18.8 % (20.0-40.0); MEAN CORPUSCULAR HEMOGLOBIN 29.3 pg (27.0-31.0); MEAN CORPUSCULAR HGB CONC 33.3 g/dL (33.0-37.0); MEAN PLATELET VOLUME 7.7 fl (7.2-11.7); MONO # 0.5 K/uL (0.0-0.8); MONO % 5.8 % (0.0-10.0); NEUT # 6.6 K/uL (1.8-7.0); NEUT % 74.2 % (50.0-75.0); RBC 3.52 Mil/uL (3.80-5.20); RED CELL DISTRIBUTION WIDTH 14.1 % (11.5-14.5); WHITE BLOOD COUNT 8.9 K/uL (4.8-10.8)
[2017-05-02] MEDS ORDERED: Fluticasone-Salmeterol 250-50mcg Diskus INH SCH (09:00)
[2017-05-02] MEDS: Tmp-Smz 800 mg-160 mg DS Tab PO SCH ×2 (09:30→20:43)
[2017-05-02] MEDS: Lidocaine 5% Patch TD SCH (09:30)
--- NOTE | 2017-05-02 09:33 | CARD ---
APPROVED REPORT EKG Measurement Heart [id number] <Conclusion> Normal sinus rhythm Incomplete right bundle branch block Left anterior fascicular block Septal infarct, age undetermined Abnormal ECG
[2017-05-02] MEDS: Enoxaparin 40 mg Syringe SC SCH (09:34)
[2017-05-02] MEDS: Citracal+D 315mg/250IU PO SCH ×2 (11:32→18:32)
--- NOTE | 2017-05-02 18:57 | CP.PCM.PN ---
Subjective - Date & Time of Evaluation Date of Evaluation: 05/02/17 Time of Evaluation: 09:00 - Subjective Subjective: Patient seen and examined at bedside this morning. Patient laying in bed, NAD, but complaining of left sided pain she states she has been having from previous fall. Patient is hard of hearing but understands and recalls events that led to fall. Patient has no other complaints. Objective - Vital Signs/Intake and Output Vital Signs (last 24 hours): Temp Pulse Resp BP Pulse Ox 99 F 70 20 97/57 L 98 05/02/17 13:00 05/02/17 13:00 05/02/17 13:00 05/02/17 13:00 05/02/17 08:23 - Medications Medications: Current Medications Acetaminophen (Tylenol 325mg Tab) 650 mg PO Q6 PRN PRN Reason: Pain, Mild (1-3) Last Admin: 05/02/17 01:37 Dose: 650 mg Calcium/Vitamin D (Citracal+D 315mg/250iu) 1 tab PO BID [facility] Last Admin: 05/02/17 18:32 Dose: 1 tab Enoxaparin Sodium (Lovenox) 40 mg SC DAILY [facility] PRN Reason: Protocol Last Admin: 05/02/17 09:34 Dose: 40 mg Ibuprofen (Motrin Tab) 600 mg PO Q6 PRN PRN Reason: Pain, moderate (4-7) Lidocaine (Lidoderm) 1 ea TD DAILY [facility] Last Admin: 05/02/17 09:30 Dose: 1 ea Tramadol HCl (Ultram) 50 mg PO TID PRN PRN Reason: Pain, severe (8-10) Last Admin: 05/02/17 17:38 Dose: 50 mg Trimethoprim/Sulfamethoxazole (Bactrim Ds Tab) 1 tab PO Q12 [facility] PRN Reason: Protocol Stop: 05/05/17 10:00 Last Admin: 05/02/17 09:30 Dose: 1 tab - Labs Labs: 05/02/17 05:30 05/01/17 20:34 - Constitutional Appears: No Acute Distress - Head Exam Head Exam: ATRAUMATIC, NORMOCEPHALIC - Eye Exam Eye Exam: Normal appearance - ENT Exam ENT Exam: Mucous Membranes Moist - Neck Exam Neck Exam: Full ROM. absent: Tenderness - Respiratory Exam Respiratory Exam: Rales. absent: Decreased Breath Sounds, Rhonchi, Wheezes, Respiratory Distress Additional comments: right peau d'orange breast mass approx 10 x 10cm with mild erythema aura- areolar. Mild hematoma s/p recent biopsy, no warmth, no cellulitis, no discharge. Right axillary lymph node hard consistency. mobile, non-tender - Cardiovascular Exam Cardiovascular Exam: REGULAR RHYTHM - GI/Abdominal Exam GI & Abdominal Exam: Soft, Normal Bowel Sounds. absent: Distended, Guarding, Tenderness - Extremities Exam Extremities Exam: absent: Calf Tenderness, Pedal Edema, Tenderness - Neurological Exam Neurological Exam: Alert, Awake, Oriented x3 - Psychiatric Exam Psychiatric exam: Anxious - Skin Skin Exam: Dry, Intact Assessment and Plan - Assessment and Plan (Free Text) Assessment: 81 y/o woman w/ pmh of dementia, NIDDM, HTN, HLD, recent diagnosed Right Breast Ca admitted for persistent dizziness and fall at home Plan: Dizziness - patient currently denies dizziness - secondary to malignancy vs. low oral intake vs. UTI vs. medications (eg. tramadol). - Orthostatics show appropriate response in change in position - Us carotid US 11/2016 showed right ICA stenosis 50-69% - Echo 11/2016 EF 40-45 %, Mild hypokyniesis basal ant wall 2) fall at home - reported by patient, not witnessed - no presyncopal symptoms. - XR Left Hip/Pelvis: no fracture, no dislocation - XR Left Femur: no fracture - XR Left Knee: no fracture, no dislocation - XR Left Ribs/Chest: no fracture - Seen by PT and suggest assist device due to abnormal gait - on fall precautions 3) Right breast Ca - right breast mass - Mammography 04/20/17 [id number] highly suspicious of malignancy - Biopsy showed infiltrating carcinoma with mixed ductal and lobular features - seen by Dr. Irizarry as outpatient - Hemo-Onc consulted, Dr. Irizarry 4) Asymptomatic Bacteriuria - Hx/o recurrent UTI - Asymptomatic Bacteriuria last admission - Urine cx showed Klebsiella sensitive to Bactrim - c/w bactrim Q12h due to possible pt with dementia did not take medications on discharge - f/u Urine culture 5) DM - diet controlled - hga1c 5.7 - meds DC'ed last admission 6) Hx/o HTN - diet controlled - meds DC'ed last admission 7) DVT Prophylaxis - Lovenox 40 mg sc daily
--- NOTE | 2017-05-03 08:21 | CP.PCM.PN ---
Subjective - Date & Time of Evaluation Date of Evaluation: 05/03/17 Time of Evaluation: 09:45 - Subjective Subjective: Pt seen and examined at bedside. Lying supine and not in any acute distress. Does state discomfort of her left lower extremity, which was the side she fell on prior to admission. Also states being lonely at home because her son, the only other person living with her, will often be out late many nights. Otherwise , she denied fevers/chills, nausea, vomiting, chest pain, or respiratory complaints. Objective - Vital Signs/Intake and Output Vital Signs (last 24 hours): Temp Pulse Resp BP Pulse Ox 98.0 F 61 18 100/55 L 94 L 05/03/17 07:49 05/03/17 07:49 05/03/17 07:49 05/03/17 07:49 05/03/17 07:49 - Medications Medications: Current Medications Acetaminophen (Tylenol 325mg Tab) 650 mg PO Q6 PRN PRN Reason: Pain, Mild (1-3) Last Admin: 05/02/17 01:37 Dose: 650 mg Calcium/Vitamin D (Citracal+D 315mg/250iu) 1 tab PO BID [facility] Last Admin: 05/02/17 18:32 Dose: 1 tab Enoxaparin Sodium (Lovenox) 40 mg SC DAILY [facility] PRN Reason: Protocol Last Admin: 05/02/17 09:34 Dose: 40 mg Ibuprofen (Motrin Tab) 600 mg PO Q6 PRN PRN Reason: Pain, moderate (4-7) Lidocaine (Lidoderm) 1 ea TD DAILY [facility] Last Admin: 05/02/17 09:30 Dose: 1 ea Tramadol HCl (Ultram) 50 mg PO TID PRN PRN Reason: Pain, severe (8-10) Last Admin: 05/03/17 04:55 Dose: 50 mg Trimethoprim/Sulfamethoxazole (Bactrim Ds Tab) 1 tab PO Q12 [facility] PRN Reason: Protocol Stop: 05/05/17 10:00 Last Admin: 05/02/17 20:43 Dose: 1 tab - Labs Labs: 05/02/17 05:30 05/01/17 20:34 - Additional Findings Additional findings: - Head Exam Head Exam: ATRAUMATIC, NORMOCEPHALIC - Eye Exam Eye Exam: Normal appearance - Respiratory Exam Respiratory Exam: Rales. absent: Rhonchi, Wheezes, Respiratory Distress Additional comments: right peau d'orange breast mass approx 10 x 10cm with mild erythema aura- areolar. Mild hematoma s/p recent biopsy, no warmth, no cellulitis, no discharge. Right axillary lymph node hard consistency. mobile, non-tender - Cardiovascular Exam Cardiovascular Exam: REGULAR RHYTHM - GI/Abdominal Exam GI & Abdominal Exam: Soft, Normal Bowel Sounds. absent: Distended, Guarding, Tenderness - Extremities Exam Extremities Exam: absent: Calf Tenderness, Pedal Edema, Tenderness - Neurological Exam Neurological Exam: Alert, Awake, Oriented x3 - Psychiatric Exam Psychiatric exam: Anxious - Skin Skin Exam: Dry, Intact Additional comments: No wounds, abrasions, lacerations, or bruises examined on LLE Assessment and Plan - Assessment and Plan (Free Text) Plan: 81 y/o woman w/ pmh of dementia, NIDDM, HTN, HLD, recent diagnosed Right Breast Ca admitted for persistent dizziness and fall at home 1) Dizziness - patient currently denies dizziness - secondary to malignancy vs. low oral intake vs. UTI vs. medications (eg. tramadol). - Orthostatics show appropriate response in change in position - U/S carotid US 11/2016 showed right ICA stenosis 50-69% - Echo 11/2016 EF 40-45 %, Mild hypokyniesis basal ant wall 2) fall at home - reported by patient, not witnessed - no presyncope symptoms. - XR Left Hip/Pelvis: no fracture, no dislocation - XR Left Femur: no fracture - XR Left Knee: no fracture, no dislocation - XR Left Ribs/Chest: no fracture - Seen by PT and suggest assist device due to abnormal gait - on fall precautions - will discuss case with social work regarding her needs of extended care 3) Right breast Ca - right breast mass - Mammography 04/20/17 [id number] highly suspicious of malignancy - Biopsy showed infiltrating carcinoma with mixed ductal and lobular features - seen by Dr. Irizarry as outpatient - Hemo-Onc consulted, Dr. Irizarry 4) Asymptomatic Bacteriuria - Hx/o recurrent UTI - Asymptomatic Bacteriuria last admission - Urine cx showed Klebsiella sensitive to Bactrim - c/w bactrim Q12h due to possible pt with dementia did not take medications on discharge - f/u Urine culture 5) DM - diet controlled - hga1c 5.7 - meds DC'ed last admission 6) Hx/o HTN - diet controlled - meds DC'ed last admission 7) DVT Prophylaxis - Lovenox 40 mg sc daily
[2017-05-03] MEDS: Lidocaine 5% Patch TD SCH (09:32)
[2017-05-03] MEDS: Enoxaparin 40 mg Syringe SC SCH (09:32)
[2017-05-03] MEDS: Tmp-Smz 800 mg-160 mg DS Tab PO SCH ×2 (09:33→21:00)
[2017-05-03] MEDS: Citracal+D 315mg/250IU PO SCH ×2 (09:33→16:54)
--- NOTE | 2017-05-03 14:40 | CP.PCM.CON ---
History of Present Illness - History of Present Illness History of Present Illness: 81 year old female with a history of newly diagnosed stage IV breast cancer ( triple negative) with bone metastasis, admitted s/p fall. The patient was informed of her diagnosis with her son. We discussed low dose chemotherapy as an option which they seemed to be agreeable to. The patient reports to unsteady gait and weakness. She does admit to diminished appetite. Past medical history: Breast cancer Past surgical history: Orthopedic fixation arm fracture Family history: Denies hematologic and oncologic problems Social history: Denies tobacco, alcohol, and illicit drug use. All: NKA Review of systems: All remaining review of systems including HEENT, cardiovascular,respiratory, gastrointestinal, genitourininary, musculoskeletal, dermatalogic, neurologic and psychiatric are negative unless mentioned in the HPI. Past Patient History - Infectious Disease Hx of Infectious Diseases: None - Past Medical History & Family History Past Medical History?: Yes - Past Social History Smoking Status: Former Smoker - CARDIAC Hx Hypercholesterolemia: Yes Hx Hypertension: Yes - PULMONARY Hx Chronic Obstructive Pulmonary Disease (COPD): Yes - NEUROLOGICAL Hx Alzheimer's Disease: Yes Hx Seizures: No - HEENT Hx HEENT Problems: Yes - RENAL Hx Chronic Kidney Disease: No - ENDOCRINE/METABOLIC Hx Diabetes Mellitus Type 2: Yes - HEMATOLOGICAL/ONCOLOGICAL Hx Human Immunodeficiency Virus (HIV): No - INTEGUMENTARY Hx Dermatological Problems: No - MUSCULOSKELETAL/RHEUMATOLOGICAL Hx Arthritis: Yes - GASTROINTESTINAL Hx Gastrointestinal Disorders: No - GENITOURINARY/GYNECOLOGICAL Hx Sexually Transmitted Disorders: No - PSYCHIATRIC Hx Anxiety: Yes Hx Depression: Yes - SURGICAL HISTORY Hx Surgeries: Yes Other/Comment: left arm surgery with plates and screws. left foot surgery ( stepped on a nail) - ANESTHESIA Hx Anesthesia: Yes Hx Anesthesia Reactions: No Hx Malignant Hyperthermia: No Meds Allergies/Adverse Reactions: Allergies Allergy/AdvReac Type Severity Reaction Status Date / Time No Known Allergies Allergy Verified 05/01/17 13:17 - Medications Medications: Current Medications Acetaminophen (Tylenol 325mg Tab) 650 mg PO Q6 PRN PRN Reason: Pain, Mild (1-3) Last Admin: 05/02/17 01:37 Dose: 650 mg Calcium/Vitamin D (Citracal+D 315mg/250iu) 1 tab PO BID [facility] Last Admin: 05/03/17 09:33 Dose: 1 tab Enoxaparin Sodium (Lovenox) 40 mg SC DAILY [facility] PRN Reason: Protocol Last Admin: 05/03/17 09:32 Dose: 40 mg Ibuprofen (Motrin Tab) 600 mg PO Q6 PRN PRN Reason: Pain, moderate (4-7) Lidocaine (Lidoderm) 1 ea TD DAILY [facility] Last Admin: 05/03/17 09:32 Dose: 1 ea Tramadol HCl (Ultram) 50 mg PO TID PRN PRN Reason: Pain, severe (8-10) Last Admin: 05/03/17 12:57 Dose: 50 mg Trimethoprim/Sulfamethoxazole (Bactrim Ds Tab) 1 tab PO Q12 [facility] PRN Reason: Protocol Stop: 05/05/17 10:00 Last Admin: 05/03/17 09:33 Dose: 1 tab Physical Exam - Head Exam Head Exam: ATRAUMATIC - Eye Exam Eye Exam: Normal appearance - ENT Exam ENT Exam: Mucous Membranes Dry - Respiratory Exam Respiratory Exam: NORMAL BREATHING PATTERN - Cardiovascular Exam Cardiovascular Exam: +S1, +S2 - GI/Abdominal Exam GI & Abdominal Exam: Normal Bowel Sounds - Extremities Exam Extremities exam: Positive for: normal inspection - Neurological Exam Neurological exam: Oriented x3 Results - Vital Signs Recent Vital Signs: Last Vital Signs Temp 98.0 F 05/03/17 07:49 Pulse 61 05/03/17 07:49 Resp 18 05/03/17 07:49 BP 100/55 L 05/03/17 07:49 Pulse Ox 94 L 05/03/17 07:49 - Labs Result Diagrams: 05/02/17 05:30 05/01/17 20:34 Assessment & Plan (1) Anemia Assessment and Plan: chronic disease from malignancy Status: Chronic Priority: Low (2) Breast cancer Assessment and Plan: triple negative bone metastasis outpatient low dose chemotherapy Thank you for this interesting consult. Status: Acute
[2017-05-03] MEDS ORDERED: Morphine 15 mg Immediate Release Tab PO STA (15:07)
[2017-05-03] MEDS: Morphine 15 mg Immediate Release Tab PO PRN (20:50)
[2017-05-04 06:51] LABS: HEMOGLOBIN 10.2 g/dL (12.0-16.0); MEAN CELL VOLUME 89.3 fl (81.0-99.0); MEAN CORPUSCULAR HEMOGLOBIN 29.4 pg (27.0-31.0); RBC 3.45 Mil/uL (3.80-5.20); RED CELL DISTRIBUTION WIDTH 14.4 % (11.5-14.5); WHITE BLOOD COUNT 6.2 K/uL (4.8-10.8)
[2017-05-04 06:59] LABS: BLOOD UREA NITROGEN 19 mg/dl (7-17); GFR AFRICAN-AMERICAN > 60; GFR NON-AFRICAN AMERICAN > 60
[2017-05-04 08:25] VITALS: BP 92/57; PULSE 60; RESP 20; TEMP 98; O2SAT 94
[2017-05-04] MEDS: Tmp-Smz 800 mg-160 mg DS Tab PO SCH (09:40)
[2017-05-04] MEDS: Citracal+D 315mg/250IU PO SCH (09:40)
[2017-05-04] MEDS: Lidocaine 5% Patch TD SCH (09:41)
[2017-05-04] MEDS: Enoxaparin 40 mg Syringe SC SCH (09:41)
--- NOTE | 2017-05-04 09:50 | CP.PCM.PN ---
Subjective - Date & Time of Evaluation Date of Evaluation: 05/04/17 Time of Evaluation: 07:00 - Subjective Subjective: Patient seen and examined at bedside. Patient laying in bed, NAD. Does state discomfort of her left lower extremity, which was the side she fell on prior to admission. Patient reports that son did not visit yesterday. Patient reports Dr. Irizarry visited her yesterday. Patient denies headaches, dizziness, chest pain, SOB, fevers, chills, nausea, or vomiting Objective - Vital Signs/Intake and Output Vital Signs (last 24 hours): Temp Pulse Resp BP Pulse Ox 98 F 60 20 92/57 L 94 L 05/04/17 08:24 05/04/17 08:24 05/04/17 08:24 05/04/17 08:24 05/04/17 08:24 - Medications Medications: Current Medications Acetaminophen (Tylenol 325mg Tab) 650 mg PO Q6 PRN PRN Reason: Pain, Mild (1-3) Last Admin: 05/02/17 01:37 Dose: 650 mg Calcium/Vitamin D (Citracal+D 315mg/250iu) 1 tab PO BID [facility] Last Admin: 05/04/17 09:40 Dose: 1 tab Enoxaparin Sodium (Lovenox) 40 mg SC DAILY [facility] PRN Reason: Protocol Last Admin: 05/04/17 09:41 Dose: 40 mg Ketorolac Tromethamine (Toradol) 30 mg IVP Q6 PRN PRN Reason: Pain, moderate (4-7) Lidocaine (Lidoderm) 1 ea TD DAILY [facility] Last Admin: 05/04/17 09:41 Dose: 1 ea Morphine Sulfate (Morphine Immediate Release Tab) 15 mg PO Q4 PRN PRN Reason: Pain, severe (8-10) Last Admin: 05/03/17 20:50 Dose: 15 mg Trimethoprim/Sulfamethoxazole (Bactrim Ds Tab) 1 tab PO Q12 [facility] PRN Reason: Protocol Stop: 05/05/17 10:00 Last Admin: 05/04/17 09:40 Dose: 1 tab - Labs Labs: 05/04/17 05:45 05/04/17 05:45 Assessment and Plan - Assessment and Plan (Free Text) Assessment: 81 y/o woman w/ pmh of dementia, NIDDM, HTN, HLD, recent diagnosed Right Breast Ca admitted for persistent dizziness and fall at home Plan: 1) Dizziness - patient currently denies dizziness - secondary to malignancy vs. low oral intake vs. UTI vs. medications (eg. tramadol). - Orthostatics show appropriate response in change in position - U/S carotid US 11/2016 showed right ICA stenosis 50-69% - Echo 11/2016 EF 40-45%, Mild hypokyniesis basal ant wall 2) fall at home - reported by patient, not witnessed - no presyncope symptoms. - XR Left Hip/Pelvis: no fracture, no dislocation - XR Left Femur: no fracture - XR Left Knee: no fracture, no dislocation - XR Left Ribs/Chest: no fracture - Seen by PT and suggest assist device due to abnormal gait - on fall precautions - will discuss case with social work regarding her needs of extended care 3) Right breast Ca - right breast mass - triple negative, stage IV w/ bone metastasis - Mammography 04/20/17 [id number] highly suspicious of malignancy - Biopsy showed infiltrating carcinoma with mixed ductal and lobular features - seen by Dr. Irizarry as outpatient - Hemo-Onc consulted, Dr. Irizarry, recommendations appreciated; outpatient low dose chemotherapy 4) Asymptomatic Bacteriuria - Hx/o recurrent UTI - Asymptomatic Bacteriuria last admission - Urine cx showed Klebsiella sensitive to Bactrim - c/w bactrim Q12h due to possible pt with dementia did not take medications on discharge - Urine culture 05/19/2017: Klebsiella 5) NIDDM type 2 - diet controlled - hga1c 5.7 - meds DC'ed last admission 6) Hx/o HTN - diet controlled - meds DC'ed last admission 7) DVT Prophylaxis - Lovenox 40 mg sc daily Dispo: pending placement [facility] vs. home discharge
[2017-05-04] MEDS: Morphine 15 mg Immediate Release Tab PO PRN (10:10)
--- NOTE | 2017-05-04 14:21 | CP.PCM.DIS ---
Provider - Provider Date of Admission: 05/02/17 14:51 Attending physician: Aimee Smith MD Time Spent in preparation of Discharge (in minutes): 30 Diagnosis - Discharge Diagnosis (1) Fall with no injury Status: Acute Hospital Course - Lab Results Lab Results: Micro Results 05/01/17 21:22 Urine,Clean Catch Urine Culture - Final Klebsiella Pneumoniae Ssp Pneu Most Recent Lab Values WBC 6.2 K/uL (4.8-10.8) 05/04/17 05:45 RBC 3.45 Mil/uL (3.80-5.20) L 05/04/17 05:45 Hgb 10.2 g/dL (12.0-16.0) L 05/04/17 05:45 Hct 30.8 % (34.0-47.0) L 05/04/17 05:45 MCV 89.3 fl (81.0-99.0) 05/04/17 05:45 MCH 29.4 pg (27.0-31.0) 05/04/17 05:45 MCHC 33.0 g/dL (33.0-37.0) 05/04/17 05:45 RDW 14.4 % (11.5-14.5) 05/04/17 05:45 Plt Count 167 K/uL (130-400) 05/04/17 05:45 MPV 7.7 fl (7.2-11.7) 05/02/17 05:30 Neut % (Auto) 74.2 % (50.0-75.0) 05/02/17 05:30 Lymph % (Auto) 18.8 % (20.0-40.0) L 05/02/17 05:30 [place] % (Auto) 5.8 % (0.0-10.0) 05/02/17 05:30 Eos % (Auto) 0.7 % (0.0-4.0) 05/02/17 05:30 Baso % (Auto) 0.5 % (0.0-2.0) 05/02/17 05:30 Neut # (Auto) 6.6 K/uL (1.8-7.0) 05/02/17 05:30 Lymph # (Auto) 1.7 K/uL (1.0-4.3) 05/02/17 05:30 [place] # (Auto) 0.5 K/uL (0.0-0.8) 05/02/17 05:30 Eos # (Auto) 0.1 K/uL (0.0-0.7) 05/02/17 05:30 Baso # (Auto) 0.0 K/uL (0.0-0.2) 05/02/17 05:30 Sodium 141 mmol/l (132-148) 05/04/17 05:45 Potassium 3.9 MMOL/L (3.6-5.0) 05/04/17 05:45 Chloride 106 mmol/L (98-107) 05/04/17 05:45 Carbon Dioxide 27 mmol/L (22-30) 05/04/17 05:45 Anion Gap 12 (10-20) 05/04/17 05:45 BUN 19 mg/dl (7-17) H 05/04/17 05:45 Creatinine 0.7 mg/dl (0.7-1.2) 05/04/17 05:45 Est GFR ( Amer) > 60 05/04/17 05:45 Est GFR (Non-Af Amer) > 60 05/04/17 05:45 Random Glucose 86 mg/dL (65-105) 05/04/17 05:45 Calcium 9.0 mg/dL (8.4-10.2) 05/04/17 05:45 Total Bilirubin 0.8 mg/dl (0.2-1.3) 05/01/17 20:34 AST 29 U/L (14-36) 05/01/17 20:34 ALT 26 U/L (9-52) 05/01/17 20:34 Alkaline Phosphatase 111 U/L (38-126) 05/01/17 20:34 Total Protein 7.1 G/DL (6.3-8.2) 05/01/17 20:34 Albumin 3.7 g/dL (3.5-5.0) 05/01/17 20:34 Globulin 3.4 gm/dL (2.2-3.9) 05/01/17 20:34 Albumin/Globulin Ratio 1.1 (1.0-2.1) 05/01/17 20:34 Urine Color Yellow (YELLOW) 05/01/17 21:22 Urine Clarity Slighty-cloudy (Clear) 05/01/17 21: Urine pH 7.0 (5.0-8.0) 05/01/17 21: Ur Specific [place] 1.015 (1.003-1.030) 05/01/17 21: Urine Protein Negative mg/dL (NEGATIVE) 05/01/17 21: Urine Glucose (UA) Neg mg/dL (Normal) 05/01/17 21: Urine Ketones Negative mg/dL (NEGATIVE) 05/01/17 21: Urine Blood Small (NEGATIVE) 05/01/17 21: Urine Nitrate Negative (NEGATIVE) 05/01/17 21: Urine Bilirubin Negative (NEGATIVE) 05/01/17: Urine Urobilinogen 0.2-1.0 mg/dL (0.2-1.0) 05/01/17 21: Ur Leukocyte Esterase Trace [place]/uL (Negative) 05/01/17 21: Urine RBC (Auto) 6 /hpf (0-3) H 05/01/17 21: Urine Microscopic WBC 7 /hpf (0-5) H 05/01/17 21: Ur Squamous Epith Cells 2 /hpf (0-5) 05/01/17 21: Urine Bacteria Few (<OCC) H 05/01/17: - Hospital Course Hospital Course: 81 y/o woman w/ pmh of dementia, NIDDM, HTN, HLD, recent diagnosed Right Breast Ca admitted for persistent dizziness and fall at home. Patient had XR left hip/pelvis, femur, knee, ribs/chest showed no fracture or dislocation. Patient was discharged previously 04/20/2017 with bactrim for UTI. Patient reports taking medication but upon presentation continued to show evidence of UTI. Urine culture previously grew Klebsiella which also grew on this admission. Patient was also seen by heme/onc as outpatient for breast cancer diagnosed in previous admission. Patient continues to complain of left sided pain mildly relieved w/ medication. Patient was seen and evaluated by physical therapy and deemed to require assistance for safe ambulation. Patient denies headaches, dizziness, chest pain, SOB, abdominal pain, nausea, vomiting, diarrhea, or fever. Patient has been seen, examined, and deemed medically fit for discharge to subacute rehab facility, [facility]. Patient will be discharged with 7 days more of bactrim to complete course. Discharge Exam - Head Exam Head Exam: ATRAUMATIC, NORMOCEPHALIC - Eye Exam Eye Exam: Normal appearance - Respiratory Exam Respiratory Exam: Rales. absent: Rhonchi, Wheezes, Respiratory Distress Additional comments: right peau d'orange breast mass approx 10 x 10cm with mild erythema aura- areolar. Mild hematoma s/p recent biopsy, no warmth, no cellulitis, no discharge. Right axillary lymph node hard consistency. mobile, non-tender - Cardiovascular Exam Cardiovascular Exam: REGULAR RHYTHM - GI/Abdominal Exam GI & Abdominal Exam: Normal Bowel Sounds, Soft. absent: Distended, Tenderness - Neurological Exam Neurological exam: Alert, Oriented x3 - Skin Skin Exam: Dry, Intact, Normal Color, Warm Discharge Plan - Discharge Medications Prescriptions: Sulfamethoxazole/Trimethoprim [Bactrim DS Tab] 1 tab PO Q12 7 Days #14 tab - Follow Up Plan Condition: STABLE Disposition: REHAB FACILITY/REHAB UNIT
[2017-05-04] MEDS ORDERED: Morphine 15 mg Immediate Release Tab PO SCH (17:00)
== END 2017-05-04 15:45 | DRG 690 ==
LOC: H.ER 16:26 → H.ERHOLD 05-02 00:11 → H.MEDSURG1 05-02 01:26 → OBSVTOIN 05-02 14:51
PROVIDERS: ADMIT Family Medicine; ATTEND Family Medicine
DX: N39.0 Urinary tract infection, site not specified (principal); C79.51 Secondary malignant neoplasm of bone; C50.911 Malignant neoplasm of unspecified site of right female breast; B96.1 Klebsiella pneumoniae [K. pneumoniae] as the cause of diseases classified elsewhere; D63.0 Anemia in neoplastic disease; I65.21 Occlusion and stenosis of right carotid artery; J44.9 Chronic obstructive pulmonary disease, unspecified; E11.9 Type 2 diabetes mellitus without complications; G30.9 Alzheimer's disease, unspecified; F02.80 Dementia in other diseases classified elsewhere, unspecified severity, without behavioral disturbance, psychotic disturbance, mood disturbance, and anxiety; I10 Essential (primary) hypertension; E78.5 Hyperlipidemia, unspecified; R42 Dizziness and giddiness; F41.9 Anxiety disorder, unspecified; M19.90 Unspecified osteoarthritis, unspecified site; Z91.81 History of falling; Z87.440 Personal history of urinary (tract) infections; Z79.82 Long term (current) use of aspirin; Z87.891 Personal history of nicotine dependence

== ENCOUNTER 2017-06-24 15:45 | Inpatient (IN) | payer MEDICARE, OTHER ==
[2017-06-24] MEDS ORDERED: Iohexol 240 (50 ml) PO ONE (16:24)
[2017-06-24] MEDS ORDERED: Sodium Chloride 0.9% 1,000 ML IV SCH (16:30)
--- NOTE | 2017-06-24 16:30 | ED PDOC ---
HPI: Abdomen Time Seen by Provider: 06/24/17 15:51 Chief Complaint (Nursing): Abdominal Pain Chief Complaint (Provider): Abd pain History Per: Patient History/Exam Limitations: no limitations Onset/Duration Of Symptoms: Days (today) Additional Complaint(s): Pt. with abd pain that started today. Pt. also had mild weakness all over today with decreased appetite. Pt. was at [place] until Thursday when she was released. Pt. was doing well and had chemo on Thursday for stage 4 breast ca. Pt. denies any chest pain, dyspnea, fever, headaches, diarrhea, numbness, tingles. No cough. Had bm today. Feels mild nausea, no vomit. No dysuria. No dizziness. Past Medical History Reviewed: Nursing Documentation, Vital Signs Vital Signs: Last Vital Signs Temp 97.9 F 06/24/17 15:47 Pulse 112 H 06/24/17 17:28 Resp 22 06/24/17 17:28 BP 132/67 06/24/17 17:28 Pulse Ox 100 06/24/17 21:24 - Medical History PMH: Alzheimer's Disease, Anxiety, Arthritis, Asthma, COPD, Depression, Diabetes , Fractures (left humerus), HTN, Hypercholesterolemia Denies: Hepatitis, HIV, Chronic Kidney Disease, Seizures, Sexually Transmitted Disease Other PMH: stage 4 ca breast - Surgical History Surgical History: No Surg Hx - Family History Family History: States: Unknown Family Hx - Living Arrangements Living Arrangements: With Family - Social History Current smoker - smoking cessation education provided: No Alcohol: None Drugs: Denies - Immunization History Hx Tetanus Toxoid Vaccination: No Hx Influenza Vaccination: No Hx Pneumococcal Vaccination: No - Home Medications Home Medications: Ambulatory Orders Medication Instructions Recorded Acetaminophen [Tylenol 325mg tab] 650 mg PO Q6 PRN 30 Days #40 tab 04/20/17 Aspirin [Adult Low Dose Aspirin EC] 81 mg PO DAILY #30 tablet. 04/20/17 Calcium Citrate/Vitamin D3 1 tab PO BID 30 Days #60 tablet 04/20/17 [Calcium Citrate - Vit D Caplet] Cetirizine HCl [Zyrtec] 10 mg PO DAILY #30 sgl 04/20/17 Fluticasone/Salmeterol 250/50 1 puff INH DAILY 30 Days #30 puff 04/20/17 [Advair Diskus 250/50] Lidocaine 5% [Lidoderm] 1 ea TD DAILY 30 Days #30 patch 04/20/17 Naproxen [Naprosyn] 1 tab PO BID PRN #30 tab 04/24/17 - Allergies Allergies/Adverse Reactions: Allergies Allergy/AdvReac Type Severity Reaction Status Date / Time No Known Allergies Allergy Verified 06/24/17 15:46 Review of Systems ROS Statement: Except As Marked, All Systems Reviewed And Found Negative Constitutional: Positive for: Weakness Gastrointestinal: Positive for: Abdominal Pain Neurological: Positive for: Weakness Physical Exam - Reviewed Nursing Documentation Reviewed: Yes Vital Signs Reviewed: Yes - Physical Exam Appears: Positive for: Uncomfortable Head Exam: Positive for: ATRAUMATIC, NORMAL INSPECTION, NORMOCEPHALIC Skin: Positive for: Normal Color, Warm, DRY Eye Exam: Positive for: EOMI, Normal appearance, PERRL ENT: Positive for: Normal ENT Inspection Neck: Positive for: Normal, Painless ROM, Supple Cardiovascular/Chest: Positive for: Regular Rate, Rhythm Respiratory: Positive for: CNT, Normal Breath Sounds Gastrointestinal/Abdominal: Positive for: Normal Exam, Bowel Sounds, Soft. Negative for: Tenderness Back: Positive for: Normal Inspection. Negative for: L CVA Tenderness, R CVA Tenderness Extremity: Positive for: Normal ROM. 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 Negative for: Motor/Sensory Deficits, Aphasia - Laboratory Results Result Diagrams: 06/24/17 17:35 06/24/17 17:35 Interpretation Of Abn Labs: 1.1 wbc, 3.4 lactate, urine wbc - ECG ECG: Positive for: Interpreted By Me, Viewed By Ma ECG Rhythm: Positive for: Sinus Rhythm, Nonspecific Changes O2 Sat by Pulse Oximetry: 100 Pulse Ox Interpretation: Normal - Radiology X-Ray: Interpreted by Me X-Ray Interpretation: No Acute Disease - CT Scan/US ct Other Rad Studies (CT/US): Read By Radiologist Other Rad Interpretation: colitis, pyelo, fx - Progress ED Course And Treament: 2100: Stable. AAOx3. Will admit for further tx. Meets severe sepsis criteria. Stable vital signs. Spoke with [facility] resident. Will admit. No injury per pt. and family. 2136: Stable. Spoke with GER Nolasco. States mri with contrast in the morning. Pt. bed rest. Pt. has 2+ dorsalis pedis pulse left. No tenderness to left hip. Spoke with Dr. Polanco. Will admit ICU. IMPRESSION: - Acute fractures, involving the left greater trochanter and left superior and inferior pubic rami. - Extensive sclerotic bony lesions, highly suspicious for bony metastatic disease. The primary site of malignancy could be the right breast, where there are abnormal findings for which followup mammography is recommended. - Abnormal renal enhancement pattern. Differential considerations include multifocal, bilateral pyelonephritis. Renal metastases are also a possibility in this patient with suspected bony metastases. - Findings suspicious for mild colitis, involving the left colon. - Critical Care Total Time (In Min): 30 Documented Critical Care: Time excludes all time spent performint seperately billable procedures Disposition - Clinical Impression Clinical Impression: Abdominal pain, Severe sepsis, Pyelonephritis, Hip fracture, Pelvic fracture - Patient ED Disposition Is Patient to be Admitted: Yes Counseled Patient/Family Regarding: Studies Performed, Diagnosis - Disposition Disposition Time: 20:00 Condition: FAIR - Pt Status Changed To: Hospital Disposition Of: Inpatient - Admit Certification Admit to Inpatient:: After my assessment, the patient will require hospitalization for at least two midnights. This is because of the severity of symptoms shown, intensity of services needed, and/or the medical risk in this patient being treated as an outpatient. - POA Present On Arrival: None (but fx present on x-ray (new findings per ct))
[2017-06-24] MEDS ORDERED: Iohexol 240 (50 ml) ONE (16:31)
[2017-06-24 17:24] LABS: VENOUS BLOOD GAS BASE EXCESS -5.7 mmol/L (0.0-2.0); VENOUS BLOOD GAS PCO2 30 mmHg (40-60); VENOUS BLOOD GAS PO2 33 mm/Hg (30-55); VENOUS BLOOD PH 7.39 (7.32-7.43)
[2017-06-24 17:56] LABS: ALB/GLOB RATIO 0.9 (1.0-2.1); ALBUMIN 3.6 g/dL (3.5-5.0); ALT/SGPT 17 U/L (9-52); AST/SGOT 29 U/L (14-36); BLOOD UREA NITROGEN 21 mg/dl (7-17); CALCIUM 8.1 mg/dL (8.4-10.2); GFR AFRICAN-AMERICAN > 60; GFR NON-AFRICAN AMERICAN > 60
[2017-06-24 18:01] LABS: BASO % 0.4 % (0.0-2.0); EOS % 0.5 % (0.0-4.0); HEMOGLOBIN 12.2 g/dL (12.0-16.0); LYMPH # 0.3 K/uL (1.0-4.3); LYMPH % 24.1 % (20.0-40.0); MEAN CELL VOLUME 86.4 fl (81.0-99.0); MEAN CORPUSCULAR HEMOGLOBIN 28.6 pg (27.0-31.0); MEAN PLATELET VOLUME 8.4 fl (7.2-11.7); MONO % 3.3 % (0.0-10.0); NEUT # 0.8 K/uL (1.8-7.0); NEUT % 71.7 % (50.0-75.0); NRBC % 0.8 % (0.0-0.0); RBC 4.26 Mil/uL (3.80-5.20); RED CELL DISTRIBUTION WIDTH 15.8 % (11.5-14.5)
[2017-06-24 18:08] LABS: INR 1.2 (0.9-1.2); PARTIAL THROMBOPLASTIN TIME 25.1 Seconds (25.6-37.1); PROTHROMBIN TIME 13.4 Seconds (9.8-13.1)
[2017-06-24 18:12] LABS: WHITE BLOOD COUNT 1.1 K/uL (4.8-10.8)
[2017-06-24 18:26] LABS: SQUAMOUS EPITHIAL 30 /hpf (0-5); URINE BACTERIA MOD (<OCC); URINE BILIRUBIN MODERATE (NEGATIVE); URINE BLOOD MODERATE (NEGATIVE); URINE CLARITY CLOUDY (Clear); URINE COLOR AMBER (YELLOW); URINE GLUCOSE (UA) NEG (Normal); URINE LEUKOCYTE ESTERASE TRACE Leu/uL (Negative); URINE PROTEIN 100 mg/dL (NEGATIVE)
[2017-06-24] MEDS ORDERED: Iohexol 300 100 ML IJ ONE (19:25)
[2017-06-24] MEDS ORDERED: Sodium Chloride 0.9% 100 ML ONE (19:25)
[2017-06-24] MEDS ORDERED: Sodium Chloride 0.9% 1,000 ML IV STA (20:40)
[2017-06-24] MEDS ORDERED: cefTRIAXone (Rocephin) 1 gm Inj IV ONE (20:41)
--- NOTE | 2017-06-24 20:54 | CT ---
EXAM: CT Head Without Intravenous Contrast EXAM DATE/TIME: 06/24/2017 4:27 PM CLINICAL HISTORY: 81 years old, female; Signs and symptoms; Other: Weakness TECHNIQUE: Axial computed tomography images of the head/brain without intravenous contrast. All CT scans at this facility use one or more dose reduction techniques, viz.: automated exposure control; ma/kV adjustment per patient size (including targeted exams where dose is matched to indication; i.e. head); or iterative reconstruction technique. Coronal and sagittal reformatted images were created and reviewed. COMPARISON: Prior head CT of 2016-12-02 FINDINGS: BRAIN: Areas of hypodensity in the white matter bilaterally, nonspecific in appearance, but most likely representing chronic small vessel ischemic changes, in a patient of this age. No significant acute abnormality identified. No acute hemorrhage seen within the brain. No acute extra-axial fluid collections visualized. No evidence of significant mass effect within the brain. No CT findings to suggest an acute, large territorial infarct, however, small or early acute infarcts may not be visible on CT. VENTRICLES: No evidence of significant hydrocephalus. BONES/JOINTS: No acute fractures or other acute bony abnormality noted. SOFT TISSUES: No acute abnormality of the visualized soft tissues is seen. SINUSES: Visualized paranasal sinuses appear clear. MASTOID AIR CELLS: Mastoid air cells appear clear. IMPRESSION: - No acute findings seen within the brain. - See above for remaining findings.
[2017-06-24 21:05] LABS: VENOUS BLOOD GAS BASE EXCESS -4.8 mmol/L (0.0-2.0); VENOUS BLOOD GAS PCO2 33 mmHg (40-60); VENOUS BLOOD GAS PO2 17 mm/Hg (30-55); VENOUS BLOOD PH 7.38 (7.32-7.43)
--- NOTE | 2017-06-24 21:18 | CT ---
EXAM: CT Abdomen and Pelvis With Intravenous Contrast EXAM DATE/TIME: 06/24/2017 4:24 PM CLINICAL HISTORY: 81 years old, female; Pain; Abdominal pain; Generalized; Additional info: Abd pain TECHNIQUE: Axial computed tomography images of the abdomen and pelvis with intravenous contrast. All CT scans at this facility use one or more dose reduction techniques, viz.: automated exposure control; ma/kV adjustment per patient size (including targeted exams where dose is matched to indication; i.e. head); or iterative reconstruction technique. Coronal and sagittal reformatted images were created and reviewed. CONTRAST: 80 mL of OMNIPAQUE 300 administered intravenously. COMPARISON: No relevant prior studies available. FINDINGS: LIMITATIONS: Mild to moderate streak/motion artifact. LOWER THORAX: Abnormal appearance of the right breast. There are large asymmetric densities in the right breast, and skin thickening. Neoplasm is not excluded. Recommend further evalation with mammography and/or breast ultrasound. ABDOMEN: LIVER: 9 mm low density liver lesion, most likely a cyst. Fatty infiltration of the liver. No evidence of diffuse liver lesions. GALLBLADDER AND BILE DUCTS:Faint gallstones versus sludge in the gallbladder. Mild gallbladder dilatation. No CT evidence of acute cholecystitis. PANCREAS: No CT evidence of acute pancreatitis. SPLEEN: No acute abnormality of the spleen identified. ADRENALS: No acute abnormality of the adrenal glands identified. KIDNEYS AND URETERS: Multiple subtle areas of decreased enhancement in the kidneys bilaterally, which do not appear to represent cysts. They have geographic and somewhat ill-defined margins, with the largest, located in the right kidney upper pole, measuring 3 cm. No evidence of perinephric fluid collection. STOMACH AND BOWEL: Mild, diffuse wall thickening of the left colon, suspicious for mild colitis (versus pseudo-wall thickening due to incomplete colonic distention). Colonic diverticulosis, with no evidence of acute diverticulitis. Otherwise, no significant abnormality of the bowel is identified. No evidence of diffuse colitis/pancolitis. No acute abnormality of the stomach or duodenum identified. No evidence of small bowel obstruction. APPENDIX: Appendix is seen, and is within normal limits in appearance. PELVIS: BLADDER: No acute abnormality of the bladder identified. REPRODUCTIVE:No acute abnormality of the reproductive organs is seen. No acute abnormality of the uterus identified. No evidence of large adnexal masses. ABDOMEN and PELVIS: INTRAPERITONEAL SPACE: No evidence of free intraperitoneal air or fluid. BONES/JOINTS: Acute fracture of the left proximal femur, involving the greater trochanter. This is comminuted and minimally displaced. Acute fractures of the left superior and inferior pubic rami, which are minimally displaced and comminuted. Multiple scattered sclerotic bony lesions, too numerous to count, highly suspicious for bony metastases. These are located within multiple vertebra, multiple ribs, the pelvic bones bilaterally, and the hips bilaterally. SOFT TISSUES: No acute abnormality of the visualized soft tissues is seen. VASCULATURE: No evidence of abdominal aortic aneurysm. No evidence of periaortic hemorrhage. LYMPH NODES: No evidence of diffuse lymphadenopathy. IMPRESSION: - Acute fractures, involving the left greater trochanter and left superior and inferior pubic rami. - Extensive sclerotic bony lesions, highly suspicious for bony metastatic disease. The primary site of malignancy could be the right breast, where there are abnormal findings for which followup mammography is recommended. - Abnormal renal enhancement pattern. Differential considerations include multifocal, bilateral pyelonephritis. Renal metastases are also a possibility in this patient with suspected bony metastases. - Findings suspicious for mild colitis, involving the left colon. - See above for remaining findings.
[2017-06-24] MEDS ORDERED: Piperacillin/Tazobact 3.375 GM in Sodium Chloride 0.9% 100 ML IV STA (21:24)
[2017-06-24] MEDS ORDERED: metroNIDAZOLE 500mg/100ml NS 100 ML IV STA (21:34)
--- NOTE | 2017-06-24 22:25 | CP.PCM.HP ---
History of Present Illness - History of Present Illness History of Present Illness: 81 year old female brought in by her son, states she was feeling sick. Expressed that she wants to go home, did not want to speak to the software writer. Unable to obtain further history, patient appears anxious about staying in the hospital, states she wants her son and she wants to go home. She is hard of hearing. I called her son Kalen, but was unable to reach him at the number provided below. As per ED sign out, patient had chemo 2 days ago. The following was obtained from EMR: [employer] PMD: [facility], last visit 04/27/17 PMHx: Alzheimer's dementia, anxiety, asthma/COPD, DM2, HTN, and HLD, breast CA allergies: NKDA as per chart PSHx: Patient unable to provide FMHx: unknown Social Hx: Lives with son, denies EtOH, former smoker Meds: Hydroxyzine 25 mg TID PRN, Tramadol 50 mg TID PRN pain Healthcare proxy: Son (Kalen [phone]) Present on Admission - Present on Admission Any Indicators Present on Admission: No Review of Systems - Review of Systems Systems not reviewed;Unavailable: Dementia Past Patient History - Infectious Disease Hx of Infectious Diseases: None - Past Medical History & Family History Past Medical History?: Yes - Past Social History Smoking Status: Former Smoker Alcohol: None Drugs: Denies - CARDIAC Hx Hypercholesterolemia: Yes Hx Hypertension: Yes - PULMONARY Hx Asthma: Yes Hx Chronic Obstructive Pulmonary Disease (COPD): Yes - NEUROLOGICAL Hx Alzheimer's Disease: Yes Hx Seizures: No - HEENT Hx HEENT Problems: Yes - RENAL Hx Chronic Kidney Disease: No - ENDOCRINE/METABOLIC Hx Diabetes Mellitus Type 2: Yes - HEMATOLOGICAL/ONCOLOGICAL Hx Human Immunodeficiency Virus (HIV): No - INTEGUMENTARY Hx Dermatological Problems: No - MUSCULOSKELETAL/RHEUMATOLOGICAL Hx Arthritis: Yes Hx Fractures: Yes (left humerus) - GASTROINTESTINAL Hx Gastrointestinal Disorders: No - GENITOURINARY/GYNECOLOGICAL Hx Sexually Transmitted Disorders: No - PSYCHIATRIC Hx Anxiety: Yes Hx Depression: Yes - SURGICAL HISTORY Hx Surgeries: Yes Other/Comment: left arm surgery with plates and screws. left foot surgery ( stepped on a nail) - ANESTHESIA Hx Anesthesia: Yes Hx Anesthesia Reactions: No Hx Malignant Hyperthermia: No Meds Allergies/Adverse Reactions: Allergies Allergy/AdvReac Type Severity Reaction Status Date / Time No Known Allergies Allergy Verified 06/24/17 15:46 Physical Exam - Constitutional Appears: No Acute Distress, Confused, Chronically Ill - Head Exam Head Exam: ATRAUMATIC, NORMAL INSPECTION, NORMOCEPHALIC Additional comments: allopecia - Eye Exam Eye Exam: EOMI, Normal appearance, PERRL - ENT Exam ENT Exam: Mucous Membranes Dry Additional comments: poor dentition - Neck Exam Neck exam: Positive for: Normal Inspection - Respiratory Exam Respiratory Exam: NORMAL BREATHING PATTERN - Cardiovascular Exam Cardiovascular Exam: REGULAR RHYTHM (on monitor) - Extremities Exam Extremities exam: Positive for: normal inspection - Psychiatric Exam Psychiatric exam: Anxious Results - Vital Signs Recent Vital Signs: Last Vital Signs Temp 97.9 F 06/24/17 15:47 Pulse 112 H 06/24/17 17:28 Resp 22 06/24/17 17:28 BP 132/67 06/24/17 17:28 Pulse Ox 100 06/24/17 21:43 - Labs Result Diagrams: 06/24/17 17:35 06/24/17 17:35 Labs: Laboratory Results - last 24 hr 06/24/17 06/24/17 06/24/17 16:28 17:35 17:35 WBC 1.1 L* D RBC 4.26 Hgb 12.2 D Hct 36.9 MCV 86.4 D MCH 28.6 MCHC 33.0 RDW 15.8 H Plt Count 273 D MPV 8.4 Neut % (Auto) 71.7 Lymph % (Auto) 24.1 [place] % (Auto) 3.3 Eos % (Auto) 0.5 Baso % (Auto) 0.4 Neut # (Auto) 0.8 L Lymph # (Auto) 0.3 L [place] # (Auto) 0.0 Eos # (Auto) 0.0 Baso # (Auto) 0.0 PT INR APTT pO2 33 VBG pH 7.39 VBG pCO2 30 L VBG HCO3 20.0 VBG Total CO2 19.1 L VBG O2 Sat (Calc) 79.6 H VBG Base Excess -5.7 L VBG Potassium 4.4 Sodium 138.0 143 Chloride 109.0 H 109 H Glucose 182 H Lactate 3.4 H FiO2 21.0 Potassium 4.4 Carbon Dioxide 16 L Anion Gap 22 H BUN 21 H Creatinine 0.6 L Est GFR ( Amer) > 60 Est GFR (Non-Af Amer) > 60 Random Glucose 162 H Calcium 8.1 L Phosphorus 2.7 Magnesium 2.8 H Total Bilirubin 1.5 H AST 29 ALT 17 Alkaline Phosphatase 119 Troponin I 0.0440 Total Protein 7.6 Albumin 3.6 Globulin 4.0 H Albumin/Globulin Ratio 0.9 L Venous Blood Potassium 4.4 Urine Color Urine Clarity Urine pH Ur Specific [place] Urine Protein Urine Glucose (UA) Urine Ketones Urine Blood Urine Nitrate Urine Bilirubin Urine Urobilinogen Ur Leukocyte Esterase Urine RBC (Auto) Urine Microscopic WBC Ur Squamous Epith Cells Urine Bacteria 06/24/17 06/24/17 06/24/17 17:35 18:00 20:41 WBC RBC Hgb Hct MCV MCH MCHC RDW Plt Count MPV Neut % (Auto) Lymph % (Auto) [place] % (Auto) Eos % (Auto) Baso % (Auto) Neut # (Auto) Lymph # (Auto) [place] # (Auto) Eos # (Auto) Baso # (Auto) PT 13.4 H INR 1.2 APTT 25.1 L pO2 17 L VBG pH 7.38 VBG pCO2 33 L VBG HCO3 19.5 VBG Total CO2 20.5 L VBG O2 Sat (Calc) 33.1 L VBG Base Excess -4.8 L VBG Potassium 4.4 Sodium 138.0 Chloride 109.0 H Glucose 135 H Lactate 2.3 H FiO2 21.0 Potassium Carbon Dioxide Anion Gap BUN Creatinine Est GFR ( Amer) Est GFR (Non-Af Amer) Random Glucose Calcium Phosphorus Magnesium Total Bilirubin AST ALT Alkaline Phosphatase Troponin I Total Protein Albumin Globulin Albumin/Globulin Ratio Venous Blood Potassium 4.4 Urine Color [place] Urine Clarity Cloudy Urine pH 5.0 Ur Specific [place] 1.030 Urine Protein 100 Urine Glucose (UA) Neg Urine Ketones Trace Urine Blood Moderate Urine Nitrate Negative Urine Bilirubin Moderate Urine Urobilinogen 4.0 H Ur Leukocyte Esterase Trace Urine RBC (Auto) 115 H Urine Microscopic WBC 25 H Ur Squamous Epith Cells 30 H Urine Bacteria Mod H - Imaging and Cardiology CT scan - abdomen Status: Report reviewed by me Additional comment: FINDINGS: LIMITATIONS: Mild to moderate streak/motion artifact. LOWER THORAX: Abnormal appearance of the right breast. There are large asymmetric densities in the right breast, and skin thickening. Neoplasm is not excluded. Recommend further evalation with mammography and/or breast ultrasound. ABDOMEN: LIVER: 9 mm low density liver lesion, most likely a cyst. Fatty infiltration of the liver. No evidence of diffuse liver lesions. GALLBLADDER AND BILE DUCTS:Faint gallstones versus sludge in the gallbladder. Mild gallbladder dilatation. No CT evidence of acute cholecystitis. PANCREAS: No CT evidence of acute pancreatitis. SPLEEN: No acute abnormality of the spleen identified. ADRENALS: No acute abnormality of the adrenal glands identified. KIDNEYS AND URETERS: Multiple subtle areas of decreased enhancement in the kidneys bilaterally, which do not appear to represent cysts. They have geographic and somewhat ill-defined margins, with the largest, located in the right kidney upper pole, measuring 3 cm. No evidence of perinephric fluid collection. STOMACH AND BOWEL: Mild, diffuse wall thickening of the left colon, suspicious for mild colitis (versus pseudo-wall thickening due to incomplete colonic distention). Colonic diverticulosis, with no evidence of acute diverticulitis. Otherwise, no significant abnormality of the bowel is identified. No evidence of diffuse colitis/pancolitis. No acute abnormality of the stomach or duodenum identified. No evidence of small bowel obstruction. APPENDIX: Appendix is seen, and is within normal limits in appearance. PELVIS: BLADDER: No acute abnormality of the bladder identified. REPRODUCTIVE:No acute abnormality of the reproductive organs is seen. No acute abnormality of the uterus identified. No evidence of large adnexal masses. ABDOMEN and PELVIS: INTRAPERITONEAL SPACE: No evidence of free intraperitoneal air or fluid. BONES/JOINTS: Acute fracture of the left proximal femur, involving the greater trochanter. This is comminuted and minimally displaced. Acute fractures of the left superior and inferior pubic rami, which are minimally displaced and comminuted. Multiple scattered sclerotic bony lesions, too numerous to count, highly suspicious for bony metastases. These are located within multiple vertebra, multiple ribs, the pelvic bones bilaterally, and the hips bilaterally. SOFT TISSUES: No acute abnormality of the visualized soft tissues is seen. VASCULATURE: No evidence of abdominal aortic aneurysm. No evidence of periaortic hemorrhage. LYMPH NODES: No evidence of diffuse lymphadenopathy. IMPRESSION: - Acute fractures, involving the left greater trochanter and left superior and inferior pubic rami. - Extensive sclerotic bony lesions, highly suspicious for bony metastatic disease. The primary site of malignancy could be the right breast, where there are abnormal findings for which followup mammography is recommended. - Abnormal renal enhancement pattern. Differential considerations include multifocal, bilateral pyelonephritis. Renal metastases are also a possibility in this patient with suspected bony metastases. - Findings suspicious for mild colitis, involving the left colon. - See above for remaining findings. Assessment & Plan (1) Severe sepsis Assessment and Plan: 81 year old female with dementia, breast CA admitted for severe sepsis, secondary to UTI, ?pyelonephritis, mild colitis as well as acute fracture of left hip. Pt is afebrile with tachycardia, leukopenia, lacate 3.4 -ICU admission -Aggressive IV hydration -Rocephin and Flagyl given in ED -Repeat lactate -cbc/bmp in AM -follow up urine and blood cultures. Status: Acute (2) Hip fracture Assessment and Plan: CT A/P: Acute fractures, involving the left greater trochanter and left superior and inferior pubic rami. -bony lesions likely 2' to metastatic disease, fracture may be as well -MRI ordered -Ortho consult -fall precautions Status: Acute (3) UTI (urinary tract infection) Assessment and Plan: CT scan : possible pyelo, UA+ LE, blood, bacteria -rocephin Status: Acute (4) Malignant neoplasm of breast Assessment and Plan: Has started chemotherapy, may be contributing to leukopenia Status: Chronic (5) DVT prophylaxis Assessment and Plan: lovenox , high risk due to malignancy Status: Acute
[2017-06-24] MEDS: Sodium Chloride 0.9% 1,000 ML IV SCH (22:36)
[2017-06-25] MEDS ORDERED: metroNIDAZOLE 500mg/100ml NS 100 ML IVPB ONE (00:06)
--- NOTE | 2017-06-25 00:18 | CP.PCM.CON ---
History of Present Illness - History of Present Illness History of Present Illness: CC: abd discomfort HPI: This is an 81 y/o female with breast cancer, currently on chemo, last 2 days ago who comes in with abd discomfort. Her MHx is also sig for Alz dementia , asthma/COPD, DM2, HTN, and HLD. She was brought in by her son who said she has been c/o feeling sick. Patient herself does not provide any relevant info, just repeatedly states she wants to be taken to her room. ROS: Cannot obtain, patient not answering questions MHx: Alzheimer's dementia, anxiety, asthma/COPD, DM2, HTN, and HLD, breast CA SHx: unable to obtain Allergies: NKDA listed Medications: As per med rec Family Hx: unable to obtain Social Hx: Lives with son, no EtOH, Hx of smoking Surrogate decision maker: Kalen Diego Past Patient History - Infectious Disease Hx of Infectious Diseases: None - Past Medical History & Family History Past Medical History?: Yes - Past Social History Smoking Status: Former Smoker Alcohol: None Drugs: Denies - CARDIAC Hx Hypercholesterolemia: Yes Hx Hypertension: Yes - PULMONARY Hx Asthma: Yes Hx Chronic Obstructive Pulmonary Disease (COPD): Yes - NEUROLOGICAL Hx Alzheimer's Disease: Yes Hx Seizures: No - HEENT Hx HEENT Problems: Yes - RENAL Hx Chronic Kidney Disease: No - ENDOCRINE/METABOLIC Hx Diabetes Mellitus Type 2: Yes - HEMATOLOGICAL/ONCOLOGICAL Hx Human Immunodeficiency Virus (HIV): No - INTEGUMENTARY Hx Dermatological Problems: No - MUSCULOSKELETAL/RHEUMATOLOGICAL Hx Arthritis: Yes Hx Fractures: Yes (left humerus) - GASTROINTESTINAL Hx Gastrointestinal Disorders: No - GENITOURINARY/GYNECOLOGICAL Hx Sexually Transmitted Disorders: No - PSYCHIATRIC Hx Anxiety: Yes Hx Depression: Yes - SURGICAL HISTORY Hx Surgeries: Yes Other/Comment: left arm surgery with plates and screws. left foot surgery ( stepped on a nail) - ANESTHESIA Hx Anesthesia: Yes Hx Anesthesia Reactions: No Hx Malignant Hyperthermia: No Meds Allergies/Adverse Reactions: Allergies Allergy/AdvReac Type Severity Reaction Status Date / Time No Known Allergies Allergy Verified 06/24/17 15:46 - Medications Medications: Current Medications Enoxaparin Sodium (Lovenox) 40 mg SC DAILY [facility] PRN Reason: Protocol Sodium Chloride (Sodium Chloride 0.9%) 1,000 mls @ 500 mls/hr IV .Q2H [facility] Last Admin: 06/24/17 17:20 Dose: 500 mls/hr Sodium Chloride (Sodium Chloride 0.9%) 1,000 mls @ 200 mls/hr IV .Q5H [facility] Stop: 06/25/17 21:15 Last Admin: 06/24/17 22:36 Dose: 200 mls/hr Metronidazole (Flagyl 500mg/100ml Ns) 100 mls @ 100 mls/hr IVPB Q8 [facility] PRN Reason: Protocol Ceftriaxone Sodium 1 gm/ (Sodium Chloride) 100 mls @ 100 mls/hr IVPB DAILY [facility] PRN Reason: Protocol Physical Exam - Constitutional Appears: No Acute Distress - Head Exam Head Exam: ATRAUMATIC, NORMOCEPHALIC - Eye Exam Eye Exam: EOMI, PERRL - ENT Exam ENT Exam: Mucous Membranes Dry - Respiratory Exam Respiratory Exam: Clear to Auscultation Bilateral, NORMAL BREATHING PATTERN - Cardiovascular Exam Cardiovascular Exam: REGULAR RHYTHM, +S1, +S2 - GI/Abdominal Exam GI & Abdominal Exam: Normal Bowel Sounds, Soft, Tenderness - Extremities Exam Extremities exam: Positive for: full ROM, normal inspection - Neurological Exam Neurological exam: Alert Additional comments: appears somewhat confused, does not really answer questions appropriately - Skin Skin Exam: Dry, Warm Results - Vital Signs Recent Vital Signs: Last Vital Signs Temp 98.5 F 06/24/17 23:05 Pulse 79 06/24/17 23:05 Resp 18 06/24/17 23:05 BP 112/53 L 06/24/17 23:05 Pulse Ox 100 06/24/17 23:05 - Labs Result Diagrams: 06/24/17 17:35 06/24/17 17:35 Labs: Laboratory Results - last 24 hr 06/24/17 06/24/17 06/24/17 16:28 17:35 17:35 WBC 1.1 L* D RBC 4.26 Hgb 12.2 D Hct 36.9 MCV 86.4 D MCH 28.6 MCHC 33.0 RDW 15.8 H Plt Count 273 D MPV 8.4 Neut % (Auto) 71.7 Lymph % (Auto) 24.1 [place] % (Auto) 3.3 Eos % (Auto) 0.5 Baso % (Auto) 0.4 Neut # (Auto) 0.8 L Lymph # (Auto) 0.3 L [place] # (Auto) 0.0 Eos # (Auto) 0.0 Baso # (Auto) 0.0 PT INR APTT pO2 33 VBG pH 7.39 VBG pCO2 30 L VBG HCO3 20.0 VBG Total CO2 19.1 L VBG O2 Sat (Calc) 79.6 H VBG Base Excess -5.7 L VBG Potassium 4.4 Sodium 138.0 143 Chloride 109.0 H 109 H Glucose 182 H Lactate 3.4 H FiO2 21.0 Potassium 4.4 Carbon Dioxide 16 L Anion Gap 22 H BUN 21 H Creatinine 0.6 L Est GFR ( Amer) > 60 Est GFR (Non-Af Amer) > 60 Random Glucose 162 H Calcium 8.1 L Phosphorus 2.7 Magnesium 2.8 H Total Bilirubin 1.5 H AST 29 ALT 17 Alkaline Phosphatase 119 Troponin I 0.0440 Total Protein 7.6 Albumin 3.6 Globulin 4.0 H Albumin/Globulin Ratio 0.9 L Venous Blood Potassium 4.4 Urine Color Urine Clarity Urine pH Ur Specific [place] Urine Protein Urine Glucose (UA) Urine Ketones Urine Blood Urine Nitrate Urine Bilirubin Urine Urobilinogen Ur Leukocyte Esterase Urine RBC (Auto) Urine Microscopic WBC Ur Squamous Epith Cells Urine Bacteria 06/24/17 06/24/17 06/24/17 17:35 18:00 20:41 WBC RBC Hgb Hct MCV MCH MCHC RDW Plt Count MPV Neut % (Auto) Lymph % (Auto) [place] % (Auto) Eos % (Auto) Baso % (Auto) Neut # (Auto) Lymph # (Auto) [place] # (Auto) Eos # (Auto) Baso # (Auto) PT 13.4 H INR 1.2 APTT 25.1 L pO2 17 L VBG pH 7.38 VBG pCO2 33 L VBG HCO3 19.5 VBG Total CO2 20.5 L VBG O2 Sat (Calc) 33.1 L VBG Base Excess -4.8 L VBG Potassium 4.4 Sodium 138.0 Chloride 109.0 H Glucose 135 H Lactate 2.3 H FiO2 21.0 Potassium Carbon Dioxide Anion Gap BUN Creatinine Est GFR ( Amer) Est GFR (Non-Af Amer) Random Glucose Calcium Phosphorus Magnesium Total Bilirubin AST ALT Alkaline Phosphatase Troponin I Total Protein Albumin Globulin Albumin/Globulin Ratio Venous Blood Potassium 4.4 Urine Color [place] Urine Clarity Cloudy Urine pH 5.0 Ur Specific [place] 1.030 Urine Protein 100 Urine Glucose (UA) Neg Urine Ketones Trace Urine Blood Moderate Urine Nitrate Negative Urine Bilirubin Moderate Urine Urobilinogen 4.0 H Ur Leukocyte Esterase Trace Urine RBC (Auto) 115 H Urine Microscopic WBC 25 H Ur Squamous Epith Cells 30 H Urine Bacteria Mod H - EKG Data EKG Interpreted by: Myself EKG shows normal: Sinus rhythm Rate: Normal - EKG Data EKG comments: Sinus tach, ? left anterior fasicular block - Imaging and Cardiology CT scan - abdomen Status: Report reviewed by me (L hip fx of greater trochanter, inf pubic rami, possible bony mets, mild colitis) CT scan - head Status: Image reviewed by me (no findings), Report reviewed by me Chest x-ray Status: Image reviewed by me (no significant findings) Assessment & Plan (1) Sepsis Assessment and Plan: 81 y/o female with breast cancer and possible pathological L hip fx coming in with colitis, ?pyelo, and sepsis. Patient also with COPD/asthma, and dm2 -Admit to ICU -Agree with ceftriaxone + flagyl as started in ER; will cover urine and GI organisms (g-, anaerobes) -- if patient condition worsens, would broaden coverage -IVF hydration overnight -Pain control for fx hip per primary team -Ortho consult in AM -DM2 is listed in med conditions, for now accucheck and SSI, diabetic diet -agree with lovenox for DVT PPx Status: Acute (2) Pyelonephritis Status: Acute (3) Hip fracture Status: Acute (4) Pelvic fracture Status: Acute (5) Malignant neoplasm of breast Status: Chronic (6) DM2 (diabetes mellitus, type 2) Status: Chronic (7) DVT prophylaxis Status: Acute (8) Colitis Status: Acute
[2017-06-25] MEDS ORDERED: metroNIDAZOLE 500mg/100ml NS 100 ML IVPB SCH (01:00)
[2017-06-25] MEDS: Sodium Chloride 0.9% 1,000 ML IV SCH (03:50)
[2017-06-25] MEDS ORDERED: Sodium Chloride 0.9% 1,000 ML IV SCH (06:54)
[2017-06-25 07:02] LABS: BASO % 0.7 % (0.0-2.0); EOS % 2.3 % (0.0-4.0); HEMOGLOBIN 8.6 g/dL (12.0-16.0); LYMPH # 0.3 K/uL (1.0-4.3); LYMPH % 44.3 % (20.0-40.0); MEAN CELL VOLUME 85.6 fl (81.0-99.0); MEAN CORPUSCULAR HGB CONC 33.9 g/dL (33.0-37.0); MONO # 0.1 K/uL (0.0-0.8); MONO % 8.9 % (0.0-10.0); NEUT # 0.3 K/uL (1.8-7.0); NEUT % 43.8 % (50.0-75.0); NRBC % 0.9 % (0.0-0.0); RBC 2.96 Mil/uL (3.80-5.20); RED CELL DISTRIBUTION WIDTH 15.7 % (11.5-14.5)
[2017-06-25 07:18] LABS: BLOOD UREA NITROGEN 12 mg/dl (7-17); CALCIUM 6.4 mg/dL (8.4-10.2); GFR AFRICAN-AMERICAN > 60; GFR NON-AFRICAN AMERICAN > 60
[2017-06-25 07:37] LABS: WHITE BLOOD COUNT 0.6 K/uL (4.8-10.8)
[2017-06-25] MEDS: metroNIDAZOLE 500mg/100ml NS 100 ML IVPB SCH ×2 (08:30→15:00)
[2017-06-25] MEDS: Enoxaparin 40 mg Syringe SC SCH (09:38)
--- NOTE | 2017-06-25 09:58 | RAD ---
HISTORY: Sepsis Patient COMPARISON: 05/01/2017 FINDINGS: LUNGS: No active pulmonary disease. PLEURA: No significant pleural effusion identified, no pneumothorax apparent. CARDIOVASCULAR: Normal. OSSEOUS STRUCTURES: Status post ORIF left humeral diaphysis fracture. VISUALIZED UPPER ABDOMEN: Normal. OTHER FINDINGS: None. IMPRESSION: No active disease.
--- NOTE | 2017-06-25 11:27 | CP.PCM.PN ---
Subjective - Date & Time of Evaluation Date of Evaluation: 06/25/17 Time of Evaluation: 07:35 - Subjective Subjective: Pt seen and evaluated at bedside. Pt is hard of hearing, appears confused, not very agreeable with talking. States she has "diabetes, hypertension, and cancer, " but is unable to state where her cancer is. Does not complain of pain at this time. Denies burning with urination. Objective - Vital Signs/Intake and Output Vital Signs (last 24 hours): Temp Pulse Resp BP Pulse Ox 99.7 F H 64 18 86/58 L 98 06/25/17 08:00 06/25/17 08:00 06/25/17 08:00 06/25/17 08:00 06/25/17 08:00 Intake and Output: 06/25/17 06/25/17 06:59 18:59 Intake Total 800 Output Total 200 Balance 600 - Medications Medications: Current Medications Enoxaparin Sodium (Lovenox) 40 mg SC DAILY [facility] PRN Reason: Protocol Last Admin: 06/25/17 09:38 Dose: 40 mg Sodium Chloride (Sodium Chloride 0.9%) 1,000 mls @ 500 mls/hr IV .Q2H [facility] Last Admin: 06/24/17 17:20 Dose: 500 mls/hr Ceftriaxone Sodium 1 gm/ (Sodium Chloride) 100 mls @ 100 mls/hr IVPB DAILY [facility] PRN Reason: Protocol Last Admin: 06/25/17 09:40 Dose: 100 mls/hr Metronidazole (Flagyl 500mg/100ml Ns) 100 mls @ 100 mls/hr IVPB Q8@0000,0800, 1400 [facility] PRN Reason: Protocol Last Admin: 06/25/17 08:30 Dose: 100 mls/hr Sodium Chloride (Sodium Chloride 0.9%) 1,000 mls @ 125 mls/hr IV .Q8H [facility] Stop: 06/25/17 21:15 Last Admin: 06/25/17 09:42 Dose: 125 mls/hr - Labs Labs: 06/25/17 06:43 06/25/17 06:43 PT 13.4 Seconds (9.8-13.1) H 06/24/17 17:35 INR 1.2 (0.9-1.2) 06/24/17 17:35 APTT 25.1 Seconds (25.6-37.1) L 06/24/17 17:35 - Constitutional Appears: Chronically Ill - Head Exam Additional comments: alopecia - ENT Exam ENT Exam: Mucous Membranes Moist Additional comments: poor dentition - Respiratory Exam Respiratory Exam: Clear to Ausculation Bilateral. absent: Respiratory Distress - Cardiovascular Exam Cardiovascular Exam: +S1, +S2 - GI/Abdominal Exam GI & Abdominal Exam: Soft, Normal Bowel Sounds. absent: Tenderness - Extremities Exam Extremities Exam: absent: Tenderness Additional comments: extremities not externally rotated, no calf tenderness - Neurological Exam Additional comments: dementia, does not answer questions appropriately - Psychiatric Exam Psychiatric exam: Anxious Assessment and Plan - Assessment and Plan (Free Text) Assessment: 81 yo F with DM2, HTN, HLD, anxiety and breast cancer admitted for sepsis due to UTI, colitis. Hip fracture seen on X-ray. Plan: # Severe sepsis Likely source UTI. - Continue IV hydration - Repeat lactate 2.3 - Rocephin 1g daily (day 2) - Flagyll 500 mg Q8 (day 2) - Urine and blood culture pending - Leukopenic, Dr. Irizarry consulted - Admitted to ICU, monitor for acute changes # Hip fracture Seen on CT - fractures including greater trochanter and left superior and inferior pubic rami Bony lesions like secondary to metastatic disease - Pending hip/pelvis MRI - Ortho consult- Dr. Johnathan Nolasco # Anemia - Hgb 8.4 today - Monitor on CBC # Malignant neoplasm of breast - Heme/onc consult Dr. Irizarry - Chemotherapy may be contributing to leukopenia DVT prophylaxis - lovenox
[2017-06-25 12:13] VITALS: BMI 19.3
--- NOTE | 2017-06-25 12:50 | CP.CCUPN ---
CCU Subjective - Physician Review Subjective (Free Text): Awake and remains at attention when examined and asked simple questions, but confused to place and time, however no overt distress noted. Alex any complaints of any muscle or skeletal-bernadine pain 9Other Vitals and I/Os reviewed. Temps remained mostly 97-99 Fahrenheit. ROS: No other pertinent negs or positives on 10+ system review. PMSFH: All other historical Nursing and physician documentation reviewed to date; no new pertinent info noted relevant to current medical problems. EXAM- HEENT: no icterus, no gaze preference, pupils equal and reactive, no icterus NECK: No JVD, supple, carotids equal upstroke bilat/no bruits CHEST: decreased BS bases, otherwise clear bilat, no wheezes audible HEART: regular distant, S1S2, no rubs. ABD: soft, no distention, no tympany, no palp tenderness, BS hypoactive EXT: No peripheral/ digital cyanosis, no calf tenderness or palpable cords, distal pulses intact and symmetrical. NEURO: no gross focal motor deficits SKIN: no rashes, warm and dry. LABS: WBC= 0.6 HGB= 8.6 PLTs= 195K Na= 143 K= 3.6 CL= 114 HCO3= 18 BUN/Cr= 12/0.5 BS= 113 INR= 1.2 Lactate 3.4 on admission, repeated overnight= 2.3 MAJOR PROBLEMS: 1. Severe Sepsis with lactate acidosis and AG MAC, r/o bacteremia 2. Etiology of Sepsis: tract with Bactiuria 3. Chemotx induced leukopenia 4. Metastatic breast CA with probable pathological fractures. 5. Hypocalcemia 2 metastatic bone disease vs chemoagent effect 6. S/p Fall at home PLAN: 1. Pancultures obtained, on empiric abx coverage for neutropenic sepsis 2. Orthopedic and Heme-Onc evals. 3. Repeat serial Lactates till normalized, on NSS at 200ml/hr, becoming hyperchloremic, would change fluids over to LR for now. 4. Cautious comfort measures 5. Not emergent to treat low calcium for now, patient still relatively acidotic. Check PTH, ionized Ca, vit D levels. 6. Clarify Advance Directives, Pall care eval. CCU Objective - Vital Signs / Intake & Output Vital Signs (Last 4 hours): Vital Signs Temp Pulse Resp BP Pulse Ox 06/25/17 12:00 98.4 F 83 20 97/56 L 99 Intake and Output (Last 8hrs): Intake & Output 06/24/17 06/25/17 06/25/17 22:59 06:59 14:59 Intake Total 800 Output Total 200 Balance 600 Weight 111 lb 123 lb 6.4 oz Intake: IV 800 Output: Urine 200 Urine, Voided 200 - Medications Active Medications: Active Medications Generic Name Dose Route Start Last Admin Trade Name Freq PRN Reason Stop Dose Admin Enoxaparin Sodium 40 mg 06/25/17 09:00 06/25/17 09:38 Lovenox SC 40 mg DAILY HEAVEN Administration Protocol Sodium Chloride 1,000 mls @ 500 mls/hr 06/24/17 16:30 06/24/17 17:20 Sodium Chloride 0.9% IV 500 mls/hr .Q2H HEAVEN Administration Ceftriaxone Sodium 1 gm/ 100 mls @ 100 mls/hr 06/25/17 09:00 06/25/17 09:40 Sodium Chloride IVPB 100 mls/hr DAILY HEAVEN Administration Protocol Metronidazole 100 mls @ 100 mls/hr 06/25/17 08:00 06/25/17 08:30 Flagyl 500mg/100ml Ns IVPB 100 mls/hr Q8@0000,0800,1400 HEAVEN Administration Protocol Sodium Chloride 1,000 mls @ 125 mls/hr 06/25/17 06:54 06/25/17 09:42 Sodium Chloride 0.9% IV 06/25/17 21:15 125 mls/hr .Q8H HEAVEN Administration - Patient Studies Lab Studies: Lab Studies 06/25/17 06/25/17 06/25/17 Range/Units 06:43 06:43 05:58 WBC 0.6 L* (4.8-10.8) K/uL RBC 2.96 L (3.80-5.20) Mil/uL Hgb 8.6 L D (12.0-16.0) g/dL Hct 25.4 L (34.0-47.0) % MCV 85.6 (81.0-99.0) fl MCH 29.0 (27.0-31.0) pg MCHC 33.9 (33.0-37.0) g/dL RDW 15.7 H (11.5-14.5) % Plt Count 195 (130-400) K/uL MPV 8.0 (7.2-11.7) fl Neut % (Auto) 43.8 L (50.0-75.0) % Lymph % (Auto) 44.3 H (20.0-40.0) % [place] % (Auto) 8.9 (0.0-10.0) % Eos % (Auto) 2.3 (0.0-4.0) % Baso % (Auto) 0.7 (0.0-2.0) % Neut # (Auto) 0.3 L (1.8-7.0) K/uL Lymph # (Auto) 0.3 L (1.0-4.3) K/uL [place] # (Auto) 0.1 (0.0-0.8) K/uL Eos # (Auto) 0.0 (0.0-0.7) K/uL Baso # (Auto) 0.0 (0.0-0.2) K/uL PT (9.8-13.1) Seconds INR (0.9-1.2) APTT (25.6-37.1) Seconds pO2 (30-55) mm/Hg VBG pH (7.32-7.43) VBG pCO2 (40-60) mmHg VBG HCO3 mmol/L VBG Total CO2 (22-28) mmol/L VBG O2 Sat (Calc) (40-65) % VBG Base Excess (0.0-2.0) mmol/L VBG Potassium (3.6-5.2) mmol/L Sodium 143 (132-148) mmol/L Chloride 114 H (98-107) mmol/L Glucose (65-105) mg/dL Lactate (0.7-2.1) mmol/L FiO2 % Potassium 3.6 (3.6-5.0) MMOL/L Carbon Dioxide 18 L (22-30) mmol/L Anion Gap 15 (10-20) BUN 12 (7-17) mg/dl Creatinine 0.5 L (0.7-1.2) mg/dl Est GFR ( Amer) > 60 Est GFR (Non-Af Amer) > 60 POC Glucose (mg/dL) 116 H (65-110) mg/dL Random Glucose 113 H (65-105) mg/dL Calcium 6.4 L (8.4-10.2) mg/dL Phosphorus (2.5-4.5) mg/dl Magnesium (1.6-2.3) MG/DL Total Bilirubin (0.2-1.3) mg/dl AST (14-36) U/L ALT (9-52) U/L Alkaline Phosphatase (38-126) U/L Troponin I (0.00-0.120) ng/mL Total Protein (6.3-8.2) G/DL Albumin (3.5-5.0) g/dL Globulin (2.2-3.9) gm/dL Albumin/Globulin Ratio (1.0-2.1) Venous Blood Potassium (3.6-5.2) mmol/L Urine Color (YELLOW) Urine Clarity (Clear) Urine pH (5.0-8.0) Ur Specific [place] (1.003-1.030) Urine Protein (NEGATIVE) mg/dL Urine Glucose (UA) (Normal) mg/dL Urine Ketones (NEGATIVE) mg/dL Urine Blood (NEGATIVE) Urine Nitrate (NEGATIVE) Urine Bilirubin (NEGATIVE) Urine Urobilinogen (0.2-1.0) mg/dL Ur Leukocyte Esterase (Negative) Colette/uL Urine RBC (Auto) (0-3) /hpf Urine Microscopic WBC (0-5) /hpf Ur Squamous Epith Cells (0-5) /hpf Urine Bacteria (<OCC) 06/24/17 06/24/17 06/24/17 Range/Units 20:41 18:00 17:35 WBC (4.8-10.8) K/uL RBC (3.80-5.20) Mil/uL Hgb (12.0-16.0) g/dL Hct (34.0-47.0) % MCV (81.0-99.0) fl MCH (27.0-31.0) pg MCHC (33.0-37.0) g/dL RDW (11.5-14.5) % Plt Count (130-400) K/uL MPV (7.2-11.7) fl Neut % (Auto) (50.0-75.0) % Lymph % (Auto) (20.0-40.0) % [place] % (Auto) (0.0-10.0) % Eos % (Auto) (0.0-4.0) % Baso % (Auto) (0.0-2.0) % Neut # (Auto) (1.8-7.0) K/uL Lymph # (Auto) (1.0-4.3) K/uL [place] # (Auto) (0.0-0.8) K/uL Eos # (Auto) (0.0-0.7) K/uL Baso # (Auto) (0.0-0.2) K/uL PT 13.4 H (9.8-13.1) Seconds INR 1.2 (0.9-1.2) APTT 25.1 L (25.6-37.1) Seconds pO2 17 L (30-55) mm/Hg VBG pH 7.38 (7.32-7.43) VBG pCO2 33 L (40-60) mmHg VBG HCO3 19.5 mmol/L VBG Total CO2 20.5 L (22-28) mmol/L VBG O2 Sat (Calc) 33.1 L (40-65) % VBG Base Excess -4.8 L (0.0-2.0) mmol/L VBG Potassium 4.4 (3.6-5.2) mmol/L Sodium 138.0 (132-148) mmol/L Chloride 109.0 H (98-107) mmol/L Glucose 135 H (65-105) mg/dL Lactate 2.3 H (0.7-2.1) mmol/L FiO2 21.0 % Potassium (3.6-5.0) MMOL/L Carbon Dioxide (22-30) mmol/L Anion Gap (10-20) BUN (7-17) mg/dl Creatinine (0.7-1.2) mg/dl Est GFR ( Amer) Est GFR (Non-Af Amer) POC Glucose (mg/dL) (65-110) mg/dL Random Glucose (65-105) mg/dL Calcium (8.4-10.2) mg/dL Phosphorus (2.5-4.5) mg/dl Magnesium (1.6-2.3) MG/DL Total Bilirubin (0.2-1.3) mg/dl AST (14-36) U/L ALT (9-52) U/L Alkaline Phosphatase (38-126) U/L Troponin I (0.00-0.120) ng/mL Total Protein (6.3-8.2) G/DL Albumin (3.5-5.0) g/dL Globulin (2.2-3.9) gm/dL Albumin/Globulin Ratio (1.0-2.1) Venous Blood Potassium 4.4 (3.6-5.2) mmol/L Urine Color Jacinta (YELLOW) Urine Clarity Cloudy (Clear) Urine pH 5.0 (5.0-8.0) Ur Specific [place] 1.030 (1.003-1.030) Urine Protein 100 (NEGATIVE) mg/dL Urine Glucose (UA) Neg (Normal) mg/dL Urine Ketones Trace (NEGATIVE) mg/dL Urine Blood Moderate (NEGATIVE) Urine Nitrate Negative (NEGATIVE) Urine Bilirubin Moderate (NEGATIVE) Urine Urobilinogen 4.0 H (0.2-1.0) mg/dL Ur Leukocyte Esterase Trace (Negative) Colette/uL Urine RBC (Auto) 115 H (0-3) /hpf Urine Microscopic WBC 25 H (0-5) /hpf Ur Squamous Epith Cells 30 H (0-5) /hpf Urine Bacteria Mod H (<OCC) 06/24/17 06/24/17 06/24/17 Range/Units 17:35 17:35 16:28 WBC 1.1 L* D (4.8-10.8) K/uL RBC 4.26 (3.80-5.20) Mil/uL Hgb 12.2 D (12.0-16.0) g/dL Hct 36.9 (34.0-47.0) % MCV 86.4 D (81.0-99.0) fl MCH 28.6 (27.0-31.0) pg MCHC 33.0 (33.0-37.0) g/dL RDW 15.8 H (11.5-14.5) % Plt Count 273 D (130-400) K/uL MPV 8.4 (7.2-11.7) fl Neut % (Auto) 71.7 (50.0-75.0) % Lymph % (Auto) 24.1 (20.0-40.0) % [place] % (Auto) 3.3 (0.0-10.0) % Eos % (Auto) 0.5 (0.0-4.0) % Baso % (Auto) 0.4 (0.0-2.0) % Neut # (Auto) 0.8 L (1.8-7.0) K/uL Lymph # (Auto) 0.3 L (1.0-4.3) K/uL [place] # (Auto) 0.0 (0.0-0.8) K/uL Eos # (Auto) 0.0 (0.0-0.7) K/uL Baso # (Auto) 0.0 (0.0-0.2) K/uL PT (9.8-13.1) Seconds INR (0.9-1.2) APTT (25.6-37.1) Seconds pO2 33 (30-55) mm/Hg VBG pH 7.39 (7.32-7.43) VBG pCO2 30 L (40-60) mmHg VBG HCO3 20.0 mmol/L VBG Total CO2 19.1 L (22-28) mmol/L VBG O2 Sat (Calc) 79.6 H (40-65) % VBG Base Excess -5.7 L (0.0-2.0) mmol/L VBG Potassium 4.4 (3.6-5.2) mmol/L Sodium 143 138.0 (132-148) mmol/L Chloride 109 H 109.0 H (98-107) mmol/L Glucose 182 H (65-105) mg/dL Lactate 3.4 H (0.7-2.1) mmol/L FiO2 21.0 % Potassium 4.4 (3.6-5.0) MMOL/L Carbon Dioxide 16 L (22-30) mmol/L Anion Gap 22 H (10-20) BUN 21 H (7-17) mg/dl Creatinine 0.6 L (0.7-1.2) mg/dl Est GFR ( Amer) > 60 Est GFR (Non-Af Amer) > 60 POC Glucose (mg/dL) (65-110) mg/dL Random Glucose 162 H (65-105) mg/dL Calcium 8.1 L (8.4-10.2) mg/dL Phosphorus 2.7 (2.5-4.5) mg/dl Magnesium 2.8 H (1.6-2.3) MG/DL Total Bilirubin 1.5 H (0.2-1.3) mg/dl AST 29 (14-36) U/L ALT 17 (9-52) U/L Alkaline Phosphatase 119 (38-126) U/L Troponin I 0.0440 (0.00-0.120) ng/mL Total Protein 7.6 (6.3-8.2) G/DL Albumin 3.6 (3.5-5.0) g/dL Globulin 4.0 H (2.2-3.9) gm/dL Albumin/Globulin Ratio 0.9 L (1.0-2.1) Venous Blood Potassium 4.4 (3.6-5.2) mmol/L Urine Color (YELLOW) Urine Clarity (Clear) Urine pH (5.0-8.0) Ur Specific [place] (1.003-1.030) Urine Protein (NEGATIVE) mg/dL Urine Glucose (UA) (Normal) mg/dL Urine Ketones (NEGATIVE) mg/dL Urine Blood (NEGATIVE) Urine Nitrate (NEGATIVE) Urine Bilirubin (NEGATIVE) Urine Urobilinogen (0.2-1.0) mg/dL Ur Leukocyte Esterase (Negative) Colette/uL Urine RBC (Auto) (0-3) /hpf Urine Microscopic WBC (0-5) /hpf Ur Squamous Epith Cells (0-5) /hpf Urine Bacteria (<OCC) Laboratory Results - last 24 hr 06/24/17 06/24/17 06/24/17 16:28 17:35 17:35 WBC 1.1 L* D RBC 4.26 Hgb 12.2 D Hct 36.9 MCV 86.4 D MCH 28.6 MCHC 33.0 RDW 15.8 H Plt Count 273 D MPV 8.4 Neut % (Auto) 71.7 Lymph % (Auto) 24.1 [place] % (Auto) 3.3 Eos % (Auto) 0.5 Baso % (Auto) 0.4 Neut # (Auto) 0.8 L Lymph # (Auto) 0.3 L [place] # (Auto) 0.0 Eos # (Auto) 0.0 Baso # (Auto) 0.0 PT INR APTT pO2 33 VBG pH 7.39 VBG pCO2 30 L VBG HCO3 20.0 VBG Total CO2 19.1 L VBG O2 Sat (Calc) 79.6 H VBG Base Excess -5.7 L VBG Potassium 4.4 Sodium 138.0 143 Chloride 109.0 H 109 H Glucose 182 H Lactate 3.4 H FiO2 21.0 Potassium 4.4 Carbon Dioxide 16 L Anion Gap 22 H BUN 21 H Creatinine 0.6 L Est GFR ( Amer) > 60 Est GFR (Non-Af Amer) > 60 POC Glucose (mg/dL) Random Glucose 162 H Calcium 8.1 L Phosphorus 2.7 Magnesium 2.8 H Total Bilirubin 1.5 H AST 29 ALT 17 Alkaline Phosphatase 119 Troponin I 0.0440 Total Protein 7.6 Albumin 3.6 Globulin 4.0 H Albumin/Globulin Ratio 0.9 L Venous Blood Potassium 4.4 Urine Color Urine Clarity Urine pH Ur Specific [place] Urine Protein Urine Glucose (UA) Urine Ketones Urine Blood Urine Nitrate Urine Bilirubin Urine Urobilinogen Ur Leukocyte Esterase Urine RBC (Auto) Urine Microscopic WBC Ur Squamous Epith Cells Urine Bacteria 06/24/17 06/24/17 06/24/17 17:35 18:00 20:41 WBC RBC Hgb Hct MCV MCH MCHC RDW Plt Count MPV Neut % (Auto) Lymph % (Auto) [place] % (Auto) Eos % (Auto) Baso % (Auto) Neut # (Auto) Lymph # (Auto) [place] # (Auto) Eos # (Auto) Baso # (Auto) PT 13.4 H INR 1.2 APTT 25.1 L pO2 17 L VBG pH 7.38 VBG pCO2 33 L VBG HCO3 19.5 VBG Total CO2 20.5 L VBG O2 Sat (Calc) 33.1 L VBG Base Excess -4.8 L VBG Potassium 4.4 Sodium 138.0 Chloride 109.0 H Glucose 135 H Lactate 2.3 H FiO2 21.0 Potassium Carbon Dioxide Anion Gap BUN Creatinine Est GFR ( Amer) Est GFR (Non-Af Amer) POC Glucose (mg/dL) Random Glucose Calcium Phosphorus Magnesium Total Bilirubin AST ALT Alkaline Phosphatase Troponin I Total Protein Albumin Globulin Albumin/Globulin Ratio Venous Blood Potassium 4.4 Urine Color Jacinta Urine Clarity Cloudy Urine pH 5.0 Ur Specific [place] 1.030 Urine Protein 100 Urine Glucose (UA) Neg Urine Ketones Trace Urine Blood Moderate Urine Nitrate Negative Urine Bilirubin Moderate Urine Urobilinogen 4.0 H Ur Leukocyte Esterase Trace Urine RBC (Auto) 115 H Urine Microscopic WBC 25 H Ur Squamous Epith Cells 30 H Urine Bacteria Mod H 06/25/17 06/25/17 06/25/17 05:58 06:43 06:43 WBC 0.6 L* RBC 2.96 L Hgb 8.6 L D Hct 25.4 L MCV 85.6 MCH 29.0 MCHC 33.9 RDW 15.7 H Plt Count 195 MPV 8.0 Neut % (Auto) 43.8 L Lymph % (Auto) 44.3 H [place] % (Auto) 8.9 Eos % (Auto) 2.3 Baso % (Auto) 0.7 Neut # (Auto) 0.3 L Lymph # (Auto) 0.3 L [place] # (Auto) 0.1 Eos # (Auto) 0.0 Baso # (Auto) 0.0 PT INR APTT pO2 VBG pH VBG pCO2 VBG HCO3 VBG Total CO2 VBG O2 Sat (Calc) VBG Base Excess VBG Potassium Sodium 143 Chloride 114 H Glucose Lactate FiO2 Potassium 3.6 Carbon Dioxide 18 L Anion Gap 15 BUN 12 Creatinine 0.5 L Est GFR ( Amer) > 60 Est GFR (Non-Af Amer) > 60 POC Glucose (mg/dL) 116 H Random Glucose 113 H Calcium 6.4 L Phosphorus Magnesium Total Bilirubin AST ALT Alkaline Phosphatase Troponin I Total Protein Albumin Globulin Albumin/Globulin Ratio Venous Blood Potassium Urine Color Urine Clarity Urine pH Ur Specific [place] Urine Protein Urine Glucose (UA) Urine Ketones Urine Blood Urine Nitrate Urine Bilirubin Urine Urobilinogen Ur Leukocyte Esterase Urine RBC (Auto) Urine Microscopic WBC Ur Squamous Epith Cells Urine Bacteria EKG/Cardiology Studies: Cardiology / EKG Studies 06/24/17 16:24 ELECTROCARDIOGRAM Stat Comment: Mode Of Transportation: Reason For Exam: Sepsis Patient
--- NOTE | 2017-06-25 18:40 | CARD ---
APPROVED REPORT EKG Measurement Heart [id number] <Conclusion> Sinus tachycardia Left anterior fascicular block Abnormal ECG
[2017-06-25] MEDS: Lactated Ringer's 1,000 ML IV SCH (22:00)
--- NOTE | 2017-06-25 22:27 | CP.PCM.CON ---
History of Present Illness - History of Present Illness History of Present Illness: 81 year old female with a history of stage IV breast cancer (triple negative) with bone metastasis, diagnosed 03/2017 presenting with abdominal pain, being treated for sepsis, found to have left hip fracture . The patient is well known to me and received chemotherapy (Abraxane) with me on Thursday. Her son notes to improved appetite and energy level with chemotherapy but had been following frequently. Past medical history: Breast cancer Past surgical history: Orthopedic fixation arm fracture Family history: Denies hematologic and oncologic problems Social history: Denies tobacco, alcohol, and illicit drug use. All: NKA Review of systems: All remaining review of systems including HEENT, cardiovascular,respiratory, gastrointestinal, genitourininary, musculoskeletal, dermatalogic, neurologic and psychiatric are negative unless mentioned in the HPI. Past Patient History - Infectious Disease Hx of Infectious Diseases: None - Past Medical History & Family History Past Medical History?: Yes - Past Social History Smoking Status: Former Smoker Alcohol: None Drugs: Denies - CARDIAC Hx Hypercholesterolemia: Yes Hx Hypertension: Yes - PULMONARY Hx Asthma: Yes Hx Chronic Obstructive Pulmonary Disease (COPD): Yes - NEUROLOGICAL Hx Alzheimer's Disease: Yes Hx Seizures: No - HEENT Hx HEENT Problems: Yes - RENAL Hx Chronic Kidney Disease: No - ENDOCRINE/METABOLIC Hx Diabetes Mellitus Type 2: Yes - HEMATOLOGICAL/ONCOLOGICAL Hx Human Immunodeficiency Virus (HIV): No - INTEGUMENTARY Hx Dermatological Problems: No - MUSCULOSKELETAL/RHEUMATOLOGICAL Hx Arthritis: Yes Hx Fractures: Yes (left humerus) - GASTROINTESTINAL Hx Gastrointestinal Disorders: No - GENITOURINARY/GYNECOLOGICAL Hx Sexually Transmitted Disorders: No - PSYCHIATRIC Hx Anxiety: Yes Hx Depression: Yes - SURGICAL HISTORY Hx Surgeries: Yes Other/Comment: left arm surgery with plates and screws. left foot surgery ( stepped on a nail) - ANESTHESIA Hx Anesthesia: Yes Hx Anesthesia Reactions: No Hx Malignant Hyperthermia: No Meds Allergies/Adverse Reactions: Allergies Allergy/AdvReac Type Severity Reaction Status Date / Time No Known Allergies Allergy Verified 06/24/17 15:46 - Medications Medications: Current Medications Enoxaparin Sodium (Lovenox) 40 mg SC DAILY HEAVEN PRN Reason: Protocol Last Admin: 06/25/17 09:38 Dose: 40 mg Haloperidol Lactate (Haldol) 0.5 mg IVP Q6 PRN PRN Reason: Agitation Ceftriaxone Sodium 1 gm/ (Sodium Chloride) 100 mls @ 100 mls/hr IVPB DAILY HEAVEN PRN Reason: Protocol Last Admin: 06/25/17 09:40 Dose: 100 mls/hr Metronidazole (Flagyl 500mg/100ml Ns) 100 mls @ 100 mls/hr IVPB Q8@0000,0800, 1400 HEAVEN PRN Reason: Protocol Last Admin: 06/25/17 15:00 Dose: 100 mls/hr Lactated Ringer's (Lactated Ringer's) 1,000 mls @ 200 mls/hr IV .Q5H [facility] Morphine Sulfate (Morphine) 1 mg IVP ONCE ONE Stop: 06/25/17 22:31 Physical Exam - Head Exam Head Exam: ATRAUMATIC - Eye Exam Eye Exam: Normal appearance - ENT Exam ENT Exam: Mucous Membranes Dry - Respiratory Exam Respiratory Exam: NORMAL BREATHING PATTERN - Cardiovascular Exam Cardiovascular Exam: +S1, +S2 - GI/Abdominal Exam GI & Abdominal Exam: Normal Bowel Sounds - Neurological Exam Neurological exam: Altered - Psychiatric Exam Psychiatric exam: Anxious - Skin Skin Exam: Warm Results - Vital Signs Recent Vital Signs: Last Vital Signs Temp 97.6 F 06/25/17 16:00 Pulse 80 06/25/17 16:00 Resp 20 06/25/17 12:00 BP 98/57 L 06/25/17 16:00 Pulse Ox 100 06/25/17 16:00 - Labs Result Diagrams: 06/25/17 06:43 06/25/17 06:43 Labs: Laboratory Results - last 24 hr 06/25/17 06/25/17 06/25/17 05:58 06:43 06:43 WBC 0.6 L* RBC 2.96 L Hgb 8.6 L D Hct 25.4 L MCV 85.6 MCH 29.0 MCHC 33.9 RDW 15.7 H Plt Count 195 MPV 8.0 Neut % (Auto) 43.8 L Lymph % (Auto) 44.3 H [place] % (Auto) 8.9 Eos % (Auto) 2.3 Baso % (Auto) 0.7 Neut # (Auto) 0.3 L Lymph # (Auto) 0.3 L [place] # (Auto) 0.1 Eos # (Auto) 0.0 Baso # (Auto) 0.0 Sodium 143 Potassium 3.6 Chloride 114 H Carbon Dioxide 18 L Anion Gap 15 BUN 12 Creatinine 0.5 L Est GFR ( Amer) > 60 Est GFR (Non-Af Amer) > 60 POC Glucose (mg/dL) 116 H Random Glucose 113 H Lactic Acid Calcium 6.4 L 25-OH Vitamin D Total 06/25/17 06/25/17 13:49 18:28 WBC RBC Hgb Hct MCV MCH MCHC RDW Plt Count MPV Neut % (Auto) Lymph % (Auto) [place] % (Auto) Eos % (Auto) Baso % (Auto) Neut # (Auto) Lymph # (Auto) [place] # (Auto) Eos # (Auto) Baso # (Auto) Sodium Potassium Chloride Carbon Dioxide Anion Gap BUN Creatinine Est GFR ( Amer) Est GFR (Non-Af Amer) POC Glucose (mg/dL) Random Glucose Lactic Acid 1.9 Calcium 25-OH Vitamin D Total 14.5 L Assessment & Plan (1) Neutropenia Assessment and Plan: secondary to chemotherapy will start growth factor support Status: Acute (2) Pathologic fracture Assessment and Plan: bone metastasis orthopedic evaluation for fixation Status: Acute (3) Anemia Assessment and Plan: chronic disease and chemotherapy transfusion support PRN Status: Chronic Priority: Low (4) Breast cancer Assessment and Plan: bone metastasis triple negative on chemotherapy outpatient treatment Thank you for this interesting consult. Status: Acute
[2017-06-25] MEDS ORDERED: Morphine 4 MG/ML VIAL IVP ONE (22:30)
[2017-06-26] MEDS: Lactated Ringer's 1,000 ML IV SCH (03:30)
[2017-06-26 05:30] LABS: BASO % 0.7 % (0.0-2.0); EOS % 1.1 % (0.0-4.0); HEMOGLOBIN 8.1 g/dL (12.0-16.0); LYMPH # 0.4 K/uL (1.0-4.3); MEAN CELL VOLUME 85.6 fl (81.0-99.0); MEAN CORPUSCULAR HEMOGLOBIN 29.1 pg (27.0-31.0); MONO % 4.6 % (0.0-10.0); NEUT # 0.4 K/uL (1.8-7.0); NEUT % 50.6 % (50.0-75.0); NRBC % 0.1 % (0.0-0.0); RBC 2.8 Mil/uL (3.80-5.20); RED CELL DISTRIBUTION WIDTH 15.5 % (11.5-14.5)
[2017-06-26 06:05] LABS: WHITE BLOOD COUNT 0.9 K/uL (4.8-10.8)
[2017-06-26 06:35] LABS: BLOOD UREA NITROGEN 7 mg/dl (7-17); CALCIUM 6.5 mg/dL (8.4-10.2); GFR AFRICAN-AMERICAN > 60; GFR NON-AFRICAN AMERICAN > 60
--- NOTE | 2017-06-26 06:57 | CP.PCM.PN ---
Subjective - Date & Time of Evaluation Date of Evaluation: 06/26/17 Time of Evaluation: 08:00 - Subjective Subjective: Pt seen and evaluated at bedside this am. She states nothing hurts but she feels "lousy." Patient unable to explain further. Objective - Vital Signs/Intake and Output Vital Signs (last 24 hours): Temp Pulse Resp BP Pulse Ox 99.6 F 89 19 90/61 L 97 06/26/17 04:00 06/26/17 04:00 06/26/17 04:00 06/26/17 04:00 06/26/17 04:00 Intake and Output: 06/25/17 06/26/17 18:59 06:59 Intake Total 2300 Output Total 600 1620 Balance -600 680 - Medications Medications: Current Medications Enoxaparin Sodium (Lovenox) 40 mg SC DAILY HEAVEN PRN Reason: Protocol Last Admin: 06/25/17 09:38 Dose: 40 mg Haloperidol Lactate (Haldol) 0.5 mg IVP Q6 PRN PRN Reason: Agitation Ceftriaxone Sodium 1 gm/ (Sodium Chloride) 100 mls @ 100 mls/hr IVPB DAILY HEAVEN PRN Reason: Protocol Last Admin: 06/25/17 09:40 Dose: 100 mls/hr Metronidazole (Flagyl 500mg/100ml Ns) 100 mls @ 100 mls/hr IVPB Q8@0000,0800, 1400 HEAVEN PRN Reason: Protocol Last Admin: 06/26/17 00:00 Dose: 100 mls/hr Lactated Ringer's (Lactated Ringer's) 1,000 mls @ 200 mls/hr IV .Q5H [facility] Last Admin: 06/26/17 03:30 Dose: 200 mls/hr - Labs Labs: 06/26/17 04:20 06/26/17 04:20 PT 13.4 Seconds (9.8-13.1) H 06/24/17 17:35 INR 1.2 (0.9-1.2) 06/24/17 17:35 APTT 25.1 Seconds (25.6-37.1) L 06/24/17 17:35 - Constitutional Appears: No Acute Distress, Chronically Ill - Eye Exam Eye Exam: Normal appearance. absent: Scleral icterus - ENT Exam ENT Exam: Mucous Membranes Moist Additional comments: poor dentition - Respiratory Exam Respiratory Exam: Clear to Ausculation Bilateral, NORMAL BREATHING PATTERN. absent: Respiratory Distress - Cardiovascular Exam Cardiovascular Exam: REGULAR RHYTHM, +S1, +S2 - GI/Abdominal Exam GI & Abdominal Exam: Soft. absent: Tenderness - Extremities Exam Extremities Exam: absent: Calf Tenderness, Pedal Edema - Neurological Exam Neurological Exam: Awake Additional comments: pt has dementia, confused at times, often does not answer appropriately Assessment and Plan - Assessment and Plan (Free Text) Assessment: 81 yo F with DM2, HTN, HLD, anxiety and breast cancer admitted for sepsis due to UTI. Hip fracture seen on X-ray. Plan: # Urinary tract infection Source of sepsis; sepsis resolved. Pt's lactate has normalized, normal HR. - Continue IV hydration - Rocephin 1g daily (day 3) - Flagyll 500 mg Q8 (day 3) - Blood culture pending - Urine culture showed Klebsiella spp - Leukopenic, Dr. Irizarry consulted - will give granix # Hip fracture Seen on CT - fractures including greater trochanter and left superior and inferior pubic rami Bony lesions like secondary to metastatic disease - Pending hip/pelvis MRI - Ortho consult- Dr. Johnathan Nolasco; as per PA, needs MRI done. # Anemia - Hgb 8.1 today - Type and screen - Monitor on CBC # Malignant neoplasm of breast - Heme/onc consult Dr. Irizarry - Chemotherapy may be contributing to leukopenia DVT prophylaxis - Lovenox
--- NOTE | 2017-06-26 07:08 | CP.CCUPN ---
CCU Subjective - Physician Review Subjective (Free Text): Awake, intermittently agitated, otherwise confused at times, no overt distress. Other Vitals and I/Os reviewed. Temps remained mostly 97-99F. ROS: No other pertinent negs or positives on 10+ system review. PMSFH: All other historical Nursing and physician documentation reviewed to date; no new pertinent info noted relevant to current medical problems. EXAM- HEENT: no icterus, no gaze preference, pupils equal and reactive, no icterus NECK: No JVD, supple, carotids equal upstroke bilat/no bruits CHEST: decreased BS bases, otherwise clear bilat, no wheezes audible HEART: regular distant, S1S2, no rubs. ABD: soft, no distention, no tympany, no palp tenderness, BS hypoactive EXT: No peripheral/ digital cyanosis, no calf tenderness or palpable cords, distal pulses intact and symmetrical. NEURO: no gross focal motor deficits SKIN: no rashes, warm and dry. LABS: WBC= 0.9 HGB= 8.1 PLTs= 179K Na= 143 K= 3.1 CL= 113 HCO3= 19 BUN/Cr= 7/0.4 BS= 86 INR= 1.2 Lactate 3.4 on admission, repeated= 2.3, down to 1.9 yesterday afternoon. MAJOR PROBLEMS: 1. Severe Sepsis with lactate acidosis and AG MAC, r/o bacteremia 2. Etiology of Sepsis: tract with Bactiuria 3. Chemotx induced leukopenia 4. Metastatic breast CA with probable pathological fractures. 5. Hypocalcemia 2 metastatic bone disease vs chemoagent effect 6. S/p Fall at home PLAN: 1. Pancultures obtained, on empiric abx coverage for neutropenic sepsis, awaiting identification of GNRs in urine. 2. Orthopedic eval. WBC no worse, started on GMCSF. 3. Repeat serial Lactates normalized, LR at 200ml/hr. 4. Cautious comfort measures. 5. Not emergent to treat low calcium for now, patient still relatively acidotic. Check PTH, ionized Ca. Vitamin D repletion. 6. Clarify Advance Directives, Pall care eval. Transfer to Tele bed, no critical care issues at this time. 06/26/17 07:08 CCU Objective - Vital Signs / Intake & Output Vital Signs (Last 4 hours): Vital Signs Temp Pulse Resp BP Pulse Ox 06/26/17 04:00 99.6 F 89 19 90/61 L 97 Intake and Output (Last 8hrs): Intake & Output 06/25/17 06/26/17 06/26/17 22:59 06:59 14:59 Intake Total 800 1500 Output Total 1200 1020 Balance -400 480 Intake: IV 800 1400 Intake, Piggyback 100 Output: Urine 1200 1000 Urine, Voided 1200 1000 Stool 20 Other: # Voids Urine, Voided 1 1 # Bowel Movements 2 - Medications Active Medications: Active Medications Generic Name Dose Route Start Last Admin Trade Name Freq PRN Reason Stop Dose Admin Enoxaparin Sodium 40 mg 06/25/17 09:00 06/25/17 09:38 Lovenox SC 40 mg DAILY HEAVEN Administration Protocol Haloperidol Lactate 0.5 mg 06/25/17 16:00 Haldol IVP Q6 PRN Agitation Ceftriaxone Sodium 1 gm/ 100 mls @ 100 mls/hr 06/25/17 09:00 06/25/17 09:40 Sodium Chloride IVPB 100 mls/hr DAILY HEAVEN Administration Protocol Metronidazole 100 mls @ 100 mls/hr 06/25/17 08:00 06/26/17 00:00 Flagyl 500mg/100ml Ns IVPB 100 mls/hr Q8@0000,0800,1400 HEAVEN Administration Protocol Lactated Ringer's 1,000 mls @ 200 mls/hr 06/25/17 13:30 06/26/17 03:30 Lactated Ringer's IV 200 mls/hr .Q5H HEAVEN Administration - Patient Studies Lab Studies: Microbiology Studies 06/24/17 17:35 Blood Culture - Preliminary Blood NO GROWTH AFTER 24 HOURS 06/24/17 17:35 Blood Culture - Preliminary Blood NO GROWTH AFTER 24 HOURS 06/24/17 18:20 Urine Culture - Preliminary Urine,Clean Catch Gram Negative Damian Lab Studies 06/26/17 06/26/17 06/26/17 Range/Units 05:24 04:20 04:20 WBC 0.9 L* (4.8-10.8) K/uL RBC 2.80 L (3.80-5.20) Mil/uL Hgb 8.1 L (12.0-16.0) g/dL Hct 24.0 L (34.0-47.0) % MCV 85.6 (81.0-99.0) fl MCH 29.1 (27.0-31.0) pg MCHC 34.0 (33.0-37.0) g/dL RDW 15.5 H (11.5-14.5) % Plt Count 179 (130-400) K/uL MPV 8.0 (7.2-11.7) fl Neut % (Auto) 50.6 (50.0-75.0) % Lymph % (Auto) 43.0 H (20.0-40.0) % Yates % (Auto) 4.6 (0.0-10.0) % Eos % (Auto) 1.1 (0.0-4.0) % Baso % (Auto) 0.7 (0.0-2.0) % Neut # (Auto) 0.4 L (1.8-7.0) K/uL Lymph # (Auto) 0.4 L (1.0-4.3) K/uL Yates # (Auto) 0.0 (0.0-0.8) K/uL Eos # (Auto) 0.0 (0.0-0.7) K/uL Baso # (Auto) 0.0 (0.0-0.2) K/uL Sodium 143 (132-148) mmol/l Potassium 3.1 L (3.6-5.0) MMOL/L Chloride 113 H (98-107) mmol/L Carbon Dioxide 19 L (22-30) mmol/L Anion Gap 14 (10-20) BUN 7 (7-17) mg/dl Creatinine 0.4 L (0.7-1.2) mg/dl Est GFR ( Amer) > 60 Est GFR (Non-Af Amer) > 60 POC Glucose (mg/dL) 82 (65-110) mg/dL Random Glucose 86 (65-105) mg/dL Lactic Acid (0.7-2.1) MMOL/L Calcium 6.5 L (8.4-10.2) mg/dL 25-OH Vitamin D Total (30.0-100.0) NG/ML 06/25/17 06/25/17 06/25/17 Range/Units 18:28 13:49 06:43 WBC 0.6 L* (4.8-10.8) K/uL RBC 2.96 L (3.80-5.20) Mil/uL Hgb 8.6 L D (12.0-16.0) g/dL Hct 25.4 L (34.0-47.0) % MCV 85.6 (81.0-99.0) fl MCH 29.0 (27.0-31.0) pg MCHC 33.9 (33.0-37.0) g/dL RDW 15.7 H (11.5-14.5) % Plt Count 195 (130-400) K/uL MPV 8.0 (7.2-11.7) fl Neut % (Auto) 43.8 L (50.0-75.0) % Lymph % (Auto) 44.3 H (20.0-40.0) % Yates % (Auto) 8.9 (0.0-10.0) % Eos % (Auto) 2.3 (0.0-4.0) % Baso % (Auto) 0.7 (0.0-2.0) % Neut # (Auto) 0.3 L (1.8-7.0) K/uL Lymph # (Auto) 0.3 L (1.0-4.3) K/uL Yates # (Auto) 0.1 (0.0-0.8) K/uL Eos # (Auto) 0.0 (0.0-0.7) K/uL Baso # (Auto) 0.0 (0.0-0.2) K/uL Sodium (132-148) mmol/l Potassium (3.6-5.0) MMOL/L Chloride (98-107) mmol/L Carbon Dioxide (22-30) mmol/L Anion Gap (10-20) BUN (7-17) mg/dl Creatinine (0.7-1.2) mg/dl Est GFR ( Amer) Est GFR (Non-Af Amer) POC Glucose (mg/dL) (65-110) mg/dL Random Glucose (65-105) mg/dL Lactic Acid 1.9 (0.7-2.1) MMOL/L Calcium (8.4-10.2) mg/dL 25-OH Vitamin D Total 14.5 L (30.0-100.0) NG/ML 06/25/17 Range/Units 06:43 WBC (4.8-10.8) K/uL RBC (3.80-5.20) Mil/uL Hgb (12.0-16.0) g/dL Hct (34.0-47.0) % MCV (81.0-99.0) fl MCH (27.0-31.0) pg MCHC (33.0-37.0) g/dL RDW (11.5-14.5) % Plt Count (130-400) K/uL MPV (7.2-11.7) fl Neut % (Auto) (50.0-75.0) % Lymph % (Auto) (20.0-40.0) % Yates % (Auto) (0.0-10.0) % Eos % (Auto) (0.0-4.0) % Baso % (Auto) (0.0-2.0) % Neut # (Auto) (1.8-7.0) K/uL Lymph # (Auto) (1.0-4.3) K/uL Yates # (Auto) (0.0-0.8) K/uL Eos # (Auto) (0.0-0.7) K/uL Baso # (Auto) (0.0-0.2) K/uL Sodium 143 (132-148) mmol/l Potassium 3.6 (3.6-5.0) MMOL/L Chloride 114 H (98-107) mmol/L Carbon Dioxide 18 L (22-30) mmol/L Anion Gap 15 (10-20) BUN 12 (7-17) mg/dl Creatinine 0.5 L (0.7-1.2) mg/dl Est GFR ( Amer) > 60 Est GFR (Non-Af Amer) > 60 POC Glucose (mg/dL) (65-110) mg/dL Random Glucose 113 H (65-105) mg/dL Lactic Acid (0.7-2.1) MMOL/L Calcium 6.4 L (8.4-10.2) mg/dL 25-OH Vitamin D Total (30.0-100.0) NG/ML Laboratory Results - last 24 hr 06/25/17 06/25/17 06/25/17 06:43 06:43 13:49 WBC 0.6 L* RBC 2.96 L Hgb 8.6 L D Hct 25.4 L MCV 85.6 MCH 29.0 MCHC 33.9 RDW 15.7 H Plt Count 195 MPV 8.0 Neut % (Auto) 43.8 L Lymph % (Auto) 44.3 H Yates % (Auto) 8.9 Eos % (Auto) 2.3 Baso % (Auto) 0.7 Neut # (Auto) 0.3 L Lymph # (Auto) 0.3 L Yates # (Auto) 0.1 Eos # (Auto) 0.0 Baso # (Auto) 0.0 Sodium 143 Potassium 3.6 Chloride 114 H Carbon Dioxide 18 L Anion Gap 15 BUN 12 Creatinine 0.5 L Est GFR ( Amer) > 60 Est GFR (Non-Af Amer) > 60 POC Glucose (mg/dL) Random Glucose 113 H Lactic Acid 1.9 Calcium 6.4 L 25-OH Vitamin D Total 06/25/17 06/26/17 06/26/17 18:28 04:20 04:20 WBC 0.9 L* RBC 2.80 L Hgb 8.1 L Hct 24.0 L MCV 85.6 MCH 29.1 MCHC 34.0 RDW 15.5 H Plt Count 179 MPV 8.0 Neut % (Auto) 50.6 Lymph % (Auto) 43.0 H Yates % (Auto) 4.6 Eos % (Auto) 1.1 Baso % (Auto) 0.7 Neut # (Auto) 0.4 L Lymph # (Auto) 0.4 L Yates # (Auto) 0.0 Eos # (Auto) 0.0 Baso # (Auto) 0.0 Sodium 143 Potassium 3.1 L Chloride 113 H Carbon Dioxide 19 L Anion Gap 14 BUN 7 Creatinine 0.4 L Est GFR ( Amer) > 60 Est GFR (Non-Af Amer) > 60 POC Glucose (mg/dL) Random Glucose 86 Lactic Acid Calcium 6.5 L 25-OH Vitamin D Total 14.5 L 06/26/17 05:24 WBC RBC Hgb Hct MCV MCH MCHC RDW Plt Count MPV Neut % (Auto) Lymph % (Auto) Yates % (Auto) Eos % (Auto) Baso % (Auto) Neut # (Auto) Lymph # (Auto) Yates # (Auto) Eos # (Auto) Baso # (Auto) Sodium Potassium Chloride Carbon Dioxide Anion Gap BUN Creatinine Est GFR ( Amer) Est GFR (Non-Af Amer) POC Glucose (mg/dL) 82 Random Glucose Lactic Acid Calcium 25-OH Vitamin D Total Critical Care Progress Note - Nutrition Nutrition: Nutrition Category Date Time Status Diabetic [Consistent Carbohydrate] [DIET] Diets 06/25/17 Breakfast Active
[2017-06-26] MEDS: metroNIDAZOLE 500mg/100ml NS 100 ML IVPB SCH ×4 (08:28→23:19)
[2017-06-26] MEDS: Enoxaparin 40 mg Syringe SC SCH (08:29)
--- NOTE | 2017-06-26 08:40 | CP.PCM.PN ---
Subjective - Date & Time of Evaluation Date of Evaluation: 06/26/17 Time of Evaluation: 08:00 - Subjective Subjective: Pt seen and evaluated at bedside this am. She states nothing hurts but she feels "lousy." Objective - Vital Signs/Intake and Output Vital Signs (last 24 hours): Temp Pulse Resp BP Pulse Ox 97.5 F L 73 15 111/61 98 06/26/17 08:00 06/26/17 08:00 06/26/17 08:00 06/26/17 08:00 06/26/17 08:00 Intake and Output: 06/26/17 06/26/17 06:59 18:59 Intake Total 2300 Output Total 1620 Balance 680 - Medications Medications: Current Medications Enoxaparin Sodium (Lovenox) 40 mg SC DAILY HEAVEN PRN Reason: Protocol Last Admin: 06/26/17 08:29 Dose: 40 mg Haloperidol Lactate (Haldol) 0.5 mg IVP Q6 PRN PRN Reason: Agitation Ceftriaxone Sodium 1 gm/ (Sodium Chloride) 100 mls @ 100 mls/hr IVPB DAILY HEAVEN PRN Reason: Protocol Last Admin: 06/26/17 08:29 Dose: 100 mls/hr Metronidazole (Flagyl 500mg/100ml Ns) 100 mls @ 100 mls/hr IVPB Q8@0000,0800, 1400 HEAVEN PRN Reason: Protocol Last Admin: 06/26/17 08:28 Dose: 100 mls/hr Lactated Ringer's (Lactated Ringer's) 1,000 mls @ 200 mls/hr IV .Q5H HEAVEN Last Admin: 06/26/17 03:30 Dose: 200 mls/hr - Labs Labs: 06/26/17 04:20 06/26/17 04:20 PT 13.4 Seconds (9.8-13.1) H 06/24/17 17:35 INR 1.2 (0.9-1.2) 06/24/17 17:35 APTT 25.1 Seconds (25.6-37.1) L 06/24/17 17:35
[2017-06-26] MEDS ORDERED: Lactated Ringer's 1,000 ML IV SCH (10:55)
[2017-06-26] MEDS ORDERED: metroNIDAZOLE 500mg/100ml NS 100 ML IV STA (10:55)
--- NOTE | 2017-06-26 12:41 | CP.PCM.CON ---
History of Present Illness - History of Present Illness History of Present Illness: Orthopedic consultation Dr. Bradley 81F complains of abdominal pain per RN, found to have fractures on CT scan. No reported fall on chart. Patient currently is not complaining of any hip or groin or leg pain, and does not answer all questions. Patient with known metastatic breast CA to bone. Review of Systems - Review of Systems All systems: reviewed and no additional remarkable complaints except - Gastrointestinal Gastrointestinal: As Per HPI - Musculoskeletal Musculoskeletal: As Per HPI Past Patient History - Infectious Disease Hx of Infectious Diseases: None - Past Medical History & Family History Past Medical History?: Yes Past Family History: Reviewed and not pertinent - Past Social History Smoking Status: Former Smoker Alcohol: None Drugs: Denies - CARDIAC Hx Hypercholesterolemia: Yes Hx Hypertension: Yes - PULMONARY Hx Asthma: Yes Hx Chronic Obstructive Pulmonary Disease (COPD): Yes - NEUROLOGICAL Hx Alzheimer's Disease: Yes Hx Seizures: No - HEENT Hx HEENT Problems: Yes - RENAL Hx Chronic Kidney Disease: No - ENDOCRINE/METABOLIC Hx Diabetes Mellitus Type 2: Yes - HEMATOLOGICAL/ONCOLOGICAL Hx Human Immunodeficiency Virus (HIV): No - INTEGUMENTARY Hx Dermatological Problems: No - MUSCULOSKELETAL/RHEUMATOLOGICAL Hx Arthritis: Yes Hx Fractures: Yes (left humerus) - GASTROINTESTINAL Hx Gastrointestinal Disorders: No - GENITOURINARY/GYNECOLOGICAL Hx Sexually Transmitted Disorders: No - PSYCHIATRIC Hx Anxiety: Yes Hx Depression: Yes - SURGICAL HISTORY Hx Surgeries: Yes Other/Comment: left arm surgery with plates and screws. left foot surgery ( stepped on a nail) - ANESTHESIA Hx Anesthesia: Yes Hx Anesthesia Reactions: No Hx Malignant Hyperthermia: No Meds Allergies/Adverse Reactions: Allergies Allergy/AdvReac Type Severity Reaction Status Date / Time No Known Allergies Allergy Verified 06/24/17 15:46 - Medications Medications: Current Medications Enoxaparin Sodium (Lovenox) 40 mg SC DAILY HEAVEN PRN Reason: Protocol Lactated Ringer's (Lactated Ringer's) 1,000 mls @ 200 mls/hr IV .Q5H HEAVEN Metronidazole (Flagyl 500mg/100ml Ns) 100 mls @ 100 mls/hr IVPB Q8@0000,0800, 1400 HEAVEN PRN Reason: Protocol Ceftriaxone Sodium 1 gm/ (Sodium Chloride) 100 mls @ 100 mls/hr IVPB DAILY HEAVEN PRN Reason: Protocol Physical Exam - Constitutional Appears: Well, No Acute Distress - Head Exam Head Exam: ATRAUMATIC - Neck Exam Neck exam: Positive for: Normal Inspection - Respiratory Exam Respiratory Exam: NORMAL BREATHING PATTERN - Extremities Exam Additional comments: +ROM ankle/toes, sensation intact, calves soft NT neg homans Patient sitting on bedpan with both hips and knees flexed to 90 degrees without pain. No obvious tenderness to palpation of left greater trochanter. No pain with active or passive hip ROM bilaterally. No pain with axial loading, log roll of left hip. Non tender to leg. No pain with AP/lateral compression of pelvis. reacts to light touch to BLE. No noted swelling/deformity/discoloration/ ecchymosis - Back Exam Additional comments: non tender - Neurological Exam Neurological exam: Alert - Psychiatric Exam Psychiatric exam: Normal Affect, Normal Mood - Skin Skin Exam: Dry, Intact, Normal Color, Warm Results - Vital Signs Recent Vital Signs: Last Vital Signs Temp 98.3 F 06/26/17 12:00 Pulse 82 06/26/17 12:00 Resp 12 06/26/17 12:00 BP 113/75 06/26/17 12:00 Pulse Ox 100 06/26/17 12:00 - Labs Result Diagrams: 06/26/17 04:20 06/26/17 04:20 Labs: Laboratory Results - last 24 hr 06/25/17 06/25/17 06/26/17 13:49 18:28 04:20 WBC 0.9 L* RBC 2.80 L Hgb 8.1 L Hct 24.0 L MCV 85.6 MCH 29.1 MCHC 34.0 RDW 15.5 H Plt Count 179 MPV 8.0 Neut % (Auto) 50.6 Lymph % (Auto) 43.0 H Twiggs % (Auto) 4.6 Eos % (Auto) 1.1 Baso % (Auto) 0.7 Neut # (Auto) 0.4 L Lymph # (Auto) 0.4 L Twiggs # (Auto) 0.0 Eos # (Auto) 0.0 Baso # (Auto) 0.0 Sodium Potassium Chloride Carbon Dioxide Anion Gap BUN Creatinine Est GFR ( Amer) Est GFR (Non-Af Amer) POC Glucose (mg/dL) Random Glucose Lactic Acid 1.9 Calcium 25-OH Vitamin D Total 14.5 L Blood Type Antibody Screen BBK History Checked 06/26/17 06/26/1718 04:20 05:24 11:15 WBC RBC Hgb Hct MCV MCH MCHC RDW Plt Count MPV Neut % (Auto) Lymph % (Auto) Twiggs % (Auto) Eos % (Auto) Baso % (Auto) Neut # (Auto) Lymph # (Auto) Twiggs # (Auto) Eos # (Auto) Baso # (Auto) Sodium 143 Potassium 3.1 L Chloride 113 H Carbon Dioxide 19 L Anion Gap 14 BUN 7 Creatinine 0.4 L Est GFR ( Amer) > 60 Est GFR (Non-Af Amer) > 60 POC Glucose (mg/dL) 82 Random Glucose 86 Lactic Acid Calcium 6.5 L 25-OH Vitamin D Total Blood Type AB NEGATIVE Antibody Screen Negative BBK History Checked Patient has bt 06/26/17 11:17 WBC RBC Hgb Hct MCV MCH MCHC RDW Plt Count MPV Neut % (Auto) Lymph % (Auto) Twiggs % (Auto) Eos % (Auto) Baso % (Auto) Neut # (Auto) Lymph # (Auto) Twiggs # (Auto) Eos # (Auto) Baso # (Auto) Sodium Potassium Chloride Carbon Dioxide Anion Gap BUN Creatinine Est GFR ( Amer) Est GFR (Non-Af Amer) POC Glucose (mg/dL) 110 Random Glucose Lactic Acid Calcium 25-OH Vitamin D Total Blood Type Antibody Screen BBK History Checked - Impressions Impression: atient Name / ID : VICKY WHEELER / [id number] Exam Date : 06/24/2017 19:30:38 ( Approved ) Study Comment : Sex / Age : F / [id number] Creator : Roxana Dickson MD Dictator : Cell Attendant : Environmental Sustainability Manager : Roxana Dickson MD Approver2 : Report Date : 06/24/2017 21:18:00 My Comment : [facility] Division of Radiology [address] [place] [address] Tel. no. Patient Name: SUMMER PERRY Pt. Address: [address] [place] [address] Rec #: [id number] [place] [address]: Shae AHN,Robson Mancini Pt HOME Order Location: [facility] : 1935 Female Age: 81 Order #: [id number] Reason for exam: abd pain CT Scan ABD PELVIS PO IV CONTRAST Exam Date: 06/24/17 This imaging exam was performed at [facility] EXAM: CT Abdomen and Pelvis With Intravenous Contrast EXAM DATE/TIME: 06/24/2017 4:24 PM CLINICAL HISTORY: 81 years old, female; Pain; Abdominal pain; Generalized; Additional info: Abd pain TECHNIQUE: Axial computed tomography images of the abdomen and pelvis with intravenous contrast. All CT scans at this facility use one or more dose reduction techniques, viz.: automated exposure control; ma/kV adjustment per patient size (including targeted exams where dose is matched to indication; i.e. head); or iterative reconstruction technique. Coronal and sagittal reformatted images were created and reviewed. CONTRAST: 80 mL of OMNIPAQUE 300 administered intravenously. COMPARISON: No relevant prior studies available. FINDINGS: LIMITATIONS: Mild to moderate streak/motion artifact. LOWER THORAX: Abnormal appearance of the right breast. There are large asymmetric densities in the right breast, and skin thickening. Neoplasm is not excluded. Recommend further evalation with mammography and/or breast ultrasound. ABDOMEN: LIVER: 9 mm low density liver lesion, most likely a cyst. Fatty infiltration of the liver. No evidence of diffuse liver lesions. GALLBLADDER AND BILE DUCTS:Faint gallstones versus sludge in the gallbladder. Mild gallbladder dilatation. No CT evidence of acute cholecystitis. PANCREAS: No CT evidence of acute pancreatitis. SPLEEN: No acute abnormality of the spleen identified. ADRENALS: No acute abnormality of the adrenal glands identified. KIDNEYS AND URETERS: Multiple subtle areas of decreased enhancement in the kidneys bilaterally, which do not appear to represent cysts. They have geographic and somewhat ill-defined margins, with the largest, located in the right kidney upper pole, measuring 3 cm. No evidence of perinephric fluid collection. STOMACH AND BOWEL: Mild, diffuse wall thickening of the left colon, suspicious for mild colitis (versus pseudo-wall thickening due to incomplete colonic distention). Colonic diverticulosis, with no evidence of acute diverticulitis. Otherwise, no significant abnormality of the bowel is identified. No evidence of diffuse colitis/pancolitis. No acute abnormality of the stomach or duodenum identified. No evidence of small bowel obstruction. APPENDIX: Appendix is seen, and is within normal limits in appearance. PELVIS: BLADDER: No acute abnormality of the bladder identified. REPRODUCTIVE:No acute abnormality of the reproductive organs is seen. No acute abnormality of the uterus identified. No evidence of large adnexal masses. ABDOMEN and PELVIS: INTRAPERITONEAL SPACE: No evidence of free intraperitoneal air or fluid. BONES/JOINTS: Acute fracture of the left proximal femur, involving the greater trochanter. This is comminuted and minimally displaced. Acute fractures of the left superior and inferior pubic rami, which are minimally displaced and comminuted. Multiple scattered sclerotic bony lesions, too numerous to count, highly suspicious for bony metastases. These are located within multiple vertebra, multiple ribs, the pelvic bones bilaterally, and the hips bilaterally. SOFT TISSUES: No acute abnormality of the visualized soft tissues is seen. VASCULATURE: No evidence of abdominal aortic aneurysm. No evidence of periaortic hemorrhage. LYMPH NODES: No evidence of diffuse lymphadenopathy. IMPRESSION: - Acute fractures, involving the left greater trochanter and left superior and inferior pubic rami. - Extensive sclerotic bony lesions, highly suspicious for bony metastatic disease. The primary site of malignancy could be the right breast, where there are abnormal findings for which followup mammography is recommended. - Abnormal renal enhancement pattern. Differential considerations include multifocal, bilateral pyelonephritis. Renal metastases are also a possibility in this patient with suspected bony metastases. - Findings suspicious for mild colitis, involving the left colon. - See above for remaining findings. Dictated By: Roxana Dickson MD Dictated Date/Time: 06/24/172117 Signed By: Roxana Dickson MD Date Signed: 2117 Transcribed By: ANDREA Transcribe Date/Time : 06/24/172117 [facility] Assessment & Plan (1) Fracture of greater trochanter of left femur Assessment and Plan: MRI to check to see if there is any fracture extension to hip or impending fracture as there are noted bony lesions in femur if fracture is contained within greater trochanter, no surgery indicated at this time rami fractures are non operative Limit weight bearing on LLE NWB at this time, will review MRI results VTE proph PT/OT when appropriate d/w Dr. Bradley, agrees with above Status: Acute (2) Fracture of left superior pubic ramus Status: Acute (3) Fracture of left inferior pubic ramus Status: Acute (4) Metastatic bone cancer Status: Acute
[2017-06-26] MEDS ORDERED: Gadodiamide 287 MG/ML VIAL (15ML) IV ONE (13:55)
--- NOTE | 2017-06-26 16:03 | MRI ---
MRI left hip History: Fracture. Comparison: CT scan dated 06/24/2017 Technique: Multi-echo multiplanar sequences were performed through the left hip without the use of intravenous contrast. Findings: Left hip: Again identified is a prominent fracture deformity of the left greater trochanter with comminution of the fracture fragments. There is a suggestion of an intertrochanteric component seen on series 2, image 18 with curvilinear decreased T1 signal extending from the fracture site at the base of the femoral neck towards the lesser trochanter. There appears to be underlying osseous lesions at the level of the greater trochanter measuring up to 4 centimeters as well as at the level of the lesser trochanter extending to the medial cortex of the proximal medullary cavity measuring up to 4 centimeters. Again identified are fracture deformities of the superior and inferior left pubic ramus. Extensive osseous metastatic disease throughout the bony pelvis and bilateral hips including a large area of marrow signal abnormality concerning for osseous metastatic disease extending from the left superior acetabulum to the iliac bone measuring up to 5 centimeters. Additional osseous lesions seen but not limited to the L4 vertebral body, right bony iliac bone and SI, sacrum, multiple lesions in the right femoral neck, right greater trochanter, and right proximal medullary cavities. Additional smaller osseous lesion seen within the medullary cavity of the left proximal femur and left inferior pubic bone. Prominent reticulation and edema within the soft tissues and musculature of the left thigh suggestive for a myositis and or partial muscle tearing. Moderate degenerative changes of the left hip joint space with joint space narrowing and cartilage fibrillation. Moderate bilateral hip joint effusions. Impression: 1. Again identified is a prominent fracture deformity of the left greater trochanter with comminution of the fracture fragments. There is a suggestion of an intertrochanteric component seen on series 2, image 18 with curvilinear decreased T1 signal extending from the fracture site at the base of the femoral neck towards the lesser trochanter. There appears to be underlying osseous lesions at the level of the greater trochanter measuring up to 4 centimeters as well as at the level of the lesser trochanter extending to the medial cortex of the proximal medullary cavity measuring up to 4 centimeters. 2. Again identified are fracture deformities of the superior and inferior left pubic ramus. 3. Extensive osseous metastatic disease throughout the bony pelvis and bilateral hips including a large area of marrow signal abnormality concerning for osseous metastatic disease extending from the left superior acetabulum to the iliac bone measuring up to 5 centimeters. Additional osseous lesions seen but not limited to the L4 vertebral body, right bony iliac bone and SI, sacrum, multiple lesions in the right femoral neck, right greater trochanter, and right proximal medullary cavities. Additional smaller osseous lesion seen within the medullary cavity of the left proximal femur and left inferior pubic bone. 4. Prominent reticulation and edema within the soft tissues and musculature of the left thigh suggestive for a myositis and or partial muscle tearing. 5. Moderate degenerative changes of the left hip joint space with joint space narrowing and cartilage fibrillation. 6. Moderate bilateral hip joint effusions.
--- NOTE | 2017-06-26 16:15 | MRI ---
MRI left femur History: Fracture. Comparison: CT scan dated 06/24/2017 Technique: Multi-echo multiplanar sequences were performed through the left femur without the use of intravenous contrast. Findings: Please see separate report for evaluation of the left hip. Again identified is a prominent fracture deformity of the left greater trochanter with comminution of the fracture fragments. There is a suggestion of an intertrochanteric component seen on series 5, image 18 with curvilinear decreased T1 signal extending from the fracture site at the base of the femoral neck towards the lesser trochanter. There appears to be underlying osseous lesions at the level of the greater trochanter measuring up to 4 centimeters as well as at the level of the lesser trochanter extending to the medial cortex of the proximal medullary cavity measuring up to 4 centimeters. Given the extensive signal abnormality at the fracture site, evaluation for pathologic lesion is somewhat limited at that level. Again identified are fracture deformities of the superior and inferior left pubic ramus. Given the extensive signal abnormality at the fracture sites, evaluation for pathologic lesions are somewhat limited at those levels. Additional prominent osseous metastatic lesion seen within the mid to distal medullary cavity of the left femur measuring up to 2.6 centimeters best seen on series 4 and 5, image 12. Smaller possible osseous metastatic lesions seen within the proximal medullary cavity of the left femur. Extensive osseous metastatic disease throughout the bony pelvis and bilateral hips including a large area of marrow signal abnormality concerning for osseous metastatic disease extending from the left superior acetabulum, partially imaged. Additional osseous lesions seen but not limited to the left inferior pubic bone, right acetabulum, multiple lesions in the right femoral neck, right greater trochanter, and right proximal medullary cavities. Additional prominent osseous lesion within the mid medullary cavity of the right femur measuring up to 3.5 centimeters. Prominent reticulation and edema within the soft tissues and musculature of the left thigh suggestive for a myositis and or partial muscle tearing particularly prominent within the inferior left pelvic musculature as well as the posterior left thigh musculature. Moderate degenerative changes of the left hip joint space with joint space narrowing and cartilage fibrillation. Moderate bilateral hip joint effusions. Moderate left knee joint effusion. Impression: Please see separate report for evaluation of the left hip. 1. Again identified is a prominent fracture deformity of the left greater trochanter with comminution of the fracture fragments. There is a suggestion of an intertrochanteric component seen on series 5, image 18 with curvilinear decreased T1 signal extending from the fracture site at the base of the femoral neck towards the lesser trochanter. There appears to be underlying osseous lesions at the level of the greater trochanter measuring up to 4 centimeters as well as at the level of the lesser trochanter extending to the medial cortex of the proximal medullary cavity measuring up to 4 centimeters. Given the extensive signal abnormality at the fracture site, evaluation for pathologic lesion is somewhat limited at that level. 2. Again identified are fracture deformities of the superior and inferior left pubic ramus. Given the extensive signal abnormality at the fracture sites, evaluation for pathologic lesions are somewhat limited at those levels. 3. Additional prominent osseous metastatic lesion seen within the mid to distal medullary cavity of the left femur measuring up to 2.6 centimeters best seen on series 4 and 5, image 12. Smaller possible osseous metastatic lesions seen within the proximal medullary cavity of the left femur. 4. Extensive osseous metastatic disease throughout the bony pelvis and bilateral hips including a large area of marrow signal abnormality concerning for osseous metastatic disease extending from the left superior acetabulum, partially imaged. Additional osseous lesions seen but not limited to the left inferior pubic bone, right acetabulum, multiple lesions in the right femoral neck, right greater trochanter, and right proximal medullary cavities. Additional prominent osseous lesion within the mid medullary cavity of the right femur measuring up to 3.5 centimeters. 5. Prominent reticulation and edema within the soft tissues and musculature of the left thigh suggestive for a myositis and or partial muscle tearing particularly prominent within the inferior left pelvic musculature as well as the posterior left thigh musculature. 6. Moderate degenerative changes of the left hip joint space with joint space narrowing and cartilage fibrillation. 7. Moderate bilateral hip joint effusions. 8. Moderate left knee joint effusion.
[2017-06-26] MEDS: Potassium Chloride 20 mEq 100 ML IVPB SCH (17:05)
[2017-06-26] MEDS ORDERED: Alum-Mag Hydrox-Simethicone Susp (30 mL) PO ONE (21:02)
--- NOTE | 2017-06-26 21:46 | CP.PCM.PN ---
Subjective - Date & Time of Evaluation Date of Evaluation: 06/26/17 Time of Evaluation: 11:00 - Subjective Subjective: Denies pain Objective - Vital Signs/Intake and Output Vital Signs (last 24 hours): Temp Pulse Resp BP Pulse Ox 98.7 F 95 H 19 103/62 98 06/26/17 16:00 06/26/17 16:00 06/26/17 16:00 06/26/17 16:00 06/26/17 16:00 - Medications Medications: Current Medications Enoxaparin Sodium (Lovenox) 40 mg SC DAILY [facility] PRN Reason: Protocol Metronidazole (Flagyl 500mg/100ml Ns) 100 mls @ 100 mls/hr IVPB Q8@0000,0800, 1400 [facility] PRN Reason: Protocol Last Admin: 06/26/17 16:22 Dose: 100 mls/hr Ceftriaxone Sodium 1 gm/ (Sodium Chloride) 100 mls @ 100 mls/hr IVPB DAILY [facility] PRN Reason: Protocol - Labs Labs: 06/26/17 04:20 06/26/17 04:20 PT 13.4 Seconds (9.8-13.1) H 06/24/17 17:35 INR 1.2 (0.9-1.2) 06/24/17 17:35 APTT 25.1 Seconds (25.6-37.1) L 06/24/17 17:35 - Head Exam Head Exam: ATRAUMATIC - Eye Exam Eye Exam: Normal appearance - ENT Exam ENT Exam: Mucous Membranes Dry - Respiratory Exam Respiratory Exam: NORMAL BREATHING PATTERN - Cardiovascular Exam Cardiovascular Exam: +S1, +S2 - GI/Abdominal Exam GI & Abdominal Exam: Normal Bowel Sounds Assessment and Plan (1) Neutropenia Assessment & Plan: secondary to chemotherapy neutropenic precautions on growth factor support Status: Acute (2) Pathologic fracture Assessment & Plan: bone metastasis orthopedic evaluation Status: Acute (3) Anemia Assessment & Plan: chronic disease and chemotherapy transfusion support PRN Status: Chronic (4) Breast cancer Assessment & Plan: stage IV bone metastasis on Abraxane chemotherapy Status: Acute
[2017-06-27] MEDS: Pantoprazole 40 mg EC Tab PO SCH ×2 (02:33→08:43)
[2017-06-27 08:04] LABS: HEMOGLOBIN 11.1 g/dL (12.0-16.0); MEAN CELL VOLUME 84.5 fl (81.0-99.0); MEAN CORPUSCULAR HEMOGLOBIN 28.9 pg (27.0-31.0); MEAN CORPUSCULAR HGB CONC 34.2 g/dL (33.0-37.0); RBC 3.86 Mil/uL (3.80-5.20); RED CELL DISTRIBUTION WIDTH 15.7 % (11.5-14.5)
[2017-06-27 08:23] LABS: BLOOD UREA NITROGEN 7 mg/dl (7-17); CALCIUM 7.4 mg/dL (8.4-10.2); GFR AFRICAN-AMERICAN > 60; GFR NON-AFRICAN AMERICAN > 60
[2017-06-27] MEDS: metroNIDAZOLE 500mg/100ml NS 100 ML IVPB SCH ×2 (08:40→14:00)
[2017-06-27] MEDS: Enoxaparin 40 mg Syringe SC SCH (08:43)
--- NOTE | 2017-06-27 09:55 | CP.PCM.PN ---
Subjective - Date & Time of Evaluation Date of Evaluation: 06/27/17 Time of Evaluation: 08:55 - Subjective Subjective: Pt seen/evaluate at bedside this am. Continues to be confused, baseline state of not answering questions appropriately. Objective - Vital Signs/Intake and Output Vital Signs (last 24 hours): Temp Pulse Resp BP Pulse Ox 98.5 F 102 H 20 117/69 96 06/27/17 09:06 06/27/17 09:06 06/27/17 09:06 06/27/17 09:06 06/27/17 09:06 - Medications Medications: Current Medications Enoxaparin Sodium (Lovenox) 40 mg SC DAILY [facility] PRN Reason: Protocol Last Admin: 06/27/17 08:43 Dose: 40 mg Metronidazole (Flagyl 500mg/100ml Ns) 100 mls @ 100 mls/hr IVPB Q8@0000,0800, 1400 [facility] PRN Reason: Protocol Last Admin: 06/27/17 08:40 Dose: 100 mls/hr Ceftriaxone Sodium 1 gm/ (Sodium Chloride) 100 mls @ 100 mls/hr IVPB DAILY [facility] PRN Reason: Protocol Last Admin: 06/27/17 08:44 Dose: 100 mls/hr Lactated Ringer's (Lactated Ringer's) 1,000 mls @ 80 mls/hr IV .[id number] [facility] Pantoprazole Sodium (Protonix Ec Tab) 40 mg PO DAILY [facility] Last Admin: 06/27/17 08:43 Dose: 40 mg - Labs Labs: 06/27/17 05:30 06/27/17 05:30 PT 13.4 Seconds (9.8-13.1) H 06/24/17 17:35 INR 1.2 (0.9-1.2) 06/24/17 17:35 APTT 25.1 Seconds (25.6-37.1) L 06/24/17 17:35 - Constitutional Appears: No Acute Distress, Chronically Ill - Respiratory Exam Respiratory Exam: Clear to Ausculation Bilateral, NORMAL BREATHING PATTERN. absent: Wheezes - Cardiovascular Exam Cardiovascular Exam: REGULAR RHYTHM, +S1, +S2 - GI/Abdominal Exam GI & Abdominal Exam: Soft. absent: Tenderness - Extremities Exam Extremities Exam: absent: Calf Tenderness, Pedal Edema - Neurological Exam Neurological Exam: absent: Oriented x3 - Psychiatric Exam Psychiatric exam: Agitated - Skin Skin Exam: Warm Assessment and Plan - Assessment and Plan (Free Text) Assessment: 81 yo F with DM2, HTN, HLD, anxiety and breast cancer admitted for UTI. Hip fracture seen on CT abdomen and MRI. Plan: # Urinary tract infection Source of sepsis; sepsis resolved. Pt's lactate has normalized, normal HR. - Continue IV hydration - Rocephin 1g daily (day 4) - Flagyll 500 mg Q8 (day 4) - Blood culture pending - Urine culture showed Klebsiella spp # Hip fracture Seen on CT - fractures including greater trochanter and left superior and inferior pubic rami Bony lesions like secondary to metastatic disease - Hip MRI and lower extremity MRI complete - Ortho consult- Dr. Johnathan Nolasco; waiting for further recs after completion of MRI # Hypokalemia - s/p 40 mEq IV - 2.9 today; Mg and Phos not low on admission; repeat - replete today # Anemia - Hgb 11.1 today; improved - Type and screen completed - Monitor on CBC # Leukopenia - Dr. Irizarry consulted - granix yesterday # Malignant neoplasm of breast - Likely cause of leukopenia - Heme/onc consult Dr. Irizarry - Chemotherapy may be contributing to leukopenia # DVT prophylaxis - Lovenox
[2017-06-27] MEDS: Lactated Ringer's 1,000 ML IV SCH ×2 (10:00→22:00)
[2017-06-27] MEDS ORDERED: Potassium Chloride 20 mEq 100 ML IVPB ONE (11:07)
[2017-06-27] MEDS ORDERED: Potassium Chloride 20 mEq 100 ML IVPB SCH (12:00)
[2017-06-27] MEDS ORDERED: Potassium Phosphate 30 MMOLE in Sodium Chloride 0.9% 500 ML IV ONE (16:04)
[2017-06-27] MEDS ORDERED: Potassium & Sodium Phosphate PO SCH (16:30)
[2017-06-27] MEDS: Potassium Chloride 20 mEq 100 ML IVPB ONE ×2 (16:33→17:11)
[2017-06-27] MEDS: Potassium Chloride 20 mEq 100 ML IV SCH ×2 (18:05→19:17)
--- NOTE | 2017-06-27 21:01 | CP.PCM.PN ---
Subjective - Date & Time of Evaluation Date of Evaluation: 06/27/17 Time of Evaluation: 17:15 - Subjective Subjective: Denies pain but requesting to go home Objective - Vital Signs/Intake and Output Vital Signs (last 24 hours): Temp Pulse Resp BP Pulse Ox 99.2 F 104 H 21 96/56 L 98 06/27/17 17:09 06/27/17 17:09 06/27/17 17:09 06/27/17 17:09 06/27/17 17:09 - Medications Medications: Current Medications Enoxaparin Sodium (Lovenox) 40 mg SC DAILY [facility] PRN Reason: Protocol Last Admin: 06/27/17 08:43 Dose: 40 mg Metronidazole (Flagyl 500mg/100ml Ns) 100 mls @ 100 mls/hr IVPB Q8@0000,0800, 1400 [facility] PRN Reason: Protocol Last Admin: 06/27/17 14:00 Dose: 100 mls/hr Ceftriaxone Sodium 1 gm/ (Sodium Chloride) 100 mls @ 100 mls/hr IVPB DAILY [facility] PRN Reason: Protocol Last Admin: 06/27/17 08:44 Dose: 100 mls/hr Lactated Ringer's (Lactated Ringer's) 1,000 mls @ 80 mls/hr IV .[id number] [facility] Last Admin: 06/27/17 10:00 Dose: 80 mls/hr Potassium Chloride (Potassium Chloride 20 Meq/100 Ml) 100 mls @ 50 mls/hr IV Q2 [facility] Stop: 06/27/17 21:59 Last Admin: 06/27/17 19:17 Dose: 50 mls/hr Pantoprazole Sodium (Protonix Ec Tab) 40 mg PO DAILY [facility] Last Admin: 06/27/17 08:43 Dose: 40 mg - Labs Labs: 06/27/17 05:30 06/27/17 05:30 PT 13.4 Seconds (9.8-13.1) H 06/24/17 17:35 INR 1.2 (0.9-1.2) 06/24/17 17:35 APTT 25.1 Seconds (25.6-37.1) L 06/24/17 17:35 - Head Exam Head Exam: ATRAUMATIC - Eye Exam Eye Exam: Normal appearance - ENT Exam ENT Exam: Mucous Membranes Dry - Respiratory Exam Respiratory Exam: NORMAL BREATHING PATTERN - Cardiovascular Exam Cardiovascular Exam: +S1, +S2 - GI/Abdominal Exam GI & Abdominal Exam: Normal Bowel Sounds Assessment and Plan (1) Neutropenia Assessment & Plan: secondary to chemotherapy s/p growth factor please check differential with CBC to evaluate for neutropenia Status: Acute (2) Pathologic fracture Assessment & Plan: orthopedic evaluation Status: Acute (3) Anemia Assessment & Plan: chronic disease, bone mets, chemotherapy Status: Chronic (4) Breast cancer Assessment & Plan: stage IV, 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
[2017-06-28] MEDS: metroNIDAZOLE 500mg/100ml NS 100 ML IVPB SCH ×4 (00:36→23:34)
[2017-06-28 01:42] LABS: BLOOD UREA NITROGEN 6 mg/dl (7-17); CALCIUM 7.1 mg/dL (8.4-10.2); GFR AFRICAN-AMERICAN > 60; GFR NON-AFRICAN AMERICAN > 60
[2017-06-28] MEDS: Enoxaparin 40 mg Syringe SC SCH (08:37)
[2017-06-28] MEDS: Pantoprazole 40 mg EC Tab PO SCH (08:37)
[2017-06-28] MEDS ORDERED: Potassium & Sodium Phosphate PO ONE (09:08)
--- NOTE | 2017-06-28 12:29 | CP.PCM.PN ---
Subjective - Date & Time of Evaluation Date of Evaluation: 06/28/17 Time of Evaluation: 12:27 - Subjective Subjective: overnight, electrolytes repleted, otherwise no events. pleasant, pt has dementia and hard of hearing. No acute complaints. No pain. Objective - Vital Signs/Intake and Output Vital Signs (last 24 hours): Temp Pulse Resp BP Pulse Ox 99.3 F 91 H 20 109/67 94 L 06/28/17 08:17 06/28/17 08:17 06/28/17 08:17 06/28/17 08:17 06/28/17 08:17 - Medications Medications: Current Medications Enoxaparin Sodium (Lovenox) 40 mg SC DAILY [facility] PRN Reason: Protocol Last Admin: 06/28/17 08:37 Dose: 40 mg Metronidazole (Flagyl 500mg/100ml Ns) 100 mls @ 100 mls/hr IVPB Q8@0000,0800, 1400 [facility] PRN Reason: Protocol Last Admin: 06/28/17 08:37 Dose: 100 mls/hr Ceftriaxone Sodium 1 gm/ (Sodium Chloride) 100 mls @ 100 mls/hr IVPB DAILY [facility] PRN Reason: Protocol Last Admin: 06/28/17 09:50 Dose: 100 mls/hr Lactated Ringer's (Lactated Ringer's) 1,000 mls @ 80 mls/hr IV .[id number] [facility] Last Admin: 06/27/17 22:00 Dose: Not Given Pantoprazole Sodium (Protonix Ec Tab) 40 mg PO DAILY [facility] Last Admin: 06/28/17 08:37 Dose: 40 mg - Labs Labs: 06/27/17 05:30 06/28/17 01:12 PT 13.4 Seconds (9.8-13.1) H 06/24/17 17:35 INR 1.2 (0.9-1.2) 06/24/17 17:35 APTT 25.1 Seconds (25.6-37.1) L 06/24/17 17:35 - Constitutional Appears: No Acute Distress - Head Exam Head Exam: ATRAUMATIC, NORMAL INSPECTION - Eye Exam Eye Exam: Normal appearance - ENT Exam ENT Exam: Mucous Membranes Moist - Neck Exam Neck Exam: Full ROM, Normal Inspection - Respiratory Exam Respiratory Exam: Clear to Ausculation Bilateral - Cardiovascular Exam Cardiovascular Exam: REGULAR RHYTHM - GI/Abdominal Exam GI & Abdominal Exam: Soft. absent: Tenderness - Extremities Exam Extremities Exam: Normal Inspection. absent: Tenderness - Back Exam Back Exam: NORMAL INSPECTION - Neurological Exam Neurological Exam: Alert, Awake - Skin Skin Exam: Dry, Warm Assessment and Plan - Assessment and Plan (Free Text) Assessment: 81yo F with DM2, HTN, HLD, anxiety and breast cancer admitted for UTI. Plan: Ortho to plan for intervention (by another provider or facility) if pt family requests. If Pt declines, d/c home with precautions # R Hip fracture -CT - fractures including greater trochanter and left superior and inferior pubic rami -Bony lesions like secondary to metastatic disease -Hip MRI and lower extremity MRI: extensive metastatic lesions. L hip fx -Ortho Dr. Johnathan Nolasco c/s, appreciate input. will d/w pt son for surgery or d/c home. # Urinary tract infection - MIVF - IV abx Day 5: Rocephin 1g daily, Flagyl 500 mg Q8 - Blood culture NGTD - Urine culture Klebsiella spp #Hypophos -PhosLo # Anemia - Monitor CBC with diff # Leukopenia - H/O, Dr. Irizarry consulted, appreciate input # Hypokalemia - RESOLVED # DVT prophylaxis - Lovenox
[2017-06-28 13:34] LABS: BASO % 0.9 % (0.0-2.0); EOS % 1.1 % (0.0-4.0); LYMPH # 0.5 K/uL (1.0-4.3); LYMPH % 27.9 % (20.0-40.0); MEAN CELL VOLUME 83.6 fl (81.0-99.0); MEAN CORPUSCULAR HEMOGLOBIN 28.7 pg (27.0-31.0); MEAN CORPUSCULAR HGB CONC 34.3 g/dL (33.0-37.0); MEAN PLATELET VOLUME 7.8 fl (7.2-11.7); MONO # 0.3 K/uL (0.0-0.8); MONO % 18.4 % (0.0-10.0); NEUT # 0.9 K/uL (1.8-7.0); NEUT % 51.7 % (50.0-75.0); NRBC % 0.4 % (0.0-0.0); RBC 3.49 Mil/uL (3.80-5.20); RED CELL DISTRIBUTION WIDTH 16.2 % (11.5-14.5)
[2017-06-28 13:41] LABS: WHITE BLOOD COUNT 1.8 K/uL (4.8-10.8)
[2017-06-28] MEDS ORDERED: Alum-Mag Hydrox-Simethicone Susp (30 mL) PO ONE (22:31)
[2017-06-28] MEDS: Lactated Ringer's 1,000 ML IV SCH (23:00)
[2017-06-29 07:01] LABS: BASO % 0.4 % (0.0-2.0); EOS % 0.4 % (0.0-4.0); HEMOGLOBIN 9.3 g/dL (12.0-16.0); LYMPH # 0.9 K/uL (1.0-4.3); LYMPH % 27.4 % (20.0-40.0); MEAN CELL VOLUME 83.1 fl (81.0-99.0); MEAN CORPUSCULAR HEMOGLOBIN 28.3 pg (27.0-31.0); MEAN CORPUSCULAR HGB CONC 34.1 g/dL (33.0-37.0); MONO # 0.6 K/uL (0.0-0.8); MONO % 17.8 % (0.0-10.0); NEUT # 1.8 K/uL (1.8-7.0); RBC 3.28 Mil/uL (3.80-5.20); RED CELL DISTRIBUTION WIDTH 16.1 % (11.5-14.5); WHITE BLOOD COUNT 3.3 K/uL (4.8-10.8)
[2017-06-29 07:21] LABS: ALB/GLOB RATIO 0.9 (1.0-2.1); ALBUMIN 2.4 g/dL (3.5-5.0); ALT/SGPT 30 U/L (9-52); AST/SGOT 22 U/L (14-36); BLOOD UREA NITROGEN 6 mg/dl (7-17); CALCIUM 6.8 mg/dL (8.4-10.2); GFR AFRICAN-AMERICAN > 60; GFR NON-AFRICAN AMERICAN > 60
--- NOTE | 2017-06-29 08:30 | CP.PCM.PN ---
Subjective - Date & Time of Evaluation Date of Evaluation: 06/29/17 Time of Evaluation: 08:28 - Subjective Subjective: Patient seen and evaluated this morning at bedside, no acute overnight reported , patient hard of hearing. Denies pain. Afebrile. Ortho spoke with pt's son and he prefers only conservative measures and decline surgery. Objective - Vital Signs/Intake and Output Vital Signs (last 24 hours): Temp Pulse Resp BP Pulse Ox 98.1 F 92 H 18 114/65 96 06/29/17 08:23 06/29/17 08:23 06/29/17 08:23 06/29/17 08:23 06/29/17 08:23 - Medications Medications: Current Medications Enoxaparin Sodium (Lovenox) 40 mg SC DAILY [facility] PRN Reason: Protocol Last Admin: 06/28/17 08:37 Dose: 40 mg Metronidazole (Flagyl 500mg/100ml Ns) 100 mls @ 100 mls/hr IVPB Q8@0000,0800, 1400 [facility] PRN Reason: Protocol Last Admin: 06/28/17 23:34 Dose: 100 mls/hr Ceftriaxone Sodium 1 gm/ (Sodium Chloride) 100 mls @ 100 mls/hr IVPB DAILY [facility] PRN Reason: Protocol Last Admin: 06/28/17 09:50 Dose: 100 mls/hr Lactated Ringer's (Lactated Ringer's) 1,000 mls @ 80 mls/hr IV .[id number] [facility] Last Admin: 06/28/17 23:00 Dose: 80 mls/hr Potassium Phosphate 4.4 mmole/ (Dextrose) 251.4667 mls @ 42 mls/hr IV .Q6H [facility] Stop: 06/29/17 14:16 Pantoprazole Sodium (Protonix Ec Tab) 40 mg PO DAILY [facility] Last Admin: 06/28/17 08:37 Dose: 40 mg - Labs Labs: 06/29/17 05:30 06/29/17 05:30 PT 13.4 Seconds (9.8-13.1) H 06/24/17 17:35 INR 1.2 (0.9-1.2) 06/24/17 17:35 APTT 25.1 Seconds (25.6-37.1) L 06/24/17 17:35 - Constitutional Appears: No Acute Distress, Chronically Ill - Head Exam Head Exam: NORMAL INSPECTION - Eye Exam Eye Exam: EOMI, PERRL - Respiratory Exam Respiratory Exam: NORMAL BREATHING PATTERN Additional comments: diffuse b/l crackles - Cardiovascular Exam Cardiovascular Exam: REGULAR RHYTHM, +S1, +S2. absent: Murmur - GI/Abdominal Exam GI & Abdominal Exam: Soft, Normal Bowel Sounds. absent: Tenderness - Extremities Exam Extremities Exam: absent: Pedal Edema - Neurological Exam Neurological Exam: CN II-XII Intact, Oriented x3 Assessment and Plan - Assessment and Plan (Free Text) Assessment: 81 yo F with PMH of DM2, HTN, HLD, anxiety and breast cancer admitted for UTI. L hip fracture appreciated in Hip CT and MRI. Plan: Pt family decline surgery and prefers conservative measures only, NWB, patient most likely going to [facility]. 1- L Hip fracture -CT - fractures including greater trochanter and left superior and inferior pubic rami -Bony lesions like secondary to metastatic disease -Hip MRI and lower extremity MRI: extensive metastatic lesions. L hip fx -Ortho Dr. Johnathan Nolasco on board recommds strict NWB LLE. 2- Urinary tract infection - MIVF - c/w Rocephin 1g daily to complete 14 days (day 6) - Blood culture NGTD - Urine culture Klebsiella spp 3- Left colitis - seen on admission CT - c/w Flagyl 500 mg Q8 to complete 7days (day 6) 4- Hypophosphatemia - phos 1.0 - PhosLo - f/u CMP, Phos 4/3 5- Anemia - H/H 9.3/27.2 - likely secondary chronic disease - Monitor CBC with diff 4/3 6- Leukopenia - H/O, Dr. Irziarry consulted, appreciate input - secondary to chemotherapy 7- Hypokalemia - K 2.9 - KCL 30-D5 IV 8 - DVT prophylaxis - Lovenox
[2017-06-29] MEDS ORDERED: Potassium Phosphate 30 MMOLE in Dextrose 5% In Water 250 ML IV ONE (09:00)
[2017-06-29] MEDS: metroNIDAZOLE 500mg/100ml NS 100 ML IVPB SCH ×2 (09:14→20:38)
[2017-06-29] MEDS: Enoxaparin 40 mg Syringe SC SCH (09:15)
[2017-06-29] MEDS: Pantoprazole 40 mg EC Tab PO SCH (09:15)
--- NOTE | 2017-06-29 10:51 | RAD ---
PORTABLE CHEST Single frontal portable chest radiograph was not performed evaluation of rales and chills with compared prior chest radiograph dated 06/16/2017. Small bilateral pleural effusions are identified with limited patchy density at the left base suspicious for interval pneumonia though atelectasis may be present instead. Limited right infrahilar patchy atelectasis or infiltrate is also in question. Cardiac size is normal once again with no pulmonary derangement appreciated. No pneumothorax bilaterally. Trachea remains midline. Prior left humeral ORIF hardware again incidentally noted and partially captured in this exam. IMPRESSION: Findings suspicious for interval patchy infiltrate at the left base and right infrahilar space though atelectasis may be artifact. Small bilateral pleural effusions are present. Clinically correlate further.
--- NOTE | 2017-06-29 11:37 | CP.PCM.PN ---
Subjective - Date & Time of Evaluation Date of Evaluation: 06/29/17 Time of Evaluation: 08:00 - Subjective Subjective: ORtho f/u Dr. Aguilar Patient refusing exam, refuses to follow commands. Says she has to go to the bathroom. Review of Systems - Review of Systems Systems not reviewed;Unavailable: Dementia Objective - Vital Signs/Intake and Output Vital Signs (last 24 hours): Temp Pulse Resp BP Pulse Ox 98.1 F 92 H 18 114/65 96 06/29/17 08:23 06/29/17 08:23 06/29/17 08:23 06/29/17 08:23 06/29/17 08:23 - Medications Medications: Current Medications Enoxaparin Sodium (Lovenox) 40 mg SC DAILY [facility] PRN Reason: Protocol Last Admin: 06/29/17 09:15 Dose: 40 mg Metronidazole (Flagyl 500mg/100ml Ns) 100 mls @ 100 mls/hr IVPB Q8@0000,0800, 1400 [facility] Reason: Protocol Last Admin: 06/29/17 09:14 Dose: 100 mls/hr Ceftriaxone Sodium 1 gm/ (Sodium Chloride) 100 mls @ 100 mls/hr IVPB DAILY [facility]N Reason: Protocol Last Admin: 06/28/17 09:50 Dose: 100 mls/hr Lactated Ringer's (Lactated Ringer's) 1,000 mls @ 80 mls/hr IV .[id number] [facility] Last Admin: 06/28/17 23:00 Dose: 80 mls/hr Potassium Phosphate 30 mmole/ (Dextrose) 260 mls @ 65 mls/hr IV .Q4H ONE Stop: 06/29/17 12:59 Pantoprazole Sodium (Protonix Ec Tab) 40 mg PO DAILY [facility] Last Admin: 06/29/17 09:15 Dose: 40 mg - Labs Labs: 06/29/17 05:30 06/29/17 05:30 PT 13.4 Seconds (9.8-13.1) H 06/24/17 17:35 INR 1.2 (0.9-1.2) 06/24/17 17:35 APTT 25.1 Seconds (25.6-37.1) L 06/24/17 17:35 - Constitutional Appears: Well, No Acute Distress - Head Exam Head Exam: ATRAUMATIC - Neck Exam Neck Exam: Full ROM, Normal Inspection - Respiratory Exam Respiratory Exam: NORMAL BREATHING PATTERN - Extremities Exam Additional comments: calves soft NT neg homans no pain with PROM B hips/knees (patient allows) - Neurological Exam Neurological Exam: Alert, Awake Additional comments: doesn't follow commands but noted +DF/PF ankles during exam - Psychiatric Exam Psychiatric exam: Agitated - Skin Skin Exam: Dry, Intact, Normal Color, Warm Assessment and Plan (1) Fracture of greater trochanter of left femur Assessment & Plan: MRI + for stage 4 breast mets to b/l femurs and hips, the L hip displaced greater trochanteric fracture extends to the intertrochanteric region as a pathologic fx as well. Dr. Aguilar had a discussion with the patient's son, who is making medical decisions. They had a family meeting and decided that they don't want any surgical intervention at this time. Patient was indicated for #1 Left hip closed reduction and long hip nail, #2 right hip/femur prophylactic long hip nail. strict NWB LLE left pelvic rami fractures are stable, non operative ortho stable for d/c to rehab, family wants [facility] f/u Dr. Aguilar in office in approx 10 days, call for appointment Status: Acute (2) Fracture of left superior pubic ramus Status: Acute (3) Fracture of left inferior pubic ramus Status: Acute (4) Metastatic bone cancer Status: Acute (5) Pathological intertrochanteric fracture of femur Status: Acute Radiology Interpretation - Radiology Interpretation #2 Interpretation: atient Name / ID : VICKY WHEELER / [id number] Exam Date : 06/26/2017 14:14:02 ( Approved ) Study Comment : Sex / Age : F / 81Y Creator : Juliocesar Erazo MD Dictator : Juliocesar Erazo MD Vacuum Bottle Assembler : Fisher Sponge Hooking : Juliocesar Erazo MD Approver2 : Report Date : 06/26/2017 16:14:09 My Comment : MRI left femur History: Fracture. Comparison: CT scan dated 06/24/2017 Technique: Multi-echo multiplanar sequences were performed through the left femur without the use of intravenous contrast. Findings: Please see separate report for evaluation of the left hip. Again identified is a prominent fracture deformity of the left greater trochanter with comminution of the fracture fragments. There is a suggestion of an intertrochanteric component seen on series 5, image 18 with curvilinear decreased T1 signal extending from the fracture site at the base of the femoral neck towards the lesser trochanter. There appears to be underlying osseous lesions at the level of the greater trochanter measuring up to 4 centimeters as well as at the level of the lesser trochanter extending to the medial cortex of the proximal medullary cavity measuring up to 4 centimeters. Given the extensive signal abnormality at the fracture site, evaluation for pathologic lesion is somewhat limited at that level. Again identified are fracture deformities of the superior and inferior left pubic ramus. Given the extensive signal abnormality at the fracture sites, evaluation for pathologic lesions are somewhat limited at those levels. Additional prominent osseous metastatic lesion seen within the mid to distal medullary cavity of the left femur measuring up to 2.6 centimeters best seen on series 4 and 5, image 12. Smaller possible osseous metastatic lesions seen within the proximal medullary cavity of the left femur. Extensive osseous metastatic disease throughout the bony pelvis and bilateral hips including a large area of marrow signal abnormality concerning for osseous metastatic disease extending from the left superior acetabulum, partially imaged. Additional osseous lesions seen but not limited to the left inferior pubic bone, right acetabulum, multiple lesions in the right femoral neck, right greater trochanter, and right proximal medullary cavities. Additional prominent osseous lesion within the mid medullary cavity of the right femur measuring up to 3.5 centimeters. Prominent reticulation and edema within the soft tissues and musculature of the left thigh suggestive for a myositis and or partial muscle tearing particularly prominent within the inferior left pelvic musculature as well as the posterior left thigh musculature. Moderate degenerative changes of the left hip joint space with joint space narrowing and cartilage fibrillation. Moderate bilateral hip joint effusions. Moderate left knee joint effusion. Impression: Please see separate report for evaluation of the left hip. 1. Again identified is a prominent fracture deformity of the left greater trochanter with comminution of the fracture fragments. There is a suggestion of an intertrochanteric component seen on series 5, image 18 with curvilinear decreased T1 signal extending from the fracture site at the base of the femoral neck towards the lesser trochanter. There appears to be underlying osseous lesions at the level of the greater trochanter measuring up to 4 centimeters as well as at the level of the lesser trochanter extending to the medial cortex of the proximal medullary cavity measuring up to 4 centimeters. Given the extensive signal abnormality at the fracture site, evaluation for pathologic lesion is somewhat limited at that level. 2. Again identified are fracture deformities of the superior and inferior left pubic ramus. Given the extensive signal abnormality at the fracture sites, evaluation for pathologic lesions are somewhat limited at those levels. 3. Additional prominent osseous metastatic lesion seen within the mid to distal medullary cavity of the left femur measuring up to 2.6 centimeters best seen on series 4 and 5, image 12. Smaller possible osseous metastatic lesions seen within the proximal medullary cavity of the left femur. 4. Extensive osseous metastatic disease throughout the bony pelvis and bilateral hips including a large area of marrow signal abnormality concerning for osseous metastatic disease extending from the left superior acetabulum, partially imaged. Additional osseous lesions seen but not limited to the left inferior pubic bone, right acetabulum, multiple lesions in the right femoral neck, right greater trochanter, and right proximal medullary cavities. Additional prominent osseous lesion within the mid medullary cavity of the right femur measuring up to 3.5 centimeters. 5. Prominent reticulation and edema within the soft tissues and musculature of the left thigh suggestive for a myositis and or partial muscle tearing particularly prominent within the inferior left pelvic musculature as well as the posterior left thigh musculature. 6. Moderate degenerative changes of the left hip joint space with joint space narrowing and cartilage fibrillation. 7. Moderate bilateral hip joint effusions. 8. Moderate left knee joint effusion. - Radiology Interpretation #3 Interpretation: Patient Name / ID : VICKY WHEELER / [id number] Exam Date : 06/26/2017 14:52:23 ( Addendum_Approved ) Study Comment : Sex / Age : F / 81Y Creator : Juliocesar Erazo MD Dictator : Juliocesar Erazo MD Vacuum Bottle Assembler : Fisher Sponge Hooking : Juliocesar Erazo MD Approver2 : Report Date : 06/26/2017 15:56:58 My Comment : ADDENDUM: Addendum: Again identified is a prominent fracture deformity of the left greater trochanter with comminution of the fracture fragments. There is a suggestion of an intertrochanteric component seen on series 2, image 18 with curvilinear decreased T1 signal extending from the fracture site at the base of the femoral neck towards the lesser trochanter. There appears to be underlying osseous lesions at the level of the greater trochanter measuring up to 4 centimeters as well as at the level of the lesser trochanter extending to the medial cortex of the proximal medullary cavity measuring up to 4 centimeters. Given the extensive signal abnormality at the fracture site, evaluation for pathologic lesion is somewhat limited at that level. Again identified are fracture deformities of the superior and inferior left pubic bones. Given the extensive signal abnormality at the fracture sites, evaluation for pathologic lesions are somewhat limited at those levels. [ Addendum Report Added by Juliocesar Erazo MD at 06/26/2017 16:18:26 ] MRI left hip History: Fracture. Comparison: CT scan dated 06/24/2017 Technique: Multi-echo multiplanar sequences were performed through the left hip without the use of intravenous contrast. Findings: Left hip: Again identified is a prominent fracture deformity of the left greater trochanter with comminution of the fracture fragments. There is a suggestion of an intertrochanteric component seen on series 2, image 18 with curvilinear decreased T1 signal extending from the fracture site at the base of the femoral neck towards the lesser trochanter. There appears to be underlying osseous lesions at the level of the greater trochanter measuring up to 4 centimeters as well as at the level of the lesser trochanter extending to the medial cortex of the proximal medullary cavity measuring up to 4 centimeters. Again identified are fracture deformities of the superior and inferior left pubic ramus. Extensive osseous metastatic disease throughout the bony pelvis and bilateral hips including a large area of marrow signal abnormality concerning for osseous metastatic disease extending from the left superior acetabulum to the iliac bone measuring up to 5 centimeters. Additional osseous lesions seen but not limited to the L4 vertebral body, right bony iliac bone and SI, sacrum, multiple lesions in the right femoral neck, right greater trochanter, and right proximal medullary cavities. Additional smaller osseous lesion seen within the medullary cavity of the left proximal femur and left inferior pubic bone. Prominent reticulation and edema within the soft tissues and musculature of the left thigh suggestive for a myositis and or partial muscle tearing. Moderate degenerative changes of the left hip joint space with joint space narrowing and cartilage fibrillation. Moderate bilateral hip joint effusions. Impression: 1. Again identified is a prominent fracture deformity of the left greater trochanter with comminution of the fracture fragments. There is a suggestion of an intertrochanteric component seen on series 2, image 18 with curvilinear decreased T1 signal extending from the fracture site at the base of the femoral neck towards the lesser trochanter. There appears to be underlying osseous lesions at the level of the greater trochanter measuring up to 4 centimeters as well as at the level of the lesser trochanter extending to the medial cortex of the proximal medullary cavity measuring up to 4 centimeters. 2. Again identified are fracture deformities of the superior and inferior left pubic ramus. 3. Extensive osseous metastatic disease throughout the bony pelvis and bilateral hips including a large area of marrow signal abnormality concerning for osseous metastatic disease extending from the left superior acetabulum to the iliac bone measuring up to 5 centimeters. Additional osseous lesions seen but not limited to the L4 vertebral body, right bony iliac bone and SI, sacrum, multiple lesions in the right femoral neck, right greater trochanter, and right proximal medullary cavities. Additional smaller osseous lesion seen within the medullary cavity of the left proximal femur and left inferior pubic bone. 4. Prominent reticulation and edema within the soft tissues and musculature of the left thigh suggestive for a myositis and or partial muscle tearing. 5. Moderate degenerative changes of the left hip joint space with joint space narrowing and cartilage fibrillation. 6. Moderate bilateral hip joint effusions.
[2017-06-29] MEDS ORDERED: Albuterol-Ipratrop 3 mg / 0.5 (3 ml) UD INH PRN (14:14)
[2017-06-29] MEDS ORDERED: Ergocalciferol 50,000 Intl Units Cap PO SCH (14:15)
[2017-06-29] MEDS ORDERED: WATER IV ONE (15:43)
[2017-06-29] MEDS ORDERED: POTASSIUM PHOSPHATE IV ONE (15:43)
[2017-06-29] MEDS ORDERED: DEXTROSE IV ONE (15:43)
[2017-06-29] MEDS: Fluticasone-Salmeterol 250-50mcg Diskus INH SCH (16:06)
[2017-06-29] MEDS: Calcium Carbonate 1,250 MG/5 ML SUSP PO SCH ×2 (16:06→16:14)
--- NOTE | 2017-06-29 20:06 | CP.PCM.PN ---
Subjective - Date & Time of Evaluation Date of Evaluation: 06/29/17 Time of Evaluation: 18:35 - Subjective Subjective: Requesting to go home, no pain. Objective - Vital Signs/Intake and Output Vital Signs (last 24 hours): Temp Pulse Resp BP Pulse Ox 98.1 F 92 H 18 114/65 96 06/29/17 08:23 06/29/17 08:23 06/29/17 08:23 06/29/17 08:23 06/29/17 08:23 - Medications Medications: Current Medications Albuterol/Ipratropium (Duoneb 3 Mg/0.5 Mg (3 Ml) Ud) 3 ml INH RQ6 PRN PRN Reason: Shortness of Breath Last Admin: 06/29/17 15:28 Dose: 3 ml Calcium Carbonate (Calcium Carbonate Susp) 1,250 mg PO DAILY [facility] Last Admin: 06/29/17 16:14 Dose: Not Given Enoxaparin Sodium (Lovenox) 40 mg SC DAILY [facility] PRN Reason: Protocol Last Admin: 06/29/17 09:15 Dose: 40 mg Ergocalciferol (Drisdol 50,000 Intl Units Cap) 1 cap PO Q7D [facility] Last Admin: 06/29/17 16:07 Dose: 1 cap Metronidazole (Flagyl 500mg/100ml Ns) 100 mls @ 100 mls/hr IVPB Q8@0000,0800, 1400 [facility] PRN Reason: Protocol Last Admin: 06/29/17 09:14 Dose: 100 mls/hr Ceftriaxone Sodium 1 gm/ (Sodium Chloride) 100 mls @ 100 mls/hr IVPB DAILY [facility] PRN Reason: Protocol Last Admin: 06/29/17 11:10 Dose: 100 mls/hr Lactated Ringer's (Lactated Ringer's) 1,000 mls @ 80 mls/hr IV .[id number] [facility] Last Admin: 06/28/17 23:00 Dose: 80 mls/hr Potassium Phosphate 4.5 mmole/ (Dextrose) 251.5 mls @ 42 mls/hr IV .Q6H ONE Stop: 06/29/17 21:42 Pantoprazole Sodium (Protonix Ec Tab) 40 mg PO DAILY [facility] Last Admin: 06/29/17 09:15 Dose: 40 mg Fluticasone/Salmeterol (Advair Diskus 250/50) 1 puff INH DAILY [facility] Last Admin: 06/29/17 16:06 Dose: 1 puff - Labs Labs: 06/29/17 05:30 06/29/17 15:00 PT 13.4 Seconds (9.8-13.1) H 06/24/17 17:35 INR 1.2 (0.9-1.2) 06/24/17 17:35 APTT 25.1 Seconds (25.6-37.1) L 06/24/17 17:35 - Head Exam Head Exam: ATRAUMATIC - Eye Exam Eye Exam: Normal appearance - ENT Exam ENT Exam: Mucous Membranes Dry - Respiratory Exam Respiratory Exam: NORMAL BREATHING PATTERN - Cardiovascular Exam Cardiovascular Exam: +S1, +S2 - GI/Abdominal Exam GI & Abdominal Exam: Normal Bowel Sounds Assessment and Plan (1) Pathologic fracture Assessment & Plan: secondary to bone mets and fall deferred orthopedic surgery on outpatient Xge[facility] Status: Acute (2) Anemia Assessment & Plan: chronic disease, bone mets, recent chemotherapy Status: Chronic (3) Breast cancer Assessment & Plan: stage IV triple negative, bone mets outpatient treatment Status: Acute
[2017-06-29 23:41] VITALS: RESP 20; O2SAT 99
[2017-06-30] MEDS: metroNIDAZOLE 500mg/100ml NS 100 ML IVPB SCH ×2 (06:10→12:13)
[2017-06-30 06:49] LABS: BASO % 0.3 % (0.0-2.0); EOS % 0.2 % (0.0-4.0); HEMOGLOBIN 9.5 g/dL (12.0-16.0); LYMPH # 1.8 K/uL (1.0-4.3); LYMPH % 28.2 % (20.0-40.0); MEAN CELL VOLUME 83.1 fl (81.0-99.0); MEAN CORPUSCULAR HEMOGLOBIN 29.4 pg (27.0-31.0); MEAN CORPUSCULAR HGB CONC 35.4 g/dL (33.0-37.0); MEAN PLATELET VOLUME 7.9 fl (7.2-11.7); MONO % 16.4 % (0.0-10.0); NEUT # 3.5 K/uL (1.8-7.0); NEUT % 54.9 % (50.0-75.0); NRBC % 0.1 % (0.0-0.0); RBC 3.23 Mil/uL (3.80-5.20); RED CELL DISTRIBUTION WIDTH 16.4 % (11.5-14.5); WHITE BLOOD COUNT 6.3 K/uL (4.8-10.8)
[2017-06-30 07:32] LABS: ALB/GLOB RATIO 0.9 (1.0-2.1); ALBUMIN 2.6 g/dL (3.5-5.0); ALT/SGPT 28 U/L (9-52); AST/SGOT 28 U/L (14-36); BLOOD UREA NITROGEN 5 mg/dl (7-17); CALCIUM 6.7 mg/dL (8.4-10.2); GFR AFRICAN-AMERICAN > 60; GFR NON-AFRICAN AMERICAN > 60
[2017-06-30] MEDS: Pantoprazole 40 mg EC Tab PO SCH (09:14)
[2017-06-30] MEDS: Calcium Carbonate 1,250 MG/5 ML SUSP PO SCH (09:14)
[2017-06-30] MEDS: Fluticasone-Salmeterol 250-50mcg Diskus INH SCH (09:14)
[2017-06-30] MEDS: Enoxaparin 40 mg Syringe SC SCH (09:15)
--- NOTE | 2017-06-30 11:41 | CP.PCM.PN ---
Subjective - Date & Time of Evaluation Date of Evaluation: 06/30/17 Time of Evaluation: 08:32 - Subjective Subjective: Patient seen and evaluated this morning at bedside, no acute overnight events reported, patient hard of hearing, no cooperative with exam. Denies pain. Afebrile. Objective - Vital Signs/Intake and Output Vital Signs (last 24 hours): Temp Pulse Resp BP Pulse Ox 97.6 F 81 20 99/62 L 99 06/30/17 08:22 06/30/17 08:22 06/30/17 08:22 06/30/17 08:22 06/30/17 08:22 - Medications Medications: Current Medications Albuterol/Ipratropium (Duoneb 3 Mg/0.5 Mg (3 Ml) Ud) 3 ml INH RQ6 PRN PRN Reason: Shortness of Breath Last Admin: 06/29/17 15:28 Dose: 3 ml Calcium Carbonate (Calcium Carbonate Susp) 1,250 mg PO DAILY [facility] Last Admin: 06/30/17 09:14 Dose: 1,250 mg Enoxaparin Sodium (Lovenox) 40 mg SC DAILY [facility] PRN Reason: Protocol Last Admin: 06/30/17 09:15 Dose: 40 mg Ergocalciferol (Drisdol 50,000 Intl Units Cap) 1 cap PO Q7D [facility] Last Admin: 06/29/17 16:07 Dose: 1 cap Famotidine (Pepcid) 20 mg PO DAILY [facility] Ceftriaxone Sodium 1 gm/ (Sodium Chloride) 100 mls @ 100 mls/hr IVPB DAILY [facility] PRN Reason: Protocol Stop: 07/07/17 23:59 Last Admin: 06/30/17 09:15 Dose: 100 mls/hr Lactated Ringer's (Lactated Ringer's) 1,000 mls @ 80 mls/hr IV .[id number] [facility] Last Admin: 06/28/17 23:00 Dose: 80 mls/hr Metronidazole (Flagyl 500mg/100ml Ns) 100 mls @ 100 mls/hr IVPB Q8@0500,1300, 2100 [facility] PRN Reason: Protocol Stop: 06/30/17 23:59 Last Admin: 06/30/17 06:10 Dose: 100 mls/hr Pantoprazole Sodium (Protonix Ec Tab) 40 mg PO DAILY [facility] Last Admin: 06/30/17 09:14 Dose: 40 mg Fluticasone/Salmeterol (Advair Diskus 250/50) 1 puff INH DAILY [facility] Last Admin: 06/30/17 09:14 Dose: 1 puff - Labs Labs: 06/30/17 05:30 06/30/17 05:30 PT 13.4 Seconds (9.8-13.1) H 06/24/17 17:35 INR 1.2 (0.9-1.2) 06/24/17 17:35 APTT 25.1 Seconds (25.6-37.1) L 06/24/17 17:35 - Constitutional Appears: No Acute Distress - Head Exam Head Exam: NORMAL INSPECTION - Eye Exam Eye Exam: EOMI, PERRL - Respiratory Exam Respiratory Exam: Clear to Ausculation Bilateral, NORMAL BREATHING PATTERN - Cardiovascular Exam Cardiovascular Exam: REGULAR RHYTHM, +S1, +S2 - GI/Abdominal Exam GI & Abdominal Exam: Soft, Normal Bowel Sounds. absent: Distended, Tenderness - Extremities Exam Extremities Exam: absent: Pedal Edema - Neurological Exam Neurological Exam: Awake Assessment and Plan - Assessment and Plan (Free Text) Assessment: 81 yo F with PMH of DM2, HTN, HLD, anxiety and breast cancer admitted for UTI. L hip fracture appreciated in Hip CT and MRI. Pt family decline surgery and prefers conservative measures only, strict NWB, patient most likely going to [facility]. 1- L Hip fracture -CT- fractures including greater trochanter and left superior and inferior pubic rami -Hip MRI and lower extremity MRI: extensive metastatic lesions. L hip fx -Bony lesions like secondary to metastatic disease -Ortho Dr. Johnathan Nolasco on board recommds strict NWB LLE, family decline surgery -Pending PT eval 2- Urinary tract infection - MIVF - c/w Rocephin 1g daily to complete 14 days (day 7) - Blood culture negative - Urine culture Klebsiella spp. 3- Left colitis - seen on admission CT - c/w Flagyl 500 mg Q8 to complete 7days today. 4- Anemia - H/H 9.5/26.9 - likely secondary chronic disease - Monitor CBC with diff 4/4 5- Leukopenia - H/O, Dr. Irizarry consulted, appreciate input - secondary to chemotherapy 6- Hypophosphatemia, resolved - phos 2.7 - f/u CMP, Phos 4/ 7- Hypokalemia, resolved - K 3.8 - f/u cmp / 8 - DVT prophylaxis - Lovenox.
--- NOTE | 2017-06-30 12:03 | RAD ---
PROCEDURE: Left Hip X-ray Radiographs. HISTORY: fracture COMPARISON: None. FINDINGS: BONES: The pelvic ring is intact. There is diffuse bone demineralization. There is acute comminuted nondisplaced fracture in the left superior pubic ramus. There is an acute nondisplaced fracture in the left greater trochanter. JOINTS: There is mild degenerative osteoarthrosis in the hip joints. There is mild osteitis pubis. SOFT TISSUES: Normal. OTHER FINDINGS: None. IMPRESSION: Acute nondisplaced fracture in the left greater trochanter. Acute comminuted nondisplaced fracture in the left superior pubic ramus. No dislocation.
[2017-06-30] MEDS ORDERED: Potassium & Sodium Phosphate PO SCH (13:00)
--- NOTE | 2017-06-30 13:36 | CP.PCM.PN ---
Subjective - Date & Time of Evaluation Date of Evaluation: 06/30/17 Time of Evaluation: 08:00 - Subjective Subjective: Patient seen and examined at bedside. Pain well controlled. Pt poor historian. No acute events overnight Objective - Vital Signs/Intake and Output Vital Signs (last 24 hours): Temp Pulse Resp BP Pulse Ox 97.6 F 81 20 99/62 L 99 06/30/17 08:22 06/30/17 08:22 06/30/17 08:22 06/30/17 08:22 06/30/17 08:22 - Medications Medications: Current Medications Albuterol/Ipratropium (Duoneb 3 Mg/0.5 Mg (3 Ml) Ud) 3 ml INH RQ6 PRN PRN Reason: Shortness of Breath Last Admin: 06/29/17 15:28 Dose: 3 ml Calcium Carbonate (Calcium Carbonate Susp) 1,250 mg PO DAILY [facility] Last Admin: 06/30/17 09:14 Dose: 1,250 mg Enoxaparin Sodium (Lovenox) 40 mg SC DAILY [facility] PRN Reason: Protocol Last Admin: 06/30/17 09:15 Dose: 40 mg Ergocalciferol (Drisdol 50,000 Intl Units Cap) 1 cap PO Q7D [facility] Last Admin: 06/29/17 16:07 Dose: 1 cap Famotidine (Pepcid) 20 mg PO DAILY [facility] Last Admin: 06/30/17 12:13 Dose: 20 mg Ceftriaxone Sodium 1 gm/ (Sodium Chloride) 100 mls @ 100 mls/hr IVPB DAILY [facility] PRN Reason: Protocol Stop: 07/07/17 23:59 Last Admin: 06/30/17 09:15 Dose: 100 mls/hr Lactated Ringer's (Lactated Ringer's) 1,000 mls @ 80 mls/hr IV .[id number] [facility] Last Admin: 06/28/17 23:00 Dose: 80 mls/hr Metronidazole (Flagyl 500mg/100ml Ns) 100 mls @ 100 mls/hr IVPB Q8@0500,1300, 2100 [facility] PRN Reason: Protocol Stop: 06/30/17 23:59 Last Admin: 06/30/17 12:13 Dose: 100 mls/hr Pantoprazole Sodium (Protonix Ec Tab) 40 mg PO DAILY [facility] Last Admin: 06/30/17 09:14 Dose: 40 mg Potassium Phos/Sodium Phos (Neutra-Phos) 1 pkt PO QID [facility] Fluticasone/Salmeterol (Advair Diskus 250/50) 1 puff INH DAILY [facility] Last Admin: 06/30/17 09:14 Dose: 1 puff - Labs Labs: 06/30/17 05:30 06/30/17 05:30 PT 13.4 Seconds (9.8-13.1) H 06/24/17 17:35 INR 1.2 (0.9-1.2) 06/24/17 17:35 APTT 25.1 Seconds (25.6-37.1) L 06/24/17 17:35 - Extremities Exam Additional comments: R hip: no tenderness groin/GT painless PROM sensation intact DP/SP/TN motor intact TA/G pedal pulses intact comp soft/NT L hip: no tenderness groin/GT painless PROM sensation intact DP/SP/TN motor intact TA/G pedal pulses intact comp soft/NT Assessment and Plan (1) Fracture of greater trochanter of left femur Assessment & Plan: -continue with conservative mgmt -Strict NWB LLE -clear to d/c to rehab from ortho s/p -above d/w Dr. Bradley in agreement Status: Acute
--- NOTE | 2017-06-30 16:22 | CP.PCM.DIS ---
Provider - Provider Date of Admission: 06/24/17 20:56 Attending physician: Maritza Bingham MD Time Spent in preparation of Discharge (in minutes): 20 Diagnosis - Discharge Diagnosis (1) Abdominal pain Status: Acute Hospital Course - Lab Results Lab Results: Micro Results 06/24/17 17:35 Blood Blood Culture - Final NO GROWTH AFTER 5 DAYS 06/24/17 17:35 Blood Gram Stain - Final TEST NOT PERFORMED 06/24/17 17:35 Blood Blood Culture - Final NO GROWTH AFTER 5 DAYS 06/24/17 17:35 Blood Gram Stain - Final TEST NOT PERFORMED 06/26/17 14:59 Nose MRSA Culture (Admit) - Final MRSA NOT DETECTED 06/25/17 06:06 Naris MRSA Culture (Admit) - Final MRSA NOT DETECTED 06/24/17 18:20 Urine,Clean Catch Urine Culture - Final Klebsiella Pneumoniae Ssp Pneu Most Recent Lab Values WBC 6.3 K/uL (4.8-10.8) D 06/30/17 05:30 RBC 3.23 Mil/uL (3.80-5.20) L 06/30/17 05:30 Hgb 9.5 g/dL (12.0-16.0) L 06/30/17 05:30 Hct 26.9 % (34.0-47.0) L 06/30/17 05:30 MCV 83.1 fl (81.0-99.0) 06/30/17 05:30 MCH 29.4 pg (27.0-31.0) 06/30/17 05:30 MCHC 35.4 g/dL (33.0-37.0) 06/30/17 05:30 RDW 16.4 % (11.5-14.5) H 06/30/17 05:30 Plt Count 377 K/uL (130-400) 06/30/17 05:30 MPV 7.9 fl (7.2-11.7) 06/30/17 05:30 Neut % (Auto) 54.9 % (50.0-75.0) 06/30/17 05:30 Lymph % (Auto) 28.2 % (20.0-40.0) 06/30/17 05:30 [place] % (Auto) 16.4 % (0.0-10.0) H 06/30/17 05:30 Eos % (Auto) 0.2 % (0.0-4.0) 06/30/17 05:30 Baso % (Auto) 0.3 % (0.0-2.0) 06/30/17 05:30 Neut # (Auto) 3.5 K/uL (1.8-7.0) 06/30/17 05:30 Lymph # (Auto) 1.8 K/uL (1.0-4.3) 06/30/17 05:30 [place] # (Auto) 1.0 K/uL (0.0-0.8) H 06/30/17 05:30 Eos # (Auto) 0.0 K/uL (0.0-0.7) 06/30/17 05:30 Baso # (Auto) 0.0 K/uL (0.0-0.2) 06/30/17 05:30 PT 13.4 Seconds (9.8-13.1) H 06/24/17 17:35 INR 1.2 (0.9-1.2) 06/24/17 17:35 APTT 25.1 Seconds (25.6-37.1) L 06/24/17 17:35 pO2 17 mm/Hg (30-55) L 06/24/17 20:41 VBG pH 7.38 (7.32-7.43) 06/24/17 20:41 VBG pCO2 33 mmHg (40-60) L 06/24/17 20:41 VBG HCO3 19.5 mmol/L 06/24/17 20:41 VBG Total CO2 20.5 mmol/L (22-28) L 06/24/17 20:41 VBG O2 Sat (Calc) 33.1 % (40-65) L 06/24/17 20:41 VBG Base Excess -4.8 mmol/L (0.0-2.0) L 06/24/17 20:41 VBG Potassium 4.4 mmol/L (3.6-5.2) 06/24/17 20:41 Sodium 138.0 mmol/L (132-148) 06/24/17 20:41 Chloride 109.0 mmol/L (98-107) H 06/24/17 20:41 Glucose 135 mg/dL (65-105) H 06/24/17 20:41 Lactate 2.3 mmol/L (0.7-2.1) H 06/24/17 20:41 FiO2 21.0 % 06/24/17 20:41 Sodium 137 mmol/l (132-148) 06/30/17 05:30 Potassium 3.8 MMOL/L (3.6-5.0) 06/30/17 05:30 Chloride 106 mmol/L (98-107) 06/30/17 05:30 Carbon Dioxide 22 mmol/L (22-30) 06/30/17 05:30 Anion Gap 13 (10-20) 06/30/17 05:30 BUN 5 mg/dl (7-17) L 06/30/17 05:30 Creatinine 0.4 mg/dl (0.7-1.2) L 06/30/17 05:30 Est GFR ( Amer) > 60 06/30/17 05:30 Est GFR (Non-Af Amer) > 60 06/30/17 05:30 POC Glucose (mg/dL) 81 mg/dL (65-110) 06/30/17 12:03 Random Glucose 92 mg/dL (65-105) 06/30/17 05:30 Lactic Acid 1.9 MMOL/L (0.7-2.1) 06/25/17 13:49 Calcium 6.7 mg/dL (8.4-10.2) L 06/30/17 05:30 Ionized Calcium 4.2 mg/dL (4.80-5.60) L 06/25/17 18:28 Phosphorus 2.7 mg/dl (2.5-4.5) 06/30/17 05:30 Magnesium 2.0 MG/DL (1.6-2.3) 06/30/17 05:30 Total Bilirubin 0.3 mg/dl (0.2-1.3) 06/30/17 05:30 AST 28 U/L (14-36) 06/30/17 05:30 ALT 28 U/L (9-52) 06/30/17 05:30 Alkaline Phosphatase 69 U/L (38-126) 06/30/17 05:30 Troponin I 0.0440 ng/mL (0.00-0.120) 06/24/17 17:35 Total Protein 5.4 G/DL (6.3-8.2) L 06/30/17 05:30 Albumin 2.6 g/dL (3.5-5.0) L 06/30/17 05:30 Globulin 2.8 gm/dL (2.2-3.9) 06/30/17 05:30 Albumin/Globulin Ratio 0.9 (1.0-2.1) L 06/30/17 05:30 25-OH Vitamin D Total 14.5 NG/ML (30.0-100.0) L 06/25/17 18:28 Calcium (PTH Intact) 6.5 mg/dL (8.6-10.4) L 06/25/17 18:28 PTH w/Ion &Tot Calcium 250 pg/mL (14-64) H 06/25/17 18:28 Venous Blood Potassium 4.4 mmol/L (3.6-5.2) 06/24/17 20:41 Urine Color Jacinta (YELLOW) 06/24/17 18:00 Urine Clarity Cloudy (Clear) 06/24/17 18:00 Urine pH 5.0 (5.0-8.0) 06/24/17 18:00 Ur Specific [place] 1.030 (1.003-1.030) 06/24/17 18:00 Urine Protein 100 mg/dL (NEGATIVE) 06/24/17 18:00 Urine Glucose (UA) Neg mg/dL (Normal) 06/24/17 18:00 Urine Ketones Trace mg/dL (NEGATIVE) 06/24/17 18:00 Urine Blood Moderate (NEGATIVE) 06/24/17 18:00 Urine Nitrate Negative (NEGATIVE) 06/24/17 18:00 Urine Bilirubin Moderate (NEGATIVE) 06/24/17 18:00 Urine Urobilinogen 4.0 mg/dL (0.2-1.0) H 06/24/17 18:00 Ur Leukocyte Esterase Trace Colette/uL (Negative) 06/24/17 18:00 Urine RBC (Auto) 115 /hpf (0-3) H 06/24/17 18:00 Urine Microscopic WBC 25 /hpf (0-5) H 06/24/17 18:00 Ur Squamous Epith Cells 30 /hpf (0-5) H 06/24/17 18:00 Urine Bacteria Mod (<OCC) H 06/24/17 18:00 Blood Type AB NEGATIVE 06/26/17 11:15 Antibody Screen Negative 06/26/17 11:15 BBK History Checked Patient has bt 06/26/17 11:15 - Hospital Course Hospital Course: 81 yo F with PMH of DM2, HTN, HLD, anxiety and breast cancer admitted for UTI. L hip fracture appreciated in Hip CT and MRI. Pt family decline surgery and prefers conservative measures only. L colitis s/p flagyl 7 days. anemia 2/2 chronic disease. Resolved hypokalemia and hypophosphatemia. f/u labs Pt transferred to [facility]. F/U with PCP Dr Ramon on 07/31/17 at 8:20am at [facility]. Discharge Exam - Head Exam Head Exam: NORMAL INSPECTION Discharge Plan - Discharge Medications Prescriptions: cefTRIAXone 1 gm [Rocephin 1 gram IVPB (D5W)] 1 gm IVPB DAILY 7 Days #1 bag - Follow Up Plan Condition: FAIR Disposition: HOME/ ROUTINE Patient education suggested?: Yes Instructions: Urinary Tract Infection in Women (DC) Additional Instructions: F/U with PCP Dr Ramon on 07/31/17 at 8:20am at [facility]. daily Labs: CBC, BMP, Phosphorus and Magnesium, then supplement as needed Referrals: [facility] [place] [Outside]
[2017-06-30 16:56] VITALS: BP 103/63; PULSE 82; TEMP 97.8
--- NOTE | 2017-06-30 18:39 | CP.PCM.PN ---
Subjective - Date & Time of Evaluation Date of Evaluation: 06/30/17 Time of Evaluation: 14:15 - Subjective Subjective: Denies pain. Objective - Vital Signs/Intake and Output Vital Signs (last 24 hours): Temp Pulse Resp BP Pulse Ox 97.8 F 82 20 103/63 99 06/30/17 15:30 06/30/17 15:30 06/30/17 15:30 06/30/17 15:30 06/30/17 15:30 - Labs Labs: 06/30/17 05:30 06/30/17 05:30 PT 13.4 Seconds (9.8-13.1) H 06/24/17 17:35 INR 1.2 (0.9-1.2) 06/24/17 17:35 APTT 25.1 Seconds (25.6-37.1) L 06/24/17 17:35 - Head Exam Head Exam: ATRAUMATIC - Eye Exam Eye Exam: Normal appearance - ENT Exam ENT Exam: Mucous Membranes Dry - Respiratory Exam Respiratory Exam: NORMAL BREATHING PATTERN - Cardiovascular Exam Cardiovascular Exam: +S1, +S2 - GI/Abdominal Exam GI & Abdominal Exam: Normal Bowel Sounds Assessment and Plan (1) Pathologic fracture Assessment & Plan: bone metastasis deferred surgery Status: Acute (2) Anemia Assessment & Plan: chronic disease, bone mets, recent chemotherapy Status: Chronic (3) Breast cancer Assessment & Plan: stage IV triple negative outpatient chemotherapy Status: Acute
== END 2017-06-30 16:45 | DRG 872 ==
LOC: H.ER 15:45 → H.ERHOLD 20:56 → H.ICU/CCU 06-25 00:24 → H.MEDSURG1 06-26 15:37
PROVIDERS: ADMIT Family Medicine Geriatric Medicine; ATTEND Family Medicine Geriatric Medicine
DX: A41.9 Sepsis, unspecified organism (principal); C79.51 Secondary malignant neoplasm of bone; K51.50 Left sided colitis without complications; N12 Tubulo-interstitial nephritis, not specified as acute or chronic; M84.58XA Pathological fracture in neoplastic disease, other specified site, initial encounter for fracture; M84.552A Pathological fracture in neoplastic disease, left femur, initial encounter for fracture; N39.0 Urinary tract infection, site not specified; C50.911 Malignant neoplasm of unspecified site of right female breast; D63.8 Anemia in other chronic diseases classified elsewhere; D70.9 Neutropenia, unspecified; E11.9 Type 2 diabetes mellitus without complications; E78.00 Pure hypercholesterolemia, unspecified; E78.5 Hyperlipidemia, unspecified; E83.39 Other disorders of phosphorus metabolism; E87.6 Hypokalemia; F02.80 Dementia in other diseases classified elsewhere, unspecified severity, without behavioral disturbance, psychotic disturbance, mood disturbance, and anxiety; F41.9 Anxiety disorder, unspecified; G30.9 Alzheimer's disease, unspecified; H91.90 Unspecified hearing loss, unspecified ear; I10 Essential (primary) hypertension; J44.9 Chronic obstructive pulmonary disease, unspecified; R65.20 Severe sepsis without septic shock; T45.1X5A Adverse effect of antineoplastic and immunosuppressive drugs, initial encounter; Z79.82 Long term (current) use of aspirin; Z87.891 Personal history of nicotine dependence; F32.9 Major depressive disorder, single episode, unspecified; M19.90 Unspecified osteoarthritis, unspecified site; M25.462 Effusion, left knee; R00.0 Tachycardia, unspecified; D70.1 Agranulocytosis secondary to cancer chemotherapy; D64.81 Anemia due to antineoplastic chemotherapy; E83.51 Hypocalcemia